=== PATIENT | female | born 1940 | race Caucasian/White ===

== ENCOUNTER 2020-02-02 08:08 | Inpatient (IN) | payer MEDICARE ==
[2020-02-02] MEDS ORDERED: IPRATROPIUM-ALBUTEROL 3 ML NEB INHALATION STA (08:30)
--- NOTE | 2020-02-02 08:32 | ED ---
General Adult HPI - General Chief complaint: Shortness of Breath Stated complaint: HEIDI Time Seen by Provider: 02/02/20 08:18 Source: patient, family, RN notes reviewed Mode of arrival: wheelchair Limitations: no limitations - History of Present Illness Initial comments: Patient is a pleasant 80-year-old female presenting to the emergency Department with complaints of difficulty in breathing. Onset of symptoms was just this morning. Patient felt fine when she went to bed last night. No fever. No cough. No chest pain. No history of similar symptoms previously. Patient is a smoker. Patient does not use inhalers at home. No leg pain or leg swelling. - Related Data Home Medications Medication Instructions Recorded Confirmed No Known Home Medications 02/02/20 02/02/20 Allergies Allergy/AdvReac Type Severity Reaction Status Date / Time Penicillins Allergy Rash/Hives Verified 02/02/20 09:50 Review of Systems ROS Statement: Those systems with pertinent positive or pertinent negative responses have been documented in the HPI. ROS Other: All systems not noted in ROS Statement are negative. Constitutional: Denies: fever Eyes: Denies: eye pain ENT: Denies: ear pain Respiratory: Reports: dyspnea. Denies: cough Cardiovascular: Denies: chest pain Endocrine: Denies: fatigue Gastrointestinal: Denies: abdominal pain Genitourinary: Denies: dysuria Musculoskeletal: Denies: back pain Skin: Denies: rash Neurological: Denies: weakness Past Medical History Past Medical History: Hypertension Past Surgical History: Hysterectomy Smoking Status: Current every day smoker Past Alcohol Use History: None Reported Past Drug Use History: None Reported General Exam Limitations: no limitations General appearance: alert, in no apparent distress Head exam: Present: normocephalic Eye exam: Present: normal appearance Neck exam: Present: normal inspection Respiratory exam: Present: wheezes, decreased breath sounds Cardiovascular Exam: Present: irregular rhythm GI/Abdominal exam: Present: soft. Absent: tenderness Extremities exam: Present: normal inspection. Absent: pedal edema, calf tenderness Neurological exam: Present: alert Psychiatric exam: Present: normal affect, normal mood Skin exam: Present: normal color Course Vital Signs 02/02/20 02/02/20 08:09 08:38 Temperature 97.5 F L Pulse Rate 79 90 Respiratory 24 16 Rate Blood Pressure 179/53 193/90 O2 Sat by Pulse 92 L 98 Oximetry - Reevaluation(s) Reevaluation #1: 02/02/20 10:02 Repeat EKG shows sinus rhythm at 81 with frequent premature atrial complexes. TX 124. QRS 68. QT 420. QTc 487. LVH criteria. Normal axis. Q waves V1 and V2. No acute ST change. EKG Findings - EKG Comments: EKG Findings:: Sinus rhythm and 91 with frequent premature supraventricular complexes. TX 200. QRS 62. QT 372. QTC 457. Normal axis. LVH criteria. Repolarization changes. Q waves V1 and V2. Medical Decision Making - Medical Decision Making Patient reevaluated and does not feel any better following inhaler. Lung sounds remained diminished. Pulse ox decreased to 94% on room air and patient has increased dyspnea. Symptoms improved with oxygen. Patient updated. Case discussed with Dr. Ortiz, who will admit covering for Dr. Escalante. - Lab Data Result diagrams: 02/02/20 08:35 02/02/20 08:35 Lab Results 02/02/20 02/02/20 02/02/20 Range/Units 08:35 08:35 08:35 WBC 9.5 (3.8-10.6) k/uL RBC 4.36 (3.80-5.40) m/uL Hgb 14.3 (11.4-16.0) gm/dL Hct 43.9 (34.0-46.0) % MCV 100.6 H (80.0-100.0) fL MCH 32.8 (25.0-35.0) pg MCHC 32.6 (31.0-37.0) g/dL RDW 13.5 (11.5-15.5) % Plt Count 221 (150-450) k/uL MPV 9.1 Neutrophils % 77 % Lymphocytes % 9 % Monocytes % 9 % Eosinophils % 1 % Basophils % 1 % Neutrophils # 7.3 (1.3-7.7) k/uL Lymphocytes # 0.9 L (1.0-4.8) k/uL Monocytes # 0.9 (0-1.0) k/uL Eosinophils # 0.1 (0-0.7) k/uL Basophils # 0.1 (0-0.2) k/uL PT 10.0 (9.0-12.0) sec INR 1.0 (<1.2) APTT 23.3 (22.0-30.0) sec D-Dimer 0.46 (<0.60) mg/L FEU Sodium 136 L (137-145) mmol/L Potassium 5.6 H (3.5-5.1) mmol/L Chloride 105 (98-107) mmol/L Carbon Dioxide 25 (22-30) mmol/L Anion Gap 6 mmol/L BUN 17 (7-17) mg/dL Creatinine 0.59 (0.52-1.04) mg/dL Est GFR (CKD-EPI)AfAm >90 (>60 ml/min/1.73 sqM) Est GFR (CKD-EPI)NonAf 88 (>60 ml/min/1.73 sqM) Glucose 98 (74-99) mg/dL Plasma Lactic Acid José Miguel (0.7-2.0) mmol/L Calcium 9.8 (8.4-10.2) mg/dL Magnesium 1.8 (1.6-2.3) mg/dL Total Bilirubin 1.3 (0.2-1.3) mg/dL AST 34 (14-36) U/L ALT 10 (4-34) U/L Alkaline Phosphatase 85 (38-126) U/L Lactate Dehydrogenase 928 H (313-618) U/L NT-Pro-B Natriuret Pep pg/mL Total Protein 8.0 (6.3-8.2) g/dL Albumin 4.2 (3.5-5.0) g/dL Coronavirus (PCR) (Not Detectd) 02/02/20 02/02/20 02/02/20 Range/Units 08:35 08:35 09:05 WBC (3.8-10.6) k/uL RBC (3.80-5.40) m/uL Hgb (11.4-16.0) gm/dL Hct (34.0-46.0) % MCV (80.0-100.0) fL MCH (25.0-35.0) pg MCHC (31.0-37.0) g/dL RDW (11.5-15.5) % Plt Count (150-450) k/uL MPV Neutrophils % % Lymphocytes % % Monocytes % % Eosinophils % % Basophils % % Neutrophils # (1.3-7.7) k/uL Lymphocytes # (1.0-4.8) k/uL Monocytes # (0-1.0) k/uL Eosinophils # (0-0.7) k/uL Basophils # (0-0.2) k/uL PT (9.0-12.0) sec INR (<1.2) APTT (22.0-30.0) sec D-Dimer (<0.60) mg/L FEU Sodium (137-145) mmol/L Potassium (3.5-5.1) mmol/L Chloride (98-107) mmol/L Carbon Dioxide (22-30) mmol/L Anion Gap mmol/L BUN (7-17) mg/dL Creatinine (0.52-1.04) mg/dL Est GFR (CKD-EPI)AfAm (>60 ml/min/1.73 sqM) Est GFR (CKD-EPI)NonAf (>60 ml/min/1.73 sqM) Glucose (74-99) mg/dL Plasma Lactic Acid José Miguel 0.9 (0.7-2.0) mmol/L Calcium (8.4-10.2) mg/dL Magnesium (1.6-2.3) mg/dL Total Bilirubin (0.2-1.3) mg/dL AST (14-36) U/L ALT (4-34) U/L Alkaline Phosphatase (38-126) U/L Lactate Dehydrogenase (313-618) U/L NT-Pro-B Natriuret Pep 3230 pg/mL Total Protein (6.3-8.2) g/dL Albumin (3.5-5.0) g/dL Coronavirus (PCR) Not Detected (Not Detectd) - Radiology Data Radiology results: image reviewed (Chest x-ray shows interstitial changes, COPD) Disposition Clinical Impression: Acute exacerbation of chronic obstructive pulmonary disease Disposition: ADMITTED IP TO THIS HOSP Is patient prescribed a controlled substance at d/c from ED?: No Referrals: Chong Zuluaga DO [Primary Care Provider] - 1-2 days Decision Time: 10:05
[2020-02-02] MEDS ORDERED: ALBUTEROL HFA INHALER INHALATION STA (08:46)
[2020-02-02 09:02] LABS: Basophils # (A) 0.1 k/uL (0-0.2); Basophils % (A) 1 %; Eosinophils # (A) 0.1 k/uL (0-0.7); Eosinophils % (A) 1 %; HCT 43.9 % (34.0-46.0); HGB 14.3 gm/dL (11.4-16.0); Lymphocytes # (A) 0.9 k/uL (1.0-4.8); Lymphocytes % (A) 9 %; MCH 32.8 pg (25.0-35.0); MCHC 32.6 g/dL (31.0-37.0); MCV 100.6 fL (80.0-100.0); Mean Platelet Volume 9.1; Monocytes # (A) 0.9 k/uL (0-1.0); Monocytes % (A) 9 %; Neutrophils # (A) 7.3 k/uL (1.3-7.7); Neutrophils % (A) 77 %; Platelet Count 221 k/uL (150-450); RBC 4.36 m/uL (3.80-5.40); RDW 13.5 % (11.5-15.5); WBC 9.5 k/uL (3.8-10.6)
[2020-02-02 09:13] LABS: ALT 10 U/L (4-34); AST 34 U/L (14-36); African American GFR (CKD) >90 (>60 ml/min/1.73 sqM); Albumin 4.2 g/dL (3.5-5.0); Alkaline Phosphatase 85 U/L (38-126); Anion Gap 6 mmol/L; Blood Urea Nitrogen 17 mg/dL (7-17); Calcium 9.8 mg/dL (8.4-10.2); Carbon Dioxide 25 mmol/L (22-30); Chloride 105 mmol/L (98-107); Glucose 98 mg/dL (74-99); LDH 928 U/L (313-618); Magnesium 1.8 mg/dL (1.6-2.3); Non-African American GFR(CKD) 88 (>60 ml/min/1.73 sqM); Potassium 5.6 mmol/L (3.5-5.1); Sodium 136 mmol/L (137-145); Total Bilirubin 1.3 mg/dL (0.2-1.3)
[2020-02-02 09:17] LABS: D-Dimer 0.46 mg/L FEU (<0.60); Partial Thromboplastin Time 23.3 sec (22.0-30.0)
--- NOTE | 2020-02-02 09:51 | XR ---
EXAMINATION TYPE: XR chest 1V portable DATE OF EXAM: 02/02/2020 COMPARISON: Rib series 05/14/2013 HISTORY: Suspected Covid 19 pneumonia, cough and fever TECHNIQUE: Single frontal view of the chest is obtained. FINDINGS: Aorta is dense. There is an underlying scoliosis. Prominent lung volumes may be indicative of underlying COPD. Heart size may be accentuated by rotation. Interstitium is increased. There is n o pneumothorax or pleural effusion. Pleural thickening along the right lateral chest wall likely rela abelardo to patient's prior rib fractures, chronic pleural thickening. There are overlying cardiac leads. Arthropathy changes are present within the shoulders. Bone mineralization is reduced. IMPRESSION: Suspect some underlying interstitial changes within the lungs, possible COPD, emphysema. Additional findings above. Consider follow-up PA and lateral chest x-ray.
[2020-02-02] MEDS ORDERED: methylPREDNISolone SOD SUCCI 125 MG/2 ML VIAL IV STA (10:06)
[2020-02-02] MEDS ORDERED: IPRATROPIUM-ALBUTEROL 3 ML NEB INHALATION PRN (10:06)
[2020-02-02 10:12] LABS: C Reactive Protein <5.0 mg/L (<10.0)
[2020-02-02] MEDS: ACETAMINOPHEN TAB 325 MG TAB PO PRN ×2 (11:56→22:02)
[2020-02-02] MEDS ORDERED: IPRATROPIUM-ALBUTEROL 3 ML NEB INHALATION SCH (12:00)
--- NOTE | 2020-02-02 13:22 | P.HPIM ---
History of Present Illness H&P Date: 02/02/20 HISTORY OF PRESENT ILLNESS This is an 89-year-old female patient of Dr. Zuluaga with past medical history of hypertension, tobacco use and dependence greater than 49-[id number] history. Patient states that she woke up with shortness of breath. She denies any cough or sputum production. She denies any history of COPD. She denies having any fever or chills. EKG was a sinus rhythm without ST changes. CBC normal. Sodium 136 and potassium 5.6 otherwise CMP normal. Initial pulse ox 92% on room air, afebrile, heart rate 79, respiratory rate 24. LDH 928. COVID-19 not detected. Lactic acid 0.9. ProBNP 3230. Chest x-ray reveals suspected underlying interstitial changes within the lungs, possible COPD, emphysema. Patient is seen today in the emergency center, waiting for [facility] bed. REVIEW OF SYSTEMS Constitutional: No fever, no chills, no night sweats. No weight change. No weakness, fatigue or lethargy. No daytime sleepiness. EENT: No headache. No blurred vision or double vision, no loss of vision. No nasal drainage or congestion. No epistaxis. No sore throat. Lungs: Reports reports shortness of breath with activity. shortness of breath, cough, no sputum production. No wheezing. Cardiovascular: No chest pain, no lower extremity edema. No palpitations. No paroxysmal nocturnal dyspnea. No orthopnea. No lightheadedness or dizziness. No syncopal episodes. Abdominal: No abdominal pain. No nausea, vomiting. No diarrhea. No constipation. No bloody or tarry stools.. No loss of appetite. Genitourinary: No dysuria, increased frequency, urgency. Musculoskeletal: No myalgias. No muscle weakness, no gait dysfunction, no frequent falls. No back pain. No neck pain. Integumentary: No wounds, no lesions. No rash or pruritus. Neurologic: No aphasia. No facial droop. No change in mentation. No head injury. No headache. Psychiatric: No depression. No anxiety. Endocrine: No abnormal blood sugars. SOCIAL HISTORY Patient is a smoker greater than 1 pack per year for greater than 50 years. She drinks wine occasionally. No illicit drug use. She is and lives alone. FAMILY HISTORY Mother in her 80s from old age. Father in his 80s while he was sleeping. Patient has a total of 5 siblings and one brother has history of coronary artery disease with CABG. Patient's 3 children with no major medical problems. PHYSICAL EXAMINATION Gen: This is a 80-year-old female. She is resting on the ER stretcher and appears to be comfortable and in no acute distress. No respiratory distress is noted. HEENT: Head is atraumatic, normocephalic. Pupils equal, round. Sclerae is anicteric. NECK: Supple. No JVD. No lymphadenopathy. No thyromegaly. LUNGS: Crackles bilateral with more so on the right side. No intercostal retractions. HEART: Regular rate and rhythm. No murmur. ABDOMEN: Soft. Bowel sounds are present. No masses. No tenderness. EXTREMITIES: No pedal edema. No calf tenderness. Dorsalis pedis +2 bilaterally. NEUROLOGICAL: Patient is awake, alert and oriented x3. Cranial nerves 2 through 12 are grossly intact. ASSESSMENT AND PLAN 1. COPD exacerbation. Patient started on DuoNeb treatments 3 times daily and as needed, Pulmicort 1 mg twice daily, Solu-Medrol 60 mg IV every 6 hours. Covid 19 is negative. Pulmonary consult 2. Hypertension. Patient started on losartan 25 mg daily. 3. Tobacco use and dependence. Start nicotine patch 21 mg daily. 4. GI prophylaxis. Protonix. 5. DVT prophylaxis. Heparin subcu. Patient will be admitted to the hospital for a minimum of 2 night stay. DISCHARGE PLAN home. Impression and plan of care have been directed as dictated by the signing physician. Sameera Medrano nurse practitioner acting as scribe for signing physician. Past Medical History Past Medical History: Hypertension Past Surgical History: Hysterectomy Smoking Status: Current every day smoker Past Alcohol Use History: None Reported Past Drug Use History: None Reported Medications and Allergies Home Medications Medication Instructions Recorded Confirmed Type No Known Home Medications 02/02/20 02/02/20 History Allergies Allergy/AdvReac Type Severity Reaction Status Date / Time Penicillins Allergy Rash/Hives Verified 02/02/20 09:50 Physical Exam Vitals: Vital Signs Temp Pulse Resp BP Pulse Ox 02/02/20 12:33 79 02/02/20 12:28 18 02/02/20 12:23 81 02/02/20 10:04 77 22 163/100 97 02/02/20 10:00 98.1 F 74 18 163/100 99 02/02/20 08:38 90 16 193/90 98 02/02/20 08:09 97.5 F L 79 24 179/53 92 L Intake and Output 02/01/20 02/02/20 02/02/20 22:59 06:59 14:59 Other: Weight 54.431 kg Results CBC & Chem 7: 02/02/20 08:35 02/02/20 08:35 Labs: Abnormal Lab Results - Last 24 Hours (Table) 02/02/20 02/02/20 Range/Units 08:35 08:35 MCV 100.6 H (80.0-100.0) fL Lymphocytes # 0.9 L (1.0-4.8) k/uL Sodium 136 L (137-145) mmol/L Potassium 5.6 H (3.5-5.1) mmol/L Lactate Dehydrogenase 928 H (313-618) U/L
[2020-02-02] MEDS: NICOTINE 21MG/24HR PATCH TRANSDERM SCH (13:53)
[2020-02-02] MEDS: LOSARTAN 25 MG TAB PO SCH (13:54)
[2020-02-02 16:50] LABS: Glucose,Whole Blood 180 mg/dL (75-99)
[2020-02-02 18:47] LABS: Glucose,Whole Blood 185 mg/dL (75-99)
[2020-02-02] MEDS: INSULIN ASPART (NovoLOG) 100 UNIT/ML VIAL SQ SCH ×2 (18:58→21:55)
[2020-02-02] MEDS: IPRATROPIUM-ALBUTEROL 3 ML NEB INHALATION SCH (19:36)
[2020-02-02] MEDS: BUDESONIDE 1 MG/2 ML NEBU INHALATION SCH (19:36)
[2020-02-02 21:37] LABS: Glucose,Whole Blood 130 mg/dL (75-99)
[2020-02-02] MEDS: methylPREDNISolone SOD SUCCI 125 MG/2 ML VIAL IV SCH ×2 (21:38→23:05)
[2020-02-02] MEDS: HEPARIN SODIUM,PORCINE 5,000 UNIT/ML 1 ML VIAL SQ SCH (21:40)
[2020-02-03] MEDS: methylPREDNISolone SOD SUCCI 125 MG/2 ML VIAL IV SCH ×4 (05:43→23:18)
[2020-02-03 07:24] LABS: Glucose,Whole Blood 115 mg/dL (75-99)
[2020-02-03] MEDS: INSULIN ASPART (NovoLOG) 100 UNIT/ML VIAL SQ SCH ×4 (08:20→19:49)
[2020-02-03] MEDS: IPRATROPIUM-ALBUTEROL 3 ML NEB INHALATION SCH ×3 (08:33→19:13)
[2020-02-03] MEDS: BUDESONIDE 1 MG/2 ML NEBU INHALATION SCH ×3 (08:43→19:13)
[2020-02-03] MEDS: PANTOPRAZOLE 40 MG TABLET PO SCH (09:22)
[2020-02-03] MEDS: HEPARIN SODIUM,PORCINE 5,000 UNIT/ML 1 ML VIAL SQ SCH ×2 (09:22→19:49)
[2020-02-03] MEDS: LOSARTAN 25 MG TAB PO SCH (09:22)
[2020-02-03] MEDS: NICOTINE 21MG/24HR PATCH TRANSDERM SCH (09:22)
[2020-02-03] MEDS: AZITHROMYCIN 500 MG TAB PO SCH (10:28)
[2020-02-03 12:09] LABS: Glucose,Whole Blood 124 mg/dL (75-99)
--- NOTE | 2020-02-03 13:04 | P.PN ---
Subjective Progress Note Date: 02/03/20 HISTORY OF PRESENT ILLNESS This is an 89-year-old female patient of Dr. Zuluaga with past medical history of hypertension, tobacco use and dependence greater than 50-pa ck-year history. Patient states that she woke up with shortness of breath. She denies any cough or sputum production. She denies any history of COPD. She denies having any fever or chills. EKG was a sinus rhythm without ST changes. CBC normal. Sodium 136 and potassium 5.6 otherwise CMP normal. Initial pulse ox 92% on room air, afebrile, heart rate 79, respiratory rate 24. LDH 928. COVID-19 not detected. Lactic acid 0.9. ProBNP 3230. Chest x-ray reveals suspected underlying interstitial changes within the lungs, possible COPD, emphysema. Patient is seen today in the emergency center, waiting for [facility] bed. 02/02: Patient is continuing to have shortness of breath as well as a cough. She is on psych mental 60 mg IV every 6 hours which will be continued. She is also on a Zithromax and ceftriaxone. Consult in place with pulmonary medicine. She has been afebrile, heart rate 80, blood pressure 165/75, pulse ox 97% on 2 L nasal cannula. Blood sugars are running between 115 and 30. REVIEW OF SYSTEMS Constitutional: No fever, no chills, no night sweats. No weight change. No weakness, fatigue or lethargy. No daytime sleepiness. EENT: No headache. No blurred vision or double vision, no loss of vision. No nasal drainage or congestion. No epistaxis. No sore throat. Lungs: Reports reports shortness of breath with activity. shortness of breath, reports cough, no sputum production. Reports wheezing. Cardiovascular: No chest pain, no lower extremity edema. No palpitations. No paroxysmal nocturnal dyspnea. No orthopnea. No lightheadedness or dizziness. No syncopal episodes. Abdominal: No abdominal pain. No nausea, vomiting. No diarrhea. No constipation. No bloody or tarry stools.. No loss of appetite. Genitourinary: No dysuria, increased frequency, urgency. Musculoskeletal: No myalgias. No muscle weakness, no gait dysfunction, no frequent falls. No back pain. No neck pain. Integumentary: No wounds, no lesions. No rash or pruritus. Neurologic: No aphasia. No facial droop. No change in mentation. No head injury. No headache. Psychiatric: No depression. No anxiety. Endocrine: No abnormal blood sugars. PHYSICAL EXAMINATION Gen: This is a 80-year-old female. She is resting in bed with mild dyspnea. HEENT: Head is atraumatic, normocephalic. Pupils equal, round. Sclerae is anicteric. NECK: Supple. No JVD. No lymphadenopathy. No thyromegaly. LUNGS: Crackles bilateral with more so on the right side, scattered wheezing. HEART: Regular rate and rhythm. No murmur. ABDOMEN: Soft. Bowel sounds are present. No masses. No tenderness. EXTREMITIES: No pedal edema. No calf tenderness. Dorsalis pedis +2 bilaterally. NEUROLOGICAL: Patient is awake, alert and oriented x3. Cranial nerves 2 through 12 are grossly intact. ASSESSMENT AND PLAN 1. COPD exacerbation. Patient started on DuoNeb treatments 3 times daily and as needed, Pulmicort 1 mg twice daily, Solu-Medrol 60 mg IV every 6 hours. Covid 19 is negative. Pulmonary consult in place. 2. Hypertension. Patient started on losartan 25 mg daily. 3. Tobacco use and dependence. Start nicotine patch 21 mg daily. 4. GI prophylaxis. Protonix. 5. DVT prophylaxis. Heparin subcu. DISCHARGE PLAN home. Impression and plan of care have been directed as dictated by the signing physician. Sameera Medrano nurse practitioner acting as scribe for signing physician. Objective - Vital Signs Vital signs: Vital Signs Temp 98.2 F 02/03/20 07:55 Pulse 80 02/03/20 07:55 Resp 17 02/03/20 07:55 BP 165/75 02/03/20 07:55 Pulse Ox 97 02/03/20 07:55 Intake & Output 02/02/20 02/03/20 02/03/20 18:59 06:59 18:59 Weight 54.431 kg 54.431 kg Other: Voiding Method Toilet # Voids 1 # Bowel Movements 1 - Labs CBC & Chem 7: 02/02/20 08:35 02/02/20 08:35 Labs: Abnormal Lab Results - Last 24 Hours (Table) 02/02/20 02/02/20 02/02/20 Range/Units 16:39 18:45 21:34 POC Glucose (mg/dL) 180 H 185 H 130 H (75-99) mg/dL 02/03/20 Range/Units 07:20 POC Glucose (mg/dL) 115 H (75-99) mg/dL
--- NOTE | 2020-02-03 15:04 | CONS ---
CONSULTATION PULMONARY/CRITICAL CARE CONSULTATION: DATE OF SERVICE: 02/03/2020 REASON FOR CONSULTATION: Shortness of breath/COPD. This is a 80-year-old female who sees Dr. Zuluaga as her primary. The patient apparently came to the emergency room complaining of shortness of breath. She had been having shortness of breath for a couple days prior to admission. In addition, she has got a bit of a cough. The cough is mostly nonproductive. She does have chest congestion. She denies any fever or chills. No chest pain or chest discomfort. She denies any nausea, vomiting, diarrhea. She denies any genitourinary complaints. She denies abdominal pain. She is a heavy smoker. She was smoking up until the time she came into the hospital. She has been smoking since the age of 22. PAST MEDICAL HISTORY: Positive for hypertension. SURGICAL HISTORY: Includes a previous hysterectomy. SOCIAL HISTORY: Positive for ongoing tobacco use on a daily basis. She has been smoking since the age of 22. She denies any alcohol or illicit drug use. HOME MEDICATIONS: None. ALLERGIES: PENICILLIN. REVIEW OF SYSTEMS: CONSTITUTIONAL: Negative. NEUROLOGIC: Negative. HEENT: Negative. CARDIOVASCULAR: Negative. PULMONARY: Shortness of breath, worse on exertion, and dry nonproductive cough. GI: Negative. : Negative. RHEUMATOLOGIC: Negative. IMMUNOLOGIC: Negative. ENDOCRINOLOGIC: Negative. DERMATOLOGIC: Negative. Vital signs are reviewed, temperature 98.2, heart rate 80, respiratory rate 17, blood pressure 165/75 mean 105, 2 L saturation 97%. Appears in no acute distress. HEENT: Examination is grossly unremarkable. NECK: Supple, full range of motion. No adenopathy. Neck veins are flat. CARDIOVASCULAR: Examination reveals regular rhythm and rate. Heart rate 76 beats per minute. S1, S2 normal. No S3, S4, or murmur. LUNGS: Reveal diffuse inspiratory and expiratory wheezes and rhonchi. There is prolongation. There are some bibasilar crackles. Breath sounds equal bilaterally. ABDOMEN: Soft, bowel sounds are heard. EXTREMITIES: Intact. No cyanosis, clubbing, or edema. SKIN: Without rash. NEUROLOGIC: Examination is nonfocal. LABS: Reviewed. White count 9.5, hemoglobin 14.3, hematocrit 43.9, platelet count 221,000. PT, INR, PTT normal. D-dimer normal, sodium 136, potassium 5.6, chloride 105, CO2 is 25, anion gap is . BUN and creatinine were 17 and 0.59. LDH 928. The rest of the labs look pretty good. N-terminal proBNP 3230. COVID testing was negative. Microbiology is negative. Chest x-ray shows some mild interstitial changes, which may relate to underlying interstitial edema. There is also some changes of underlying COPD. Current medications are reviewed. The patient is currently on Pulmicort and formoterol. The patient is getting Zithromax. The patient is also getting ceftriaxone. She is also on DuoNeb q.i.d. and p.r.n. and Solu-Medrol. Other medications are reviewed and are appropriate. ASSESSMENT: 1. Shortness of breath, likely primarily related to underlying COPD exacerbation from heavy tobacco use, plus a minor component of fluid overload/congestive heart failure. 2. History of hypertension. 3. Ongoing tobacco use with nicotine addiction. PLAN: The patient should get some Lasix. In addition, the other medications are appropriate including DuoNeb, Pulmicort, formoterol, and Solu-Medrol. The patient really does not need IV antibiotics at this time. There is no evidence of pneumonia. The patient's antibiotics could be escalated and she can get a single oral antibiotic. In addition, as I mentioned, the patient should get some Lasix. No additional recommendations are made. Follow up with me in the office post discharge for PFT testing. TESS / ABYN: [id number] /
[2020-02-03] MEDS: ACETAMINOPHEN TAB 325 MG TAB PO PRN (16:15)
[2020-02-03 16:57] LABS: Glucose,Whole Blood 138 mg/dL (75-99)
[2020-02-03] MEDS: Acetaminophen-Codeine 300-30mg TAB PO PRN ×2 (18:08→23:19)
[2020-02-03] MEDS: FORMOTEROL FUMARATE 20 MCG/2 ML NEBU INHALATION SCH (19:13)
[2020-02-03 19:46] LABS: Glucose,Whole Blood 161 mg/dL (75-99)
[2020-02-04] MEDS: methylPREDNISolone SOD SUCCI 125 MG/2 ML VIAL IV SCH (05:24)
[2020-02-04 07:05] LABS: Glucose,Whole Blood 110 mg/dL (75-99)
[2020-02-04] MEDS: IPRATROPIUM-ALBUTEROL 3 ML NEB INHALATION SCH ×3 (07:21→20:14)
[2020-02-04] MEDS: BUDESONIDE 1 MG/2 ML NEBU INHALATION SCH ×2 (07:21→20:14)
[2020-02-04] MEDS: FORMOTEROL FUMARATE 20 MCG/2 ML NEBU INHALATION SCH ×2 (07:21→20:14)
[2020-02-04] MEDS: INSULIN ASPART (NovoLOG) 100 UNIT/ML VIAL SQ SCH ×4 (07:50→20:31)
[2020-02-04] MEDS: LOSARTAN 25 MG TAB PO SCH (07:56)
[2020-02-04] MEDS: HEPARIN SODIUM,PORCINE 5,000 UNIT/ML 1 ML VIAL SQ SCH ×2 (07:56→20:35)
[2020-02-04] MEDS: PANTOPRAZOLE 40 MG TABLET PO SCH (07:56)
[2020-02-04] MEDS: NICOTINE 21MG/24HR PATCH TRANSDERM SCH (07:56)
[2020-02-04] MEDS: AZITHROMYCIN 500 MG TAB PO SCH (07:56)
--- NOTE | 2020-02-04 10:45 | P.PN ---
Subjective Progress Note Date: 02/04/20 HISTORY OF PRESENT ILLNESS This is an 89-year-old female patient of Dr. Zuluaga with past medical history of hypertension, tobacco use and dependence greater than 50-pa ck-year history. Patient states that she woke up with shortness of breath. She denies any cough or sputum production. She denies any history of COPD. She denies having any fever or chills. EKG was a sinus rhythm without ST changes. CBC normal. Sodium 136 and potassium 5.6 otherwise CMP normal. Initial pulse ox 92% on room air, afebrile, heart rate 79, respiratory rate 24. LDH 928. COVID-19 not detected. Lactic acid 0.9. ProBNP 3230. Chest x-ray reveals suspected underlying interstitial changes within the lungs, possible COPD, emphysema. Patient is seen today in the emergency center, waiting for [facility] bed. 02/02: Patient is continuing to have shortness of breath as well as a cough. She is on psych mental 60 mg IV every 6 hours which will be continued. She is also on a Zithromax and ceftriaxone. Consult in place with pulmonary medicine. She has been afebrile, heart rate 80, blood pressure 165/75, pulse ox 97% on 2 L nasal cannula. Blood sugars are running between 115 and 30. 02/03: Patient's breathing status is slowly improving. She is currently on Solu-Medrol 60 mg every 6 hours which will be decreased to 40 every 8 and transitioned to oral prednisone tomorrow. She is continued on oral antibiotics with Zithromax and DuoNeb treatments. She has been afebrile, heart rate 76, blood pressure 117/53, pulse ox 97% on 2 L nasal cannula. Blood sugars are running between 110 and 161. Anticipate discharge home tomorrow. REVIEW OF SYSTEMS Constitutional: No fever, no chills, no night sweats. No weight change. No weakness, fatigue or lethargy. No daytime sleepiness. EENT: No headache. No blurred vision or double vision, no loss of vision. No nasal drainage or congestion. No epistaxis. No sore throat. Lungs: Reports reports shortness of breath with activity. shortness of breath, reports cough, no sputum production. Reports wheezing. Cardiovascular: No chest pain, no lower extremity edema. No palpitations. No paroxysmal nocturnal dyspnea. No orthopnea. No lightheadedness or dizziness. No syncopal episodes. Abdominal: No abdominal pain. No nausea, vomiting. No diarrhea. No constipation. No bloody or tarry stools.. No loss of appetite. Genitourinary: No dysuria, increased frequency, urgency. Musculoskeletal: No myalgias. No muscle weakness, no gait dysfunction, no frequent falls. No back pain. No neck pain. Integumentary: No wounds, no lesions. No rash or pruritus. Neurologic: No aphasia. No facial droop. No change in mentation. No head injury. No headache. Psychiatric: No depression. No anxiety. Endocrine: No abnormal blood sugars. PHYSICAL EXAMINATION Gen: This is a 80-year-old female. She is resting in bed with mild dyspnea. HEENT: Head is atraumatic, normocephalic. Pupils equal, round. Sclerae is anicteric. NECK: Supple. No JVD. No lymphadenopathy. No thyromegaly. LUNGS: Crackles bilateral with more so on the right side, scattered wheezing. HEART: Regular rate and rhythm. No murmur. ABDOMEN: Soft. Bowel sounds are present. No masses. No tenderness. EXTREMITIES: No pedal edema. No calf tenderness. Dorsalis pedis +2 bilaterally. NEUROLOGICAL: Patient is awake, alert and oriented x3. Cranial nerves 2 through 12 are grossly intact. ASSESSMENT AND PLAN 1. COPD exacerbation. Patient started on DuoNeb treatments 3 times daily and as needed, Pulmicort 1 mg twice daily, Solu-Medrol 60 mg IV every 6 hours. Covid 19 is negative. Pulmonary consult in place. 2. Hypertension. Patient started on losartan 25 mg daily. 3. Tobacco use and dependence. Start nicotine patch 21 mg daily. 4. Hyperglycemia secondary to steroids. NovoLog scale. 5. GI prophylaxis. Protonix. 6. DVT prophylaxis. Heparin subcu. DISCHARGE PLAN home without home care most likely on Friday Impression and plan of care have been directed as dictated by the signing physician. Sameera Medrano nurse practitioner acting as scribe for signing physician. Objective - Vital Signs Vital signs: Vital Signs Temp 97.3 F L 02/04/20 07:00 Pulse 85 02/04/20 07:45 Resp 18 02/04/20 07:00 BP 117/53 02/04/20 07:00 Pulse Ox 97 02/04/20 07:00 Intake & Output 02/03/20 02/04/20 02/04/20 18:59 06:59 18:59 Intake Total 50 Balance 50 Intake: IV 50 cefTRIAXone 1 gm In 50 Sodium Chloride 0.9% 50 ml @ 100 mls/hr IVPB Q24HR [facility] Rx#:[id number] Other: Voiding Method Bedside Commode # Voids 3 - Labs CBC & Chem 7: 02/02/20 08:35 02/02/20 08:35 Labs: Abnormal Lab Results - Last 24 Hours (Table) 02/03/20 02/03/20 02/03/20 Range/Units 12:03 16:53 19:44 POC Glucose (mg/dL) 124 H 138 H 161 H (75-99) mg/dL 02/04/20 Range/Units 07:04 POC Glucose (mg/dL) 110 H (75-99) mg/dL
[2020-02-04 11:30] LABS: Glucose,Whole Blood 100 mg/dL (75-99)
--- NOTE | 2020-02-04 15:10 | P.PN ---
Subjective Progress Note Date: 02/04/20 Principal diagnosis: Acute exacerbation of COPD 80-year-old white female patient with history of chronic and ongoing nicotine dependence, smoking, COPD, hypertension, who came into the hospital on 02/02/2020 for evaluation of worsening shortness of breath for couple days prior to admission. She reports a mild cough with no significant phlegm production, reports chest congestion, but denied any fever or chills, denied any chest pain, denied any hemoptysis or palpitations. Chest x-ray showed some mild interstitial changes that could relate to underlying interstitial edema, and some changes of underlying COPD, she has been treated with bronchodilators, including DuoNeb, Pulmicort and formoterol, azithromycin, Rocephin, steroids, she is improving, less wheezy, less dyspnea, breathing seems comfortable on today's exam, her pro-calcitonin level came back negative at 0.03, proBNP level was elevated at 3230. She states she wants to go home today Objective - Vital Signs Vital signs: Vital Signs Temp 98.5 F 02/04/20 14:26 Pulse 61 02/04/20 14:26 Resp 18 02/04/20 14:26 BP 161/78 02/04/20 14:26 Pulse Ox 97 02/04/20 14:26 Intake & Output 02/03/20 02/04/20 02/04/20 18:59 06:59 18:59 Intake Total 50 Balance 50 Intake: IV 50 cefTRIAXone 1 gm In 50 Sodium Chloride 0.9% 50 ml @ 100 mls/hr IVPB Q24HR [facility] Rx#:[id number] Other: Voiding Method Bedside Commode Bedside Commode # Voids 3 - Exam GENERAL EXAM: Alert, very pleasant, 80-year-old white female, on room air with a pulse ox 97% comfortable in no apparent distress. HEAD: Normocephalic/atraumatic. EYES: Normal reaction of pupils, equal size. Conjunctiva pink, sclera white. NOSE: Clear with pink turbinates. THROAT: No erythema or exudates. NECK: No masses, no JVD, no thyroid enlargement, no adenopathy. CHEST: No chest wall deformity. Symmetrical expansion. LUNGS: Equal air entry with minimal scattered wheeze, but no rhonchi or dullness. CVS: Regular rate and rhythm, normal S1 and S2, no gallops, no murmurs, no rubs ABDOMEN: Soft, nontender. No hepatosplenomegaly, normal bowel sounds, no guarding or rigidity. EXTREMITIES: No clubbing, no edema, no cyanosis, 2+ pulses and upper and lower extremities. MUSCULOSKELETAL: Muscle strength and tone normal. SPINE: No scoliosis or deformity SKIN: No rashes CENTRAL NERVOUS SYSTEM: Alert and oriented -3. No focal deficits, tone is normal in all 4 extremities. PSYCHIATRIC: Alert and oriented -3. Appropriate affect. Intact judgment and insight. - Labs CBC & Chem 7: 02/02/20 08:35 02/02/20 08:35 Labs: Abnormal Lab Results - Last 24 Hours (Table) 02/03/20 02/03/20 02/04/20 Range/Units 16:53 19:44 07:04 POC Glucose (mg/dL) 138 H 161 H 110 H (75-99) mg/dL 02/04/20 Range/Units 11:28 POC Glucose (mg/dL) 100 H (75-99) mg/dL Assessment and Plan Plan: Assessment: #1. Shortness of breath, related to acute exacerbation of COPD, and a component of mild fluid overload, congestive heart failure with unknown systolic function #2. Chronic and ongoing history of smoking #3. COPD #4. Hypertension Plan: Patient has significantly improved, she states she is breathing much easier, continue current medical treatment, IV steroids, breathing treatments, antibiotics. Covid 19 was ruled out. Vital signs have been stable, increase activity as tolerated, from pulmonary perspective she can be considered for discharge home today or in the next 24 hours I performed a history & physical examination of the patient and discussed their management with my nurse practitioner, Shabnam Fisher. I reviewed the nurse practitioner's note and agree with the documented findings and plan of care. Lung sounds are positive for min wheezes. The findings and the impression was discussed with the patient. I attest to the documentation by the nurse practitioner. Time with Patient: Less than 30
[2020-02-04] MEDS ORDERED: methylPREDNISolone SOD SUCCI 40 MG/ML 1 ML VIAL IV SCH (16:00)
[2020-02-04 16:22] LABS: Glucose,Whole Blood 101 mg/dL (75-99)
[2020-02-04 20:21] LABS: Glucose,Whole Blood 94 mg/dL (75-99)
[2020-02-05 02:21] VITALS: BP 160/90; RESP 24; TEMP 98.3
[2020-02-05 07:06] LABS: Glucose,Whole Blood 85 mg/dL (75-99)
[2020-02-05] MEDS: HEPARIN SODIUM,PORCINE 5,000 UNIT/ML 1 ML VIAL SQ SCH (07:07)
[2020-02-05] MEDS: INSULIN ASPART (NovoLOG) 100 UNIT/ML VIAL SQ SCH (07:07)
[2020-02-05] MEDS: AZITHROMYCIN 500 MG TAB PO SCH (07:21)
[2020-02-05] MEDS: PANTOPRAZOLE 40 MG TABLET PO SCH (07:21)
[2020-02-05] MEDS: NICOTINE 21MG/24HR PATCH TRANSDERM SCH (07:21)
[2020-02-05] MEDS: LOSARTAN 25 MG TAB PO SCH (07:22)
[2020-02-05] MEDS: FORMOTEROL FUMARATE 20 MCG/2 ML NEBU INHALATION SCH (08:41)
[2020-02-05] MEDS: BUDESONIDE 1 MG/2 ML NEBU INHALATION SCH (08:41)
[2020-02-05] MEDS: IPRATROPIUM-ALBUTEROL 3 ML NEB INHALATION SCH (08:41)
[2020-02-05 09:00] VITALS: PULSE 100
[2020-02-05] MEDS ORDERED: predniSONE 20 MG TAB PO SCH (09:00)
--- NOTE | 2020-02-05 10:37 | P.DS ---
Providers Date of admission: 02/02/20 10:06 Attending physician: Jordan Ortiz Consults: 02/02/20 10:08 Consult Physician Urgent Consulting Provider: Boogie Ferrer Reason/Comments: dyspnea Do you want consulting provider notified?: Yes Primary care physician: Chong Zuluaga [facility] Course: This is an 89-year-old female patient of Dr. Zuluaga with past medical history of hypertension, tobacco use and dependence greater than 10-fwti-kont history. Patient states that she woke up with shortness of breath. She denies any cough or sputum production. She denies any history of COPD. She denies having any fever or chills. EKG was a sinus rhythm without ST changes. CBC normal. Sodium 136 and potassium 5.6 otherwise CMP normal. Initial pulse ox 92% on room air, afebrile, heart rate 79, respiratory rate 24. LDH 928. COVID-19 not detected. Lactic acid 0.9. ProBNP 3230. Chest x-ray reveals suspected underlying interstitial changes within the lungs, possible COPD, emphysema. Patient is seen today in the emergency center, waiting for [facility]. 02/02: Patient is continuing to have shortness of breath as well as a cough. She is on psych mental 60 mg IV every 6 hours which will be continued. She is also on a Zithromax and ceftriaxone. Consult in place with pulmonary medicine. She has been afebrile, heart rate 80, blood pressure 165/75, pulse ox 97% on 2 L nasal cannula. Blood sugars are running between 115 and 30. 02/03: Patient's breathing status is slowly improving. She is currently on Solu-Medrol 60 mg every 6 hours which will be decreased to 40 every 8 and transitioned to oral prednisone tomorrow. She is continued on oral antibiotics with Zithromax and DuoNeb treatments. She has been afebrile, heart rate 76, blood pressure 117/53, pulse ox 97% on 2 L nasal cannula. Blood sugars are running between 110 and 161. Anticipate discharge home tomorrow. 02/04: She left prior to assessment. Discharge diagnosis: 1. COPD exacerbation. 2. Hypertension. 3. Tobacco use and dependence. 4. Hyperglycemia secondary to steroids. DISCHARGE disposition: home without home care Impression and plan of care have been directed as dictated by the signing physician. Pooja Vega nurse practitioner acting as scribe for signing physician. Plan - Discharge Summary New Discharge Prescriptions: New Losartan [Cozaar] 25 mg PO DAILY #30 tab Nicotine 21Mg/24Hr Patch [Habitrol] 1 patch TRANSDERM DAILY #30 patch predniSONE 10 mg PO DIRECTED #40 tab Pantoprazole [Protonix] 40 mg PO AC-BRKFST #30 tablet. Acetaminophen Tab [Tylenol] 650 mg PO Q4HR PRN tab PRN Reason: Fever And/ Or Pain Albuterol Sulfate [Ventolin HFA] 2 puff INHALATION Q6H PRN #1 inhaler PRN Reason: Shortness Of Breath Azithromycin [Zithromax] 500 mg PO DAILY #5 tab Discharge Medication List Acetaminophen Tab [Tylenol] 650 mg PO Q4HR PRN tab 02/04/20 [Rx] Albuterol Sulfate [Ventolin HFA] 2 puff INHALATION Q6H PRN #1 inhaler 02/04/20 [Rx] Azithromycin [Zithromax] 500 mg PO DAILY #5 tab 02/04/20 [Rx] Losartan [Cozaar] 25 mg PO DAILY #30 tab 02/04/20 [Rx] Nicotine 21Mg/24Hr Patch [Habitrol] 1 patch TRANSDERM DAILY #30 patch 02/04/20 [Rx] Pantoprazole [Protonix] 40 mg PO AC-BRKFST #30 tablet. 02/04/20 [Rx] predniSONE 10 mg PO DIRECTED #40 tab 02/04/20 [Rx] Follow up Appointment(s)/Referral(s): Boogie Ferrer DO [Doctor of Osteopathic Medicine] - 1 Week (office closed at time of discharge. Please call Friday to schedule appointment) Chong Zuluaga DO [Primary Care Provider] - 1-2 days (office closed at time of discharge. Please call to make appointment ) Patient Instructions/Handouts: COPD (Chronic Obstructive Pulmonary Disease) (DC), Chronic Lung Disease and Infection Prevention (DC) Discharge Disposition: HOME SELF-CARE
== END 2020-02-05 09:05 | disposition home or self-care (01) | DRG 192 ==
LOC: EC 08:08 → 6NMEDSUR 10:06 → 4SSUR 18:28 → 3NCARDOBS 02-04 05:53 → 4SSUR 02-04 05:59
PROVIDERS: ADMIT Internal Medicine Geriatric Medicine; ATTEND Internal Medicine Geriatric Medicine
DX: J44.1 Chronic obstructive pulmonary disease with (acute) exacerbation (principal); F17.210 Nicotine dependence, cigarettes, uncomplicated; I11.0 Hypertensive heart disease with heart failure; I50.9 Heart failure, unspecified; T38.0X5A Adverse effect of glucocorticoids and synthetic analogues, initial encounter; R73.9 Hyperglycemia, unspecified; Z20.828 Contact with and (suspected) exposure to other viral communicable diseases; Z90.710 Acquired absence of both cervix and uterus; Z79.899 Other long term (current) drug therapy; Z88.0 Allergy status to penicillin
CPT/HCPCS: 36415; 71045; 80053; 82728; 83605; 83615; 83735; 83880; 84145; 85025; 85379; 85610; 85730; 86140; 87635; 93005; 94640; 96372; 96374; 96376; 99285

== ENCOUNTER 2020-02-18 04:09 | Inpatient (IN) | payer MEDICARE ==
[2020-02-18] MEDS ORDERED: NITROGLYCERIN SL TABS 0.4 MG TAB SUBLINGUAL STA (04:18)
[2020-02-18] MEDS ORDERED: MORPHINE SULFATE 4 MG/ML SYRINGE IV STA ×2 (04:18→07:08)
--- NOTE | 2020-02-18 04:22 | ED ---
SOB HPI - General Chief Complaint: Shortness of Breath Stated Complaint: AFIB,sob Time Seen by Provider: 02/18/20 04:11 Source: patient, EMS Mode of arrival: EMS Limitations: no limitations - History of Present Illness Initial Comments: This patient is 80-year-old woman who reports history of COPD. She states that she feels she was feeling about in her usual state of health last night and then awoke this morning with severe shortness of breath. Patient also is feeling hot and sweaty. She denied chest pain. She did have a little bit of cough and sputum. She has not had fever or chills. No leg pain or swelling. No change in urination or bowel movements. After EMS was activated they came and placed patient on CPAP and also administered albuterol. The patient has had some improvement with the oxygen they provided. She is not on home oxygen MD Complaint: shortness of breath -: minutes(s) Severity scale (1-10): 0 Consistency: constant Improves With: oxygen, upright position Worsens With: lying flat Known History Of: COPD Associated Symptoms: denies other symptoms Treatments Prior to Arrival: oxygen, bronchodilator - Related Data Home Oxygen Therapy: No Home Medications Medication Instructions Recorded Confirmed Albuterol Nebulized [Ventolin 2.5 mg INHALATION RT-QID PRN 02/18/20 02/18/20 Nebulized] Albuterol Sulfate [Ventolin HFA] 2 puff INHALATION RT-QID PRN 02/18/20 02/18/20 Previous Rx's Medication Instructions Recorded Acetaminophen Tab [Tylenol] 650 mg PO Q4HR PRN tab 02/04/20 Losartan [Cozaar] 25 mg PO DAILY #30 tab 02/04/20 Nicotine 21Mg/24Hr Patch [Habitrol] 1 patch TRANSDERM DAILY #30 patch 02/04/20 Allergies Allergy/AdvReac Type Severity Reaction Status Date / Time Penicillins Allergy Rash/Hives Verified 02/18/20 07:11 Review of Systems ROS Statement: Those systems with pertinent positive or pertinent negative responses have been documented in the HPI. ROS Other: All systems not noted in ROS Statement are negative. Constitutional: Denies: fever, chills Respiratory: Reports: cough, dyspnea. Denies: hemoptysis Cardiovascular: Reports: orthopnea. Denies: chest pain, palpitations, edema, syncope Gastrointestinal: Denies: abdominal pain, nausea, vomiting, melena, hematochezia Genitourinary: Denies: dysuria, hematuria Musculoskeletal: Denies: back pain Skin: Denies: rash Neurological: Denies: headache, weakness, numbness Psychiatric: Reports: anxiety Past Medical History Past Medical History: Hypertension History of Any Multi-Drug Resistant Organisms: None Reported Past Surgical History: Hysterectomy Past Anesthesia/Blood Transfusion Reactions: No Reported Reaction Past Psychological History: No Psychological Hx Reported Smoking Status: Current every day smoker Past Alcohol Use History: Occasional Past Drug Use History: None Reported General Exam Limitations: no limitations General appearance: alert, in distress Head exam: Present: atraumatic, normocephalic Eye exam: Present: normal appearance. Absent: scleral icterus, conjunctival injection ENT exam: Present: normal oropharynx Neck exam: Present: normal inspection Respiratory exam: Present: respiratory distress, wheezes, rales, accessory muscle use. Absent: rhonchi, stridor, decreased breath sounds, prolonged expiratory Cardiovascular Exam: Present: tachycardia, irregular rhythm, normal heart sounds. Absent: systolic murmur, diastolic murmur, rubs, gallop GI/Abdominal exam: Present: soft. Absent: distended, tenderness, guarding, rebound, rigid, mass Extremities exam: Present: normal inspection, normal capillary refill. Absent: pedal edema, calf tenderness Back exam: Present: normal inspection. Absent: CVA tenderness (R), CVA tenderness (L) Neurological exam: Present: alert Skin exam: Present: warm, dry, intact, normal color. Absent: rash Course Vital Signs 02/18/20 02/18/20 02/18/20 04:10 04:17 04:25 Temperature Pulse Rate 116 H 101 H Respiratory 20 38 H Rate Blood Pressure 177/113 185/110 115/94 O2 Sat by Pulse 99 95 Oximetry 02/18/20 02/18/20 02/18/20 04:31 04:39 04:49 Temperature 97.9 F Pulse Rate 87 90 Respiratory 20 30 H Rate Blood Pressure 160/86 163/83 O2 Sat by Pulse 94 L 94 L 98 Oximetry 02/18/20 02/18/20 02/18/20 05:39 05:51 05:58 Temperature Pulse Rate 93 Respiratory 26 H Rate Blood Pressure 144/91 144/72 127/94 O2 Sat by Pulse 97 97 Oximetry 1102/18/20 02/18/20 06:15 06:20 06:23 Temperature Pulse Rate Respiratory Rate Blood Pressure 92/60 109/94 155/103 O2 Sat by Pulse Oximetry Medical Decision Making - Lab Data Result diagrams: 02/18/20 04:22 02/18/20 04:22 Lab Results 02/18/20 02/18/20 02/18/20 Range/Units 04:22 04:22 04:22 WBC 13.7 H (3.8-10.6) k/uL RBC 4.16 (3.80-5.40) m/uL Hgb 12.9 (11.4-16.0) gm/dL Hct 42.5 (34.0-46.0) % MCV 102.3 H (80.0-100.0) fL MCH 31.0 (25.0-35.0) pg MCHC 30.3 L (31.0-37.0) g/dL RDW 14.1 (11.5-15.5) % Plt Count 246 (150-450) k/uL MPV 8.7 Neutrophils % 87 % Lymphocytes % 5 % Monocytes % 6 % Eosinophils % 1 % Basophils % 0 % Neutrophils # 12.0 H (1.3-7.7) k/uL Lymphocytes # 0.7 L (1.0-4.8) k/uL Monocytes # 0.8 (0-1.0) k/uL Eosinophils # 0.1 (0-0.7) k/uL Basophils # 0.0 (0-0.2) k/uL Macrocytosis Slight PT 10.2 (9.0-12.0) sec INR 1.0 (<1.2) APTT 20.5 L (22.0-30.0) sec D-Dimer 0.69 H (<0.60) mg/L FEU Sodium 138 (137-145) mmol/L Potassium 4.6 (3.5-5.1) mmol/L Chloride 103 (98-107) mmol/L Carbon Dioxide 28 (22-30) mmol/L Anion Gap 7 mmol/L BUN 30 H (7-17) mg/dL Creatinine 0.87 (0.52-1.04) mg/dL Est GFR (CKD-EPI)AfAm 74 (>60 ml/min/1.73 sqM) Est GFR (CKD-EPI)NonAf 64 (>60 ml/min/1.73 sqM) Glucose 108 H (74-99) mg/dL Plasma Lactic Acid José Miguel (0.7-2.0) mmol/L Calcium 10.2 (8.4-10.2) mg/dL Total Bilirubin 0.6 (0.2-1.3) mg/dL AST 40 H (14-36) U/L ALT 25 (4-34) U/L Alkaline Phosphatase 78 (38-126) U/L Troponin I (0.000-0.034) ng/mL NT-Pro-B Natriuret Pep pg/mL Total Protein 7.4 (6.3-8.2) g/dL Albumin 3.9 (3.5-5.0) g/dL Coronavirus (PCR) (Not Detectd) 02/18/20 02/18/20 02/18/20 Range/Units 04:22 04:22 04:22 WBC (3.8-10.6) k/uL RBC (3.80-5.40) m/uL Hgb (11.4-16.0) gm/dL Hct (34.0-46.0) % MCV (80.0-100.0) fL MCH (25.0-35.0) pg MCHC (31.0-37.0) g/dL RDW (11.5-15.5) % Plt Count (150-450) k/uL MPV Neutrophils % % Lymphocytes % % Monocytes % % Eosinophils % % Basophils % % Neutrophils # (1.3-7.7) k/uL Lymphocytes # (1.0-4.8) k/uL Monocytes # (0-1.0) k/uL Eosinophils # (0-0.7) k/uL Basophils # (0-0.2) k/uL Macrocytosis PT (9.0-12.0) sec INR (<1.2) APTT (22.0-30.0) sec D-Dimer (<0.60) mg/L FEU Sodium (137-145) mmol/L Potassium (3.5-5.1) mmol/L Chloride (98-107) mmol/L Carbon Dioxide (22-30) mmol/L Anion Gap mmol/L BUN (7-17) mg/dL Creatinine (0.52-1.04) mg/dL Est GFR (CKD-EPI)AfAm (>60 ml/min/1.73 sqM) Est GFR (CKD-EPI)NonAf (>60 ml/min/1.73 sqM) Glucose (74-99) mg/dL Plasma Lactic Acid José Miguel 1.5 (0.7-2.0) mmol/L Calcium (8.4-10.2) mg/dL Total Bilirubin (0.2-1.3) mg/dL AST (14-36) U/L ALT (4-34) U/L Alkaline Phosphatase (38-126) U/L Troponin I 0.023 (0.000-0.034) ng/mL NT-Pro-B Natriuret Pep 4270 pg/mL Total Protein (6.3-8.2) g/dL Albumin (3.5-5.0) g/dL Coronavirus (PCR) (Not Detectd) 02/18/20 Range/Units 05:22 WBC (3.8-10.6) k/uL RBC (3.80-5.40) m/uL Hgb (11.4-16.0) gm/dL Hct (34.0-46.0) % MCV (80.0-100.0) fL MCH (25.0-35.0) pg MCHC (31.0-37.0) g/dL RDW (11.5-15.5) % Plt Count (150-450) k/uL MPV Neutrophils % % Lymphocytes % % Monocytes % % Eosinophils % % Basophils % % Neutrophils # (1.3-7.7) k/uL Lymphocytes # (1.0-4.8) k/uL Monocytes # (0-1.0) k/uL Eosinophils # (0-0.7) k/uL Basophils # (0-0.2) k/uL Macrocytosis PT (9.0-12.0) sec INR (<1.2) APTT (22.0-30.0) sec D-Dimer (<0.60) mg/L FEU Sodium (137-145) mmol/L Potassium (3.5-5.1) mmol/L Chloride (98-107) mmol/L Carbon Dioxide (22-30) mmol/L Anion Gap mmol/L BUN (7-17) mg/dL Creatinine (0.52-1.04) mg/dL Est GFR (CKD-EPI)AfAm (>60 ml/min/1.73 sqM) Est GFR (CKD-EPI)NonAf (>60 ml/min/1.73 sqM) Glucose (74-99) mg/dL Plasma Lactic Acid José Miguel (0.7-2.0) mmol/L Calcium (8.4-10.2) mg/dL Total Bilirubin (0.2-1.3) mg/dL AST (14-36) U/L ALT (4-34) U/L Alkaline Phosphatase (38-126) U/L Troponin I (0.000-0.034) ng/mL NT-Pro-B Natriuret Pep pg/mL Total Protein (6.3-8.2) g/dL Albumin (3.5-5.0) g/dL Coronavirus (PCR) Not Detected (Not Detectd) - EKG Data -: EKG Interpreted by Me EKG shows normal: sinus rhythm (With occasional PACs), intervals (Normal), QRS complexes (Old septal infarct), ST-T waves (Normal) Rate: tachycardia (Rate 101) Critical Care Time Critical Care Time: Yes (45 minutes) Disposition Clinical Impression: Congestive heart failure, Acute exacerbation of chronic obstructive pulmonary disease Disposition: ADMITTED IP TO THIS [facility] Condition: Poor Is patient prescribed a controlled substance at d/c from ED?: No Referrals: Chong Zuluaga DO [Primary Care Provider] - 1-2 days
[2020-02-18] MEDS ORDERED: NITROGLYCERIN SL TABS 0.4 MG TAB SUBLINGUAL PRN (04:23)
[2020-02-18] MEDS ORDERED: NITROGLYCERIN-D5W PMX 50 MG in DEXTROSE/WATER 1 250ML.BAG IV ONE (04:33)
[2020-02-18 04:45] LABS: Albumin 3.9 g/dL (3.5-5.0); Calcium 10.2 mg/dL (8.4-10.2); Total Bilirubin 0.6 mg/dL (0.2-1.3); Total Protein 7.4 g/dL (6.3-8.2)
--- NOTE | 2020-02-18 04:46 | XR ---
EXAM: XR Chest, 1 View CLINICAL HISTORY: ITS.REASON XR Reason: dyspnea TECHNIQUE: Frontal view of the chest. COMPARISON: CXR 02/02/20. FINDINGS: Lungs: Bilateral interstitial densities. No airspace consolidation. Expanded lung volumes. Pleural space: Slight blunting of the costophrenic angles. No pneumothorax. Heart: Cardiomegaly and pulmonary vascular congestion. Mediastinum: Unremarkable. Bones/joints: No acute osseous findings. IMPRESSION: 1. Underlying emphysema. 2. Cardiomegaly and pulmonary vascular congestion. 3. Bilateral interstitial opacities which may reflect pneumonia or edema. 4. Question small pleural effusions.
[2020-02-18 04:49] LABS: Basophils % (A) 0 %; Eosinophils # (A) 0.1 k/uL (0-0.7); Eosinophils % (A) 1 %; HCT 42.5 % (34.0-46.0); HGB 12.9 gm/dL (11.4-16.0); Lymphocytes # (A) 0.7 k/uL (1.0-4.8); Lymphocytes % (A) 5 %; MCHC 30.3 g/dL (31.0-37.0); MCV 102.3 fL (80.0-100.0); Macrocytosis Slight; Mean Platelet Volume 8.7; Monocytes # (A) 0.8 k/uL (0-1.0); Monocytes % (A) 6 %; Neutrophils % (A) 87 %; Platelet Count 246 k/uL (150-450); RBC 4.16 m/uL (3.80-5.40); RDW 14.1 % (11.5-15.5); WBC 13.7 k/uL (3.8-10.6)
[2020-02-18 04:54] LABS: Potassium 4.6 mmol/L (3.5-5.1)
[2020-02-18 05:09] LABS: Prothrombin Time 10.2 sec (9.0-12.0)
[2020-02-18 05:23] LABS: D-Dimer 0.69 mg/L FEU (<0.60); Partial Thromboplastin Time 20.5 sec (22.0-30.0)
[2020-02-18] MEDS ORDERED: FUROSEMIDE 10 MG/ML 4 ML VIAL IV STA (05:27)
[2020-02-18] MEDS ORDERED: IPRATROPIUM-ALBUTEROL 3 ML NEB INHALATION STA (06:17)
[2020-02-18 07:25] LABS: ABG Base Excess 3.1 mmol/L; ABG HCO3 28 mmol/L (21-25); ABG PCO2 46 mmHg (35-45); ABG PH 7.39 (7.35-7.45); ABG PO2 179 mmHg (83-108); ABG TCO2 30 mmol/L (19-24); Allen Test Performed? Yes
[2020-02-18] MEDS: PANTOPRAZOLE 40 MG TABLET PO SCH (07:57)
[2020-02-18] MEDS: SODIUM CHLORIDE 0.9% 1,000 ML IV SCH ×2 (07:57→08:11)
[2020-02-18] MEDS ORDERED: LOSARTAN 25 MG TAB PO SCH (09:15)
[2020-02-18] MEDS: SPIRONOLACTONE 25 MG TAB PO SCH (10:15)
[2020-02-18] MEDS: LOSARTAN 50 MG TAB PO SCH (10:15)
[2020-02-18] MEDS: carvediloL 3.125 MG TAB PO SCH ×2 (10:18→18:30)
[2020-02-18] MEDS: ISOSORBIDE MONONITRATE ER 30 MG TAB.ER.24H PO SCH (10:19)
[2020-02-18] MEDS: FUROSEMIDE 10 MG/ML 4 ML VIAL IV SCH ×2 (10:19→18:30)
--- NOTE | 2020-02-18 12:13 | P.CRDCN ---
History of Present Illness Consult date: 02/18/20 History of present illness: CHIEF COMPLAINT: CHF HISTORY OF PRESENT ILLNESS: This is a 80-year old female with a past medical history significant for nicotine dependence, COPD, and hypertension. 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 We have been asked to see the patient in consultation for congestive heart failure. Issue examined this morning at the bedside in the emergency room. Patient states she began having shortness of breath yesterday that continued to worsen in severity so she came to the hospital for further evaluation. She denies chest pain or pressure. She states her shortness of breath has improved at time of examination and she is requesting to be discharged home. She denies any cardiac history besides hypertension. Patient states she continues to smoke. DIAGNOSTICS: EKG reveals sinus tachycardia with PACs Chest xray: Underlying emphysema, cardiomegaly and pulmonary vascular congestion, bilateral interstitial bases which may reflect pneumonia or edema, questionable small pleural effusions Laboratory data: WBC 13.7. Hemoglobin 12.9. Platelet count 246. Sodium 138. Potassium 4.6. BUN 30. Creatinine 0.87. Lactic acid 1.5. Troponin 0.023. BNP 4270. Current home cardiac medications include Cozaar 25 mg daily REVIEW OF SYSTEMS: At the time of my exam: CONSTITUTIONAL: Denies fever or chills. HEENT: Denies blurred vision, vision changes, or eye pain. Denies hemoptysis CARDIOVASCULAR: Denies chest pain, orthopnea, PND or palpitations RESPIRATORY: No shortness of breath. GASTROINTESTINAL: Denies abdominal pain. Denies nausea or vomiting. HEMATOLOGIC: Denies bleeding disorders. GENITOURINARY: Denies any blood in urine. SKIN: Denies pruitis. Denies rash. PHYSICAL EXAM: VITAL SIGNS: Reviewed. GENERAL: Well-developed in no acute distress. HEENT: Head is normocephalic. Pupils are equal, round. Sclerae anicteric. Mucous membranes of the mouth are moist. Neck supple. No JVD or thyromegaly LUNGS: Respirations even and unlabored. Lungs diminished. No rales auscultated. HEART: Regular rate and rhythm. S1 and S2 heard. ABDOMEN: Soft. Nondistended. Nontender. EXTREMITIES: Normal range of motion. No clubbing or cyanosis. Peripheral pulses intact. No lower extremity edema NEUROLOGIC: Awake and alert. Oriented x 3. ASSESSMENT: Shortness of breath Acute congestive heart failure, type unknown, echo pending, BNP 4270 Nicotine dependence COPD Hypertension PLAN: Obtain 2-D echo to assess cardiac structure and function Resume home cardiac medications Increase losartan to 50mg daily Add Aldactone 12.5 mg daily and Imdur 30 mg daily Discontinue nitro drip Continue IV Lasix 40 mg IV every 8 hours Monitor kidney function Daily weights Accurate I&O Further recommendations pending patient's course Nurse practitioner note has been reviewed by physician. Signing provider agrees with the documented findings, assessment, and plan of care. Past Medical History Past Medical History: Hypertension History of Any Multi-Drug Resistant Organisms: None Reported Past Surgical History: Hysterectomy Past Anesthesia/Blood Transfusion Reactions: No Reported Reaction Past Psychological History: No Psychological Hx Reported Smoking Status: Current every day smoker Past Alcohol Use History: Occasional Past Drug Use History: None Reported Medications and Allergies Home Medications Medication Instructions Recorded Confirmed Type Acetaminophen Tab [Tylenol] 650 mg PO Q4HR PRN tab 02/04/20 02/18/20 Rx Losartan [Cozaar] 25 mg PO DAILY #30 tab 02/04/20 02/18/20 Rx Nicotine 21Mg/24Hr Patch [Habitrol] 1 patch TRANSDERM DAILY #30 patch 02/04/20 02/18/20 Rx Albuterol Nebulized [Ventolin 2.5 mg INHALATION RT-QID PRN 02/18/20 02/18/20 History Nebulized] Albuterol Sulfate [Ventolin HFA] 2 puff INHALATION RT-QID PRN 02/18/20 02/18/20 History Allergies Allergy/AdvReac Type Severity Reaction Status Date / Time Penicillins Allergy Rash/Hives Verified 02/18/20 07:11 Physical Exam Vitals: Vital Signs Temp Pulse Resp BP Pulse Ox 02/18/20 11:30 98.0 F 97 24 158/78 96 02/18/20 11:01 117 H 02/18/20 10:45 100 02/18/20 10:00 97.6 F 102 H 20 152/80 97 02/18/20 08:27 96 02/18/20 08:11 87 22 147/93 100 02/18/20 06:23 155/103 02/18/20 06:20 109/94 02/18/20 06:15 92/60 02/18/20 05:58 127/94 97 11/27/20 05:51 144/72 02/18/20 05:39 93 26 H 144/91 97 02/18/20 04:49 98 02/18/20 04:39 97.9 F 90 30 H 163/83 94 L 02/18/20 04:31 87 20 160/86 94 L 02/18/20 04:25 115/94 02/18/20 04:17 101 H 38 H 185/110 95 02/18/20 04:10 116 H 20 177/113 99 Intake and Output 02/17/20 02/18/20 02/18/20 22:59 06:59 14:59 Intake Total 16.2 Balance 16.2 Intake: Intake, IV Titration 16.2 Amount Nitroglycerin-D5w Pmx 50 16.2 mg In Dextrose/Water 1 250ml.bag @ 20 MCG/MIN 6 mls/hr IV .Q24H ONE Rx#: [id number] Other: Weight 63.503 kg Results 02/18/20 04:22 02/18/20 04:22 Cardiac Enzymes 02/18/20 02/18/20 Range/Units 04:22 04:22 AST 40 H (14-36) U/L Troponin I 0.023 (0.000-0.034) ng/mL Coagulation 02/18/20 Range/Units 04:22 PT 10.2 (9.0-12.0) sec APTT 20.5 L (22.0-30.0) sec CBC 02/18/20 Range/Units 04:22 WBC 13.7 H (3.8-10.6) k/uL RBC 4.16 (3.80-5.40) m/uL Hgb 12.9 (11.4-16.0) gm/dL Hct 42.5 (34.0-46.0) % Plt Count 246 (150-450) k/uL Comprehensive Metabolic Panel 02/18/20 Range/Units 04:22 Sodium 138 (137-145) mmol/L Potassium 4.6 (3.5-5.1) mmol/L Chloride 103 (98-107) mmol/L Carbon Dioxide 28 (22-30) mmol/L BUN 30 H (7-17) mg/dL Creatinine 0.87 (0.52-1.04) mg/dL Glucose 108 H (74-99) mg/dL Calcium 10.2 (8.4-10.2) mg/dL AST 40 H (14-36) U/L ALT 25 (4-34) U/L Alkaline Phosphatase 78 (38-126) U/L Total Protein 7.4 (6.3-8.2) g/dL Albumin 3.9 (3.5-5.0) g/dL Current Medications Generic Name Dose Route Start Last Admin Trade Name Freq PRN Reason Stop Dose Admin Carvedilol 3.125 mg 02/18/20 09:15 02/18/20 10:18 Carvedilol 3.125 Mg Tab PO 3.125 mg BID-W/MEALS MELANIE Administration Furosemide 40 mg 02/18/20 08:00 02/18/20 10:19 Furosemide 10 Mg/Ml 4 Ml Vial IV 40 mg Q8HR MELANIE Administration Sodium Chloride 1,000 mls @ 20 mls/hr 02/18/20 07:00 02/18/20 08:11 Saline 0.9% IV 20 mls/hr .Q24H MELANIE Administration Isosorbide Mononitrate 30 mg 02/18/20 09:15 02/18/20 10:19 Isosorbide Mononitrate Er 30 Mg Tab.Er.24h PO 30 mg DAILY MELANIE Administration Losartan Potassium 50 mg 02/18/20 09:15 02/18/20 10:15 Losartan 50 Mg Tab PO 50 mg DAILY MELANIE Administration Nitroglycerin 0.4 mg 02/18/20 04:23 02/18/20 04:17 Nitroglycerin Sl Tabs 0.4 Mg Tab SUBLINGUAL 0.4 mg ONCE PRN Administration Chest Pain Pantoprazole Sodium 40 mg 02/18/20 07:30 02/18/20 07:57 Pantoprazole 40 Mg Tablet PO Not Given AC-[id number] MELANIE Spironolactone 12.5 mg 02/18/20 09:15 02/18/20 10:15 Spironolactone 25 Mg Tab PO 12.5 mg DAILY MELANIE Administration Intake and Output 02/17/20 02/18/20 02/18/20 22:59 06:59 14:59 Intake Total 16.2 Balance 16.2 Intake: Intake, IV Titration 16.2 Amount Nitroglycerin-D5w Pmx 50 16.2 mg In Dextrose/Water 1 250ml.bag @ 20 MCG/MIN 6 mls/hr IV .Q24H ONE Rx#: [id number] Other: Weight 63.503 kg 02/18/20 04:22 02/18/20 04:22
--- NOTE | 2020-02-18 13:34 | ECHOF ---
Referral Reason:Heart Failure MEASUREMENTS -------- HEIGHT: 154.9 cm WEIGHT: 63.5 kg BP: 149/98 IVSd: 1.6 cm (0.6 - 1.1) LVIDd: 4.2 cm (3.9 - 5.3) LVPWd: 1.8 cm (0.6 - 1.1) EDV(Teich): 81 ml IVSs: 2.4 cm LVIDs: 3.0 cm LVPWs: 2.5 cm %IVS Thck: 48 % ESV(Teich): 36 ml EF(Teich): 55 % %FS: 29 % SV(Teich): 45 ml LALs A4C: 5.6 cm LAAs A4C: 20.5 cm LAESV A-L A4C: 63 ml LAESV MOD A4C: 59 ml LALs A2C: 6.0 cm LAAs A2C: 19.1 cm LAESV A-L A2C: 52 ml LAESV MOD A2C: 49 ml LAESV(A-L): 59 ml LAESV Index (A-L): 36.34 ml/m Ao Diam: 2.8 cm (2.0 - 3.7) AV Cusp: 2.0 cm (1.5 - 2.6) MV E David: 0.95 m/s MV DecT: 156 ms MV Dec Bent: 6.1 m/s MV A David: 1.03 m/s MV E/A Ratio: 0.93 MV PHT: 45 ms LVOT Vmax: 1.21 m/s LVOT maxP.81 mmHg AV Vmax: 1.21 m/s AV maxP.83 mmHg AR Vmax: 4.05 m/s AR maxP.62 mmHg AR PHT: 542 ms AR Dec Time: 1869 ms AR Dec Bent: 2.2 m/s TR Vmax: 2.93 m/s TR maxP.38 mmHg RAP: 5.00 mmHg RVSP: 39.38 mmHg FINDINGS -------- Atrial fibrillation. This was a technically difficult study with suboptimal views. The left ventricular size is normal. There is moderate concentric left ventricular hypertrophy. O verall left ventricular systolic function is normal with, an EF between 55 - 60 %. The right ventricle is normal in size. LA is moderately dilated 34-39 ml/m2 The right atrium is mildly enlarged. 5.0mg of Lumason was utilized for enhancement of images Interatrial and interventricular septum intact. There is mild aortic valve sclerosis. There is mild aortic regurgitation. Moderate mitral annular calcification present. [id number] mitral regurgitation is present. Mild tricuspid regurgitation present. There is mild pulmonary hypertension. The right ventricular systolic pressure, as measured by Doppler, is 39.38mmHg. There is no pulmonic regurgitation present. The aortic root size is normal. IVC Not well visulized. There is no pericardial effusion. CONCLUSIONS -------- 1. There is moderate concentric left ventricular hypertrophy. 2. Overall left ventricular systolic function is normal with, an EF between 55 - 60 %. 3. LA is moderately dilated 34-39 ml/m2 4. The right atrium is mildly enlarged. 5. There is mild aortic regurgitation. 6. Moderate mitral annular calcification present. 7. Wfxz-[id number] mitral regurgitation is present. 8. Mild tricuspid regurgitation present. 9. There is mild pulmonary hypertension. 10. There is no pericardial effusion. NETWORK CONTROL TECHNICIAN: Gwen Selby RDCS
--- NOTE | 2020-02-18 16:54 | P.HPIM ---
History of Present Illness H&P Date: 02/18/20 Chief Complaint: Shortness of breath This is a pleasant 89-year-old female patient of Dr. Zuluaga, with known history of COPD, hypertension, and heavy tobacco use. Per patient history, she quit at least a month ago, comes in now with shortness of breath, shortness of breath with exertion, without any Swelling or leg pain, patient denies any fever no chills, dry cough,, was recently admitted from our facility 02/02/2020, at that time she was treated for COPD exacerbation, covered was negative at that time, In the emergency room, he was suspected of having more far CHF exacerbation, NT proBNP of 40-70, troponin 0.0 2.0 3.03, covered PCR is negative, pCO2 of 46, pO2 of 179 on ABGs, WBC count of 13.7, MCV of 102, INR 1.0 echocardiogram, moderate LVH, EF 55-60%, moderate MR, mild aortic regurgitation, mild pulmonary hypertension, no pericardial effusion, mild AR, L a dilated at 13 4039 mL per meter squared EKG sinus tach with PACs, septal infarct age undetermined, no acute ST-T wave changes, cardiology is consulted for CHF exacerbation, chest x- ray shows underlying COPD, mild cardiomegaly and pulmonary vascular congestion, mild interstitial opacities could reflect pneumonia against edema. Pro- calcitonin to be obtained, patient was started on IV Lasix maintained on losartan, isosorbide 30 mg daily started, Coreg 3.125 twice a day started by amelia rdiology Review of Systems Constitutional: Reports as per HPI, Reports fatigue, Reports poor appetite, Denies anorexia, Denies chills, Denies chronic headaches, Denies chronic pain, Denies daytime sleepiness, Denies fever, Denies lethargy, Denies malaise, Denies night sweats, Denies sweats, Denies weakness, Denies weight gain, Denies weight loss Ears, nose, mouth and throat: Reports as per HPI, Denies ant. neck pain, Denies bleeding gums, Denies dental pain, Denies dysphagia, Denies epistaxis, Denies headache, Denies hoarseness, Denies mouth pain, Denies nasal congestion, Denies nasal discharge, Denies neck fullness/pressure, Denies neck lump, Denies nose pain, Denies odynophagia, Denies post-nasal drip, Denies sinus pain, Denies sinus pressure, Denies swelling in mouth, Denies swelling in throat, Denies sore throat, Denies vertigo, Denies voice changes Cardiovascular: Reports as per HPI, Reports decreased exercise tolerance, Reports dyspnea on exertion, Reports shortness of breath, Denies chest pain, Denies claudication, Denies edema, Denies high blood pressure, Denies irregular heart beat, Denies leg edema, Denies lightheadedness, Denies orthopnea, Denies palpitations, Denies paroxysmal nocturnal dyspnea, Denies phlebitis, Denies rapid heart beat, Denies syncope Respiratory: Reports as per HPI, Reports cough, Reports dyspnea Gastrointestinal: Reports as per HPI, Denies abdominal pain, Denies belching, Denies bloating, Denies BRBPR, Denies change in bowel habits, Denies coffee ground emesis, Denies constipation, Denies diarrhea, Denies dyspepsia, Denies early satiety, Denies excessive gas, Denies heartburn, Denies hematemesis, Raudel es hematochezia, Denies indigestion, Denies jaundice, Denies lactose intolerance, Denies loss of appetite, Denies melena, Denies nausea, Denies vomiting Genitourinary: Reports as per HPI Menstruation: Reports as per HPI Musculoskeletal: Reports as per HPI Integumentary: Reports as per HPI Neurological: Reports as per HPI Psychiatric: Reports as per HPI Endocrine: Reports as per HPI Hematologic/Lymphatic: Reports as per HPI Allergic/Immunologic: Reports as per HPI, Denies allergic rhinitis, Denies anaphylaxis, Denies angioedema, Denies gluten intolerance, Denies persistent infections, Denies seasonal allergies, Denies urticaria, Denies wheezing Past Medical History Past Medical History: Hypertension History of Any Multi-Drug Resistant Organisms: None Reported Past Surgical History: Hysterectomy Past Anesthesia/Blood Transfusion Reactions: No Reported Reaction Past Psychological History: No Psychological Hx Reported Smoking Status: Current every day smoker Past Alcohol Use History: Occasional Past Drug Use History: None Reported Medications and Allergies Home Medications Medication Instructions Recorded Confirmed Type Acetaminophen Tab [Tylenol] 650 mg PO Q4HR PRN tab 02/04/20 02/18/20 Rx Losartan [Cozaar] 25 mg PO DAILY #30 tab 02/04/20 02/18/20 Rx Nicotine 21Mg/24Hr Patch [Habitrol] 1 patch TRANSDERM DAILY #30 patch 02/04/20 02/18/20 Rx Albuterol Nebulized [Ventolin 2.5 mg INHALATION RT-QID PRN 02/18/20 02/18/20 History Nebulized] Albuterol Sulfate [Ventolin HFA] 2 puff INHALATION RT-QID PRN 02/18/20 02/18/20 History Allergies Allergy/AdvReac Type Severity Reaction Status Date / Time Penicillins Allergy Rash/Hives Verified 02/18/20 07:11 Physical Exam Vitals: Vital Signs Temp Pulse Resp BP Pulse Ox 02/18/20 11:30 98.0 F 97 24 158/78 96 02/18/20 11:01 117 H 02/18/20 10:45 100 02/18/20 10:00 97.6 F 102 H 20 152/80 97 02/18/20 08:27 96 02/18/20 08:11 87 22 147/93 100 02/18/20 06:23 155/103 02/18/20 06:20 109/94 02/18/20 06:15 92/60 02/18/20 05:58 127/94 97 02/18/20 05:51 144/72 02/18/20 05:39 93 26 H 144/91 97 02/18/20 04:49 98 02/18/20 04:39 97.9 F 90 30 H 163/83 94 L 02/18/20 04:31 87 20 160/86 94 L 02/18/20 04:25 115/94 02/18/20 04:17 101 H 38 H 185/110 95 02/18/20 04:10 116 H 20 177/113 99 Intake and Output 02/17/20 02/18/20 02/18/20 22:59 06:59 14:59 Intake Total 16.2 Balance 16.2 Intake: Intake, IV Titration 16.2 Amount Nitroglycerin-D5w Pmx 50 16.2 mg In Dextrose/Water 1 250ml.bag @ 20 MCG/MIN 6 mls/hr IV .Q24H ONE Rx#: [id number] Other: Weight 63.503 kg - Constitutional General appearance: cooperative, no acute distress - EENT Eyes: PERRLA, normal appearance ENT: NA/AT, normal oropharynx - Neck Neck: normal ROM - Respiratory Respiratory: bilateral: CTA, diminished, negative: dullness, rales - Cardiovascular Rhythm: regular Heart sounds: normal: S1, S2 Abnormal Heart Sounds: no systolic murmur, no diastolic murmur, no rub, no S3 Gallop, no S4 Gallop, no click, no other - Gastrointestinal General gastrointestinal: normal bowel sounds, soft - Integumentary Integumentary: decreased turgor, normal - Neurologic Neurologic: CNII-XII intact - Musculoskeletal Musculoskeletal: gait normal, strength equal bilaterally - Psychiatric Psychiatric: A&O x's 3, appropriate affect, intact judgment & insight Results CBC & Chem 7: 02/18/20 04:22 02/18/20 04:22 Labs: Abnormal Lab Results - Last 24 Hours (Table) 02/18/20 02/18/20 02/18/20 Range/Units 04:22 04:22 04:22 WBC 13.7 H (3.8-10.6) k/uL MCV 102.3 H (80.0-100.0) fL MCHC 30.3 L (31.0-37.0) g/dL Neutrophils # 12.0 H (1.3-7.7) k/uL Lymphocytes # 0.7 L (1.0-4.8) k/uL APTT 20.5 L (22.0-30.0) sec D-Dimer 0.69 H (<0.60) mg/L FEU ABG pCO2 (35-45) mmHg ABG pO2 (83-108) mmHg ABG HCO3 (21-25) mmol/L ABG Total CO2 (19-24) mmol/L ABG O2 Saturation (94-97) % BUN 30 H (7-17) mg/dL Glucose 108 H (74-99) mg/dL AST 40 H (14-36) U/L 02/18/20 Range/Units 07:25 WBC (3.8-10.6) k/uL MCV (80.0-100.0) fL MCHC (31.0-37.0) g/dL Neutrophils # (1.3-7.7) k/uL Lymphocytes # (1.0-4.8) k/uL APTT (22.0-30.0) sec D-Dimer (<0.60) mg/L FEU ABG pCO2 46 H (35-45) mmHg ABG pO2 179 H (83-108) mmHg ABG HCO3 28 H (21-25) mmol/L ABG Total CO2 30 H (19-24) mmol/L ABG O2 Saturation 99.0 H (94-97) % BUN (7-17) mg/dL Glucose (74-99) mg/dL AST (14-36) U/L Laboratory Results WBC 13.7 k/uL (3.8-10.6) H 02/18/20 04:22 RBC 4.16 m/uL (3.80-5.40) 02/18/20 04:22 Hgb 12.9 gm/dL (11.4-16.0) 02/18/20 04:22 Hct 42.5 % (34.0-46.0) 02/18/20 04:22 MCV 102.3 fL (80.0-100.0) H 02/18/20 04:22 MCH 31.0 pg (25.0-35.0) 02/18/20 04:22 MCHC 30.3 g/dL (31.0-37.0) L 02/18/20 04:22 RDW 14.1 % (11.5-15.5) 02/18/20 04:22 Plt Count 246 k/uL (150-450) 02/18/20 04:22 MPV 8.7 02/18/20 04:22 Neutrophils % 87 % 02/18/20 04:22 Lymphocytes % 5 % 02/18/20 04:22 Monocytes % 6 % 02/18/20 04:22 Eosinophils % 1 % 02/18/20 04:22 Basophils % 0 % 02/18/20 04:22 Neutrophils # 12.0 k/uL (1.3-7.7) H 02/18/20 04:22 Lymphocytes # 0.7 k/uL (1.0-4.8) L 02/18/20 04:22 Monocytes # 0.8 k/uL (0-1.0) 02/18/20 04:22 Eosinophils # 0.1 k/uL (0-0.7) 02/18/20 04:22 Basophils # 0.0 k/uL (0-0.2) 02/18/20 04:22 Macrocytosis Slight 02/18/20 04:22 PT 10.2 sec (9.0-12.0) 02/18/20 04:22 INR 1.0 (<1.2) 02/18/20 04:22 APTT 20.5 sec (22.0-30.0) L 02/18/20 04:22 D-Dimer 0.69 mg/L FEU (<0.60) H 02/18/20 04:22 Sample Site rrad 02/18/20 07:25 ABG pH 7.39 (7.35-7.45) 02/18/20 07:25 ABG pCO2 46 mmHg (35-45) H 02/18/20 07:25 ABG pO2 179 mmHg (83-108) H 02/18/20 07:25 ABG HCO3 28 mmol/L (21-25) H 02/18/20 07:25 ABG Total CO2 30 mmol/L (19-24) H 02/18/20 07:25 ABG O2 Saturation 99.0 % (94-97) H 02/18/20 07:25 ABG Base Excess 3.1 mmol/L 02/18/20 07:25 Brian Test Yes 02/18/20 07:25 FiO2 50 % 02/18/20 07:25 Sodium 138 mmol/L (137-145) 02/18/20 04:22 Potassium 4.6 mmol/L (3.5-5.1) 02/18/20 04:22 Chloride 103 mmol/L (98-107) 02/18/20 04:22 Carbon Dioxide 28 mmol/L (22-30) 02/18/20 04:22 Anion Gap 7 mmol/L 02/18/20 04:22 BUN 30 mg/dL (7-17) H 02/18/20 04:22 Creatinine 0.87 mg/dL (0.52-1.04) 02/18/20 04:22 Est GFR (CKD-EPI)AfAm 74 (>60 ml/min/1.73 sqM) 02/18/20 04:22 Est GFR (CKD-EPI)NonAf 64 (>60 ml/min/1.73 sqM) 02/18/20 04:22 Glucose 108 mg/dL (74-99) H 02/18/20 04:22 Plasma Lactic Acid José Miguel 1.5 mmol/L (0.7-2.0) 02/18/20 04:22 Calcium 10.2 mg/dL (8.4-10.2) 02/18/20 04:22 Total Bilirubin 0.6 mg/dL (0.2-1.3) 02/18/20 04:22 AST 40 U/L (14-36) H 02/18/20 04:22 ALT 25 U/L (4-34) 02/18/20 04:22 Alkaline Phosphatase 78 U/L (38-126) 02/18/20 04:22 Troponin I 0.031 ng/mL (0.000-0.034) 02/18/20 12:58 NT-Pro-B Natriuret Pep 4270 pg/mL 02/18/20 04:22 Total Protein 7.4 g/dL (6.3-8.2) 02/18/20 04:22 Albumin 3.9 g/dL (3.5-5.0) 02/18/20 04:22 Coronavirus (PCR) Not Detected (Not Detectd) 02/18/20 05:22 Thrombosis Risk Factor Assmnt - DVT/VTE Prophylaxis DVT/VTE Prophylaxis: Pharmacologic Prophylaxis ordered - Choose All That Apply Each Factor Represents 1 point: Abnormal pulmonary function (COPD), Heart failure (<1month) Each Risk Factor Represents 3 Points: Age 75 years or older Thrombosis Risk Factor Assessment Total Risk Factor Score: 5 Thrombosis Risk Factor Assessment Level: High Risk Assessment and Plan Plan: 1. CHF exacerbation, with diastolic component, EF 55%, IV Lasix 40 mg every 8 hours, patient is also started on Imdur 30 mg daily and Coreg 3.125 mg twice a day Aldactone 2.5 mg daily also started by cardiology. Echocardiogram noted as above, cardiology has been consulted 2 COPD . Patient started on DuoNeb treatments 3 times daily and as needed, Pulmicort 1 mg twice daily, Covid 19 is negative. Pulmonary consult 2. Hypertension. Patient started on losartan 25 mg daily. 3. Mild pulmonary hypertension, currently on IV Lasix, monitor for decompensation, can obtained sleep study as an outpatient if needed, doubt PE however d-dimer slightly elevated at 0.69. Repeat d-dimer in the morning, 3. Tobacco use and dependence. Was on nicotine patch 21 mg daily. Refuse any replacement this time, per patient she quit smoking 4 weeks ago 4. GI prophylaxis. Protonix. 5. DVT prophylaxis. Heparin subcu. Patient will be admitted to the hospital for a minimum of 2 night stay.
--- NOTE | 2020-02-18 18:17 | P.CNPUL ---
History of Present Illness Consult date: 02/18/20 Reason for consult: dyspnea, hypoxemia, abnormal CXR/CT Chief complaint: Dyspnea History of present illness: 80-year-old white female patient with the past medical history of COPD, chronic smoker, hypertension, who was brought into the emergency department on 02/18/2020 per EMS for evaluation of severe shortness of breath early this morning, diaphoresis, orthopnea, patient felt hot and sweaty early this morning. She had a mild cough and sputum, but denied any fever or chills, and it any chest pain. In the EMS patient was placed on CPAP support for severe respiratory distress, she was hypoxic, and her oxygen and improved with the CPAP support and supplemental oxygen. In the emergency department EKG was obtained showing sinus rhythm with occasional PACs, sinus arrhythmia, tachycardia with a rate of 101, patient was hypertensive with a blood pressure of 185/110, she was started on nitroglycerin infusion, the chest x-ray showed cardiac megaly, pulmonary vascular congestion, bilateral interstitial opacities reflecting pulmonary edema. And small pleural effusions. Patient was given diuretics in the emergency department, breathing treatments, her breathing has significantly improved, she is diuresing. She was also checked for COVID 19 and was found to be negative. She had since been switched over to 2 L of oxygen her pulse ox is 98%, she is sitting up on the edge of the bed in the emergency department, she is awaiting a bed on selective care unit, her blood pressure stable, she denies any chest pain, remains on nitroglycerin drip for hypertensive emergency, currently her blood pressure down to 129/73, and patient continues to diurese. Echocardiogram revealed the moderate concentric LVH, with a EF of 55-60%, mild aortic regurg, mild to moderate mitral regurgitation, mild tricuspid regurgi tation, mild pulmonary hypertension with PA pressure of 39.3 mmHg. Review of Systems All systems: negative Constitutional: Denies chills, Denies fever Eyes: denies blurred vision, denies pain Ears, nose, mouth and throat: Denies headache, Denies sore throat Cardiovascular: Reports orthopnea, Reports shortness of breath, Denies chest pain Respiratory: Reports dyspnea, Denies cough Gastrointestinal: Denies abdominal pain, Denies diarrhea, Denies nausea, Denies vomiting Genitourinary: Denies dysuria, Denies hematuria Musculoskeletal: Denies myalgias Integumentary: Denies pruritus, Denies rash Neurological: Denies numbness, Denies weakness Psychiatric: Denies anxiety, Denies depression Endocrine: Denies fatigue, Denies weight change Past Medical History Past Medical History: Hypertension History of Any Multi-Drug Resistant Organisms: None Reported Past Surgical History: Hysterectomy Past Anesthesia/Blood Transfusion Reactions: No Reported Reaction Past Psychological History: No Psychological Hx Reported Smoking Status: Current every day smoker Past Alcohol Use History: Occasional Past Drug Use History: None Reported Medications and Allergies Home Medications Medication Instructions Recorded Confirmed Type Acetaminophen Tab [Tylenol] 650 mg PO Q4HR PRN tab 02/04/20 02/18/20 Rx Losartan [Cozaar] 25 mg PO DAILY #30 tab 02/04/20 02/18/20 Rx Nicotine 21Mg/24Hr Patch [Habitrol] 1 patch TRANSDERM DAILY #30 patch 02/04/20 02/18/20 Rx Albuterol Nebulized [Ventolin 2.5 mg INHALATION RT-QID PRN 02/18/20 02/18/20 History Nebulized] Albuterol Sulfate [Ventolin HFA] 2 puff INHALATION RT-QID PRN 02/18/20 02/18/20 History Allergies Allergy/AdvReac Type Severity Reaction Status Date / Time Penicillins Allergy Rash/Hives Verified 02/18/20 07:11 Physical Exam Vitals: Vital Signs Temp Pulse Resp BP Pulse Ox 02/18/20 16:00 73 16 129/73 98 02/18/20 15:00 72 13 131/80 99 02/18/20 13:30 88 20 122/64 95 02/18/20 12:30 88 20 132/77 98 02/18/20 11:30 98.0 F 97 24 158/78 96 02/18/20 11:01 117 H 02/18/20 10:45 100 02/18/20 10:00 97.6 F 102 H 20 152/80 97 02/18/20 08:27 96 02/18/20 08:11 87 22 147/93 100 02/18/20 06:23 155/103 02/18/20 06:20 109/94 02/18/20 06:15 92/60 02/18/20 05:58 127/94 97 02/18/20 05:51 144/72 02/18/20 05:39 93 26 H 144/91 97 02/18/20 04:49 98 02/18/20 04:39 97.9 F 90 30 H 163/83 94 L 02/18/20 04:31 87 20 160/86 94 L 02/18/20 04:25 115/94 02/18/20 04:17 101 H 38 H 185/110 95 02/18/20 04:10 116 H 20 177/113 99 Intake and Output 02/18/20 02/18/20 02/18/20 06:59 14:59 22:59 Intake Total 16.2 Output Total 600 400 Balance 16.2 -600 -400 Intake: Intake, IV Titration 16.2 Amount Nitroglycerin-D5w Pmx 50 16.2 mg In Dextrose/Water 1 250ml.bag @ 20 MCG/MIN 6 mls/hr IV .Q24H ONE Rx#: [id number] Output: Urine 600 400 Other: # Voids 3 Weight 63.503 kg GENERAL EXAM: Alert, very pleasant, 80-year-old white female, 2 L of oxygen a pulse ox 90%, sitting up on the gurney in the emergency Department, awaiting a bed on selective care unit, currently on nitroglycerin drip at 5 mics per kilo per minute, denies any chest pain, sinus arrhythmia on monitor, comfortable in no apparent distress. HEAD: Normocephalic/atraumatic. EYES: Normal reaction of pupils, equal size. Conjunctiva pink, sclera white. NOSE: Clear with pink turbinates. THROAT: No erythema or exudates. NECK: No masses, no JVD, no thyroid enlargement, no adenopathy. CHEST: No chest wall deformity. Symmetrical expansion. LUNGS: Equal air entry with bibasilar crackles, but no wheeze, rhonchi or dul lness. CVS: Regular rate and rhythm, normal S1 and S2, no gallops, no murmurs, no rubs ABDOMEN: Soft, nontender. No hepatosplenomegaly, normal bowel sounds, no guarding or rigidity. EXTREMITIES: No clubbing, no edema, no cyanosis, 2+ pulses and upper and lower extremities. MUSCULOSKELETAL: Muscle strength and tone normal. SPINE: No scoliosis or deformity SKIN: No rashes CENTRAL NERVOUS SYSTEM: Alert and oriented -3. No focal deficits, tone is normal in all 4 extremities. PSYCHIATRIC: Alert and oriented -3. Appropriate affect. Intact judgment and insight. Results - Laboratory Findings CBC and BMP: 02/18/20 04:22 02/18/20 04:22 ABG ABG pH 7.39 (7.35-7.45) 02/18/20 07:25 ABG pCO2 46 mmHg (35-45) H 02/18/20 07:25 ABG pO2 179 mmHg (83-108) H 02/18/20 07:25 ABG O2 Saturation 99.0 % (94-97) H 02/18/20 07:25 PT/INR, D-dimer PT 10.2 sec (9.0-12.0) 02/18/20 04:22 INR 1.0 (<1.2) 02/18/20 04:22 D-Dimer 0.69 mg/L FEU (<0.60) H 02/18/20 04:22 Abnormal lab findings: Abnormal Labs 02/18/20 02/18/20 02/18/20 04:22 04:22 04:22 WBC 13.7 H MCV 102.3 H MCHC 30.3 L Neutrophils # 12.0 H Lymphocytes # 0.7 L APTT 20.5 L D-Dimer 0.69 H ABG pCO2 ABG pO2 ABG HCO3 ABG Total CO2 ABG O2 Saturation BUN 30 H Glucose 108 H AST 40 H 02/18/20 07:25 WBC MCV MCHC Neutrophils # Lymphocytes # APTT D-Dimer ABG pCO2 46 H ABG pO2 179 H ABG HCO3 28 H ABG Total CO2 30 H ABG O2 Saturation 99.0 H BUN Glucose AST - Diagnostic Findings Chest x-ray: report reviewed, image reviewed Assessment and Plan Plan: Assessment: #1. Acute hypoxic respiratory failure related to acute exacerbation of congestive heart failure with preserved LV function, ruled out for COVID 19 #2. Hypertensive emergency, with pulmonary edema, improved with diuretics and nitroglycerin infusion #3. History of emphysema #4. Nicotine dependence, chronic and ongoing #5. Hypertension #6. Chronic hypercapnic respiratory failure due to history of COPD Plan: Continue diuretics, blood pressure has significantly improved with diuretics and nitroglycerin infusion, wean FiO2, cardiology is following, echocardiogram results were reviewed, follow-up chest x-ray in the morning, follow-up jennifer ctrolytes and renal profile in the morning. May use BiPAP support is needed with pressures of 10/5 and FiO2 to titrate to keep O2 sat at 90%. And continue breathing treatments, we'll continue to follow I performed a history & physical examination of the patient and discussed their management with my nurse practitioner, Shabnam Fisher. I reviewed the nurse practitioner's note and agree with the documented findings and plan of care. Lung sounds are positive for diminished breath sounds with bibasilar crackles. The findings and the impression was discussed with the patient. I attest to the documentation by the nurse practitioner. Time with Patient: Greater than 30
[2020-02-18] MEDS ORDERED: FUROSEMIDE 10 MG/ML 4 ML VIAL IV SCH (19:00)
[2020-02-18] MEDS ORDERED: INFLUENZA VACCINE (6 MOS+) 60 MCG/0.5 ML SYRINGE IM ONE (19:04)
[2020-02-18] MEDS: ACETAMINOPHEN TAB 325 MG TAB PO PRN (21:57)
[2020-02-19] MEDS: FUROSEMIDE 10 MG/ML 4 ML VIAL IV SCH ×2 (00:59→11:51)
[2020-02-19] MEDS: carvediloL 3.125 MG TAB PO SCH (06:32)
[2020-02-19] MEDS: PANTOPRAZOLE 40 MG TABLET PO SCH (06:32)
--- NOTE | 2020-02-19 07:37 | XR ---
EXAMINATION TYPE: XR chest 1V portable DATE OF EXAM: 02/19/2020 CLINICAL HISTORY: Difficulty breathing progress study. TECHNIQUE: Single AP portable upright view of the chest is obtained. COMPARISON: Chest x-ray from one day earlier and older studies. FINDINGS: Osseous structures remain demineralized. Persistent cardiomegaly with atherosclerotic thor acic aorta. Background chronic parenchymal changes without suspicious new focal airspace opacity, ple ural effusion, or pneumothorax seen bilaterally. Old right-sided lateral rib fractures suspected. IMPRESSION: Chronic parenchymal changes and cardiomegaly without new acute pulmonary process.
[2020-02-19 09:25] LABS: Basophils # (A) 0.1 k/uL (0-0.2); Basophils % (A) 1 %; Eosinophils # (A) 0.2 k/uL (0-0.7); Eosinophils % (A) 2 %; HCT 44.3 % (34.0-46.0); HGB 13.7 gm/dL (11.4-16.0); Lymphocytes # (A) 0.7 k/uL (1.0-4.8); Lymphocytes % (A) 9 %; MCH 31.3 pg (25.0-35.0); MCHC 30.9 g/dL (31.0-37.0); MCV 101.3 fL (80.0-100.0); Macrocytosis Slight; Mean Platelet Volume 8.5; Monocytes # (A) 0.7 k/uL (0-1.0); Monocytes % (A) 9 %; Neutrophils % (A) 77 %; Platelet Count 247 k/uL (150-450); RBC 4.37 m/uL (3.80-5.40); WBC 7.7 k/uL (3.8-10.6)
[2020-02-19 09:34] LABS: Calcium 9.8 mg/dL (8.4-10.2); Potassium 3.9 mmol/L (3.5-5.1)
[2020-02-19] MEDS: ACETAMINOPHEN TAB 325 MG TAB PO PRN (10:58)
[2020-02-19] MEDS: SPIRONOLACTONE 25 MG TAB PO SCH (10:59)
[2020-02-19] MEDS: LOSARTAN 50 MG TAB PO SCH (10:59)
[2020-02-19] MEDS: ISOSORBIDE MONONITRATE ER 30 MG TAB.ER.24H PO SCH (10:59)
[2020-02-19 11:10] VITALS: BP 134/62; PULSE 57; RESP 16; TEMP 97.8
[2020-02-19 12:59] VITALS: BMI 23.8
--- NOTE | 2020-02-19 14:54 | P.PN ---
Subjective Progress Note Date: 02/19/20 CHIEF COMPLAINT: CHF HISTORY OF PRESENT ILLNESS: Patient examined this morning at the bedside. She denies chest pain or pressure. She denies shortness of breath. Repeat chest x- ray this morning reveals chronic parenchymal changes and cardiomegaly without new acute pulmonary process. Vital signs are stable. She remains on IV Lasix. Echocardiogram reveals ejection fraction 55-60%, mild aortic regurgitation, [id number] mitral regurgitation, mild tricuspid regurgitation, and mild pulmonary hypertension PHYSICAL EXAM: VITAL SIGNS: Reviewed. GENERAL: Well-developed in no acute distress. HEENT: Head is normocephalic. Pupils are equal, round. Sclerae anicteric. Mucous membranes of the mouth are moist. Neck supple. No JVD or thyromegaly LUNGS: Respirations even and unlabored. Lungs diminished. No rales auscultated. HEART: Regular rate and rhythm. S1 and S2 heard. EXTREMITIES: Normal range of motion. No clubbing or cyanosis. Peripheral pulses intact. No lower extremity edema NEUROLOGIC: Awake and alert. Oriented x 3. ASSESSMENT: Shortness of breath Acute diastolic congestive heart failure, EF 55-60% BNP 4270 Nicotine dependence COPD Hypertension PLAN: Continue current cardiac medications Discontinue IV Lasix. Begin PO Lasix 40 mg twice a day Monitor kidney function Daily weights Accurate I&O Further recommendations pending patient's course Nurse practitioner note has been reviewed by physician. Signing provider agrees with the documented findings, assessment, and plan of care. Objective - Vital Signs Vital signs: Vital Signs Temp 97.8 F 02/19/20 11:04 Pulse 57 L 02/19/20 11:04 Resp 16 02/19/20 11:04 BP 134/62 02/19/20 11:04 Pulse Ox 97 02/19/20 11:04 Intake & Output 02/18/20 02/19/20 02/19/20 18:59 06:59 18:59 Intake Total 550 80 Output Total 1000 1400 Balance -1000 -850 80 Weight 63.503 kg 57.2 kg 57.2 kg Intake: Intake, IV Titration 100 Amount Sodium Chloride 0.9% 1, 100 000 ml @ 20 mls/hr IV . Q24H MELANIE Rx#:[id number] Oral 450 80 Output: Urine 1000 1400 Other: # Voids 3 2 - Labs CBC & Chem 7: 02/19/20 08:20 02/19/20 08:20 Labs: Abnormal Lab Results - Last 24 Hours (Table) 02/19/20 02/19/20 Range/Units 08:20 08:20 MCV 101.3 H (80.0-100.0) fL MCHC 30.9 L (31.0-37.0) g/dL Lymphocytes # 0.7 L (1.0-4.8) k/uL Carbon Dioxide 32 H (22-30) mmol/L BUN 29 H (7-17) mg/dL
[2020-02-19] MEDS ORDERED: FUROSEMIDE 40 MG TAB PO SCH (16:00)
--- NOTE | 2020-02-19 16:54 | P.PN ---
Subjective Progress Note Date: 02/19/20 Principal diagnosis: Acute hypoxic respiratory failure secondary to acute diastolic congestive heart failure and hypertensive emergency. 80-year-old white female patient with the past medical history of COPD, chronic smoker, hypertension, who was brought into the emergency department on 02/18/2020 per EMS for evaluation of severe shortness of breath early this morning, diaphoresis, orthopnea, patient felt hot and sweaty early this morning. She had a mild cough and sputum, but denied any fever or chills, and it any chest pain. In the EMS patient was placed on CPAP support for severe respiratory distress, she was hypoxic, and her oxygen and improved with the CPAP support and supplemental oxygen. In the emergency department EKG was obtained showing sinus rhythm with occasional PACs, sinus arrhythmia, tachycardia with a rate of 101, patient was hypertensive with a blood pressure of 185/110, she was started on nitroglycerin infusion, the chest x-ray showed cardiac megaly, pulmonary vascular congestion, bilateral interstitial opacities reflecting pulmonary edema. And small pleural effusions. Patient was given diuretics in the emergency department, breathing treatments, her breathing has significantly improved, she is diuresing. She was also checked for COVID 19 and was found to be negative. She had since been switched over to 2 L of oxygen her pulse ox is 98%, she is sitting up on the edge of the bed in the emergency department, she is awaiting a bed on selective care unit, her blood pressure stable, she denies any chest pain, remains on nitroglycerin drip for hypertensive emergency, currently her blood pressure down to 129/73, and patient continues to diurese. Echocardiogram revealed the moderate concentric LVH, with a EF of 55-60%, mild aortic regurg, mild to moderate mitral regurgitation, mild tricuspid regurgitation, mild pulmonary hypertension with PA pressure of 39.3 mmHg. Patient was reevaluated today on 02/19/20, doing much better, breathing a lot easier, patient is actually sitting at a bedside chair and she is on room air. O2 saturation is 97% on room air. Her blood pressure is 134/62, patient is asking to be discharged home, and she is not in any distress, I explained to the patient that from pulmonary perspective could be discharged home however she has to be cleared for discharge by cardiology since her presentation was mostly a presentation of pulmonary edema and elevated blood pressure Objective - Vital Signs Vital signs: Vital Signs Temp 97.8 F 11/28/20 11:04 Pulse 57 L 02/19/20 11:04 Resp 16 02/19/20 11:04 BP 134/62 02/19/20 11:04 Pulse Ox 97 02/19/20 11:04 Intake & Output 02/18/20 02/19/20 02/19/20 18:59 06:59 18:59 Intake Total 550 80 Output Total 1000 1400 Balance -1000 -850 80 Weight 63.503 kg 57.2 kg 57.2 kg Intake: Intake, IV Titration 100 Amount Sodium Chloride 0.9% 1, 100 000 ml @ 20 mls/hr IV . Q24H MELANIE Rx#:[id number] Oral 450 80 Output: Urine 1000 1400 Other: # Voids 3 2 - Exam Physical Exam: Revealed a 80-year-old female in no distress, on room air. Head: Atraumatic, normocephalic. HEENT:[Neck is supple.] [No neck masses.] [No thyromegaly.] [No JVD.] Chest: [Clear throughout, no crackles, no rhonchi, no wheezes.] Cardiac Exam: [Normal S1 and S2, no S3 gallop, no murmur.] Abdomen: [Soft, nontender, no megaly, no rebound, no guarding, normal bowel sounds.] Extremities: [No clubbing, no edema, no cyanosis.] Neurological Exam: [No focal neurologic deficit.] Alert oriented 3. Skin: No rashes. Psychiatric: Normal mood affect and normal mental status examination. - Labs CBC & Chem 7: 02/19/20 08:20 02/19/20 08:20 Labs: Abnormal Lab Results - Last 24 Hours (Table) 02/19/20 02/19/20 Range/Units 08:20 08:20 MCV 101.3 H (80.0-100.0) fL MCHC 30.9 L (31.0-37.0) g/dL Lymphocytes # 0.7 L (1.0-4.8) k/uL Carbon Dioxide 32 H (22-30) mmol/L BUN 29 H (7-17) mg/dL Assessment and Plan Assessment: Impression: Acute hypoxic respiratory failure secondary to acute diastolic congestive heart failure. Hypertensive emergency with pulmonary edema improved with diuretics and nitroglycerin infusion. History of COPD, stable at present. Recommendation: Consider discharge planning, patient will be cleared from our perspective to go home today, Follow-up on outpatient basis. Has to be cleared by cardiology for discharge Continue diuretics, and continue cardiac meds continue to maintain blood pressure under control. Time with Patient: Less than 30
--- NOTE | 2020-02-19 17:58 | P.DS ---
Providers Date of admission: 02/18/20 06:57 Attending physician: Mayad Caro Consults: 02/18/20 06:57 Consult Physician Routine Consulting Provider: Preet Burton Consult Reason/Comments: Congestive heart failure Do you want consulting provider notified?: Yes Consult Physician Urgent Consulting Provider: Hernan Pepe Consult Reason/Comments: Multifactorial dyspnea. Do you want consulting provider notified?: Yes Primary care physician: Chong Zuluaga [facility] Course: This is a pleasant 89-year-old female patient of Dr. Zuluaga, with known history of COPD, hypertension, and heavy tobacco use. Per patient history, she quit at least a month ago, comes in now with shortness of breath, shortness of breath with exertion, without any Swelling or leg pain, patient denies any fever no chills, dry cough,, was recently admitted from our facility 02/02/2020, at that time she was treated for COPD exacerbation, covered was negative at that time, In the emergency room, he was suspected of having more far CHF exacerbation, NT proBNP of 40-70, troponin 0.0 2.0 3.03, covered PCR is negative, pCO2 of 46, pO2 of 179 on ABGs, WBC count of 13.7, MCV of 102, INR 1.0 echocardiogram, moderate LVH, EF 55-60%, moderate MR, mild aortic regurgitation, mild pulmonary hypertension, no pericardial effusion, mild AR, L a dilated at 13 4039 mL per meter squared EKG sinus tach with PACs, septal infarct age undetermined, no acute ST-T wave changes, cardiology is consulted for CHF exacerbation, chest x- ray shows underlying COPD, mild cardiomegaly and pulmonary vascular congestion, mild interstitial opacities could reflect pneumonia against edema. Pro- calcitonin to be obtained, patient was started on IV Lasix maintained on losartan, isosorbide 30 mg daily started, Coreg 3.125 twice a day started by cardiology Patient was started on Lasix and maintained on oral Lasix, patient is requesting to be discharged today, also was cleared by cardiology for her discharged later today, no hypoxemia noted, on room air satting at 96%, no hypotension and no hypovolemia. 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 Burton as an outpatient. Multiple medications were started for both CHF Assessment and Plan Plan: 1. CHF exacerbation, with diastolic component, EF 55%, IV Lasix 40 mg every 8 hours, patient is also started on Imdur 30 mg daily and Coreg 3.125 mg twice a day Aldactone 2.5 mg daily also started by cardiology. Echocardiogram noted as above, cardiology has been consulted 2 COPD . Patient started on DuoNeb treatments 3 times daily and as needed, Pulmicort 1 mg twice daily, Covid 19 is negative. Pulmonary consult 2. Hypertension. Patient started on losartan 25 mg daily. 3. Mild pulmonary hypertension, currently on IV Lasix, monitor for decompensation, can obtained sleep study as an outpatient if needed, doubt PE however d-dimer slightly elevated at 0.69. Repeat d-dimer in the morning, 3. Tobacco use and dependence. Was on nicotine patch 21 mg daily. Refuse any replacement this time, per patient she quit smoking 4 weeks ago 4. GI prophylaxis. Protonix. 5. DVT prophylaxis. Heparin subcu. Patient will be admitted to the hospital for a minimum of 2 night stay. Discharge Medication List Acetaminophen Tab [Tylenol] 650 mg PO Q4HR PRN tab 02/04/20 [Rx] Losartan [Cozaar] 25 mg PO DAILY #30 tab 02/04/20 [Rx] Nicotine 21Mg/24Hr Patch [Habitrol] 1 patch TRANSDERM DAILY #30 patch 02/04/20 [Rx] Albuterol Nebulized [Ventolin Nebulized] 2.5 mg INHALATION RT-QID PRN 02/18/20 [History] Albuterol Sulfate [Ventolin HFA] 2 puff INHALATION RT-QID PRN 02/18/20 [History] Furosemide [Lasix] 40 mg PO BID@0900,1600 #60 tab 02/19/20 [Rx] Isosorbide Mononitrate ER [Imdur] 30 mg PO DAILY #30 tab.er.24h 02/19/20 [Rx] Nitroglycerin Sl Tabs [Nitrostat] 0.4 mg SUBLINGUAL ONCE PRN #25 tab 02/19/20 [Rx] Spironolactone [Aldactone] 12.5 mg PO DAILY #30 tab 02/19/20 [Rx] carvediloL [Coreg] 3.125 mg PO BID-W/MEALS #60 tab 02/19/20 [Rx] Patient Condition at Discharge: Fair Plan - Discharge Summary New Discharge Prescriptions: New Spironolactone [Aldactone] 12.5 mg PO DAILY #30 tab carvediloL [Coreg] 3.125 mg PO BID-W/MEALS #60 tab Isosorbide Mononitrate ER [Imdur] 30 mg PO DAILY #30 tab.er.24h Furosemide [Lasix] 40 mg PO BID@0900,1600 #60 tab Nitroglycerin Sl Tabs [Nitrostat] 0.4 mg SUBLINGUAL ONCE PRN #25 tab PRN Reason: Chest Pain Continue Losartan [Cozaar] 25 mg PO DAILY #30 tab Nicotine 21Mg/24Hr Patch [Habitrol] 1 patch TRANSDERM DAILY #30 patch Acetaminophen Tab [Tylenol] 650 mg PO Q4HR PRN tab PRN Reason: Fever And/ Or Pain Albuterol Nebulized [Ventolin Nebulized] 2.5 mg INHALATION RT-QID PRN PRN Reason: Shortness Of Breath Albuterol Sulfate [Ventolin HFA] 2 puff INHALATION RT-QID PRN PRN Reason: Shortness Of Breath Discharge Medication List Acetaminophen Tab [Tylenol] 650 mg PO Q4HR PRN tab 02/04/20 [Rx] Losartan [Cozaar] 25 mg PO DAILY #30 tab 02/04/20 [Rx] Nicotine 21Mg/24Hr Patch [Habitrol] 1 patch TRANSDERM DAILY #30 patch 02/04/20 [Rx] Albuterol Nebulized [Ventolin Nebulized] 2.5 mg INHALATION RT-QID PRN 02/18/20 [History] Albuterol Sulfate [Ventolin HFA] 2 puff INHALATION RT-QID PRN 02/18/20 [History] Furosemide [Lasix] 40 mg PO BID@0900,1600 #60 tab 02/19/20 [Rx] Isosorbide Mononitrate ER [Imdur] 30 mg PO DAILY #30 tab.er.24h 02/19/20 [Rx] Nitroglycerin Sl Tabs [Nitrostat] 0.4 mg SUBLINGUAL ONCE PRN #25 tab 02/19/20 [Rx] Spironolactone [Aldactone] 12.5 mg PO DAILY #30 tab 02/19/20 [Rx] carvediloL [Coreg] 3.125 mg PO BID-W/MEALS #60 tab 02/19/20 [Rx] Follow up Appointment(s)/Referral(s): Chong Zuluaga DO [Primary Care Provider] - 1-2 days Preet Burton MD [STAFF PHYSICIAN] - 2 Weeks [facility] Visiting Nurse, [NON-STAFF] - Patient Instructions/Handouts: Heart Failure (DC), COPD (Chronic Obstructive Pulmonary Disease) (DC) Discharge Disposition: HOME WITH HOME HEALTH SERVICES
== END 2020-02-19 16:59 | disposition home health service (06) | DRG 291 ==
LOC: EC 04:09 → 3SCARD 06:57
PROVIDERS: ADMIT Family Medicine; ATTEND Family Medicine
PROC: 5A09357 Assistance with Respiratory Ventilation, Less than 24 Consecutive Hours, Continuous Positive Airway Pressure (ICD-10-PCS; principal; 2020-02-18)
PROC: 3E02340 Introduction of Influenza Vaccine into Muscle, Percutaneous Approach (ICD-10-PCS; 2020-02-18)
DX: I11.0 Hypertensive heart disease with heart failure (principal); J96.01 Acute respiratory failure with hypoxia; I16.1 Hypertensive emergency; J96.12 Chronic respiratory failure with hypercapnia; I50.33 Acute on chronic diastolic (congestive) heart failure; J43.9 Emphysema, unspecified; Z71.6 Tobacco abuse counseling; F17.210 Nicotine dependence, cigarettes, uncomplicated; I08.3 Combined rheumatic disorders of mitral, aortic and tricuspid valves; I27.20 Pulmonary hypertension, unspecified; I48.91 Unspecified atrial fibrillation; Z20.828 Contact with and (suspected) exposure to other viral communicable diseases; Z79.899 Other long term (current) drug therapy; Z90.710 Acquired absence of both cervix and uterus; I49.1 Atrial premature depolarization; Z88.0 Allergy status to penicillin; Z23 Encounter for immunization
CPT/HCPCS: 36415; 36600; 71045; 80048; 80053; 82805; 83605; 83880; 84443; 84484; 85025; 85379; 85610; 85730; 87635; 90686; 93005; 93306; 94660; 96361; 96365; 96366; 96375; 96376; 99291

== ENCOUNTER 2020-04-13 10:54 | Emergency (ER) | payer MEDICARE ==
[2020-04-13 11:07] VITALS: RESP 18; TEMP 98.4
[2020-04-13] MEDS ORDERED: methylPREDNISolone SOD SUCCI 125 MG/2 ML VIAL IV STA (11:22)
[2020-04-13] MEDS ORDERED: IPRATROPIUM-ALBUTEROL 3 ML NEB INHALATION STA (11:22)
--- NOTE | 2020-04-13 11:28 | ED ---
General Adult HPI - General Chief complaint: Shortness of Breath Stated complaint: SOB Time Seen by Provider: 04/13/20 11:07 Source: patient, RN notes reviewed Mode of arrival: wheelchair Limitations: no limitations - History of Present Illness Initial comments: This a 80-year-old female presents emergency Department chief complaint of shortness of breath that started today. Patient does have a history of COPD and asthma. Patient states she continues to smoke. Patient states that she woke up felt like she could not catch her breath. Patient states she feels winded talking or any bleeding. No pain associated with it. Patient states that she d oes not do breathing treatments recently here and regular basis. No fevers or chills no nasal congestion no sick contacts. Patient has no significant leg swelling no history of congestive heart failure. - Related Data Home Medications Medication Instructions Recorded Confirmed Albuterol Nebulized [Ventolin 2.5 mg INHALATION RT-QID PRN 02/18/20 04/13/20 Nebulized] Albuterol Sulfate [Ventolin HFA] 2 puff INHALATION RT-QID PRN 02/18/20 04/13/20 Nitroglycerin Sl Tabs [Nitrostat] 0.4 mg SUBLINGUAL Q5M PRN 04/13/20 04/13/20 Previous Rx's Medication Instructions Recorded Acetaminophen Tab [Tylenol] 650 mg PO Q4HR PRN tab 02/04/20 Losartan [Cozaar] 25 mg PO DAILY #30 tab 02/04/20 Nicotine 21Mg/24Hr Patch [Habitrol] 1 patch TRANSDERM DAILY #30 patch 02/04/20 Furosemide [Lasix] 40 mg PO BID@0900,1600 #60 tab 02/19/20 Isosorbide Mononitrate ER [Imdur] 30 mg PO DAILY #30 tab.er.24h 02/19/20 Spironolactone [Aldactone] 12.5 mg PO DAILY #30 tab 02/19/20 carvediloL [Coreg] 3.125 mg PO BID-W/MEALS #60 tab 02/19/20 Azithromycin [Zithromax Z-pack (6 0 mg PO DIRECTED #1 pack 04/13/20 tabs)] Ipratropium-Albuterol Nebulize 3 ml INHALATION QID #1 box 04/13/20 [Duoneb 0.5 mg-3 mg/3 ml Soln] predniSONE 50 mg PO DAILY #5 tab 04/13/20 Allergies Allergy/AdvReac Type Severity Reaction Status Date / Time Penicillins Allergy Rash/Hives Verified 04/13/20 12:23 Review of Systems ROS Statement: Those systems with pertinent positive or pertinent negative responses have been documented in the HPI. ROS Other: All systems not noted in ROS Statement are negative. Past Medical History Past Medical History: COPD, Hypertension History of Any Multi-Drug Resistant Organisms: None Reported Past Surgical History: Hysterectomy Past Anesthesia/Blood Transfusion Reactions: No Reported Reaction Past Psychological History: No Psychological Hx Reported Smoking Status: Current every day smoker Past Alcohol Use History: Occasional Past Drug Use History: None Reported - Past Family History Sister(s) Family Medical History: Cancer General Exam Limitations: no limitations General appearance: alert, in no apparent distress Head exam: Present: atraumatic, normocephalic, normal inspection Eye exam: Present: normal appearance, PERRL, EOMI. Absent: scleral icterus, conjunctival injection, periorbital swelling ENT exam: Present: normal exam, mucous membranes moist Neck exam: Present: normal inspection, full ROM. Absent: tenderness, meningismus, lymphadenopathy Respiratory exam: Present: normal lung sounds bilaterally. Absent: respiratory distress, wheezes, rales, rhonchi, stridor Cardiovascular Exam: Present: regular rate, normal rhythm, normal heart sounds. Absent: systolic murmur, diastolic murmur, rubs, gallop, clicks GI/Abdominal exam: Present: soft, normal bowel sounds. Absent: distended, tenderness, guarding, rebound, rigid Back exam: Absent: CVA tenderness (R), CVA tenderness (L) Neurological exam: Present: alert, oriented X3 Skin exam: Present: warm, dry, intact, normal color. Absent: rash Course Vital Signs 04/13/20 04/13/20 04/13/20 11:04 11:18 11:52 Temperature 98.4 F Pulse Rate 68 103 H Respiratory 18 18 Rate Blood Pressure 157/76 O2 Sat by Pulse 96 Oximetry 04/13/20 04/13/20 12:01 13:53 Temperature Pulse Rate 105 H 74 Respiratory 18 Rate Blood Pressure 161/78 O2 Sat by Pulse 95 Oximetry EKG Findings - EKG Comments: EKG Findings:: EKG performed at 611:27 normal sinus rhythm PACs noted a 77 MO 144 QRS 80 QTC is QTC 414/468 - EKG Results: EKG: interpreted by ELROY Medical Decision Making - Medical Decision Making 72-year-old female presented for shortness of breath. Patient has a history of COPD. Patient x-ray, labs EKG reviewed. Patient is greatly improved after DuoNeb treatment. There is no overt signs of failure or pneumonia. Patient will be discharged in stable condition. Patient feels comfortable with discharge and requests discharge. - Lab Data Result diagrams: 04/13/20 11:44 04/13/20 11:44 Lab Results 04/13/20 04/13/20 04/13/20 Range/Units 11:44 11:44 11:44 WBC 6.7 (3.8-10.6) k/uL RBC 4.04 (3.80-5.40) m/uL Hgb 12.9 (11.4-16.0) gm/dL Hct 38.4 (34.0-46.0) % MCV 95.1 D (80.0-100.0) fL MCH 31.9 (25.0-35.0) pg MCHC 33.5 (31.0-37.0) g/dL RDW 13.7 (11.5-15.5) % Plt Count 278 (150-450) k/uL MPV 8.0 Neutrophils % 72 % Lymphocytes % 12 % Monocytes % 10 % Eosinophils % 2 % Basophils % 1 % Neutrophils # 4.8 (1.3-7.7) k/uL Lymphocytes # 0.8 L (1.0-4.8) k/uL Monocytes # 0.7 (0-1.0) k/uL Eosinophils # 0.1 (0-0.7) k/uL Basophils # 0.1 (0-0.2) k/uL PT 10.3 (9.0-12.0) sec INR 1.0 (<1.2) APTT 22.3 (22.0-30.0) sec D-Dimer 0.67 H (<0.60) mg/L FEU Sodium 139 (137-145) mmol/L Potassium 3.0 L (3.5-5.1) mmol/L Chloride 98 (98-107) mmol/L Carbon Dioxide 35 H (22-30) mmol/L Anion Gap 6 mmol/L BUN 31 H (7-17) mg/dL Creatinine 0.95 (0.52-1.04) mg/dL Est GFR (CKD-EPI)AfAm 67 (>60 ml/min/1.73 sqM) Est GFR (CKD-EPI)NonAf 58 (>60 ml/min/1.73 sqM) Glucose 99 (74-99) mg/dL Plasma Lactic Acid José Miguel (0.7-2.0) mmol/L Calcium 10.1 (8.4-10.2) mg/dL Total Bilirubin 0.5 (0.2-1.3) mg/dL AST 20 (14-36) U/L ALT 12 (4-34) U/L Alkaline Phosphatase 66 (38-126) U/L Troponin I (0.000-0.034) ng/mL NT-Pro-B Natriuret Pep pg/mL Total Protein 7.6 (6.3-8.2) g/dL Albumin 4.1 (3.5-5.0) g/dL Coronavirus (PCR) (Not Detectd) 04/13/20 04/13/20 04/13/20 Range/Units 11:44 11:44 11:44 WBC (3.8-10.6) k/uL RBC (3.80-5.40) m/uL Hgb (11.4-16.0) gm/dL Hct (34.0-46.0) % MCV (80.0-100.0) fL MCH (25.0-35.0) pg MCHC (31.0-37.0) g/dL RDW (11.5-15.5) % Plt Count (150-450) k/uL MPV Neutrophils % % Lymphocytes % % Monocytes % % Eosinophils % % Basophils % % Neutrophils # (1.3-7.7) k/uL Lymphocytes # (1.0-4.8) k/uL Monocytes # (0-1.0) k/uL Eosinophils # (0-0.7) k/uL Basophils # (0-0.2) k/uL PT (9.0-12.0) sec INR (<1.2) APTT (22.0-30.0) sec D-Dimer (<0.60) mg/L FEU Sodium (137-145) mmol/L Potassium (3.5-5.1) mmol/L Chloride (98-107) mmol/L Carbon Dioxide (22-30) mmol/L Anion Gap mmol/L BUN (7-17) mg/dL Creatinine (0.52-1.04) mg/dL Est GFR (CKD-EPI)AfAm (>60 ml/min/1.73 sqM) Est GFR (CKD-EPI)NonAf (>60 ml/min/1.73 sqM) Glucose (74-99) mg/dL Plasma Lactic Acid José Miguel 1.2 (0.7-2.0) mmol/L Calcium (8.4-10.2) mg/dL Total Bilirubin (0.2-1.3) mg/dL AST (14-36) U/L ALT (4-34) U/L Alkaline Phosphatase (38-126) U/L Troponin I 0.016 (0.000-0.034) ng/mL NT-Pro-B Natriuret Pep 1500 pg/mL Total Protein (6.3-8.2) g/dL Albumin (3.5-5.0) g/dL Coronavirus (PCR) (Not Detectd) 04/13/20 Range/Units 12:14 WBC (3.8-10.6) k/uL RBC (3.80-5.40) m/uL Hgb (11.4-16.0) gm/dL Hct (34.0-46.0) % MCV (80.0-100.0) fL MCH (25.0-35.0) pg MCHC (31.0-37.0) g/dL RDW (11.5-15.5) % Plt Count (150-450) k/uL MPV Neutrophils % % Lymphocytes % % Monocytes % % Eosinophils % % Basophils % % Neutrophils # (1.3-7.7) k/uL Lymphocytes # (1.0-4.8) k/uL Monocytes # (0-1.0) k/uL Eosinophils # (0-0.7) k/uL Basophils # (0-0.2) k/uL PT (9.0-12.0) sec INR (<1.2) APTT (22.0-30.0) sec D-Dimer (<0.60) mg/L FEU Sodium (137-145) mmol/L Potassium (3.5-5.1) mmol/L Chloride (98-107) mmol/L Carbon Dioxide (22-30) mmol/L Anion Gap mmol/L BUN (7-17) mg/dL Creatinine (0.52-1.04) mg/dL Est GFR (CKD-EPI)AfAm (>60 ml/min/1.73 sqM) Est GFR (CKD-EPI)NonAf (>60 ml/min/1.73 sqM) Glucose (74-99) mg/dL Plasma Lactic Acid José Miguel (0.7-2.0) mmol/L Calcium (8.4-10.2) mg/dL Total Bilirubin (0.2-1.3) mg/dL AST (14-36) U/L ALT (4-34) U/L Alkaline Phosphatase (38-126) U/L Troponin I (0.000-0.034) ng/mL NT-Pro-B Natriuret Pep pg/mL Total Protein (6.3-8.2) g/dL Albumin (3.5-5.0) g/dL Coronavirus (PCR) Not Detected (Not Detectd) Disposition Clinical Impression: Acute exacerbation of chronic obstructive pulmonary disease Disposition: HOME SELF-CARE Condition: Stable Instructions (If sedation given, give patient instructions): Chronic Bronchitis (ED) Additional Instructions: Please return to the Emergency Department if symptoms worsen or any other concerns. Prescriptions: Ipratropium-Albuterol Nebulize [Duoneb 0.5 mg-3 mg/3 ml Soln] 3 ml INHALATION QID #1 box predniSONE 50 mg PO DAILY #5 tab Azithromycin [Zithromax Z-pack (6 tabs)] 0 mg PO DIRECTED #1 pack Is patient prescribed a controlled substance at d/c from ED?: No Referrals: Chong Zuluaga DO [Primary Care Provider] - 1-2 days Time of Disposition: 14:11
[2020-04-13 11:52] LABS: Basophils # (A) 0.1 k/uL (0-0.2); Basophils % (A) 1 %; Eosinophils # (A) 0.1 k/uL (0-0.7); Eosinophils % (A) 2 %; HCT 38.4 % (34.0-46.0); HGB 12.9 gm/dL (11.4-16.0); Lymphocytes # (A) 0.8 k/uL (1.0-4.8); Lymphocytes % (A) 12 %; MCH 31.9 pg (25.0-35.0); MCHC 33.5 g/dL (31.0-37.0); Monocytes # (A) 0.7 k/uL (0-1.0); Monocytes % (A) 10 %; Neutrophils # (A) 4.8 k/uL (1.3-7.7); Neutrophils % (A) 72 %; Platelet Count 278 k/uL (150-450); RBC 4.04 m/uL (3.80-5.40); RDW 13.7 % (11.5-15.5); WBC 6.7 k/uL (3.8-10.6)
--- NOTE | 2020-04-13 11:58 | XR ---
EXAMINATION TYPE: XR chest 2V DATE OF EXAM: 04/13/2020 COMPARISON: 02/19/2020 TECHNIQUE: PA and lateral views submitted. HISTORY: Shortness of breath FINDINGS: Heart is enlarged and there is a coarsened interstitial pattern. Thickening along the lateral margin of the right lung is stable from prior exam. Biapical pleural thickening. Arthropathy of the shoulder s with diffuse osteopenia. Atherosclerotic change aorta. IMPRESSION: 1. Cardiomegaly correlate for chronic interstitial lung disease or interstitial venous congestion\pne umonitis.
[2020-04-13 12:01] LABS: Albumin 4.1 g/dL (3.5-5.0); Calcium 10.1 mg/dL (8.4-10.2); Total Bilirubin 0.5 mg/dL (0.2-1.3); Total Protein 7.6 g/dL (6.3-8.2)
[2020-04-13] MEDS ORDERED: LORazepam 2 MG/ML INJ IV ONE (12:06)
[2020-04-13 12:18] LABS: Partial Thromboplastin Time 22.3 sec (22.0-30.0); Prothrombin Time 10.3 sec (9.0-12.0)
[2020-04-13 12:23] LABS: MCV 95.1 fL (80.0-100.0)
[2020-04-13 12:31] LABS: D-Dimer 0.67 mg/L FEU (<0.60)
[2020-04-13] MEDS ORDERED: POTASSIUM CHLORIDE ER 20 MEQ TAB.ER PO STA (12:33)
--- NOTE | 2020-04-13 13:27 | CT ---
EXAMINATION TYPE: CT chest angio for PE DATE OF EXAM: 04/13/2020 COMPARISON: HISTORY: Dyspnea CT DLP: 265.1 mGycm Automated exposure control for dose reduction was used. CONTRAST: CT Chest for pulmonary embolism performed with with IV Contrast, patient injected with 80,wasted 11 m L of Isovue 370. FINDINGS: LUNGS: Interlobular septal thickening seen compatible with chronic interstitial lung disease. Subsegm ental areas of consolidation most typical of atelectasis with no diagnostic evidence of consolidative pneumonia, pleural effusion or pneumothorax. MEDIASTINUM: There is satisfactory enhancement of the pulmonary artery and its branches, there is no CT evidence for pulmonary embolism. There are no greater than 1 cm hilar or mediastinal lymph nodes. The heart is markedly enlarged and there is coronary artery calcification. Atherosclerotic change of the aorta. Ascending aorta measures 3.7 cm. Minimal aneurysmal dilation noted. OTHER: Small hiatal hernia is seen. Hypertrophic and degenerative change of the spine. IMPRESSION: 1. Severe cardiomegaly. 2. No diagnostic evidence of pulmonary embolism.
[2020-04-13 13:55] VITALS: BP 161/78; PULSE 74
== END 2020-04-13 14:39 | disposition home or self-care (01) ==
LOC: EC 10:54
DX: J44.1 Chronic obstructive pulmonary disease with (acute) exacerbation (principal); I10 Essential (primary) hypertension; F17.200 Nicotine dependence, unspecified, uncomplicated; Z88.0 Allergy status to penicillin; Z20.822 Contact with and (suspected) exposure to COVID-19
CPT/HCPCS: 36415; 94640; 93005; 85379; 83880; 80053; 83605; 84484; 85025; 85610; 85730; 87635; 71046; 71275; 99285; 96374; 96375; J2060; J2930; Q9967

== ENCOUNTER 2020-04-21 12:17 | Inpatient (IN) | payer MEDICARE ==
[2020-04-21] MEDS ORDERED: methylPREDNISolone SOD SUCCI 125 MG/2 ML VIAL IV STA (12:50)
[2020-04-21] MEDS ORDERED: ALBUTEROL HFA INHALER INHALATION STA (12:50)
--- NOTE | 2020-04-21 13:07 | ED ---
General Adult HPI - General Chief complaint: Shortness of Breath Stated complaint: SOB Time Seen by Provider: 04/21/20 12:32 Source: patient, EMS Mode of arrival: EMS Limitations: altered mental status - History of Present Illness Initial comments: 80-year-old female history COPD, CHF presenting for evaluation of dyspnea. She reports only a mild cough which is nonproductive. She denies fever but states she's had some chills. She denies URI symptoms. She denies chest pain. Denies lower extremity pain or swelling. No abdominal pain, no vomiting, no diaphoresis. - Related Data Home Medications Medication Instructions Recorded Confirmed Albuterol Nebulized [Ventolin 2.5 mg INHALATION RT-QID PRN 02/18/20 04/13/20 Nebulized] Albuterol Sulfate [Ventolin HFA] 2 puff INHALATION RT-QID PRN 02/18/20 04/13/20 Nitroglycerin Sl Tabs [Nitrostat] 0.4 mg SUBLINGUAL Q5M PRN 04/13/20 04/13/20 Previous Rx's Medication Instructions Recorded Acetaminophen Tab [Tylenol] 650 mg PO Q4HR PRN tab 02/04/20 Losartan [Cozaar] 25 mg PO DAILY #30 tab 02/04/20 Nicotine 21Mg/24Hr Patch [Habitrol] 1 patch TRANSDERM DAILY #30 patch 02/04/20 Furosemide [Lasix] 40 mg PO BID@0900,1600 #60 tab 02/19/20 Isosorbide Mononitrate ER [Imdur] 30 mg PO DAILY #30 tab.er.24h 02/19/20 Spironolactone [Aldactone] 12.5 mg PO DAILY #30 tab 02/19/20 carvediloL [Coreg] 3.125 mg PO BID-W/MEALS #60 tab 02/19/20 Azithromycin [Zithromax Z-pack (6 0 mg PO DIRECTED #1 pack 04/13/20 tabs)] Ipratropium-Albuterol Nebulize 3 ml INHALATION QID #1 box 04/13/20 [Duoneb 0.5 mg-3 mg/3 ml Soln] predniSONE 50 mg PO DAILY #5 tab 04/13/20 Allergies Allergy/AdvReac Type Severity Reaction Status Date / Time Penicillins Allergy Rash/Hives Verified 04/21/20 16:23 Review of Systems ROS Statement: Those systems with pertinent positive or pertinent negative responses have been documented in the HPI. ROS Other: All systems not noted in ROS Statement are negative. Past Medical History Past Medical History: COPD, Hypertension History of Any Multi-Drug Resistant Organisms: None Reported Past Surgical History: Hysterectomy Past Anesthesia/Blood Transfusion Reactions: No Reported Reaction Past Psychological History: No Psychological Hx Reported Smoking Status: Former smoker Past Alcohol Use History: Occasional Past Drug Use History: None Reported - Past Family History Sister(s) Family Medical History: Cancer General Exam Limitations: altered mental status General appearance: alert, in distress (mild) Head exam: Present: atraumatic, normocephalic Eye exam: Present: normal appearance, PERRL ENT exam: Present: normal exam Neck exam: Present: normal inspection. Absent: tenderness, meningismus Respiratory exam: Present: respiratory distress, rales, rhonchi, decreased breath sounds Cardiovascular Exam: Present: regular rate, normal rhythm GI/Abdominal exam: Present: soft. Absent: distended, tenderness, guarding, rebound Extremities exam: Present: normal inspection, normal capillary refill. Absent: pedal edema, calf tenderness Neurological exam: Present: alert, oriented X3. Absent: CN II-XII intact, motor sensory deficit Psychiatric exam: Present: normal affect, normal mood Skin exam: Present: warm, dry, intact. Absent: cyanosis, diaphoretic Course Vital Signs 04/21/20 04/21/20 04/21/20 12:30 12:43 15:24 Temperature 98.6 F Pulse Rate 57 L 94 Respiratory 24 24 20 Rate Blood Pressure 124/71 151/62 O2 Sat by Pulse 86 L 100 Oximetry - Reevaluation(s) Reevaluation #1: 04/21/20 13:04 Patient had a mildly elevated d-dimer of 1 week ago, CT angiography was performed at that time which showed cardiomegaly, no PE. EKG Findings - EKG Comments: EKG Findings:: EKG: Sinus rhythm with PAC left ventricular hypertrophy, no ST segment elevation. Rate of 93, OK interval 126, QRS duration 76, QTC 442 Medical Decision Making - Medical Decision Making 80-year-old female presenting for evaluation of dyspnea. Patient has bilateral rhonchi, diminished breath sounds bilaterally. History of both COPD and CHF. She is afebrile. EKG shows sinus rhythm without ischemic changes. Chest x-ray shows cardiomegaly, chronic interstitial findings no focal pneumonia. She has normal white blood cell count, hemoglobin is 9.2 from recent of 12.9. Hemoccult is checked in the emergency department reveals melanotic stool and heme positive on laboratory testing. She started on Protonix. Repeat hemoglobin will be ordered in 6 hours. I did discuss case with Dr. Arredondo will admit. Likely the majority of her dyspnea is secondary to GI bleed - Lab Data Result diagrams: 04/21/20 14:03 04/21/20 14:03 Lab Results 04/21/20 04/21/20 04/21/20 Range/Units 14:03 14:03 14:03 WBC 13.6 H (3.8-10.6) k/uL RBC 2.79 L (3.80-5.40) m/uL Hgb 9.2 L D (11.4-16.0) gm/dL Hct 26.7 L (34.0-46.0) % MCV 95.5 (80.0-100.0) fL MCH 32.8 (25.0-35.0) pg MCHC 34.3 (31.0-37.0) g/dL RDW 14.1 (11.5-15.5) % Plt Count 254 (150-450) k/uL MPV 8.6 Neutrophils % 85 % Lymphocytes % 6 % Monocytes % 6 % Eosinophils % 0 % Basophils % 0 % Neutrophils # 11.6 H (1.3-7.7) k/uL Lymphocytes # 0.9 L (1.0-4.8) k/uL Monocytes # 0.9 (0-1.0) k/uL Eosinophils # 0.0 (0-0.7) k/uL Basophils # 0.0 (0-0.2) k/uL PT 11.0 (9.0-12.0) sec INR 1.0 (<1.2) APTT 18.4 L (22.0-30.0) sec VBG pH (7.31-7.41) VBG pCO2 (37-51) mmHg VBG HCO3 (24-28) mmol/L Sodium 137 (137-145) mmol/L Potassium 3.4 L (3.5-5.1) mmol/L Chloride 100 (98-107) mmol/L Carbon Dioxide 29 (22-30) mmol/L Anion Gap 8 mmol/L BUN 92 H (7-17) mg/dL Creatinine 0.93 (0.52-1.04) mg/dL Est GFR (CKD-EPI)AfAm 69 (>60 ml/min/1.73 sqM) Est GFR (CKD-EPI)NonAf 60 (>60 ml/min/1.73 sqM) Glucose 110 H (74-99) mg/dL Plasma Lactic Acid José Miguel (0.7-2.0) mmol/L Calcium 9.5 (8.4-10.2) mg/dL Magnesium 1.8 (1.6-2.3) mg/dL Total Bilirubin 0.5 (0.2-1.3) mg/dL AST 14 (14-36) U/L ALT 9 (4-34) U/L Alkaline Phosphatase 45 (38-126) U/L Troponin I (0.000-0.034) ng/mL NT-Pro-B Natriuret Pep pg/mL Total Protein 6.2 L (6.3-8.2) g/dL Albumin 3.3 L (3.5-5.0) g/dL Stool Occult Blood (Negative) 04/21/20 04/21/20 04/21/20 Range/Units 14:03 14:03 14:03 WBC (3.8-10.6) k/uL RBC (3.80-5.40) m/uL Hgb (11.4-16.0) gm/dL Hct (34.0-46.0) % MCV (80.0-100.0) fL MCH (25.0-35.0) pg MCHC (31.0-37.0) g/dL RDW (11.5-15.5) % Plt Count (150-450) k/uL MPV Neutrophils % % Lymphocytes % % Monocytes % % Eosinophils % % Basophils % % Neutrophils # (1.3-7.7) k/uL Lymphocytes # (1.0-4.8) k/uL Monocytes # (0-1.0) k/uL Eosinophils # (0-0.7) k/uL Basophils # (0-0.2) k/uL PT (9.0-12.0) sec INR (<1.2) APTT (22.0-30.0) sec VBG pH (7.31-7.41) VBG pCO2 (37-51) mmHg VBG HCO3 (24-28) mmol/L Sodium (137-145) mmol/L Potassium (3.5-5.1) mmol/L Chloride (98-107) mmol/L Carbon Dioxide (22-30) mmol/L Anion Gap mmol/L BUN (7-17) mg/dL Creatinine (0.52-1.04) mg/dL Est GFR (CKD-EPI)AfAm (>60 ml/min/1.73 sqM) Est GFR (CKD-EPI)NonAf (>60 ml/min/1.73 sqM) Glucose (74-99) mg/dL Plasma Lactic Acid José Miguel 1.4 (0.7-2.0) mmol/L Calcium (8.4-10.2) mg/dL Magnesium (1.6-2.3) mg/dL Total Bilirubin (0.2-1.3) mg/dL AST (14-36) U/L ALT (4-34) U/L Alkaline Phosphatase (38-126) U/L Troponin I 0.020 (0.000-0.034) ng/mL NT-Pro-B Natriuret Pep 1100 pg/mL Total Protein (6.3-8.2) g/dL Albumin (3.5-5.0) g/dL Stool Occult Blood (Negative) 04/21/20 04/21/20 Range/Units 14:03 14:29 WBC (3.8-10.6) k/uL RBC (3.80-5.40) m/uL Hgb (11.4-16.0) gm/dL Hct (34.0-46.0) % MCV (80.0-100.0) fL MCH (25.0-35.0) pg MCHC (31.0-37.0) g/dL RDW (11.5-15.5) % Plt Count (150-450) k/uL MPV Neutrophils % % Lymphocytes % % Monocytes % % Eosinophils % % Basophils % % Neutrophils # (1.3-7.7) k/uL Lymphocytes # (1.0-4.8) k/uL Monocytes # (0-1.0) k/uL Eosinophils # (0-0.7) k/uL Basophils # (0-0.2) k/uL PT (9.0-12.0) sec INR (<1.2) APTT (22.0-30.0) sec VBG pH 7.36 (7.31-7.41) VBG pCO2 51 (37-51) mmHg VBG HCO3 28 (24-28) mmol/L Sodium (137-145) mmol/L Potassium (3.5-5.1) mmol/L Chloride (98-107) mmol/L Carbon Dioxide (22-30) mmol/L Anion Gap mmol/L BUN (7-17) mg/dL Creatinine (0.52-1.04) mg/dL Est GFR (CKD-EPI)AfAm (>60 ml/min/1.73 sqM) Est GFR (CKD-EPI)NonAf (>60 ml/min/1.73 sqM) Glucose (74-99) mg/dL Plasma Lactic Acid José Miguel (0.7-2.0) mmol/L Calcium (8.4-10.2) mg/dL Magnesium (1.6-2.3) mg/dL Total Bilirubin (0.2-1.3) mg/dL AST (14-36) U/L ALT (4-34) U/L Alkaline Phosphatase (38-126) U/L Troponin I (0.000-0.034) ng/mL NT-Pro-B Natriuret Pep pg/mL Total Protein (6.3-8.2) g/dL Albumin (3.5-5.0) g/dL Stool Occult Blood Positive H (Negative) Critical Care Time Critical Care Time: Yes Total Critical Care Time: 35 Disposition Clinical Impression: Acute exacerbation of chronic obstructive pulmonary disease, Anemia, Melena Disposition: ADMITTED IP TO THIS [facility] Condition: Stable Is patient prescribed a controlled substance at d/c from ED?: No Referrals: Chong Zuluaga DO [Primary Care Provider] - 1-2 days Decision to Admit Reason: Admit from EC Decision Date: 04/21/20 Decision Time: 16:27
[2020-04-21] MEDS ORDERED: LORazepam 2 MG/ML INJ IV STA (13:14)
[2020-04-21 14:25] LABS: Basophils % (A) 0 %; Eosinophils % (A) 0 %; HCT 26.7 % (34.0-46.0); Lymphocytes # (A) 0.9 k/uL (1.0-4.8); Lymphocytes % (A) 6 %; MCH 32.8 pg (25.0-35.0); MCHC 34.3 g/dL (31.0-37.0); MCV 95.5 fL (80.0-100.0); Mean Platelet Volume 8.6; Monocytes # (A) 0.9 k/uL (0-1.0); Monocytes % (A) 6 %; Neutrophils # (A) 11.6 k/uL (1.3-7.7); Neutrophils % (A) 85 %; Platelet Count 254 k/uL (150-450); RBC 2.79 m/uL (3.80-5.40); RDW 14.1 % (11.5-15.5); WBC 13.6 k/uL (3.8-10.6)
--- NOTE | 2020-04-21 14:28 | XR ---
EXAMINATION TYPE: XR chest 1V portable DATE OF EXAM: 04/21/2020 COMPARISON: Chest x-ray 04/13/2020 HISTORY: Difficulty breathing, shortness of breath TECHNIQUE: Single frontal view of the chest is obtained. FINDINGS: Patient is rotated to scoliosis. Heart is enlarged. Aorta is dense and ectatic. Interstiti um is increased. There are overlying leads. No pneumothorax or pleural effusion. IMPRESSION: Cardiomegaly. There is interstitial Lung disease. Aortic ectasia.
[2020-04-21 14:31] LABS: HGB 9.2 gm/dL (11.4-16.0); VBG PH 7.36 (7.31-7.41)
[2020-04-21 14:35] LABS: Albumin 3.3 g/dL (3.5-5.0); Calcium 9.5 mg/dL (8.4-10.2); Magnesium 1.8 mg/dL (1.6-2.3); Potassium 3.4 mmol/L (3.5-5.1); Total Bilirubin 0.5 mg/dL (0.2-1.3); Total Protein 6.2 g/dL (6.3-8.2)
[2020-04-21 14:53] LABS: Partial Thromboplastin Time 18.4 sec (22.0-30.0)
[2020-04-21] MEDS ORDERED: PANTOPRAZOLE 40 MG/10 ML VIAL IVP STA (15:41)
[2020-04-21] MEDS ORDERED: NALOXONE 0.4 MG/ML 1 ML VIAL IV PRN (16:15)
[2020-04-21] MEDS ORDERED: IPRATROPIUM-ALBUTEROL 3 ML NEB INHALATION PRN (20:04)
[2020-04-21] MEDS ORDERED: ALBUTEROL HFA INHALER INHALATION PRN (20:04)
[2020-04-21] MEDS ORDERED: NITROGLYCERIN SL TABS 0.4 MG TAB SUBLINGUAL PRN (20:04)
[2020-04-21] MEDS ORDERED: ALBUTEROL NEBULIZED 2.5 MG/3 ML INHALATION PRN (20:04)
[2020-04-21] MEDS ORDERED: HALOPERIDOL LACTATE 5 MG/ML 1 ML VIAL IVP PRN (20:05)
[2020-04-21] MEDS: PANTOPRAZOLE 40 MG/10 ML VIAL IVP SCH (20:15)
[2020-04-21] MEDS: QUEtiapine 25 MG TAB PO SCH (20:15)
[2020-04-22] MEDS: carvediloL 3.125 MG TAB PO SCH ×2 (06:54→17:20)
[2020-04-22 07:19] LABS: Basophils % (A) 0 %; Eosinophils % (A) 0 %; HCT 24.6 % (34.0-46.0); HGB 8.1 gm/dL (11.4-16.0); Lymphocytes # (A) 0.5 k/uL (1.0-4.8); Lymphocytes % (A) 5 %; MCH 31.9 pg (25.0-35.0); MCHC 32.8 g/dL (31.0-37.0); MCV 97.3 fL (80.0-100.0); Mean Platelet Volume 8.3; Monocytes % (A) 10 %; Neutrophils # (A) 8.6 k/uL (1.3-7.7); Neutrophils % (A) 83 %; Platelet Count 230 k/uL (150-450); RBC 2.53 m/uL (3.80-5.40); RDW 14.4 % (11.5-15.5); WBC 10.4 k/uL (3.8-10.6)
[2020-04-22] MEDS: PANTOPRAZOLE 40 MG/10 ML VIAL IVP SCH ×2 (08:34→20:29)
[2020-04-22] MEDS: ISOSORBIDE MONONITRATE ER 30 MG TAB.ER.24H PO SCH (09:55)
[2020-04-22] MEDS: FUROSEMIDE 40 MG TAB PO SCH ×2 (09:55→16:30)
[2020-04-22] MEDS: LOSARTAN 25 MG TAB PO SCH (09:55)
[2020-04-22] MEDS: SPIRONOLACTONE 25 MG TAB PO SCH (09:55)
[2020-04-22] MEDS: ACETAMINOPHEN TAB 325 MG TAB PO PRN ×2 (12:21→17:21)
--- NOTE | 2020-04-22 16:57 | P.HPIM ---
History of Present Illness H&P Date: 04/22/20 Chief Complaint: Shortness of breath cough this is a pleasant 89-year-old female patient of Dr. Zuluaga, with known history of COPD, hypertension, and heavy tobacco use. Per patient history, she quit at least a month ago, comes in now with shortness of breath, shortness of breath with exertion, without any Swelling or leg pain, patient denies any fever no chills, dry cough,, was recently admitted from our facility 02/02/2020, at that time she was treated for COPD exacerbation, covered was negative at that time, In the emergency room, she presents with shortness of breath, cough, weakness, of 3 days' duration. Patient denies any dysphagia, no edema, patient has had black stools for the past 2-3 days, without any abdominal pain. Patient cannot recollect any colonoscopy or EGD done, comes in with COPD exacerbation, as well as acute blood loss anemia. Hemoglobin is currently at 9.2 from a previous of 12.9, Hemoccult was positive, creatinine of 0.93, sodium 137, INR 1.0, liver function test is normal, NT proBNP of 1100, troponin of 0.02 Review of Systems Constitutional: Reports as per HPI, Reports chronic pain, Reports fatigue, Reports lethargy, Reports malaise, Reports poor appetite Ears, nose, mouth and throat: Reports as per HPI Cardiovascular: Reports as per HPI, Reports decreased exercise tolerance, Reports dyspnea on exertion, Denies chest pain, Denies claudication, Denies edema, Denies high blood pressure, Denies irregular heart beat, Denies leg edema, Denies lightheadedness, Denies orthopnea, Denies palpitations, Denies paroxysmal nocturnal dyspnea, Denies phlebitis, Denies rapid heart beat, Denies shortness of breath, Denies syncope Respiratory: Reports as per HPI, Reports cough with sputum, Reports dyspnea Gastrointestinal: Reports as per HPI, Denies abdominal pain, Denies belching, Denies bloating, Denies BRBPR, Denies change in bowel habits, Denies coffee ground emesis, Denies constipation, Denies diarrhea, Denies dyspepsia, Denies early satiety, Denies excessive gas, Denies heartburn, Denies hematemesis, Denies hematochezia, Denies indigestion, Denies jaundice, Denies lactose intolerance, Denies loss of appetite, Denies melena, Denies nausea, Denies vomiting Menstruation: Reports as per HPI Musculoskeletal: Reports as per HPI, Denies arm numbness/tingling, Denies atrophy, Denies fractures, Denies frequent falls, Denies gait dysfunction, Denies hot joints, Denies leg numbness/tingling, Denies limitation of motion, De nies loss of height, Denies low back pain, Denies morning stiffness, Denies muscle cramps, Denies muscle weakness, Denies myalgias, Denies neck pain, Denies neck stiffness, Denies prior amputations, Denies redness of joints, Denies shooting arm pain, Denies shooting leg pain Integumentary: Reports as per HPI Neurological: Reports as per HPI Psychiatric: Reports as per HPI Endocrine: Reports as per HPI Hematologic/Lymphatic: Reports as per HPI Allergic/Immunologic: Reports as per HPI Past Medical History Past Medical History: Heart Failure, COPD, Dementia, Hypertension Additional Past Medical History / Comment(s): degenerate spine disease, arthritis, HAD COVID VACCINE APR 20, 2020 History of Any Multi-Drug Resistant Organisms: None Reported Past Surgical History: Hysterectomy Past Anesthesia/Blood Transfusion Reactions: No Reported Reaction Past Psychological History: No Psychological Hx Reported Smoking Status: Former smoker Past Alcohol Use History: Occasional Past Drug Use History: None Reported - Past Family History Sister(s) Family Medical History: Cancer Additional Family Medical History / Comment(s): Mother and father from old age, brother healthy, sister with cancer unknown, one daughter healthy 2 sons healthy Medications and Allergies Home Medications Medication Instructions Recorded Confirmed Type Acetaminophen Tab [Tylenol] 650 mg PO Q4HR PRN tab 02/04/20 04/21/20 Rx Losartan [Cozaar] 25 mg PO DAILY #30 tab 02/04/20 04/21/20 Rx Albuterol Nebulized [Ventolin 2.5 mg INHALATION RT-QID PRN 02/18/20 04/21/20 History Nebulized] Albuterol Sulfate [Ventolin HFA] 2 puff INHALATION RT-QID PRN 02/18/20 04/21/20 History Furosemide [Lasix] 40 mg PO BID@0900,1600 #60 tab 02/19/20 04/21/20 Rx Isosorbide Mononitrate ER [Imdur] 30 mg PO DAILY #30 tab.er.24h 02/19/20 04/21/20 Rx Spironolactone [Aldactone] 12.5 mg PO DAILY #30 tab 02/19/20 04/21/20 Rx carvediloL [Coreg] 3.125 mg PO BID-W/MEALS #60 tab 02/19/20 04/21/20 Rx Nitroglycerin Sl Tabs [Nitrostat] 0.4 mg SUBLINGUAL Q5M PRN 04/13/20 04/21/20 History Ipratropium-Albuterol Nebulize 3 ml INHALATION RT-QID PRN 04/21/20 04/21/20 History [Duoneb 0.5 mg-3 mg/3 ml Soln] QUEtiapine [SEROquel] 25 mg PO HS 04/21/20 04/21/20 History Allergies Allergy/AdvReac Type Severity Reaction Status Date / Time Penicillins Allergy Rash/Hives Verified 04/21/20 16:23 Physical Exam Vitals: Vital Signs Temp Pulse Pulse Resp BP BP Pulse Ox 04/22/20 15:49 98 F 67 16 110/59 98 04/22/20 12:15 97 F L 69 18 136/64 96 04/22/20 08:30 96.9 F L 76 16 139/64 96 04/22/20 04:00 97.5 F L 89 18 148/74 98 04/21/20 23:32 97.5 F L 105 H 20 149/69 96 04/21/20 20:00 98.5 F 109 H 19 142/60 96 04/21/20 18:30 98.6 F 117 H 20 153/119 97 04/21/20 18:01 98.6 F 91 18 137/61 100 04/21/20 17:30 91 18 137/61 100 Intake and Output 04/22/20 04/22/20 04/22/20 06:59 14:59 22:59 Intake Total 1320 Output Total 200 Balance -200 1320 Intake: Oral 1320 Output: Urine 200 Other: # Voids 1 2 # Bowel Movements 3 Weight 56.5 kg - Constitutional General appearance: cooperative, no acute distress - EENT Eyes: anicteric sclerae, EOMI, PERRLA, dentition normal, normal appearance ENT: NA/AT, normal oropharynx - Neck Neck: normal ROM - Respiratory Respiratory: bilateral: CTA, negative: diminished, dullness, rales - Cardiovascular Rhythm: regular Heart sounds: normal: S1, S2 Abnormal Heart Sounds: no systolic murmur, no diastolic murmur, no rub, no S3 Gallop, no S4 Gallop, no click, no other - Gastrointestinal General gastrointestinal: normal bowel sounds, soft - Integumentary Integumentary: decreased turgor, normal - Neurologic Neurologic: CNII-XII intact - Musculoskeletal Musculoskeletal: gait normal, strength equal bilaterally - Psychiatric Psychiatric: A&O x's 3, intact judgment & insight Results CBC & Chem 7: 04/22/20 06:53 04/21/20 14:03 Labs: Abnormal Lab Results - Last 24 Hours (Table) 04/22/20 Range/Units 06:53 RBC 2.53 L (3.80-5.40) m/uL Hgb 8.1 L (11.4-16.0) gm/dL Hct 24.6 L (34.0-46.0) % Neutrophils # 8.6 H (1.3-7.7) k/uL Lymphocytes # 0.5 L (1.0-4.8) k/uL Microbiology - Last 24 Hours (Table) 04/21/20 14:03 Blood Culture - Preliminary Blood No Growth after 24 hours Laboratory Results WBC 10.4 k/uL (3.8-10.6) 04/22/20 06:53 RBC 2.53 m/uL (3.80-5.40) L 04/22/20 06:53 Hgb 8.1 gm/dL (11.4-16.0) L 04/22/20 06:53 Hct 24.6 % (34.0-46.0) L 04/22/20 06:53 MCV 97.3 fL (80.0-100.0) 04/22/20 06:53 MCH 31.9 pg (25.0-35.0) 04/22/20 06:53 MCHC 32.8 g/dL (31.0-37.0) 04/22/20 06:53 RDW 14.4 % (11.5-15.5) 04/22/20 06:53 Plt Count 230 k/uL (150-450) 04/22/20 06:53 MPV 8.3 04/22/20 06:53 Neutrophils % 83 % 04/22/20 06:53 Lymphocytes % 5 % 04/22/20 06:53 Monocytes % 10 % 04/22/20 06:53 Eosinophils % 0 % 04/22/20 06:53 Basophils % 0 % 04/22/20 06:53 Neutrophils # 8.6 k/uL (1.3-7.7) H 04/22/20 06:53 Lymphocytes # 0.5 k/uL (1.0-4.8) L 04/22/20 06:53 Monocytes # 1.0 k/uL (0-1.0) 04/22/20 06:53 Eosinophils # 0.0 k/uL (0-0.7) 04/22/20 06:53 Basophils # 0.0 k/uL (0-0.2) 04/22/20 06:53 PT 11.0 sec (9.0-12.0) 04/21/20 14:03 INR 1.0 (<1.2) 04/21/20 14:03 APTT 18.4 sec (22.0-30.0) L 04/21/20 14:03 VBG pH 7.36 (7.31-7.41) 04/21/20 14:03 VBG pCO2 51 mmHg (37-51) 04/21/20 14:03 VBG HCO3 28 mmol/L (24-28) 04/21/20 14:03 Sodium 137 mmol/L (137-145) 04/21/20 14:03 Potassium 3.4 mmol/L (3.5-5.1) L 04/21/20 14:03 Chloride 100 mmol/L (98-107) 04/21/20 14:03 Carbon Dioxide 29 mmol/L (22-30) 04/21/20 14:03 Anion Gap 8 mmol/L 04/21/20 14:03 BUN 92 mg/dL (7-17) H 04/21/20 14:03 Creatinine 0.93 mg/dL (0.52-1.04) 04/21/20 14:03 Est GFR (CKD-EPI)AfAm 69 (>60 ml/min/1.73 sqM) 04/21/20 14:03 Est GFR (CKD-EPI)NonAf 60 (>60 ml/min/1.73 sqM) 04/21/20 14:03 Glucose 110 mg/dL (74-99) H 04/21/20 14:03 Plasma Lactic Acid José Miguel 1.4 mmol/L (0.7-2.0) 04/21/20 14:03 Calcium 9.5 mg/dL (8.4-10.2) 04/21/20 14:03 Magnesium 1.8 mg/dL (1.6-2.3) 04/21/20 14:03 Total Bilirubin 0.5 mg/dL (0.2-1.3) 04/21/20 14:03 AST 14 U/L (14-36) 04/21/20 14:03 ALT 9 U/L (4-34) 04/21/20 14:03 Alkaline Phosphatase 45 U/L (38-126) 04/21/20 14:03 Troponin I 0.020 ng/mL (0.000-0.034) 04/21/20 14:03 NT-Pro-B Natriuret Pep 1100 pg/mL 04/21/20 14:03 Total Protein 6.2 g/dL (6.3-8.2) L 04/21/20 14:03 Albumin 3.3 g/dL (3.5-5.0) L 04/21/20 14:03 Stool Occult Blood Positive (Negative) H 04/21/20 14:29 Coronavirus (PCR) Not Detected (Not Detectd) 04/21/20 14:03 Influenza Type A RNA Not Detected (Not Detectd) 04/21/20 18:12 Influenza Type B (PCR) Not Detected (Not Detectd) 04/21/20 18:12 Thrombosis Risk Factor Assmnt - DVT/VTE Prophylaxis DVT/VTE Prophylaxis: Mechanical Prophylaxis ordered, Contraindicated - See note - Choose All That Apply Each Risk Factor Represents 3 Points: Age 75 years or older Thrombosis Risk Factor Assessment Total Risk Factor Score: 3 Thrombosis Risk Factor Assessment Level: Moderate Risk Assessment and Plan Plan: 1. Multifactorial shortness of breath, underlying history of diastolic CHF, as well as COPD, and acute blood loss symptomatic anemia with diastolic component, EF 55%, continue on n Imdur 30 mg daily and Coreg 3.125 mg twice a day Aldactone 2.5 mg daily and keep proBNP was 1100, Covid test negative insulin test negative. Nebulized Pulmicort, avoid oral prednisone at this time, secondary to GI bleed, Echocardiogram noted as above, cardiology has been consulted 2 COPD . Patient started on DuoNeb treatments 3 times daily and as needed, Pulmicort 1 mg twice daily, Covid 19 is negative. Solu-Medrol 125 mg given 1 dose 3. Acute blood loss anemia, hemoglobin currently at 9.2 Hemoccult stool p ositive, patient not on NSAID as well as aspirin, consult with GI, we'll transfuse with hemoglobin under 7, iron studies to be done, might need iron infusion. No abdominal tenderness to signify acute diverticulitis, PPI at 40 mg twice a day 2. Hypertension. Patient on losartan 25 mg daily. 3. Mild pulmonary hypertension, Lasix, monitor for decompensation, can obtained sleep study as an outpatient if needed, 3. Tobacco use and dependence. Was on nicotine patch 21 mg daily. Refuse any replacement this time, per patient she quit smoking 4. GI prophylaxis. Protonix. 5. DVT prophylaxis. Heparin subcu. Patient will be admitted to the hospital for a minimum of 2 night stay.
[2020-04-22] MEDS: QUEtiapine 25 MG TAB PO SCH (20:28)
[2020-04-23] MEDS: carvediloL 3.125 MG TAB PO SCH ×2 (07:05→17:07)
[2020-04-23] MEDS: PANTOPRAZOLE 40 MG/10 ML VIAL IVP SCH ×2 (09:00→20:15)
[2020-04-23] MEDS: ISOSORBIDE MONONITRATE ER 30 MG TAB.ER.24H PO SCH (09:31)
[2020-04-23] MEDS: SPIRONOLACTONE 25 MG TAB PO SCH (09:31)
[2020-04-23] MEDS: FUROSEMIDE 40 MG TAB PO SCH ×2 (09:31→15:25)
[2020-04-23] MEDS: LOSARTAN 25 MG TAB PO SCH (09:31)
[2020-04-23] MEDS: ACETAMINOPHEN TAB 325 MG TAB PO PRN ×2 (12:02→20:15)
[2020-04-23 12:17] LABS: Basophils % (A) 0 %; Eosinophils # (A) 0.1 k/uL (0-0.7); Eosinophils % (A) 1 %; HCT 25.1 % (34.0-46.0); HGB 8.4 gm/dL (11.4-16.0); Lymphocytes # (A) 0.7 k/uL (1.0-4.8); Lymphocytes % (A) 8 %; MCH 32.6 pg (25.0-35.0); MCHC 33.3 g/dL (31.0-37.0); MCV 97.7 fL (80.0-100.0); Mean Platelet Volume 8.4; Monocytes # (A) 0.8 k/uL (0-1.0); Monocytes % (A) 9 %; Neutrophils # (A) 6.6 k/uL (1.3-7.7); Neutrophils % (A) 78 %; Platelet Count 248 k/uL (150-450); RBC 2.57 m/uL (3.80-5.40); RDW 14.1 % (11.5-15.5); WBC 8.4 k/uL (3.8-10.6)
[2020-04-23 12:28] LABS: Albumin 3.5 g/dL (3.5-5.0); Calcium 10.3 mg/dL (8.4-10.2); Potassium 3.4 mmol/L (3.5-5.1); Total Bilirubin 0.6 mg/dL (0.2-1.3); Total Protein 6.5 g/dL (6.3-8.2)
[2020-04-23] MEDS ORDERED: POTASSIUM CHLORIDE ER 20 MEQ TAB.ER PO STA (12:55)
--- NOTE | 2020-04-23 13:48 | P.PN ---
Subjective Progress Note Date: 04/23/20 this is a pleasant 89-year-old female patient of Dr. Zuluaga, with known history of COPD, hypertension, and heavy tobacco use. Per patient history, she quit at least a month ago, comes in now with shortness of breath, shortness of breath with exertion, without any Swelling or leg pain, patient denies any fever no chills, dry cough,, was recently admitted from our facility 02/02/2020, at that time she was treated for COPD exacerbation, covered was negative at that time, In the emergency room, she presents with shortness of breath, cough, weakness, of 3 days' duration. Patient denies any dysphagia, no edema, patient has had black stools for the past 2-3 days, without any abdominal pain. Patient cannot recollect any colonoscopy or EGD done, comes in with COPD exacerbation, as well as acute blood loss anemia. Hemoglobin is currently at 9.2 from a previous of 12.9, Hemoccult was positive, creatinine of 0.93, sodium 137, INR 1.0, liver function test is normal, NT proBNP of 1100, troponin of 0.02 04/23, patient does not feel well, patient's anxious, short of breath, fatigue no energy, multiple PVCs and PACs noted in the palate, she does have irregular heartbeat however it is still in sinus rhythm, no evidence of paroxysmal atrial fibrillation noted on monitor, hemoglobin currently at 8.4, potassium 3.4 calcium 10.3, glucose of 107 TSH is normal at 2.0. Liver function test is normal, creatinine of 0.94, patient has no appetite currently, no cough, no chest pain. She does have dyspnea on exertion, and palpitations. Consult with Dr. Rodgers, [employer] SECR[employer] proBNP is requested, patient will be made nothing by mouth after midnight tonight, with expected EGD to be done plus minus colonoscopy. Dr. long iron studies pending. Current hemoglobin 8.4 from 8.1 Review of Systems Constitutional: Reports as per HPI, Reports chronic pain, Reports fatigue, Reports lethargy, Reports malaise, Reports poor appetite Ears, nose, mouth and throat: Reports as per HPI Cardiovascular: Reports as per HPI, Reports decreased exercise tolerance, Reports dyspnea on exertion, Denies chest pain, Denies claudication, Denies edema, Denies high blood pressure, Denies irregular heart beat, Denies leg edema, Denies lightheadedness, Denies orthopnea, Denies palpitations, Denies paroxysmal nocturnal dyspnea, Denies phlebitis, Denies rapid heart beat, Denies shortness of breath, Denies syncope Respiratory: Reports as per HPI, Reports cough with sputum, Reports dyspnea Gastrointestinal: Reports as per HPI, Denies abdominal pain, Denies belching, Denies bloating, Denies BRBPR, Denies change in bowel habits, Denies coffee ground emesis, Denies constipation, Denies diarrhea, Denies dyspepsia, Denies early satiety, Denies excessive gas, Denies heartburn, Denies hematemesis, Denies hematochezia, Denies indigestion, Denies jaundice, Denies lactose intoler ance, Denies loss of appetite, Denies melena, Denies nausea, Denies vomiting Menstruation: Reports as per HPI Musculoskeletal: Reports as per HPI, Denies arm numbness/tingling, Denies atrophy, Denies fractures, Denies frequent falls, Denies gait dysfunction, Denies hot joints, Denies leg numbness/tingling, Denies limitation of motion, Denies loss of height, Denies low back pain, Denies morning stiffness, Denies muscle cramps, Denies muscle weakness, Denies myalgias, Denies neck pain, Denies neck stiffness, Denies prior amputations, Denies redness of joints, Denies shooting arm pain, Denies shooting leg pain Integumentary: Reports as per HPI Neurological: Reports as per HPI Psychiatric: Reports as per HPI Endocrine: Reports as per HPI Hematologic/Lymphatic: Reports as per HPI Allergic/Immunologic: Reports as per HPI Objective - Vital Signs Vital signs: Vital Signs Temp 97.4 F L 04/23/20 12:00 Pulse 73 04/23/20 12:00 Resp 16 04/23/20 12:00 BP 132/60 04/23/20 12:00 Pulse Ox 97 04/23/20 12:00 Intake & Output 04/22/20 04/23/20 04/23/20 18:59 06:59 18:59 Intake Total 1556 100 Output Total 400 0 Balance 1556 -300 0 Weight 59 kg Intake: Oral 1556 100 Output: Urine 400 Stool 0 Other: # Voids 1 1 1 # Bowel Movements 1 - Constitutional General appearance: Present: cooperative, no acute distress - EENT Eyes: Present: EOMI, PERRLA, dentition normal, normal appearance ENT: Present: NA/AT, normal oropharynx - Neck Neck: Present: normal ROM - Respiratory Respiratory: bilateral: CTA, negative: diminished, dullness, rales - Cardiovascular Rhythm: regular Heart sounds: normal: S1, S2 Abnormal Heart Sounds: Absent: systolic murmur, diastolic murmur, rub, S3 Jeffery p, S4 Gallop, click, other - Gastrointestinal General gastrointestinal: Present: normal bowel sounds, soft - Integumentary Integumentary: Present: decreased turgor, normal - Neurologic Neurologic: Present: CNII-XII intact - Musculoskeletal Musculoskeletal: Present: generalized weakness, strength equal bilaterally - Psychiatric Psychiatric: Present: A&O x's 3, appropriate affect, intact judgment & insight - Labs CBC & Chem 7: 04/23/20 11:52 04/23/20 11:52 Labs: Abnormal Lab Results - Last 24 Hours (Table) 04/23/20 04/23/20 Range/Units 11:52 11:52 RBC 2.57 L (3.80-5.40) m/uL Hgb 8.4 L (11.4-16.0) gm/dL Hct 25.1 L (34.0-46.0) % Lymphocytes # 0.7 L (1.0-4.8) k/uL Potassium 3.4 L (3.5-5.1) mmol/L Carbon Dioxide 32 H (22-30) mmol/L BUN 39 H (7-17) mg/dL Glucose 107 H (74-99) mg/dL Calcium 10.3 H (8.4-10.2) mg/dL Microbiology - Last 24 Hours (Table) 04/21/20 14:03 Blood Culture - Preliminary Blood No Growth after 24 hours Assessment and Plan Plan: 1. Multifactorial shortness of breath, underlying history of diastolic CHF, as well as COPD, and acute blood loss symptomatic anemia with diastolic component, EF 55%, continue on n Imdur 30 mg daily and Coreg 3.125 mg twice a day Aldactone 2.5 mg daily and keep proBNP was 1100, Covid test negative insulin test negative. Nebulized Pulmicort, avoid oral prednisone at this time, secondary to GI bleed, Echocardiogram noted as above, cardiology has been consulted 2 COPD . Patient started on DuoNeb treatments 3 times daily and as needed, Pulmicort 1 mg twice daily, Covid 19 is negative. Solu-Medrol 125 mg given 1 dose 3. Acute blood loss anemia, hemoglobin currently at 9.2 Hemoccult stool positive, patient not on NSAID as well as aspirin, consult with GI, we'll transfuse with hemoglobin under 7, iron studies to be done, might need iron infusion. No abdominal tenderness to signify acute diverticulitis, PPI at 40 mg twice a day 2. Hypertension. Patient on losartan 25 mg daily. 3. Mild pulmonary hypertension, Lasix, monitor for decompensation, can obtained sleep study as an outpatient if needed, 3. Tobacco use and dependence. Was on nicotine patch 21 mg daily. Refuse any replacement this time, per patient she quit smoking 4. GI prophylaxis. Protonix. 5. DVT prophylaxis. Heparin subcu. Patient will be admitted to the hospital for a minimum of 2 night stay.
--- NOTE | 2020-04-23 17:09 | P.CONS ---
History of Present Illness - Reason for Consult Consult date: 04/22/20 anemia, stool occult positive blood Requesting physician: Mayda Caro - Chief Complaint shortness of breath - History of Present Illness 80-year-old female with multiple medical comorbidities including COPD, hypertension, tobacco abuse, dementia and CHF who presented to the hospital due to shortness of breath. Patient has been experiencing worsening shortness of breath over the past 3 days prior to presentation. In the ER the patient was found to be anemic with a fall in her hemoglobin down to 9.2 from 12.9 previously. Patient had stool testing which was positive for occult blood. Stool was described as dark in color. On questioning the patient reported 3 da ys of dark colored bowel movements. She denied any nausea or vomiting, no hematemesis or coffee-ground emesis. She does report occasional use of ibuprofen. She denies any history of anemia or peptic ulcer disease. No prior EGD and she reports a remote history of colonoscopy. She denies any use of iron supplements or Pepto-Bismol at home. Review of Systems REVIEW OF SYSTEMS: CONSTITUTIONAL: Denies any fevers, chills, weight change or fatigue. CARDIOVASCULAR: Denies any chest pain, palpitations high or low blood pressures RESPIRATORY: Denies anyhemoptysis or cough but the patient did report shortness of breath. GENITOURINARY: No dysuria or hematuria. MUSCULOSKELETAL: No weakness reported. SKIN: Denies any new rashes or lesions, jaundice or pallor. PSYCHIATRIC: Denies any depression or anxiety. NEUROLOGY: Denies headache, denies any new focal deficits, she does have memory impairment at baseline. EARS/NOSE/THROAT: No recent hearing change, congestion, nasal discharge or sore throat. EYES: No pain in eyes, discharge or change in vision. GASTROINTESTINAL: As per HPI. Past Medical History Past Medical History: Heart Failure, COPD, Dementia, Hypertension Additional Past Medical History / Comment(s): degenerate spine disease, arthritis, HAD COVID VACCINE APR 20, 2020 History of Any Multi-Drug Resistant Organisms: None Reported Past Surgical History: Hysterectomy Past Anesthesia/Blood Transfusion Reactions: No Reported Reaction Past Psychological History: No Psychological Hx Reported Smoking Status: Former smoker Past Alcohol Use History: Occasional Past Drug Use History: None Reported - Past Family History Sister(s) Family Medical History: Cancer Medications and Allergies Home Medications Medication Instructions Recorded Confirmed Type Acetaminophen Tab [Tylenol] 650 mg PO Q4HR PRN tab 02/04/20 04/21/20 Rx Losartan [Cozaar] 25 mg PO DAILY #30 tab 02/04/20 04/21/20 Rx Albuterol Nebulized [Ventolin 2.5 mg INHALATION RT-QID PRN 02/18/20 04/21/20 History Nebulized] Albuterol Sulfate [Ventolin HFA] 2 puff INHALATION RT-QID PRN 02/18/20 04/21/20 History Furosemide [Lasix] 40 mg PO BID@0900,1600 #60 tab 02/19/20 04/21/20 Rx Isosorbide Mononitrate ER [Imdur] 30 mg PO DAILY #30 tab.er.24h 02/19/20 04/21/20 Rx Spironolactone [Aldactone] 12.5 mg PO DAILY #30 tab 02/19/20 04/21/20 Rx carvediloL [Coreg] 3.125 mg PO BID-W/MEALS #60 tab 02/19/20 04/21/20 Rx Nitroglycerin Sl Tabs [Nitrostat] 0.4 mg SUBLINGUAL Q5M PRN 04/13/20 04/21/20 History Ipratropium-Albuterol Nebulize 3 ml INHALATION RT-QID PRN 04/21/20 04/21/20 History [Duoneb 0.5 mg-3 mg/3 ml Soln] QUEtiapine [SEROquel] 25 mg PO HS 04/21/20 04/21/20 History Allergies Allergy/AdvReac Type Severity Reaction Status Date / Time Penicillins Allergy Rash/Hives Verified 04/21/20 16:23 Physical Exam Vitals: Vital Signs Temp Pulse Pulse Resp BP BP Pulse Ox 04/22/20 12:15 97 F L 69 18 136/64 96 04/22/20 08:30 96.9 F L 76 16 139/64 96 04/22/20 04:00 97.5 F L 89 18 148/74 98 04/21/20 23:32 97.5 F L 105 H 20 149/69 96 04/21/20 20:00 98.5 F 109 H 19 142/60 96 04/21/20 18:30 98.6 F 117 H 20 153/119 97 04/21/20 18:01 98.6 F 91 18 137/61 100 04/21/20 17:30 91 18 137/61 100 04/21/20 15:24 94 20 151/62 100 04/21/20 12:43 24 Intake and Output 04/21/20 04/22/20 04/22/20 22:59 06:59 14:59 Intake Total 840 Output Total 300 200 Balance -300 -200 840 Intake: Oral 840 Output: Urine 300 200 Other: # Voids 1 1 2 # Bowel Movements 1 Weight 47.627 kg 56.5 kg On physical examination, patient appears comfortable in no apparent distress. HEAD: Normocephalic, atraumatic. EYES: No scleral icterus. No conjunctival injection. MOUTH: No lesions, tongue midline. NECK: Trachea midline, no gross abnormalities. CHEST: decreased air entry in all lung marcano. HEART: S1-S2 appreciated. ABDOMEN: Soft, nontender to palpation. Bowel sounds are positive. No organomegaly. No guarding or rigidity. EXTREMITIES: No pedal edema. SKIN: No rashes, no jaundice. NEUROLOGIC: Alert and oriented to person and place. Results CBC & Chem 7: 04/23/20 11:52 04/23/20 11:52 Labs: Abnormal Lab Results - Last 24 Hours (Table) 04/21/20 04/21/20 04/21/20 Range/Units 14:03 14:03 14:03 WBC 13.6 H (3.8-10.6) k/uL RBC 2.79 L (3.80-5.40) m/uL Hgb 9.2 L D (11.4-16.0) gm/dL Hct 26.7 L (34.0-46.0) % Neutrophils # 11.6 H (1.3-7.7) k/uL Lymphocytes # 0.9 L (1.0-4.8) k/uL APTT 18.4 L (22.0-30.0) sec Potassium 3.4 L (3.5-5.1) mmol/L BUN 92 H (7-17) mg/dL Glucose 110 H (74-99) mg/dL Total Protein 6.2 L (6.3-8.2) g/dL Albumin 3.3 L (3.5-5.0) g/dL Stool Occult Blood (Negative) 04/21/20 04/22/20 Range/Units 14:29 06:53 WBC (3.8-10.6) k/uL RBC 2.53 L (3.80-5.40) m/uL Hgb 8.1 L (11.4-16.0) gm/dL Hct 24.6 L (34.0-46.0) % Neutrophils # 8.6 H (1.3-7.7) k/uL Lymphocytes # 0.5 L (1.0-4.8) k/uL APTT (22.0-30.0) sec Potassium (3.5-5.1) mmol/L BUN (7-17) mg/dL Glucose (74-99) mg/dL Total Protein (6.3-8.2) g/dL Albumin (3.5-5.0) g/dL Stool Occult Blood Positive H (Negative) Chest x-ray: report reviewed Assessment and Plan (1) Normocytic normochromic anemia Narrative/Plan: 80-year-old female presenting for shortness of breath. Patient found to have acute fall in her hemoglobin down to 9.2 from baseline of 12 and did report a few days of dark-colored stool. Fecal occult blood test performed in the ER significant for dark-colored stool in the rectal hall which tested positive for blood. She reports occasional ibuprofen use. No history of peptic ulcer disease or prior GI bleed. She reports a remote history of colonoscopy but no prior EGD. She denies any abdominal pain at this time. Unclear etiology, differential includes peptic ulcer disease, gastritis, esophagitis, AVM or other etiology. Current Visit: Yes Status: Acute Code(s): D64.9 - ANEMIA, UNSPECIFIED SNOMED Code(s): 71655614 (2) Positive occult stool blood test Current Visit: Yes Status: Acute Code(s): R19.5 - OTHER FECAL ABNORMALITIES SNOMED Code(s): 49817215 (3) Melena Current Visit: Yes Status: Acute Code(s): K92.1 - MELENA SNOMED Code(s): 5688093 Plan: supportive care Clear liquid diet Continue to monitor hemoglobin and hematocrit and transfuse as needed Continue to monitor stool output Full anemia laboratories evaluation ordered Extensive discussion with the patient about endoscopic evaluation and she would like to discuss with her daughter, telmaatively plan for EGD for further evaluation Avoid NSAID use Thank you for allowing us to participate in the care of the patient we will continue to follow
--- NOTE | 2020-04-23 17:13 | P.PN ---
Subjective Progress Note Date: 04/23/20 Principal diagnosis: anemia patient is seen lying in bed in no acute complaints. Tolerating liquid diet. No nausea or vomiting. No abdominal pain. Objective - Vital Signs Vital signs: Vital Signs Temp 97.6 F 04/23/20 08:50 Pulse 69 04/23/20 08:50 Resp 16 04/23/20 08:50 BP 112/58 04/23/20 08:50 Pulse Ox 94 L 04/23/20 08:50 Intake & Output 04/22/20 04/23/20 04/23/20 18:59 06:59 18:59 Intake Total 1556 100 Output Total 400 0 Balance 1556 -300 0 Weight 59 kg Intake: Oral 1556 100 Output: Urine 400 Stool 0 Other: # Voids 1 1 1 # Bowel Movements 1 - Exam On physical examination, patient appears comfortable in no apparent distress. HEAD: Normocephalic, atraumatic. EYES: No scleral icterus. No conjunctival injection. MOUTH: No lesions, tongue midline. NECK: Trachea midline, no gross abnormalities. ABDOMEN: Soft, obese. Bowel sounds are positive. No organomegaly. No guarding or rigidity. EXTREMITIES: No pedal edema. SKIN: No rashes, no jaundice. NEUROLOGIC: Alert and oriented to person and place. - Labs CBC & Chem 7: 04/23/20 11:52 04/23/20 11:52 Labs: Microbiology - Last 24 Hours (Table) 04/21/20 14:03 Blood Culture - Preliminary Blood No Growth after 24 hours Assessment and Plan (1) Normocytic normochromic anemia Narrative/Plan: 80-year-old female presenting for shortness of breath. Patient found to have acute fall in her hemoglobin down to 9.2 from baseline of 12 and did report a few days of dark-colored stool. Fecal occult blood test performed in the ER significant for dark-colored stool in the rectal hall which tested positive for blood. She reports occasional ibuprofen use. No history of peptic ulcer disease or prior GI bleed. She reports a remote history of colonoscopy but no prior EGD. She denies any abdominal pain at this time. Unclear etiology, differential includes peptic ulcer disease, gastritis, esophagitis, AVM or other etiology. Current Visit: Yes Status: Acute Code(s): D64.9 - ANEMIA, UNSPECIFIED SNOMED Code(s): 93465614 (2) Melena Current Visit: Yes Status: Acute Code(s): K92.1 - MELENA SNOMED Code(s): 1214392 (3) Positive occult stool blood test Current Visit: Yes Status: Acute Code(s): R19.5 - OTHER FECAL ABNORMALITIES SNOMED Code(s): 03138044 Plan: supportive care Full liquid diet Continue to monitor hemoglobin and hematocrit and transfuse as needed Continue to monitor stool output Full anemia laboratories evaluation ordered Extensive discussion with the patient about endoscopic evaluation and we will plan for EGD for further evaluation tomorrow Avoid NSAID use Thank you for allowing us to participate in the care of the patient we will continue to follow
[2020-04-23 20:05] LABS: Appearance,Urine Clear (Clear); Bacteria,Urine Rare /hpf; Bilirubin,Urine Negative (Negative); Blood,Urine Large (Negative); Color,Urine Light Yellow; Glucose,Urine (UA) Negative (Negative); Ketones,Urine Negative (Negative); Leukocyte Esterase,Urine Negative (Negative); Nitrite,Urine Negative (Negative); PH, Urine 6.5 (5.0-8.0); Protein,Urine Negative (Negative); RBC,Urine 1 /hpf (0-5); Specific Gravity,Urine 1.007 (1.001-1.035); Squamous Epithelial Cell,Urine <1 /hpf (0-4); Urobilinogen,Urine <2.0 mg/dL (<2.0); WBC,Urine 1 /hpf (0-5)
[2020-04-23] MEDS: QUEtiapine 25 MG TAB PO SCH (20:16)
[2020-04-24] MEDS: carvediloL 3.125 MG TAB PO SCH ×2 (07:01→16:49)
[2020-04-24 07:59] LABS: Reticulocyte % 2.4 % (0.5-2.0)
[2020-04-24 08:07] LABS: Basophils % (A) 1 %; Eosinophils # (A) 0.1 k/uL (0-0.7); Eosinophils % (A) 3 %; HCT 25.2 % (34.0-46.0); HGB 8.3 gm/dL (11.4-16.0); Lymphocytes # (A) 0.7 k/uL (1.0-4.8); Lymphocytes % (A) 13 %; MCH 32.5 pg (25.0-35.0); MCV 98.3 fL (80.0-100.0); Mean Platelet Volume 8.4; Monocytes # (A) 0.7 k/uL (0-1.0); Monocytes % (A) 13 %; Neutrophils # (A) 3.5 k/uL (1.3-7.7); Neutrophils % (A) 67 %; Platelet Count 236 k/uL (150-450); RBC 2.56 m/uL (3.80-5.40); WBC 5.2 k/uL (3.8-10.6)
[2020-04-24 08:17] LABS: Potassium 3.4 mmol/L (3.5-5.1)
--- NOTE | 2020-04-24 10:29 | ECHOF ---
Referral Reason:palpitation shortness of breath MEASUREMENTS -------- HEIGHT: 152.4 cm WEIGHT: 59.0 kg BP: IVSd: 1.3 cm (0.6 - 1.1) LVIDd: 4.4 cm (3.9 - 5.3) LVPWd: 1.6 cm (0.6 - 1.1) IVSs: 1.5 cm LVIDs: 3.6 cm LVPWs: 1.6 cm LAESV Index (A-L): 42.82 ml/m MV EXCURSION: 18.351 mm (> 18.000) MV EF SLOPE: 126 mm/s (70 - 150) EPSS: 0.7 cm MV E Dvaid: 0.45 m/s MV DecT: 285 ms MV A David: 0.63 m/s MV E/A Ratio: 0.72 AR PHT: 777 ms RAP: 5.00 mmHg RVSP: 28.21 mmHg FINDINGS -------- Sinus rhythm. This was a technically good study. The left ventricular size is normal. There is mild concentric left ventricular hypertrophy. Overa ll left ventricular systolic function is low-normal with, an EF between 50 - 55 %. The right ventricle is normal in size. LA is severely dilated >40 ml/m2 The right atrial size is normal. There is mild aortic valve sclerosis. There is mild aortic regurgitation. Mild mitral regurgitation is present. Mild tricuspid regurgitation present. Right ventricular systolic pressure is normal at < 35 mmHg. There is no pulmonic regurgitation present. The aortic root size is normal. Echo free space represents a pericardial fat pad. CONCLUSIONS -------- 1. The left ventricular size is normal. 2. There is mild concentric left ventricular hypertrophy. 3. Overall left ventricular systolic function is low-normal with, an EF between 50 - 55 %. 4. The right ventricle is normal in size. 5. LA is severely dilated >40 ml/m2 6. The right atrial size is normal. 7. There is mild aortic valve sclerosis. 8. There is mild aortic regurgitation. 9. Mild mitral regurgitation is present. 10. Mild tricuspid regurgitation present. 11. There is no pulmonic regurgitation present. 12. The aortic root size is normal. 13. Echo free space represents a pericardial fat pad. COLLECTION AGENT: Camila Xie RDCS
--- NOTE | 2020-04-24 11:12 | P.PN ---
Subjective Progress Note Date: 04/24/20 HISTORY OF PRESENT ILLNESS This is a pleasant 89-year-old female patient of Dr. Zuluaga, with known history of COPD, hypertension, and heavy tobacco use. Per patient h istory, she quit at least a month ago, comes in now with shortness of breath, shortness of breath with exertion, without any Swelling or leg pain, patient denies any fever no chills, dry cough,, was recently admitted from our facility 02/02/2020, at that time she was treated for COPD exacerbation, covered was negative at that time, In the emergency room, she presents with shortness of breath, cough, weakness, of 3 days' duration. Patient denies any dysphagia, no edema, patient has had black stools for the past 2-3 days, without any abdominal pain. Patient cannot recollect any colonoscopy or EGD done, comes in with COPD exacerbation, as well as acute blood loss anemia. Hemoglobin is currently at 9.2 from a previous of 12.9, Hemoccult was positive, creatinine of 0.93, sodium 137, INR 1.0, liver function test is normal, NT proBNP of 1100, troponin of 0.02 04/23, patient does not feel well, patient's anxious, short of breath, fatigue no energy, multiple PVCs and PACs noted in the palate, she does have irregular heartbeat however it is still in sinus rhythm, no evidence of paroxysmal atrial fibrillation noted on monitor, hemoglobin currently at 8.4, potassium 3.4 calcium 10.3, glucose of 107 TSH is normal at 2.0. Liver function test is normal, creatinine of 0.94, patient has no appetite currently, no cough, no chest pain. She does have dyspnea on exertion, and palpitations. Consult with Dr. Rdogers, [employer] proBNP is requested, patient will be made nothing by mouth after midnight tonight, with expected EGD to be done plus minus colonoscopy. Dr. long iron studies pending. Current hemoglobin 8.4 from 8.1 04/24: Patient is scheduled today for EGD. Patient is complaining of back pain and that she cannot get comfortable in the bed. Patient's aide to help her get out of bed. Patient voices frustration that she is normally very active and does not like to be confined here. She has been afebrile, heart rate 71, blood pressure 110/57, pulse ox 92% on 2 L nasal cannula. secured entrance monitor sinus rhythm. Hemoglobin 8.3, WBC 5.2, platelet count 236. Reticulocyte count 2.4. Potassium 3.4 and will be replaced, BUN 30 creatinine 1.01 REVIEW OF SYSTEMS Constitutional: No fever, no chills, no night sweats. No weight change. No weakness, fatigue or lethargy. No daytime sleepiness. EENT: No headache. No blurred vision or double vision, no loss of vision. No loss of Hearing, no ringing in the ears, no dizziness. No nasal drainage or congestion. No epistaxis. No sore throat. Lungs: No shortness of breath, cough, no sputum production. No wheezing. Cardiovascular: No chest pain, no lower extremity edema. No palpitations. No paroxysmal nocturnal dyspnea. No orthopnea. No lightheadedness or dizziness. No syncopal episodes. Abdominal: No abdominal pain. No nausea, vomiting. No diarrhea. No constipation. No bloody or tarry stools.. No loss of appetite. Genitourinary: No dysuria, increased frequency, urgency. No urinary retention. Musculoskeletal: No myalgias. No muscle weakness, no gait dysfunction, no frequent falls. Reports back pain. No neck pain. Integumentary: No wounds, no lesions. No rash or pruritus. No unusual bruising. No change in hair or nails. Neurologic: No aphasia. No facial droop. No change in mentation. No head injury. No headache. No paralysis. No paresthesia. Psychiatric: No depression. No anxiety. No mood swings. Endocrine: No abnormal blood sugars. No weight change. No excessive sweating or thirst. No cold intolerance. PHYSICAL EXAMINATION Gen: This is [ ] HEENT: Head is atraumatic, normocephalic. Pupils equal, round. Sclerae is anicteric. NECK: Supple. No JVD. No lymphadenopathy. No thyromegaly. LUNGS: Few scattered expiratory wheeze. No intercostal retractions. HEART: Regular rate and rhythm. No murmur. ABDOMEN: Soft. Bowel sounds are present. No masses. No tenderness. EXTREMITIES: No pedal edema. No calf tenderness. NEUROLOGICAL: Patient is awake, alert and oriented to person and place. Cranial nerves 2 through 12 are grossly intact. ASSESSMENT AND PLAN 1. Multifactorial shortness of breath, underlying history of diastolic CHF, as well as COPD, and acute blood loss symptomatic anemia with diastolic component, EF 55%, continue on n Imdur 30 mg daily and Coreg 3.125 mg twice a day Aldactone 2.5 mg daily and keep proBNP was 1100, Covid test negative insulin test negative. Nebulized Pulmicort, avoid oral prednisone at this time, secondary to GI bleed, Echocardiogram noted as above, cardiology has been consulted 2 COPD . Patient started on DuoNeb treatments 3 times daily and as needed, Pulmicort 1 mg twice daily, Covid 19 is negative. Solu-Medrol 125 mg given 1 dose 3. Acute blood loss anemia, continue to monitor, PPI at 40 mg twice a day 2. Hypertension. Patient on losartan 25 mg daily. 3. Mild pulmonary hypertension, Lasix, monitor for decompensation, can obtained sleep study as an outpatient if needed, 3. Tobacco use and dependence. Was on nicotine patch 21 mg daily. Refuse any replacement this time, per patient she quit smoking 4. GI prophylaxis. Protonix. 5. DVT prophylaxis. Heparin subcu. DISCHARGE PLAN TBD. Impression and plan of care have been directed as dictated by the signing physician. Sameera Medrano nurse practitioner acting as scribe for signing physician. Objective - Vital Signs Vital signs: Vital Signs Temp 98.0 F 04/24/20 04:00 Pulse 71 04/24/20 04:00 Resp 16 04/24/20 04:00 BP 110/57 04/24/20 04:00 Pulse Ox 92 L 04/24/20 04:00 Intake & Output 04/23/20 04/24/20 04/24/20 18:59 06:59 18:59 Intake Total 1440 Output Total 0 0 Balance 1440 0 Intake: Oral 1440 Output: Stool 0 0 Other: # Voids 1 1 # Bowel Movements 2 - Labs CBC & Chem 7: 04/24/20 07:34 04/24/20 07:34 Labs: Abnormal Lab Results - Last 24 Hours (Table) 04/23/20 04/23/20 04/23/20 Range/Units 11:52 11:52 19:30 RBC 2.57 L (3.80-5.40) m/uL Hgb 8.4 L (11.4-16.0) gm/dL Hct 25.1 L (34.0-46.0) % Lymphocytes # 0.7 L (1.0-4.8) k/uL Retic Count (0.5-2.0) % Potassium 3.4 L (3.5-5.1) mmol/L Carbon Dioxide 32 H (22-30) mmol/L BUN 39 H (7-17) mg/dL Glucose 107 H (74-99) mg/dL Calcium 10.3 H (8.4-10.2) mg/dL Urine Blood Large H (Negative) Urine Bacteria Rare H (None) /hpf 04/24/20 04/24/20 04/24/20 Range/Units 07:34 07:34 07:34 RBC 2.56 L (3.80-5.40) m/uL Hgb 8.3 L (11.4-16.0) gm/dL Hct 25.2 L (34.0-46.0) % Lymphocytes # 0.7 L (1.0-4.8) k/uL Retic Count 2.4 H (0.5-2.0) % Potassium 3.4 L (3.5-5.1) mmol/L Carbon Dioxide 32 H (22-30) mmol/L BUN 30 H (7-17) mg/dL Glucose 100 H (74-99) mg/dL Calcium (8.4-10.2) mg/dL Urine Blood (Negative) Urine Bacteria (None) /hpf Microbiology - Last 24 Hours (Table) 04/21/20 14:03 Blood Culture - Preliminary Blood No Growth after 48 hours
[2020-04-24] MEDS ORDERED: POTASSIUM CHLORIDE ER 20 MEQ TAB.ER PO STA (11:16)
[2020-04-24] MEDS ORDERED: PROPOFOL 10 MG/ML 20 ML VIAL IV ONE (11:57)
[2020-04-24] MEDS ORDERED: SODIUM CHLORIDE 0.9% 500 ML 500 ML IV ONE (11:59)
--- NOTE | 2020-04-24 12:18 | P.PCN ---
Date of Procedure: 04/24/20 Procedure(s) Performed: BRIEF HISTORY: Patient is a 80-year-old, pleasant, white female admitted hospital with anemia and black stools for the last 3 days duration. Hemoglobin was 8.2 g/dL. Because of clinical suspicion for upper GI bleed he scheduled for an upper endoscopy. PROCEDURE PERFORMED: Esophagogastroduodenoscopy with biopsy. PREOPERATIVE DIAGNOSIS: Black tarry stools and anemia IV sedation per anesthesia. PROCEDURE: After informed consent was obtained, the patient was brought into the endoscopy unit. IV sedation was administered by Anesthesia under continuous monitoring. Initially the Olympus GIF-140 video endoscope was inserted into the mouth. Esophagus intubated without any difficulty. It was gradually advanced into the stomach and duodenum and carefully examined. The bulb and the second part of the duodenum appeared normal. The scope at this time was withdrawn to the stomach, adequately insufflated with air, and upon careful examination, mucosa of the antrum, had a 5 mm and 1 cm superficial clean-based ulcers with no active bleeding. The body, cardia and the fundus appeared normal. The scope was then withdrawn into the esophagus. The GE junction was located at 37 cm from the incisors. It was long segment of Regan's esophagus extending from 34-37 cm from the incisors and multiple biopsies were done from this area. The rest of the esophagus appeared normal. There were no erosions or ulcerations seen and the patient tolerated the procedure well. IMPRESSION: 1. 5 mm and 1 cm superficial gastric antral ulcers with no active bleeding. 2. 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 3. Small hiatal hernia RECOMMENDATIONS: The findings of this examination were discussed with the patient . She'll be continued on Protonix 40 mg twice daily and was advised to avoid NSAIDs.. Diet will be advanced as tolerated.
--- NOTE | 2020-04-24 12:22 | P.CRDCN ---
History of Present Illness History of present illness: HISTORY OF PRESENTING ILLNESS This is a pleasant 80-year-old female past medical history significant for COPD, hypertension, chronic diastolic heart failure and former nicotine dep endence. She does not follow regularly in the office with a clinical veterinarian, however she states many years ago she used to see Dr. Mccord. There are no old records in the office for review. We have been asked to see in consultation for shortness of breath and palpitations. The patient is seen and examined sitting up in bed in no acute distress. She is somewhat of a poor historian and a bit forgetful about the events surrounding her admission. Information is obtained from the nursing staff and medical record. She presented to the hospital with symptoms of shortness of breath. She was found to have a drop in her hemoglobin and was positive for occult blood in the stool. She is scheduled to undergo an EGD today. She denies specific complaints of palpitations. Telemetry tracings indicate she is maintaining sinus mechanism with frequent PAC's. No acute arrhythmia noted. Chest xray negative for an acute cardiopulmonary process. Laboratory data reviewed, WBC 5.2, hemoglobin 8.3, platelets 236, sodium 138, potassium 3.4, creatinine 1.01, magnesium 2.1, proBNP 796. Currently maintained on Coreg 3.125 mg twice a day, Lasix 40 mg twice a day, Imdur 30 mg daily, losartan 25 mg daily and Aldactone 12.5 mg daily. Repeat echocardiogram ordered by the primary care team revealed preserved LV systolic function with ejection fraction 50-55%, mild MR and mild TR noted. REVIEW OF SYSTEMS At the time of my exam: CONSTITUTIONAL: Denies fever or chills. CARDIOVASCULAR: Denies chest pain, shortness of breath, orthopnea, PND or palpitations. RESPIRATORY: Denies cough. GASTROINTESTINAL: Denies abdominal pain, diarrhea, constipation, nausea or vomiting. MUSCULOSKELETAL: Denies myalgias. NEUROLOGIC: Denies numbness, tingling, headacbe or weakness. ENDOCRINE: Denies fatigue, weight change, polydipsia or polyurina. GENITOURINARY: Denies burning, hematuria or urgency with micturation. HEMATOLOGIC: Denies history of anemia or bleeding. PHYSICAL EXAMINATION Blood pressure 110/57 heart rate 71 afebrile and maintaining oxygen saturation on nasal cannula. CONSTITUTIONAL: No apparent distress. HEENT: Head is normocephalic. Pupils are equal, round. Sclerae anicteric. Mucous membranes of the mouth are moist. No JVD. No carotid bruit. CHEST EXAMINATION: Lungs are clear to auscultation. No chest wall tenderness is noted on palpation or with deep breathing. HEART EXAMINATION: Regular rate and rhythm. S1, S2 heard. No murmurs, gallops or rub. ABDOMEN: Soft, nontender. Positive bowel sounds. EXTREMITIES: 2+ peripheral pulses, no lower extremity edema and no calf tenderness. NEUROLOGIC EXAMINATION: Patient is awake, alert and oriented to self. ASSESSMENT Acute blood loss anemia Shortness of breath Palpitations, no arrhythmia noted on telemetry. Frequent PAC's. Chronic diastolic heart failure, clinically euvolemic Hypertension COPD Former nicotine dependence PLAN Clinically she is euvolemic. She is not in heart failure or have fluid volume overload. Shortness of breath related to anemia. EGD pending. Recommend followup in the office with Dr. Bianchi upon discharge, no further inpatient work-up at this time. Thank you kindly for this consultation. Nurse Practitioner note has been reviewed, I agree with a documented findings and plan of care. Patient was seen and examined. Past Medical History Past Medical History: Heart Failure, COPD, Dementia, Hypertension Additional Past Medical History / Comment(s): degenerate spine disease, arthritis, HAD COVID VACCINE APR 20, 2020 History of Any Multi-Drug Resistant Organisms: None Reported Past Surgical History: Hysterectomy Past Anesthesia/Blood Transfusion Reactions: No Reported Reaction Past Psychological History: No Psychological Hx Reported Smoking Status: Former smoker Past Alcohol Use History: Occasional Past Drug Use History: None Reported - Past Family History Sister(s) Family Medical History: Cancer Additional Family Medical History / Comment(s): Mother and father from old age, brother healthy, sister with cancer unknown, one daughter healthy 2 sons healthy Medications and Allergies Home Medications Medication Instructions Recorded Confirmed Type Acetaminophen Tab [Tylenol] 650 mg PO Q4HR PRN tab 02/04/20 04/21/20 Rx Losartan [Cozaar] 25 mg PO DAILY #30 tab 02/04/20 04/21/20 Rx Albuterol Nebulized [Ventolin 2.5 mg INHALATION RT-QID PRN 02/18/20 04/21/20 History Nebulized] Albuterol Sulfate [Ventolin HFA] 2 puff INHALATION RT-QID PRN 02/18/20 04/21/20 History Furosemide [Lasix] 40 mg PO BID@0900,1600 #60 tab 02/19/20 04/21/20 Rx Isosorbide Mononitrate ER [Imdur] 30 mg PO DAILY #30 tab.er.24h 02/19/20 04/21/20 Rx Spironolactone [Aldactone] 12.5 mg PO DAILY #30 tab 02/19/20 04/21/20 Rx carvediloL [Coreg] 3.125 mg PO BID-W/MEALS #60 tab 02/19/20 04/21/20 Rx Nitroglycerin Sl Tabs [Nitrostat] 0.4 mg SUBLINGUAL Q5M PRN 04/13/20 04/21/20 History Ipratropium-Albuterol Nebulize 3 ml INHALATION RT-QID PRN 04/21/20 04/21/20 History [Duoneb 0.5 mg-3 mg/3 ml Soln] QUEtiapine [SEROquel] 25 mg PO HS 04/21/20 04/21/20 History Allergies Allergy/AdvReac Type Severity Reaction Status Date / Time Penicillins Allergy Rash/Hives Verified 04/21/20 16:23 Physical Exam Vitals: Vital Signs Temp Pulse Resp BP Pulse Ox 04/24/20 08:00 98.0 F 71 18 110/57 92 L 04/24/20 04:00 98.0 F 71 16 110/57 92 L 04/24/20 02:00 75 15 04/24/20 00:00 98.1 F 75 15 113/58 93 L 04/23/20 20:00 98.1 F 73 17 103/55 93 L 04/23/20 15:25 98 F 64 16 138/69 91 L Intake and Output 04/23/20 04/24/20 04/24/20 22:59 06:59 14:59 Intake Total 720 Output Total 0 0 300 Balance 720 0 -300 Intake: Oral 720 Output: Urine 300 Stool 0 0 Other: # Voids 1 1 # Bowel Movements 2 Weight 55.9 kg Results 04/24/20 07:34 04/24/20 07:34 Cardiac Enzymes 04/23/20 Range/Units 11:52 AST 21 (14-36) U/L CBC 04/23/20 04/24/20 Range/Units 11:52 07:34 WBC 8.4 5.2 (3.8-10.6) k/uL RBC 2.57 L 2.56 L (3.80-5.40) m/uL Hgb 8.4 L 8.3 L (11.4-16.0) gm/dL Hct 25.1 L 25.2 L (34.0-46.0) % Plt Count 248 236 (150-450) k/uL Comprehensive Metabolic Panel 04/23/20 04/24/20 Range/Units 11:52 07:34 Sodium 139 138 (137-145) mmol/L Potassium 3.4 L 3.4 L (3.5-5.1) mmol/L Chloride 99 101 (98-107) mmol/L Carbon Dioxide 32 H 32 H (22-30) mmol/L BUN 39 H 30 H (7-17) mg/dL Creatinine 0.94 1.01 (0.52-1.04) mg/dL Glucose 107 H 100 H (74-99) mg/dL Calcium 10.3 H 10.0 (8.4-10.2) mg/dL AST 21 (14-36) U/L ALT 10 (4-34) U/L Alkaline Phosphatase 48 (38-126) U/L Total Protein 6.5 (6.3-8.2) g/dL Albumin 3.5 (3.5-5.0) g/dL Current Medications Generic Name Dose Route Start Last Admin Trade Name Freq PRN Reason Stop Dose Admin Acetaminophen 650 mg 04/21/20 16:15 04/23/20 20:15 Acetaminophen Tab 325 Mg Tab PO 650 mg Q6HR PRN Administration Mild Pain or Fever > 100.5 Albuterol Sulfate 2.5 mg 04/21/20 20:04 Albuterol Nebulized 2.5 Mg/3 Ml INHALATION RT-QID PRN Shortness Of Breath Albuterol Sulfate 2 puff 04/21/20 20:04 04/21/20 21:21 Albuterol Hfa Inhaler INHALATION 2 puff RT-QID PRN Administration Shortness Of Breath Albuterol/Ipratropium 3 ml 04/21/20 20:04 Ipratropium-Albuterol 3 Ml Neb INHALATION RT-QID PRN Shortness Of Breath Carvedilol 3.125 mg 04/22/20 07:30 04/24/20 07:01 Carvedilol 3.125 Mg Tab PO 3.125 mg BID-W/MEALS MELANIE Administration Furosemide 40 mg 04/22/20 09:00 04/23/20 15:25 Furosemide 40 Mg Tab PO 40 mg BID@0900,1600 MELANIE Administration Haloperidol Lactate 0.5 mg 04/21/20 20:05 04/21/20 21:23 Haloperidol Lactate 5 Mg/Ml 1 Ml Vial IVP 0.5 mg ONCE PRN Administration Agitation or Acute Psychosis Isosorbide Mononitrate 30 mg 04/22/20 09:00 04/23/20 09:31 Isosorbide Mononitrate Er 30 Mg Tab.Er.24h PO 30 mg DAILY MELANIE Administration Losartan Potassium 25 mg 04/22/20 09:00 04/23/20 09:31 Losartan 25 Mg Tab PO 25 mg DAILY MELANIE Administration Naloxone HCl 0.2 mg 04/21/20 16:15 Naloxone 0.4 Mg/Ml 1 Ml Vial IV Q2M PRN Opioid Reversal Nitroglycerin 0.4 mg 04/21/20 20:04 Nitroglycerin Sl Tabs 0.4 Mg Tab SUBLINGUAL Q5M PRN Chest Pain Pantoprazole Sodium 40 mg 04/21/20 21:00 04/23/20 20:15 Pantoprazole 40 Mg/10 Ml Vial IVP 40 mg BID MELANIE Administration Quetiapine Fumarate 25 mg 04/21/20 21:00 04/23/20 20:16 Quetiapine 25 Mg Tab PO 25 mg HS MELANIE Administration Spironolactone 12.5 mg 04/22/20 09:00 04/23/20 09:31 Spironolactone 25 Mg Tab PO 12.5 mg DAILY MELANIE Administration Intake and Output 04/23/20 04/24/20 04/24/20 22:59 06:59 14:59 Intake Total 720 Output Total 0 0 300 Balance 720 0 -300 Intake: Oral 720 Output: Urine 300 Stool 0 0 Other: # Voids 1 1 # Bowel Movements 2 Weight 55.9 kg Patient Weight 04/25/20 06:59 Weight 55.9 kg 04/24/20 07:34 04/24/20 07:34
[2020-04-24] MEDS: ISOSORBIDE MONONITRATE ER 30 MG TAB.ER.24H PO SCH (13:00)
[2020-04-24] MEDS: FUROSEMIDE 40 MG TAB PO SCH ×2 (13:00→16:48)
[2020-04-24] MEDS: PANTOPRAZOLE 40 MG/10 ML VIAL IVP SCH ×2 (13:00→20:06)
[2020-04-24] MEDS: SPIRONOLACTONE 25 MG TAB PO SCH (13:00)
[2020-04-24] MEDS: LOSARTAN 25 MG TAB PO SCH (13:00)
[2020-04-24 16:06] LABS: % Iron Saturation 12.5 (12.00-45.00)
[2020-04-24 16:13] LABS: Ferritin 89.6 ng/mL (10.0-291.0)
[2020-04-24 16:30] LABS: Folate, Serum 16.8 ng/mL
[2020-04-24] MEDS: ACETAMINOPHEN TAB 325 MG TAB PO PRN (18:58)
[2020-04-24] MEDS: QUEtiapine 25 MG TAB PO SCH (20:06)
[2020-04-25] MEDS: carvediloL 3.125 MG TAB PO SCH (06:36)
[2020-04-25 07:54] VITALS: BP 127/59; PULSE 74; RESP 20; TEMP 98.9
[2020-04-25 08:51] LABS: Basophils # (A) 0.1 k/uL (0-0.2); Basophils % (A) 1 %; Eosinophils # (A) 0.2 k/uL (0-0.7); Eosinophils % (A) 2 %; HCT 26.2 % (34.0-46.0); HGB 8.5 gm/dL (11.4-16.0); Lymphocytes # (A) 1.1 k/uL (1.0-4.8); Lymphocytes % (A) 16 %; MCH 32.3 pg (25.0-35.0); MCHC 32.4 g/dL (31.0-37.0); MCV 99.7 fL (80.0-100.0); Macrocytosis Slight; Mean Platelet Volume 8.4; Monocytes # (A) 0.7 k/uL (0-1.0); Monocytes % (A) 10 %; Neutrophils # (A) 4.9 k/uL (1.3-7.7); Neutrophils % (A) 70 %; Platelet Count 261 k/uL (150-450); RBC 2.63 m/uL (3.80-5.40); RDW 14.6 % (11.5-15.5)
[2020-04-25 09:02] LABS: Calcium 10.1 mg/dL (8.4-10.2); Potassium 3.7 mmol/L (3.5-5.1)
--- NOTE | 2020-04-25 09:52 | P.DS ---
Providers Date of admission: 04/21/20 16:18 Expected date of discharge: 04/25/20 Attending physician: Jordan Ortiz Consults: 04/21/20 16:16 Consult Physician Routine Consulting Provider: Nagi Long Consult Reason/Comments: Melena, anemia Do you want consulting provider notified?: Yes 04/23/20 11:51 Consult Physician Routine Consulting Provider: Cali Rodgers Consult Reason/Comments: palpitation, dyspnea Do you want consulting provider notified?: Yes Primary care physician: Chong Zuluaga [facility] Course: HISTORY OF PRESENT ILLNESS This is a pleasant 89-year-old female patient of Dr. Zuluaga, with known history of COPD, hypertension, and heavy tobacco use. Per patient history, she quit at least a month ago, comes in now with shortness of breath, shortness of breath with exertion, without any Swelling or leg pain, patient denies any fever no chills, dry cough,, was recently admitted from our facility 02/02/2020, at that time she was treated for COPD exacerbation, covered was negative at that time, In the emergency room, she presents with shortness of breath, cough, weakness, of 3 days' duration. Patient denies any dysphagia, no edema, patient has had black stools for the past 2-3 days, without any abdominal pain. Patient cannot recollect any colonoscopy or EGD done, comes in with COPD exacerbation, as well as acute blood loss anemia. Hemoglobin is currently at 9.2 from a previous of 12.9, Hemoccult was positive, creatinine of 0.93, sodium 137, INR 1.0, liver function test is normal, NT proBNP of 1100, troponin of 0.02 04/23, patient does not feel well, patient's anxious, short of breath, fatigue no energy, multiple PVCs and PACs noted in the palate, she does have irregular heartbeat however it is still in sinus rhythm, no evidence of paroxysmal atrial fibrillation noted on monitor, hemoglobin currently at 8.4, potassium 3.4 calcium 10.3, glucose of 107 TSH is normal at 2.0. Liver function test is normal, creatinine of 0.94, patient has no appetite currently, no cough, no chest pain. She does have dyspnea on exertion, and palpitations. Consult with Dr. Rodgers, CARMEN proBNP is requested, patient will be made nothing by mouth after midnight tonight, with expected EGD to be done plus minus colonoscopy. Dr. long iron studies pending. Current hemoglobin 8.4 from 8.1 2: Patient is scheduled today for EGD. Patient is complaining of back pain and that she cannot get comfortable in the bed. Patient's aide to help her get out of bed. Patient voices frustration that she is normally very active and does not like to be confined here. She has been afebrile, heart rate 71, blood pressure 110/57, pulse ox 92% on 2 L nasal cannula. machine maintenance technician sinus rhythm. Hemoglobin 8.3, WBC 5.2, platelet count 236. Reticulocyte count 2.4. Potassium 3.4 and will be replaced, BUN 30 creatinine 1.01 04/25: Yesterday, patient underwent EGD with Dr. Gallo that revealed 5 mm and 1 cm superficial gastric antral ulcers with no active bleeding. 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 Recommendations to advance diet as tolerated, continue Protonix 40 mg twice daily and avoid nonsteroidals. Repeat blood work reveals hemoglobin of 8.5, BUN 24 and creatinine 1.08, CO2 31, blood sugar 120. Patient was also seen by cardiology with recommendations to follow up in the office with Dr. Bianchi. Patient is anxious to go home today. No nausea or vomiting. No bloody stools. Patient will be discharged home today in stable condition. real estate transaction manager has made arrangements for [facility]. ASSESSMENT AND PLAN 1. Multifactorial shortness of breath, underlying history of diastolic CHF, as well as COPD, and acute blood loss. 2. Acute GI bleed secondary to gastric antral ulcers 3. Acute blood loss anemia 4. Chronic diastolic heart failure. 5. COPD. 6. Hypertension. 7. Mild pulmonary hypertension. 8. Tobacco use and dependence. DISCHARGE PLAN Home with [facility] Impression and plan of care have been directed as dictated by the signing physician. Sameera Medrano nurse practitioner acting as scribe for signing physician. Patient Condition at Discharge: Good Plan - Discharge Summary Discharge Rx Participant: Yes New Discharge Prescriptions: New Pantoprazole Sodium [Protonix] 40 mg PO AC-BID #60 tablet. Continue Losartan [Cozaar] 25 mg PO DAILY #30 tab Acetaminophen Tab [Tylenol] 650 mg PO Q4HR PRN tab PRN Reason: Fever And/ Or Pain Albuterol Nebulized [Ventolin Nebulized] 2.5 mg INHALATION RT-QID PRN PRN Reason: Shortness Of Breath Albuterol Sulfate [Ventolin HFA] 2 puff INHALATION RT-QID PRN PRN Reason: Shortness Of Breath Spironolactone [Aldactone] 12.5 mg PO DAILY #30 tab carvediloL [Coreg] 3.125 mg PO BID-W/MEALS #60 tab Isosorbide Mononitrate ER [Imdur] 30 mg PO DAILY #30 tab.er.24h Furosemide [Lasix] 40 mg PO BID@0900,1600 #60 tab Nitroglycerin Sl Tabs [Nitrostat] 0.4 mg SUBLINGUAL Q5M PRN PRN Reason: Chest Pain Ipratropium-Albuterol Nebulize [Duoneb 0.5 mg-3 mg/3 ml Soln] 3 ml INHALATION RT-QID PRN PRN Reason: Shortness Of Breath QUEtiapine [SEROquel] 25 mg PO HS Discharge Medication List Acetaminophen Tab [Tylenol] 650 mg PO Q4HR PRN tab 02/04/20 [Rx] Losartan [Cozaar] 25 mg PO DAILY #30 tab 02/04/20 [Rx] Albuterol Nebulized [Ventolin Nebulized] 2.5 mg INHALATION RT-QID PRN 02/18/20 [History] Albuterol Sulfate [Ventolin HFA] 2 puff INHALATION RT-QID PRN 02/18/20 [History] Furosemide [Lasix] 40 mg PO BID@0900,1600 #60 tab 02/19/20 [Rx] Isosorbide Mononitrate ER [Imdur] 30 mg PO DAILY #30 tab.er.24h 02/19/20 [Rx] Spironolactone [Aldactone] 12.5 mg PO DAILY #30 tab 02/19/20 [Rx] carvediloL [Coreg] 3.125 mg PO BID-W/MEALS #60 tab 02/19/20 [Rx] Nitroglycerin Sl Tabs [Nitrostat] 0.4 mg SUBLINGUAL Q5M PRN 04/13/20 [History] Ipratropium-Albuterol Nebulize [Duoneb 0.5 mg-3 mg/3 ml Soln] 3 ml INHALATION RT-QID PRN 04/21/20 [History] QUEtiapine [SEROquel] 25 mg PO HS 04/21/20 [History] Pantoprazole Sodium [Protonix] 40 mg PO AC-BID #60 tablet. 04/25/20 [Rx] Follow up Appointment(s)/Referral(s): Malik Bianchi MD [STAFF PHYSICIAN] - 2 Weeks [facility] Visiting Nurse, [NON-STAFF] - Chong Zuluaga DO [Primary Care Provider] - 1 Week Reshma Gallo MD [STAFF PHYSICIAN] - 3 Weeks Discharge Disposition: HOME WITH HOME HEALTH SERVICES
[2020-04-25] MEDS: FUROSEMIDE 40 MG TAB PO SCH (10:18)
[2020-04-25] MEDS: ISOSORBIDE MONONITRATE ER 30 MG TAB.ER.24H PO SCH (10:18)
[2020-04-25] MEDS: LOSARTAN 25 MG TAB PO SCH (10:18)
[2020-04-25] MEDS: SPIRONOLACTONE 25 MG TAB PO SCH (10:18)
[2020-04-25] MEDS: PANTOPRAZOLE 40 MG/10 ML VIAL IVP SCH (10:18)
[2020-04-25] MEDS: ACETAMINOPHEN TAB 325 MG TAB PO PRN (10:20)
--- NOTE | 2020-04-25 11:28 | P.PN ---
Subjective Progress Note Date: 04/25/20 Principal diagnosis: Upper GI bleed A 80-year-old lady who came in for melena. She is status post upper endoscopy yesterday which showed 2 superficial gastric ulcers without any evidence of bleeding, and a long segment of Regan's esophagus. Her hemoglobin is stable today at 8.5. Patient was seen and examined sitting up in bed. She she denies any nausea vomiting or abdominal pain. She states she has not had a bowel movement and is not having any rectal bleeding. Tolerated her breakfast well this morning and orders are for discharge home. Objective - Vital Signs Vital signs: Vital Signs Temp 98.9 F 04/25/20 07:53 Pulse 74 04/25/20 08:00 Resp 20 04/25/20 08:00 BP 127/59 04/25/20 07:53 Pulse Ox 96 04/25/20 07:53 Intake & Output 04/24/20 04/25/20 04/25/20 18:59 06:59 18:59 Intake Total 580 240 Output Total 600 0 Balance -20 0 240 Weight 55.9 kg Intake: IV 100 Oral 480 240 Output: Urine 600 Stool 0 Other: # Voids 2 1 # Bowel Movements 0 - Exam General appearance: The patient is alert, oriented, appears in no acute distress. HET: Head is normocephalic and atraumatic. Conjunctiva pink. Sclera anicteric. Neck: Supple without lymphadenopathy. Abdomen: Soft, nontender, nondistended with bowel sounds. No guarding or rigidity. Extremities: Normal skin color and turgor. No pedal edema Neurological: No focal deficits. Alert and oriented 3. - Labs CBC & Chem 7: 04/25/20 08:18 04/25/20 08:18 Labs: Abnormal Lab Results - Last 24 Hours (Table) 04/24/20 04/24/20 04/25/20 Range/Units 07:34 07:34 08:18 RBC 2.63 L (3.80-5.40) m/uL Hgb 8.5 L (11.4-16.0) gm/dL Hct 26.2 L (34.0-46.0) % Carbon Dioxide (22-30) mmol/L BUN (7-17) mg/dL Creatinine (0.52-1.04) mg/dL Glucose (74-99) mg/dL Iron 38 L (50-170) ug/dL Transferrin 196.0 L (204.0-354.0) mg/dL 04/25/20 Range/Units 08:18 RBC (3.80-5.40) m/uL Hgb (11.4-16.0) gm/dL Hct (34.0-46.0) % Carbon Dioxide 31 H (22-30) mmol/L BUN 24 H (7-17) mg/dL Creatinine 1.08 H (0.52-1.04) mg/dL Glucose 120 H (74-99) mg/dL Iron (50-170) ug/dL Transferrin (204.0-354.0) mg/dL Microbiology - Last 24 Hours (Table) 04/21/20 14:03 Blood Culture - Preliminary Blood No Growth after 72 hours Assessment and Plan (1) Normocytic normochromic anemia Current Visit: Yes Status: Acute Code(s): D64.9 - ANEMIA, UNSPECIFIED SNOMED Code(s): 27277463 (2) Melena Current Visit: Yes Status: Acute Code(s): K92.1 - MELENA SNOMED Code(s): 1867674 (3) Positive occult stool blood test Current Visit: Yes Status: Acute Code(s): R19.5 - OTHER FECAL ABNORMALITIES SNOMED Code(s): 07050499 Plan: 1. Supportive care 2. Diet as tolerated 3. Patient is status post EGD 4. Patient may be discharged home from a gastroenterology standpoint with follow-up as an outpatient for biopsy results Thank you for this consultation. Dr. Sarah Gallo I agree with the dictator's note, documented as a scribe by Anaid Mac.
== END 2020-04-25 11:40 | disposition home health service (06) | DRG 378 ==
LOC: EC 12:17 → 3SCARD 16:18
PROVIDERS: ADMIT Internal Medicine Geriatric Medicine; ATTEND Internal Medicine Geriatric Medicine
PROC: 0DB58ZX Excision of Esophagus, Via Natural or Artificial Opening Endoscopic, Diagnostic (ICD-10-PCS; principal; 2020-04-24 07:30)
PROC: 0DB68ZX Excision of Stomach, Via Natural or Artificial Opening Endoscopic, Diagnostic (ICD-10-PCS; principal; 2020-04-24 07:30)
DX: K25.4 Chronic or unspecified gastric ulcer with hemorrhage (principal); I50.32 Chronic diastolic (congestive) heart failure; J44.1 Chronic obstructive pulmonary disease with (acute) exacerbation; D62 Acute posthemorrhagic anemia; I27.20 Pulmonary hypertension, unspecified; I11.0 Hypertensive heart disease with heart failure; K22.70 Barrett's esophagus without dysplasia; Z20.822 Contact with and (suspected) exposure to COVID-19; K44.9 Diaphragmatic hernia without obstruction or gangrene; F03.90 Unspecified dementia, unspecified severity, without behavioral disturbance, psychotic disturbance, mood disturbance, and anxiety; Z90.710 Acquired absence of both cervix and uterus; Z79.899 Other long term (current) drug therapy; Z80.9 Family history of malignant neoplasm, unspecified; Z88.0 Allergy status to penicillin
CPT/HCPCS: 36415; 43239; 71045; 80048; 80053; 81001; 82272; 82607; 82728; 82746; 82803; 83540; 83550; 83605; 83735; 83880; 84132; 84443; 84466; 84484; 85025; 85045; 85610; 85730; 87040; 87502; 87635; 88305; 93005; 93306; 94640; 96374; 96375; 99291

== ENCOUNTER 2020-07-18 22:23 | Emergency (ER) | payer MEDICARE ==
[2020-07-18 22:31] VITALS: RESP 16
[2020-07-18] MEDS ORDERED: SODIUM CHLORIDE 0.9% 1,000 ML IV STA ×2 (23:07)
[2020-07-18] MEDS ORDERED: cefTRIAXone IN SWFI 1,000 MG/10 ML SYRINGE IVP STA (23:08)
--- NOTE | 2020-07-18 23:08 | ED ---
Weakness HPI - General Chief complaint: Fall Stated complaint: Fall Time Seen by Provider: 07/18/20 22:37 Source: patient, EMS, RN notes reviewed, old records reviewed Mode of arrival: EMS Limitations: altered mental status, physical limitation - History of Present Illness Initial comments: This is a 72-year-old female DF for evaluation patient coming in for evaluation regards to fall. EMS was called the patient's house by daughter because patient fell patient may or may not appear. Patient suffers from dementia MD Complaint: generalized weakness, lack of energy, difficulty walking -: days(s) Location: generalized Severity: moderate Severity scale (1-10): 7 Quality: aching Consistency: constant Improves with: none Context: trauma/injury, history of similar Associated Symptoms: other (none) - Related Data Home Medications Medication Instructions Recorded Confirmed Albuterol Nebulized [Ventolin 2.5 mg INHALATION RT-QID PRN 02/18/20 04/21/20 Nebulized] Albuterol Sulfate [Ventolin HFA] 2 puff INHALATION RT-QID PRN 02/18/20 04/21/20 Nitroglycerin Sl Tabs [Nitrostat] 0.4 mg SUBLINGUAL Q5M PRN 04/13/20 04/21/20 Ipratropium-Albuterol Nebulize 3 ml INHALATION RT-QID PRN 04/21/20 04/21/20 [Duoneb 0.5 mg-3 mg/3 ml Soln] QUEtiapine [SEROquel] 25 mg PO HS 04/21/20 04/21/20 Previous Rx's Medication Instructions Recorded Acetaminophen Tab [Tylenol] 650 mg PO Q4HR PRN tab 02/04/20 Losartan [Cozaar] 25 mg PO DAILY #30 tab 02/04/20 Furosemide [Lasix] 40 mg PO BID@0900,1600 #60 tab 02/19/20 Isosorbide Mononitrate ER [Imdur] 30 mg PO DAILY #30 tab.er.24h 02/19/20 Spironolactone [Aldactone] 12.5 mg PO DAILY #30 tab 02/19/20 carvediloL [Coreg] 3.125 mg PO BID-W/MEALS #60 tab 02/19/20 Pantoprazole Sodium [Protonix] 40 mg PO AC-BID #60 tablet. 04/25/20 Allergies Allergy/AdvReac Type Severity Reaction Status Date / Time Penicillins Allergy Rash/Hives Verified 04/21/20 16:23 Review of Systems ROS Statement: Those systems with pertinent positive or pertinent negative responses have been documented in the HPI. ROS Other: All systems not noted in ROS Statement are negative. Past Medical History Past Medical History: Heart Failure, COPD, Dementia, Hypertension Additional Past Medical History / Comment(s): degenerate spine disease, arthritis, HAD COVID VACCINE APR 20, 2020 History of Any Multi-Drug Resistant Organisms: None Reported Past Surgical History: Hysterectomy Past Anesthesia/Blood Transfusion Reactions: No Reported Reaction Past Psychological History: No Psychological Hx Reported Smoking Status: Former smoker Past Alcohol Use History: Occasional Past Drug Use History: None Reported - Past Family History Sister(s) Family Medical History: Cancer Additional Family Medical History / Comment(s): Mother and father from old age, brother healthy, sister with cancer unknown, one daughter healthy 2 sons healthy General Exam Limitations: no limitations General appearance: alert, in no apparent distress Head exam: Present: atraumatic, normocephalic, normal inspection Eye exam: Present: normal appearance, PERRL, EOMI. Absent: scleral icterus, conjunctival injection, periorbital swelling ENT exam: Present: normal exam, mucous membranes moist Neck exam: Present: normal inspection. Absent: tenderness, meningismus, lymphadenopathy Respiratory exam: Present: normal lung sounds bilaterally. Absent: respiratory distress, wheezes, rales, rhonchi, stridor Cardiovascular Exam: Present: regular rate, normal rhythm, normal heart sounds. Absent: systolic murmur, diastolic murmur, rubs, gallop, clicks GI/Abdominal exam: Present: soft, normal bowel sounds. Absent: distended, tenderness, guarding, rebound, rigid Extremities exam: Present: normal inspection, full ROM, normal capillary refill. Absent: tenderness, pedal edema, joint swelling, calf tenderness Back exam: Present: normal inspection Neurological exam: Present: alert, oriented X3, CN II-XII intact Psychiatric exam: Present: normal affect, normal mood Skin exam: Present: warm, dry, intact, normal color. Absent: rash Course Vital Signs 07/18/20 22:27 Temperature 98.7 F Pulse Rate 68 Respiratory 16 Rate Blood Pressure 127/64 O2 Sat by Pulse 96 Oximetry - Reevaluation(s) Reevaluation #1: 07/19/20 01:12 Medical record is reviewed Reevaluation #2: 07/19/20 01:12 Patient in no distress throughout ER stay walks the bathroom without significant difficulty Reevaluation #3: 07/19/20 01:12 Attempt to reach family is unsuccessful Reevaluation #4: 07/19/20 01:12 Patient wants discharged home EKG Findings - EKG Comments: EKG Findings:: EKG shows sinus rhythm 88 SC 142 QRS 74 QTc 503 Medical Decision Making - Medical Decision Making 72 female possible fall refusing all imaging. Laboratory values otherwise no rmal. Patient can be discharged home - Lab Data Result diagrams: 07/18/20 23:33 07/18/20 23:33 Lab Results 07/18/20 07/18/20 07/18/20 Range/Units 23:33 23:33 23:33 WBC 10.1 (3.8-10.6) k/uL RBC 4.03 (3.80-5.40) m/uL Hgb 10.5 L (11.4-16.0) gm/dL Hct 32.8 L (34.0-46.0) % MCV 81.4 (80.0-100.0) fL MCH 26.1 (25.0-35.0) pg MCHC 32.1 (31.0-37.0) g/dL RDW 17.0 H (11.5-15.5) % Plt Count 338 (150-450) k/uL MPV 8.3 Neutrophils % 79 % Lymphocytes % 7 % Monocytes % 11 % Eosinophils % 1 % Basophils % 1 % Neutrophils # 7.9 H (1.3-7.7) k/uL Lymphocytes # 0.7 L (1.0-4.8) k/uL Monocytes # 1.1 H (0-1.0) k/uL Eosinophils # 0.1 (0-0.7) k/uL Basophils # 0.1 (0-0.2) k/uL Hypochromasia Moderate Anisocytosis Slight PT 10.2 (9.0-12.0) sec INR 0.9 (<1.2) APTT 21.7 L (22.0-30.0) sec Sodium 132 L (137-145) mmol/L Potassium 3.4 L (3.5-5.1) mmol/L Chloride 93 L (98-107) mmol/L Carbon Dioxide 30 (22-30) mmol/L Anion Gap 9 mmol/L BUN 12 (7-17) mg/dL Creatinine 0.99 (0.52-1.04) mg/dL Est GFR (CKD-EPI)AfAm 63 (>60 ml/min/1.73 sqM) Est GFR (CKD-EPI)NonAf 55 (>60 ml/min/1.73 sqM) Glucose 112 H (74-99) mg/dL Calcium 10.7 H (8.4-10.2) mg/dL Phosphorus 2.8 (2.5-4.5) mg/dL Magnesium 1.6 (1.6-2.3) mg/dL Total Bilirubin 0.3 (0.2-1.3) mg/dL AST 20 (14-36) U/L ALT 9 (4-34) U/L Alkaline Phosphatase 98 (38-126) U/L Troponin I (0.000-0.034) ng/mL NT-Pro-B Natriuret Pep pg/mL Total Protein 7.4 (6.3-8.2) g/dL Albumin 4.2 (3.5-5.0) g/dL 07/18/20 07/18/20 Range/Units 23:33 23:33 WBC (3.8-10.6) k/uL RBC (3.80-5.40) m/uL Hgb (11.4-16.0) gm/dL Hct (34.0-46.0) % MCV (80.0-100.0) fL MCH (25.0-35.0) pg MCHC (31.0-37.0) g/dL RDW (11.5-15.5) % Plt Count (150-450) k/uL MPV Neutrophils % % Lymphocytes % % Monocytes % % Eosinophils % % Basophils % % Neutrophils # (1.3-7.7) k/uL Lymphocytes # (1.0-4.8) k/uL Monocytes # (0-1.0) k/uL Eosinophils # (0-0.7) k/uL Basophils # (0-0.2) k/uL Hypochromasia Anisocytosis PT (9.0-12.0) sec INR (<1.2) APTT (22.0-30.0) sec Sodium (137-145) mmol/L Potassium (3.5-5.1) mmol/L Chloride (98-107) mmol/L Carbon Dioxide (22-30) mmol/L Anion Gap mmol/L BUN (7-17) mg/dL Creatinine (0.52-1.04) mg/dL Est GFR (CKD-EPI)AfAm (>60 ml/min/1.73 sqM) Est GFR (CKD-EPI)NonAf (>60 ml/min/1.73 sqM) Glucose (74-99) mg/dL Calcium (8.4-10.2) mg/dL Phosphorus (2.5-4.5) mg/dL Magnesium (1.6-2.3) mg/dL Total Bilirubin (0.2-1.3) mg/dL AST (14-36) U/L ALT (4-34) U/L Alkaline Phosphatase (38-126) U/L Troponin I 0.013 (0.000-0.034) ng/mL NT-Pro-B Natriuret Pep 899 pg/mL Total Protein (6.3-8.2) g/dL Albumin (3.5-5.0) g/dL Disposition Clinical Impression: Fall, Weakness Disposition: HOME SELF-CARE Condition: Good Instructions (If sedation given, give patient instructions): Fall Prevention for Older Adults (ED) Is patient prescribed a controlled substance at d/c from ED?: No Referrals: Chong Zuluaga DO [Primary Care Provider] - 1-2 days
[2020-07-19 00:07] LABS: INR 0.9 (<1.2); Prothrombin Time 10.2 sec (9.0-12.0)
[2020-07-19 00:10] LABS: Albumin 4.2 g/dL (3.5-5.0); Calcium 10.7 mg/dL (8.4-10.2); Magnesium 1.6 mg/dL (1.6-2.3); Phosphorus 2.8 mg/dL (2.5-4.5); Potassium 3.4 mmol/L (3.5-5.1); Total Bilirubin 0.3 mg/dL (0.2-1.3); Total Protein 7.4 g/dL (6.3-8.2)
[2020-07-19 00:26] LABS: Partial Thromboplastin Time 21.7 sec (22.0-30.0)
[2020-07-19 00:32] LABS: Anisocytosis Slight; Basophils # (A) 0.1 k/uL (0-0.2); Basophils % (A) 1 %; Eosinophils # (A) 0.1 k/uL (0-0.7); Eosinophils % (A) 1 %; HCT 32.8 % (34.0-46.0); HGB 10.5 gm/dL (11.4-16.0); Hypochromasia Moderate; Lymphocytes # (A) 0.7 k/uL (1.0-4.8); Lymphocytes % (A) 7 %; MCH 26.1 pg (25.0-35.0); MCHC 32.1 g/dL (31.0-37.0); MCV 81.4 fL (80.0-100.0); Mean Platelet Volume 8.3; Monocytes # (A) 1.1 k/uL (0-1.0); Monocytes % (A) 11 %; Neutrophils # (A) 7.9 k/uL (1.3-7.7); Neutrophils % (A) 79 %; Platelet Count 338 k/uL (150-450); RBC 4.03 m/uL (3.80-5.40); WBC 10.1 k/uL (3.8-10.6)
[2020-07-19] MEDS ORDERED: POTASSIUM BICARBONATE/CIT AC 20 MEQ TABLET.EFF PO ONE (00:46)
[2020-07-19 01:53] VITALS: BP 132/76; PULSE 84; TEMP 97.8
== END 2020-07-19 01:52 | disposition home or self-care (01) ==
LOC: EC 22:23
DX: R53.1 Weakness (principal); I11.0 Hypertensive heart disease with heart failure; I50.9 Heart failure, unspecified; J44.9 Chronic obstructive pulmonary disease, unspecified; F03.90 Unspecified dementia, unspecified severity, without behavioral disturbance, psychotic disturbance, mood disturbance, and anxiety; Z87.891 Personal history of nicotine dependence; Z88.0 Allergy status to penicillin; W19.XXXA Unspecified fall, initial encounter
CPT/HCPCS: 36415; 93005; 83880; 80053; 83735; 84100; 84484; 85025; 85610; 85730; 99285; 96374; J0696

== ENCOUNTER 2020-10-09 16:00 | Inpatient (IN) | payer MEDICARE, OTHER ==
--- NOTE | 2020-10-09 16:48 | ED ---
General Adult HPI - General Chief complaint: Fall Stated complaint: weakness Time Seen by Provider: 10/09/20 16:05 Source: patient, EMS, RN notes reviewed, old records reviewed Mode of arrival: EMS Limitations: altered mental status - History of Present Illness Initial comments: This is a 80-year-old female who presents emergency Department with progressive weakness. There is nobody with the patient and the patient is demented so it is difficult to determine when this occurred and how long its been occurring. Patient did have a nontraumatic fall we were told that the patient does complains of some neck pain she denies ever hitting her head but she does not even remember the event or how she fell we do know she did not fall from height she's not any blood thinners. Patient denies any chest pain or back pain. Patient denies any extremity pain. Patient denies any abdominal pain. Patient denies any recent fever chills. - Related Data Home Medications Medication Instructions Recorded Confirmed Albuterol Sulfate [Ventolin HFA] 2 puff INHALATION RT-QID PRN 02/18/20 10/09/20 Nitroglycerin Sl Tabs [Nitrostat] 0.4 mg SUBLINGUAL Q5M PRN 04/13/20 10/09/20 Escitalopram [Lexapro] 20 mg PO DAILY 10/09/20 10/09/20 Furosemide [Lasix] 40 mg PO DAILY 10/09/20 10/09/20 Previous Rx's Medication Instructions Recorded Isosorbide Mononitrate ER [Imdur] 30 mg PO DAILY #30 tab.er.24h 02/19/20 carvediloL [Coreg] 3.125 mg PO BID-W/MEALS #60 tab 02/19/20 Allergies Allergy/AdvReac Type Severity Reaction Status Date / Time Penicillins Allergy Rash/Hives Verified 04/21/20 16:23 Review of Systems ROS Statement: Those systems with pertinent positive or pertinent negative responses have been documented in the HPI. ROS Other: All systems not noted in ROS Statement are negative. Past Medical History Past Medical History: Heart Failure, COPD, Dementia, Hypertension Additional Past Medical History / Comment(s): degenerate spine disease, arthritis, HAD COVID VACCINE APR 20, 2020 History of Any Multi-Drug Resistant Organisms: None Reported Past Surgical History: Hysterectomy Past Anesthesia/Blood Transfusion Reactions: No Reported Reaction Past Psychological History: No Psychological Hx Reported Smoking Status: Former smoker Past Alcohol Use History: Occasional Past Drug Use History: None Reported - Past Family History Sister(s) Family Medical History: Cancer Additional Family Medical History / Comment(s): Mother and father from old age, brother healthy, sister with cancer unknown, one daughter healthy 2 sons healthy General Exam - General Exam Comments Initial Comments: GENERAL: Patient is well-developed and well-nourished. Patient is nontoxic and well-hydrated and is in no acute distress. ENT: Neck is soft and supple. No significant lymphadenopathy is noted. Oropharynx is clear. Moist mucous membranes. Neck has full range of motion without eliciting any pain. Patient has some mild left sided neck pain. EYES: The sclera were anicteric and conjunctiva were pink and moist. Extraocular movements were intact and pupils were equal round and reactive to light. Eyelids were unremarkable. PULMONARY: Unlabored respirations. Good breath sounds bilaterally. No audible rales rhonchi or wheezing was noted. CARDIOVASCULAR: There is a regular rate and rhythm without any murmurs gallops or rubs. ABDOMEN: Soft and nontender with normal bowel sounds. SKIN: Skin is clear with no lesions or rashes and otherwise unremarkable. NEUROLOGIC: Patient is alert and oriented 2. Cranial nerves II through XII are grossly intact. Motor and sensory are also intact. Normal speech, volume and content. Symmetrical smile. MUSCULOSKELETAL: Normal extremities with adequate strength and full range of motion. LYMPHATICS: No significant lymphadenopathy is noted PSYCHIATRIC: Normal psychiatric evaluation. Limitations: no limitations Course Vital Signs 10/09/20 10/09/20 10/09/20 16:04 18:55 19:02 Temperature 98.4 F Pulse Rate 88 77 92 Respiratory 16 16 Rate Blood Pressure 133/61 132/73 O2 Sat by Pulse 94 L 98 Oximetry 10/09/20 20:00 Temperature 99.1 F Pulse Rate 96 Respiratory 16 Rate Blood Pressure 123/81 O2 Sat by Pulse 95 Oximetry Medical Decision Making - Medical Decision Making EKG shows sinus rhythm with occasional PAC at a rate of 88 bpm MA interval is 12 0 QRS is 78 QT interval 336 QTC is [address] segment depression in leads V3 through V6 and leads [address] of the C-spine shows no acute abnormality. CT of the brain shows no acute abnormality. Patient's stool was black in color and was sent to the was occult positive. I spoke with Dr. Caro she agreed to admit the patient admitted the patient I gave the patient 1 unit of packed red blood cells in the emergency department. I consult to GI and a consult to cardiology after spoke with cardiology. - Lab Data Result diagrams: 10/09/20 16:52 10/09/20 16:52 Lab Results 10/09/20 10/09/20 10/09/20 Range/Units 16:52 16:52 16:52 WBC 11.0 H (3.8-10.6) k/uL RBC 2.12 L (3.80-5.40) m/uL Hgb 6.0 L* (11.4-16.0) gm/dL Hct 18.9 L* (34.0-46.0) % MCV 89.5 (80.0-100.0) fL MCH 28.3 (25.0-35.0) pg MCHC 31.7 (31.0-37.0) g/dL RDW 20.0 H (11.5-15.5) % Plt Count 357 (150-450) k/uL MPV 7.9 Neutrophils % 82 % Lymphocytes % 7 % Monocytes % 8 % Eosinophils % 1 % Basophils % 0 % Neutrophils # 9.0 H (1.3-7.7) k/uL Lymphocytes # 0.8 L (1.0-4.8) k/uL Monocytes # 0.8 (0-1.0) k/uL Eosinophils # 0.1 (0-0.7) k/uL Basophils # 0.0 (0-0.2) k/uL Hypochromasia Slight Anisocytosis Moderate PT 10.8 (9.0-12.0) sec INR 1.0 (<1.2) APTT 16.4 L (22.0-30.0) sec Sodium 134 L (137-145) mmol/L Potassium 3.5 (3.5-5.1) mmol/L Chloride 100 (98-107) mmol/L Carbon Dioxide 27 (22-30) mmol/L Anion Gap 7 mmol/L BUN 20 H (7-17) mg/dL Creatinine 0.94 (0.52-1.04) mg/dL Est GFR (CKD-EPI)AfAm 67 (>60 ml/min/1.73 sqM) Est GFR (CKD-EPI)NonAf 58 (>60 ml/min/1.73 sqM) Glucose 105 H (74-99) mg/dL Plasma Lactic Acid José Miguel (0.7-2.0) mmol/L Calcium 9.9 (8.4-10.2) mg/dL Total Bilirubin 0.2 (0.2-1.3) mg/dL AST 24 (14-36) U/L ALT 10 (4-34) U/L Alkaline Phosphatase 86 (38-126) U/L Troponin I (0.000-0.034) ng/mL Total Protein 6.3 (6.3-8.2) g/dL Albumin 3.6 (3.5-5.0) g/dL Stool Occult Blood (Negative) Blood Type Blood Type Confirm Blood Type Recheck Bld Type Recheck Status Antibody Screen Crossmatch Spec Expiration Date 10/09/20 10/09/20 10/09/20 Range/Units 16:52 16:52 17:19 WBC (3.8-10.6) k/uL RBC (3.80-5.40) m/uL Hgb (11.4-16.0) gm/dL Hct (34.0-46.0) % MCV (80.0-100.0) fL MCH (25.0-35.0) pg MCHC (31.0-37.0) g/dL RDW (11.5-15.5) % Plt Count (150-450) k/uL MPV Neutrophils % % Lymphocytes % % Monocytes % % Eosinophils % % Basophils % % Neutrophils # (1.3-7.7) k/uL Lymphocytes # (1.0-4.8) k/uL Monocytes # (0-1.0) k/uL Eosinophils # (0-0.7) k/uL Basophils # (0-0.2) k/uL Hypochromasia Anisocytosis PT (9.0-12.0) sec INR (<1.2) APTT (22.0-30.0) sec Sodium (137-145) mmol/L Potassium (3.5-5.1) mmol/L Chloride (98-107) mmol/L Carbon Dioxide (22-30) mmol/L Anion Gap mmol/L BUN (7-17) mg/dL Creatinine (0.52-1.04) mg/dL Est GFR (CKD-EPI)AfAm (>60 ml/min/1.73 sqM) Est GFR (CKD-EPI)NonAf (>60 ml/min/1.73 sqM) Glucose (74-99) mg/dL Plasma Lactic Acid José Miguel 0.9 (0.7-2.0) mmol/L Calcium (8.4-10.2) mg/dL Total Bilirubin (0.2-1.3) mg/dL AST (14-36) U/L ALT (4-34) U/L Alkaline Phosphatase (38-126) U/L Troponin I 0.967 H* (0.000-0.034) ng/mL Total Protein (6.3-8.2) g/dL Albumin (3.5-5.0) g/dL Stool Occult Blood (Negative) Blood Type Blood Type Confirm O Positive Blood Type Recheck Bld Type Recheck Status Antibody Screen Crossmatch Spec Expiration Date 10/09/20 10/09/20 Range/Units 17:24 18:44 WBC (3.8-10.6) k/uL RBC (3.80-5.40) m/uL Hgb (11.4-16.0) gm/dL Hct (34.0-46.0) % MCV (80.0-100.0) fL MCH (25.0-35.0) pg MCHC (31.0-37.0) g/dL RDW (11.5-15.5) % Plt Count (150-450) k/uL MPV Neutrophils % % Lymphocytes % % Monocytes % % Eosinophils % % Basophils % % Neutrophils # (1.3-7.7) k/uL Lymphocytes # (1.0-4.8) k/uL Monocytes # (0-1.0) k/uL Eosinophils # (0-0.7) k/uL Basophils # (0-0.2) k/uL Hypochromasia Anisocytosis PT (9.0-12.0) sec INR (<1.2) APTT (22.0-30.0) sec Sodium (137-145) mmol/L Potassium (3.5-5.1) mmol/L Chloride (98-107) mmol/L Carbon Dioxide (22-30) mmol/L Anion Gap mmol/L BUN (7-17) mg/dL Creatinine (0.52-1.04) mg/dL Est GFR (CKD-EPI)AfAm (>60 ml/min/1.73 sqM) Est GFR (CKD-EPI)NonAf (>60 ml/min/1.73 sqM) Glucose (74-99) mg/dL Plasma Lactic Acid José Miguel (0.7-2.0) mmol/L Calcium (8.4-10.2) mg/dL Total Bilirubin (0.2-1.3) mg/dL AST (14-36) U/L ALT (4-34) U/L Alkaline Phosphatase (38-126) U/L Troponin I (0.000-0.034) ng/mL Total Protein (6.3-8.2) g/dL Albumin (3.5-5.0) g/dL Stool Occult Blood Positive H (Negative) Blood Type O Positive Blood Type Confirm Blood Type Recheck No Previous Record Bld Type Recheck Status CABO Indicated Antibody Screen NEGATIVE Crossmatch See Detail Spec Expiration Date 10/12/20202323 Critical Care Time Critical Care Time: Yes Total Critical Care Time: 35 Disposition Clinical Impression: Fall, Anemia, GI bleed, Altered behavior, Non-STEMI (non-ST elevated myocardial infarction) Disposition: ADMITTED IP TO THIS HOSP Referrals: Edd Romero DO [Primary Care Provider] - 1-2 days Time of Disposition: 20:05
[2020-10-09 17:04] LABS: Anisocytosis Moderate; Basophils % (A) 0 %; Eosinophils # (A) 0.1 k/uL (0-0.7); Eosinophils % (A) 1 %; Hypochromasia Slight; Lymphocytes # (A) 0.8 k/uL (1.0-4.8); Lymphocytes % (A) 7 %; MCH 28.3 pg (25.0-35.0); MCHC 31.7 g/dL (31.0-37.0); MCV 89.5 fL (80.0-100.0); Mean Platelet Volume 7.9; Monocytes # (A) 0.8 k/uL (0-1.0); Monocytes % (A) 8 %; Neutrophils % (A) 82 %; Platelet Count 357 k/uL (150-450); RBC 2.12 m/uL (3.80-5.40)
[2020-10-09 17:08] LABS: HCT 18.9 % (34.0-46.0)
[2020-10-09 17:14] LABS: Albumin 3.6 g/dL (3.5-5.0); Calcium 9.9 mg/dL (8.4-10.2); Potassium 3.5 mmol/L (3.5-5.1); Total Bilirubin 0.2 mg/dL (0.2-1.3); Total Protein 6.3 g/dL (6.3-8.2)
[2020-10-09 17:23] LABS: Prothrombin Time 10.8 sec (9.0-12.0)
[2020-10-09 17:25] LABS: Partial Thromboplastin Time 16.4 sec (22.0-30.0)
--- NOTE | 2020-10-09 17:54 | XR ---
EXAMINATION TYPE: XR chest 2V DATE OF EXAM: 10/09/2020 COMPARISON: 04/21/2020 HISTORY: Weakness TECHNIQUE: 2 views FINDINGS: Heart is enlarged. Thoracic aorta is atheromatous. There are chest leads. Lungs are clear o f infiltrate. There is no heart failure. The bony thorax is intact. IMPRESSION: Cardiomegaly. No active cardiopulmonary disease. No change.
[2020-10-09] MEDS ORDERED: HYDROmorphone 0.5 MG/0.5 ML SYRINGE IVP STA (18:50)
--- NOTE | 2020-10-09 19:55 | CT ---
EXAMINATION TYPE: CT brain lubna wo con DATE OF EXAM: 10/09/2020 COMPARISON: CT brain 06/06/2012 HISTORY: Fall out of bed, confusion. CT DLP: 1342.7 mGycm Automated exposure control for dose reduction was used. Images of the brain and cervical spine obtained with no contrast. There is moderate diffuse atrophy. There is patchy hypodensity in the periventricular white matter. T here is no mass effect nor midline shift. There is no sign of intracranial hemorrhage. The calvarium is intact. The skull base is intact. There is degenerative disc space narrowing in the lower cervical spine. There is minimal subluxation at C4-5. There is no compression fracture. There is multilevel hypertrophic cervical facet arthropath y. Prevertebral soft tissues are intact. I see no focal bone destruction. IMPRESSION: Spondylotic changes in the cervical spine mainly in the levels from C5 to T1. Mild C4-5 subluxation i s chronic. No acute abnormality. Moderate cerebral atrophy and chronic small vessel ischemia. No acute intracranial abnormality. Brain shows some progression of the atrophy compared to old exam.
[2020-10-09] MEDS ORDERED: LORazepam 2 MG/ML INJ IV STA (20:56)
[2020-10-10 00:27] LABS: Anisocytosis Slight; Basophils % (A) 0 %; Eosinophils # (A) 0.2 k/uL (0-0.7); Eosinophils % (A) 1 %; Hypochromasia Slight; Lymphocytes % (A) 7 %; MCH 29.6 pg (25.0-35.0); MCHC 32.4 g/dL (31.0-37.0); MCV 91.2 fL (80.0-100.0); Mean Platelet Volume 8.8; Monocytes # (A) 1.7 k/uL (0-1.0); Monocytes % (A) 11 %; Neutrophils # (A) 11.5 k/uL (1.3-7.7); Neutrophils % (A) 78 %; Platelet Count 250 k/uL (150-450); RBC 2.63 m/uL (3.80-5.40); RDW 17.7 % (11.5-15.5); WBC 14.7 k/uL (3.8-10.6)
[2020-10-10 00:46] LABS: HGB 7.8 gm/dL (11.4-16.0)
[2020-10-10 03:46] LABS: Appearance,Urine Clear (Clear); Bilirubin,Urine Negative (Negative); Blood,Urine Trace (Negative); Color,Urine Yellow; Glucose,Urine (UA) Negative (Negative); Ketones,Urine Negative (Negative); Leukocyte Esterase,Urine Negative (Negative); Mucus,Urine Rare /hpf; Nitrite,Urine Negative (Negative); PH, Urine 5.5 (5.0-8.0); Protein,Urine Negative (Negative); RBC,Urine 1 /hpf (0-5); Specific Gravity,Urine 1.012 (1.001-1.035); Squamous Epithelial Cell,Urine <1 /hpf (0-4); Urobilinogen,Urine <2.0 mg/dL (<2.0); WBC,Urine 1 /hpf (0-5)
[2020-10-10 08:01] LABS: Anisocytosis Slight; Basophils % (A) 0 %; Eosinophils # (A) 0.1 k/uL (0-0.7); Eosinophils % (A) 1 %; HCT 22.2 % (34.0-46.0); HGB 7.1 gm/dL (11.4-16.0); Hypochromasia Slight; Lymphocytes # (A) 0.8 k/uL (1.0-4.8); Lymphocytes % (A) 9 %; MCH 29.1 pg (25.0-35.0); MCHC 32.3 g/dL (31.0-37.0); MCV 90.3 fL (80.0-100.0); Mean Platelet Volume 7.9; Monocytes # (A) 0.9 k/uL (0-1.0); Monocytes % (A) 10 %; Neutrophils # (A) 6.9 k/uL (1.3-7.7); Neutrophils % (A) 77 %; Platelet Count 301 k/uL (150-450); Poikilocytosis Slight; RBC 2.45 m/uL (3.80-5.40); RDW 18.6 % (11.5-15.5); WBC 9.1 k/uL (3.8-10.6)
--- NOTE | 2020-10-10 09:39 | CONS ---
CONSULTATION Mrs Lantigua is a 80-year-old female who is followed by Dr. Zuluaga, who presented to the emergency room after a fall and symptoms of chest discomfort. The patient was walking when she fell. She cannot recall the actual detail, then she started complaining of chest discomfort. In the emergency room, she was noted to be anemic and she had mild elevation of her troponin. She denies any discomfort prior to the fall and her discomfort is respirophasic and reproducible. She denies any dizziness or palpitation. The patient has a known history of chronic obstructive lung disease and has stopped smoking very recently. She is followed by Dr. Ferrer. She was in the hospital in March with GI bleeding as well. At that time, she had an echocardiogram that showed a preserved left ventricular size and systolic function. The patient denies any peripheral edema. No PND. No orthopnea. She denies any significant arrhythmia. She carries diagnosis of congestive heart failure with preserved systolic function. Her coronary risk factors are remarkable for the history of smoking that she stopped recently. She has a history of hypertension. She is nondiabetic. MEDICATIONS: Current medication include Coreg 3.125 mg twice a day, furosemide 40 mg daily, isosorbide mononitrate 30 mg daily, Lexapro 20 mg daily, and Ventolin. REVIEW OF SYSTEMS: RESPIRATORY system: She has dyspnea on exertion. She has history of chronic obstructive lung disease. GI system: She had the GI bleeding. She denies any nausea or vomiting. She denies abdominal pain. system: No dysuria or hematuria. NERVOUS SYSTEM: No history of stroke or seizure. PHYSICAL EXAMINATION: She is a 80-year-old female, alert, oriented, no apparent distress. Blood pressure 116/60 with a heart rate in the 70s. HEAD: Normocephalic. Eyes sclerae anicteric. NECK: Good upstroke. No bruit. LUNGS with decreased air exchange. No wheezes. HEART: Regular rhythm. S1, S2. No S3. No rub appreciated. ABDOMEN: Soft, nontender. Positive bowel sounds. No megaly. EXTREMITIES: No edema. Intact pulses. LAB DATA: Lab data revealed a hemoglobin of 6 on admission, up to 7.1 [place] [address]. Troponin 0.967, 1.43, 1.270 BUN and creatinine 20 and 0.94, potassium 3.5. She is heme positive. Her EKG revealed a sinus mechanism with PACs and nonspecific ST-T wave changes consistent with left ventricular hypertrophy. Her chest x-ray shows no acute infiltrate. She had a head CT and cervical spine CT that showed moderate cerebral atrophy and chronic small-vessel ischemia. IMPRESSION: 1. Chest discomfort with fall, musculoskeletal in etiology. Symptoms are not consistent with angina pectoris. The patient denies any clear syncope and there is no evidence of arrhythmia proceeding that. 2. Mild troponin elevation most likely representing a type 2 myocardial event related to the severe anemia. 3. Anemia with gastrointestinal bleeding. 4. Prior history of significant chronic obstructive lung disease. 5. History of hypertension. RECOMMENDATIONS: From the cardiac standpoint, I will initiate the treatment with the beta brayan I will hold on anticoagulation. We will obtain echocardiogram with Doppler to rule out any segmental wall motion abnormality. I doubt an acute ischemic event at this time based on her presentation. The patient is not a candidate for any anticoagulation at this time. She will be seen by the GI Service for further evaluation of the etiology of her bleeding. Depending on her progress, further recommendations will be made. Thank you for this consult. We will follow with you. MMODL / IJN: [id number] /
[2020-10-10] MEDS: PANTOPRAZOLE 40 MG/10 ML VIAL IVP SCH ×2 (10:07→20:13)
--- NOTE | 2020-10-10 10:08 | ECHOF ---
Referral Reason:EKG changes and elevated troponin MEASUREMENTS -------- HEIGHT: 152.4 cm WEIGHT: 54.4 kg BP: IVSd: 1.4 cm (0.6 - 1.1) LVIDd: 4.3 cm (3.9 - 5.3) LVPWd: 1.4 cm (0.6 - 1.1) IVSs: 1.5 cm LVIDs: 3.0 cm LVPWs: 1.6 cm LA Diam: 4.3 cm (2.7 - 3.8) Ao Diam: 2.9 cm (2.0 - 3.7) AV Cusp: 1.8 cm (1.5 - 2.6) LA Diam: 4.6 cm (2.7 - 3.8) MV EXCURSION: 10.933 mm (> 18.000) MV EF SLOPE: 45 mm/s (70 - 150) EPSS: 0.4 cm MV E David: 0.45 m/s MV DecT: 223 ms MV A David: 0.70 m/s MV E/A Ratio: 0.64 RAP: 5.00 mmHg RVSP: 38.75 mmHg FINDINGS -------- Undetermined rhythm. This was a technically adequate study. The left ventricular size is normal. There is moderate concentric left ventricular hypertrophy. O verall left ventricular systolic function is low-normal with, an EF between 50 - 55 %. The right ventricle is normal in size. The left atrium is mildly dilated. The right atrial size is normal. There is mild aortic valve sclerosis. There is mild aortic regurgitation. Mild mitral annular calcification present. Mild mitral regurgitation is present. Mild tricuspid regurgitation present. Right ventricular systolic pressure is normal at < 35 mmHg. Trace/mild (physiologic) pulmonic regurgitation. The aortic root size is normal. Echo free space represents a pericardial fat pad. CONCLUSIONS -------- 1. The left ventricular size is normal. 2. There is moderate concentric left ventricular hypertrophy. 3. Overall left ventricular systolic function is low-normal with, an EF between 50 - 55 %. 4. The right ventricle is normal in size. 5. The left atrium is mildly dilated. 6. The right atrial size is normal. 7. There is mild aortic valve sclerosis. 8. There is mild aortic regurgitation. 9. Mild mitral annular calcification present. 10. Mild mitral regurgitation is present. 11. Mild tricuspid regurgitation present. 12. Trace/mild (physiologic) pulmonic regurgitation. 13. The aortic root size is normal. 14. Echo free space represents a pericardial fat pad. FERRYBOAT OPERATOR: Camila Xie RDCS
[2020-10-10] MEDS ORDERED: ALBUTEROL NEBULIZED 2.5 MG/3 ML INHALATION PRN (10:22)
[2020-10-10] MEDS ORDERED: ACETAMINOPHEN TAB 325 MG TAB PO PRN (10:24)
[2020-10-10] MEDS: ACETAMINOPHEN IV (For NPO) 1,000 MG in EMPTY BAG 1 BAG IVPB PRN ×2 (10:40→21:33)
--- NOTE | 2020-10-10 14:01 | P.CONS ---
History of Present Illness - Reason for Consult Consult date: 10/10/20 anemia, dark stools Requesting physician: Edd Romero - Chief Complaint weakness, fall - History of Present Illness This is a 80-year-old white female who presented to the emergency department with complaints of weakness and a fall 2-3 days ago. She lives in [facility] and states that she has been feeling weak and had recent fall, also states that she has been having black stool. Her past medical history includes heart failure, COPD, dementia, and hypertension. She is currently reporting chest and neck discomfort from the fall. She denies any black stools and she has been in the hospital. She was noted on admission to have elevation in her troponins and cardiology was consulted. In April she had reported black stools and anemia and underwent an EGD on 04/24/[address] Gallo with findings of 2 gastric antral ulcers, nonbleeding, a long segment of Regan's esophagus and small hiatal hernia. Gastroenterology had recommended Protonix 40 mg daily at that time, patient states she does not believe she's been taking it. Patient states her last colonoscopy was greater than 10 years ago. On admission she was noted to have a hemoglobin of 6.0 and was transfused 1 unit of PRBC transfusion. She was noted have a positive cold stool. Today's labs WBC 9, hemoglobin 7.1, hematocrit 22, platelet count 301,000, early revision 0.2, alkaline phosphatase 86, AST 24, ALT 10. She currently denies any abdominal pain, nausea, or vomiting. Patient denies any NSAID use or anticoagulation. Review of Systems REVIEW OF SYSTEMS: CARDIOPULMONARY: No chest pain or shortness of breath. Gastrointestinal: No abdominal pain. No nausea or vomiting. No hematemesis, coffee-ground emesis. No rectal bleeding, patient reports black stool. GENITOURINARY: No dysuria or hematuria. MUSCULOSKELETAL: Reports normal range of motion., Joint pain. Neck, back, chest pain. SKIN: No rashes. No jaundice. ENDOCRINE: No chills, fevers. No excessive weight gain or loss. No polydipsia or polyuria. PSYCHIATRIC: Unremarkable. NEUROLOGY: No change in mental status. Denies dizziness, headache. ENT: Vision unremarkable. CONSTITUTIONAL: No recent weight loss. No fever, chills, night sweats. Weakness. Patient had recent fall at assisted living. Past Medical History Past Medical History: Heart Failure, COPD, Dementia, Hypertension Additional Past Medical History / Comment(s): degenerate spine disease, arthritis, HAD COVID VACCINE APR 20, 2020 History of Any Multi-Drug Resistant Organisms: None Reported Past Surgical History: Hysterectomy Past Anesthesia/Blood Transfusion Reactions: No Reported Reaction Past Psychological History: No Psychological Hx Reported Smoking Status: Former smoker Past Alcohol Use History: Occasional Past Drug Use History: None Reported - Past Family History Sister(s) Family Medical History: Cancer Additional Family Medical History / Comment(s): Mother and father from old age, brother healthy, sister with cancer unknown, one daughter healthy 2 sons healthy Medications and Allergies Home Medications Medication Instructions Recorded Confirmed Type Albuterol Sulfate [Ventolin HFA] 2 puff INHALATION RT-QID PRN 02/18/20 10/09/20 History Isosorbide Mononitrate ER [Imdur] 30 mg PO DAILY #30 tab.er.24h 02/19/20 10/09/20 Rx carvediloL [Coreg] 3.125 mg PO BID-W/MEALS #60 tab 02/19/20 10/09/20 Rx Nitroglycerin Sl Tabs [Nitrostat] 0.4 mg SUBLINGUAL Q5M PRN 04/13/20 10/09/20 History Escitalopram [Lexapro] 20 mg PO DAILY 10/09/20 10/09/20 History Furosemide [Lasix] 40 mg PO DAILY 10/09/20 10/09/20 History Allergies Allergy/AdvReac Type Severity Reaction Status Date / Time Penicillins Allergy Rash/Hives Verified 04/21/20 16:23 Physical Exam Vitals: Vital Signs Temp Pulse Pulse Pulse Resp BP BP 10/10/20 09:10 98.7 F 68 18 128/63 10/10/20 06:58 98.7 F 77 18 116/62 10/10/20 06:13 98.2 F 10/10/20 05:34 72 18 125/61 10/10/20 02:46 91 18 123/69 10/10/20 00:45 75 18 116/82 10/09/20 23:44 89 16 123/74 10/09/20 22:40 97.9 F 81 20 140/77 10/09/20 22:39 97.9 F 81 20 140/77 10/09/20 21:39 88 18 118/56 10/09/20 20:40 99.1 F 89 18 136/61 10/09/20 20:29 92 18 125/91 10/09/20 20:10 98.5 F 81 18 131/79 10/09/20 20:00 99.1 F 96 16 123/81 10/09/20 19:02 92 10/09/20 18:55 77 16 132/73 10/09/20 16:04 98.4 F 88 16 133/61 Pulse Ox 10/10/20 09:10 99 10/10/20 06:58 95 10/10/20 06:13 10/10/20 05:34 95 10/10/20 02:46 95 10/10/20 00:45 95 10/09/20 23:44 96 10/09/20 22:40 98 10/09/20 22:39 96 10/09/20 21:39 95 10/09/20 20:40 94 L 10/09/20 20:29 95 10/09/20 20:10 94 L 10/09/20 20:00 95 10/09/20 19:02 10/09/20 18:55 98 10/09/20 16:04 94 L Intake and Output 10/09/20 10/10/20 10/10/20 22:59 06:59 14:59 Intake Total 310 0 Balance 310 0 Intake: Oral 0 Blood Product 310 Rc Irr As1 Unit 310 [id number] Other: Voiding Method Toilet # Voids 1 1 # Bowel Movements 1 Weight 54.431 kg General appearance: The patient is alert, oriented, appears in no acute distress. HET: Head is normocephalic and atraumatic. Conjunctiva pink. Sclera anicteric. Neck: Supple without lymphadenopathy. Trachea midline. Heart: S1 S2. Regular rate and rhythm. Lungs: Clear to auscultation. Abdomen: Soft, epigastric tenderness, nondistended with bowel sounds. No guarding or rigidity. Skin: No rashes. No jaundice. Extremities: Normal skin color and turgor. No pedal edema. Neurological: No focal deficits. Alert and oriented 3.. Results CBC & Chem 7: 10/10/20 07:13 10/09/20 16:52 Labs: Abnormal Lab Results - Last 24 Hours (Table) 10/09/20 10/09/20 10/09/20 Range/Units 16:52 16:52 16:52 WBC 11.0 H (3.8-10.6) k/uL RBC 2.12 L (3.80-5.40) m/uL Hgb 6.0 L* (11.4-16.0) gm/dL Hct 18.9 L* (34.0-46.0) % RDW 20.0 H (11.5-15.5) % Neutrophils # 9.0 H (1.3-7.7) k/uL Lymphocytes # 0.8 L (1.0-4.8) k/uL Monocytes # (0-1.0) k/uL APTT 16.4 L (22.0-30.0) sec Sodium 134 L (137-145) mmol/L BUN 20 H (7-17) mg/dL Glucose 105 H (74-99) mg/dL Troponin I (0.000-0.034) ng/mL Urine Blood (Negative) Urine Mucus (None) /hpf Stool Occult Blood (Negative) Crossmatch 10/09/20 10/09/20 10/09/20 Range/Units 16:52 17:24 18:44 WBC (3.8-10.6) k/uL RBC (3.80-5.40) m/uL Hgb (11.4-16.0) gm/dL Hct (34.0-46.0) % RDW (11.5-15.5) % Neutrophils # (1.3-7.7) k/uL Lymphocytes # (1.0-4.8) k/uL Monocytes # (0-1.0) k/uL APTT (22.0-30.0) sec Sodium (137-145) mmol/L BUN (7-17) mg/dL Glucose (74-99) mg/dL Troponin I 0.967 H* (0.000-0.034) ng/mL Urine Blood (Negative) Urine Mucus (None) /hpf Stool Occult Blood Positive H (Negative) Crossmatch See Detail 10/10/20 10/10/20 10/10/20 Range/Units 00:06 00:06 02:43 WBC 14.7 H (3.8-10.6) k/uL RBC 2.63 L (3.80-5.40) m/uL Hgb 7.8 L D (11.4-16.0) gm/dL Hct 24.0 L (34.0-46.0) % RDW 17.7 H (11.5-15.5) % Neutrophils # 11.5 H (1.3-7.7) k/uL Lymphocytes # (1.0-4.8) k/uL Monocytes # 1.7 H (0-1.0) k/uL APTT (22.0-30.0) sec Sodium (137-145) mmol/L BUN (7-17) mg/dL Glucose (74-99) mg/dL Troponin I 1.430 H* 1.270 H* (0.000-0.034) ng/mL Urine Blood (Negative) Urine Mucus (None) /hpf Stool Occult Blood (Negative) Crossmatch 10/10/20 10/10/20 Range/Units 03:39 07:13 WBC (3.8-10.6) k/uL RBC 2.45 L (3.80-5.40) m/uL Hgb 7.1 L (11.4-16.0) gm/dL Hct 22.2 L (34.0-46.0) % RDW 18.6 H (11.5-15.5) % Neutrophils # (1.3-7.7) k/uL Lymphocytes # 0.8 L (1.0-4.8) k/uL Monocytes # (0-1.0) k/uL APTT (22.0-30.0) sec Sodium (137-145) mmol/L BUN (7-17) mg/dL Glucose (74-99) mg/dL Troponin I (0.000-0.034) ng/mL Urine Blood Trace H (Negative) Urine Mucus Rare H (None) /hpf Stool Occult Blood (Negative) Crossmatch Comments: Echocardiogram: Moderate concentric left ventricular hypertrophy, EF between 5055 %, left atrium mildly dilated, mild aortic valve sclerosis, mild aortic regurgitation, mild mitral annular calcification present, mild mitral regurgitation, mild tricuspid regurgitation, trace mild physiologic pulmonic regurgitation,echo free space represents a pericardial fat pad Chest x-ray: report reviewed (Cardiomegaly. No active cardiopulmonary disease. No change) CT Scan - head: report reviewed (CT brain C-spine: Moderate cerebral atrophy and chronic small vessel ischemia. No acute intracranial abnormality. Brain show some progression of atrophy compared to old exam. Spondylitic changes in the cervical spine mainly in the levels from C5 to T1. Mild C4-5 subglottic patient is chronic. N) Assessment and Plan (1) GI bleed Narrative/Plan: 72-year-old female who presented to the emergency department from her assisted living with complaints of weakness and a recent fall with chest and neck pain. Patient reportedly has been having black stools, on presentation her hemoglobin was 6.0. She was transfused with 1 unit of PRBC transfusion and her repeat hemoglobin was 7.8. States she has been having black stool for the last couple weeks. Denies any abdominal pain, nausea, or vomiting. Patient is currently n ot on any anticoagulation and denies use of NSAIDs. She underwent EGD to 121 with findings of 2 small gastric antral ulcers with no active bleeding. Long segment Regan's esophagus and a small hiatal hernia. She was instructed to take Protonix 40 mg daily, however patient states she does not play she's been taking that. Possible etiologies include peptic ulcer disease, AVMs, esophagitis, gastritis, or other etiology. Recommend repeat EGD, and since patient did not have any active bleeding on her previous EGD and her last colonoscopy was greater than 10 years ago, we recommend patient to undergo both EGD and colonoscopy. Patient agreeable. Current Visit: Yes Status: Acute Code(s): K92.2 - GASTROINTESTINAL HEMORRHAGE, UNSPECIFIED SNOMED Code(s): 25091304 (2) Anemia Current Visit: Yes Status: Acute Code(s): D64.9 - ANEMIA, UNSPECIFIED SNOMED Code(s): 518215235 (3) Melena Current Visit: No Status: Acute Code(s): K92.1 - MELENA SNOMED Code(s): 6870251 Plan: 1. Clear liquid diet, nothing by mouth after midnight 2. Protonix 40 mg twice a day 3. Avoid NSAIDs 4. Await recommendations from cardiology, discussed with cardiology and gave clearance to proceed with endoscopy 5. Continue to monitor for signs of GI bleed 6. Daily CBC, transfuse for hemoglobin less than 7 Thank you for this consultation, we will continue to follow. Dr. Velocci I agree with the dictator's note, documented as a scribe by Anaid Mac.
[2020-10-10] MEDS ORDERED: PEG 3350-NA SULF,BICARB,CL/KCL 4,000 ML BOTTLE PO ONE (16:00)
--- NOTE | 2020-10-10 16:35 | P.HPIM ---
History of Present Illness H&P Date: 10/10/20 Chief Complaint: Chest pain, black stools, fall This is a pleasant 80-year-old female with past medical history of COPD, hypertension, CHF, dementia, former nicotine dependence, recently moved to [facility], presented to the ER with complaints of black stools for the last 2-3 days, no nausea, vomiting or abdominal pain, increased weakness, fall 2-3 days ago with subsequent neck, chest pain. Recent EGD feburary 2020 reporting two nonbleeding gastric antral ulcers, a long segment of Regan's esophagus and small hiatal hernia with PPI twice a day recommended; patient states she doesn't remember taking it. Denies NSAIDs use.Afebrile, leukocytosis resolved, down to 9.1. CT of brain and C-spine reporting no acute abnormality. Black stool tested p ositive for occult blood. on admission 6, Received 1 unit of packed RBCs in the ER. Current hemoglobin 7.1, platelets 301. Chest x-ray reporting no active cardiopulmonary disease, no change. EKG reported sinus rhythm with PACs, left ventricular hypertrophy. Troponins 0.967, 1.430, 1.270. Echo pending. GI and cardiology consulted. Review of Systems ROS Statement: Those systems with pertinent positive or pertinent negative responses have been documented in the HPI. ROS Other: All systems not noted in ROS Statement are negative. Past Medical History Past Medical History: Heart Failure, COPD, Dementia, Hypertension Additional Past Medical History / Comment(s): degenerate spine disease, arthritis, HAD COVID VACCINE APR 20, 2020 History of Any Multi-Drug Resistant Organisms: None Reported Past Surgical History: Hysterectomy Past Anesthesia/Blood Transfusion Reactions: No Reported Reaction Past Psychological History: No Psychological Hx Reported Smoking Status: Former smoker Past Alcohol Use History: Occasional Past Drug Use History: None Reported - Past Family History Sister(s) Family Medical History: Cancer Additional Family Medical History / Comment(s): Mother and father from old age, brother healthy, sister with cancer unknown, one daughter healthy 2 sons healthy Medications and Allergies Home Medications Medication Instructions Recorded Confirmed Type Albuterol Sulfate [Ventolin HFA] 2 puff INHALATION RT-QID PRN 02/18/20 10/09/20 History Isosorbide Mononitrate ER [Imdur] 30 mg PO DAILY #30 tab.er.24h 02/19/20 10/09/20 Rx carvediloL [Coreg] 3.125 mg PO BID-W/MEALS #60 tab 02/19/20 10/09/20 Rx Nitroglycerin Sl Tabs [Nitrostat] 0.4 mg SUBLINGUAL Q5M PRN 04/13/20 10/09/20 History Escitalopram [Lexapro] 20 mg PO DAILY 10/09/20 10/09/20 History Furosemide [Lasix] 40 mg PO DAILY 10/09/20 10/09/20 History Allergies Allergy/AdvReac Type Severity Reaction Status Date / Time Penicillins Allergy Rash/Hives Verified 04/21/20 16:23 Physical Exam Vitals: Vital Signs Temp Pulse Pulse Pulse Resp BP BP 10/10/20 14:00 78 18 10/10/20 12:12 98.7 F 78 18 120/64 10/10/20 09:10 98.7 F 68 18 128/63 10/10/20 06:58 98.7 F 77 18 116/62 10/10/20 06:13 98.2 F 10/10/20 05:34 72 18 125/61 10/10/20 02:46 91 18 123/69 10/10/20 00:45 75 18 116/82 10/09/20 23:44 89 16 123/74 10/09/20 22:40 97.9 F 81 20 140/77 10/09/20 22:39 97.9 F 81 20 140/77 10/09/20 21:39 88 18 118/56 10/09/20 20:40 99.1 F 89 18 136/61 10/09/20 20:29 92 18 125/91 10/09/20 20:10 98.5 F 81 18 131/79 10/09/20 20:00 99.1 F 96 16 123/81 10/09/20 19:02 92 10/09/20 18:55 77 16 132/73 10/09/20 16:04 98.4 F 88 16 133/61 Pulse Ox 10/10/20 14:00 10/10/20 12:12 97 10/10/20 09:10 99 10/10/20 06:58 95 10/10/20 06:13 10/10/20 05:34 95 10/10/20 02:46 95 10/10/20 00:45 95 10/09/20 23:44 96 10/09/20 22:40 98 10/09/20 22:39 96 10/09/20 21:39 95 10/09/20 20:40 94 L 10/09/20 20:29 95 10/09/20 20:10 94 L 10/09/20 20:00 95 10/09/20 19:02 10/09/20 18:55 98 10/09/20 16:04 94 L Intake and Output 10/10/20 10/10/20 10/10/20 06:59 14:59 22:59 Intake Total 360 Balance 360 Intake: Oral 360 Other: Voiding Method Toilet # Voids 1 1 # Bowel Movements 1 PHYSICAL EXAM: VITAL SIGNS: As above GENERAL: Pale, Sitting up in bed, no acute distress HEENT: Conjunctivae normal. eyes normal. NECK: No JVD. No thyroid enlargement. No LNs CARDIOVASCULAR: S1, S2 regular..No murmur RESPIRATION: Breath sounds diminished in the bases. No rhonchi or crackles. No bronchial breathing. ABDOMEN: Soft, nondistended, epigastric tenderness ,No guarding. no masses p alpable. No ascites, No hepatosplenomegaly.Bowel sounds heard. LEGS: No edema. no swelling PSYCHIATRY: Alert and oriented X3, mood and affect normal. NERVOUS SYSTEM: Cranial N 2-12 grossly normal. Moves all 4 limbs. Diffuse weakness ,No focal deficits. Strength and sensation grossly intact. Skin: Warm and dry, no rash. Lymphatic system. No LN neck axilla. Results CBC & Chem 7: 10/10/20 07:13 10/09/20 16:52 Labs: Abnormal Lab Results - Last 24 Hours (Table) 10/09/20 10/09/20 10/09/20 Range/Units 16:52 16:52 16:52 WBC 11.0 H (3.8-10.6) k/uL RBC 2.12 L (3.80-5.40) m/uL Hgb 6.0 L* (11.4-16.0) gm/dL Hct 18.9 L* (34.0-46.0) % RDW 20.0 H (11.5-15.5) % Neutrophils # 9.0 H (1.3-7.7) k/uL Lymphocytes # 0.8 L (1.0-4.8) k/uL Monocytes # (0-1.0) k/uL APTT 16.4 L (22.0-30.0) sec Sodium 134 L (137-145) mmol/L BUN 20 H (7-17) mg/dL Glucose 105 H (74-99) mg/dL Troponin I (0.000-0.034) ng/mL Urine Blood (Negative) Urine Mucus (None) /hpf Stool Occult Blood (Negative) Crossmatch 10/09/20 10/09/20 10/09/20 Range/Units 16:52 17:24 18:44 WBC (3.8-10.6) k/uL RBC (3.80-5.40) m/uL Hgb (11.4-16.0) gm/dL Hct (34.0-46.0) % RDW (11.5-15.5) % Neutrophils # (1.3-7.7) k/uL Lymphocytes # (1.0-4.8) k/uL Monocytes # (0-1.0) k/uL APTT (22.0-30.0) sec Sodium (137-145) mmol/L BUN (7-17) mg/dL Glucose (74-99) mg/dL Troponin I 0.967 H* (0.000-0.034) ng/mL Urine Blood (Negative) Urine Mucus (None) /hpf Stool Occult Blood Positive H (Negative) Crossmatch See Detail 10/10/20 10/10/20 10/10/20 Range/Units 00:06 00:06 02:43 WBC 14.7 H (3.8-10.6) k/uL RBC 2.63 L (3.80-5.40) m/uL Hgb 7.8 L D (11.4-16.0) gm/dL Hct 24.0 L (34.0-46.0) % RDW 17.7 H (11.5-15.5) % Neutrophils # 11.5 H (1.3-7.7) k/uL Lymphocytes # (1.0-4.8) k/uL Monocytes # 1.7 H (0-1.0) k/uL APTT (22.0-30.0) sec Sodium (137-145) mmol/L BUN (7-17) mg/dL Glucose (74-99) mg/dL Troponin I 1.430 H* 1.270 H* (0.000-0.034) ng/mL Urine Blood (Negative) Urine Mucus (None) /hpf Stool Occult Blood (Negative) Crossmatch 10/10/20 10/10/20 Range/Units 03:39 07:13 WBC (3.8-10.6) k/uL RBC 2.45 L (3.80-5.40) m/uL Hgb 7.1 L (11.4-16.0) gm/dL Hct 22.2 L (34.0-46.0) % RDW 18.6 H (11.5-15.5) % Neutrophils # (1.3-7.7) k/uL Lymphocytes # 0.8 L (1.0-4.8) k/uL Monocytes # (0-1.0) k/uL APTT (22.0-30.0) sec Sodium (137-145) mmol/L BUN (7-17) mg/dL Glucose (74-99) mg/dL Troponin I (0.000-0.034) ng/mL Urine Blood Trace H (Negative) Urine Mucus Rare H (None) /hpf Stool Occult Blood (Negative) Crossmatch Thrombosis Risk Factor Assmnt - Choose All That Apply Any of the Below Risk Factors Present?: Yes Each Factor Represents 1 point: Abnormal pulmonary function (COPD) Other Risk Factors: No Other congenital or acquired thrombophilia - If yes, enter type in comment: No Thrombosis Risk Factor Assessment Total Risk Factor Score: 1 Thrombosis Risk Factor Assessment Level: Low Risk Assessment and Plan Assessment: Chest pain, NSTEMI Acute blood loss anemia Fall COPD, stable Chronic diastolic heart failure Hypertension Former nicotine dependence Plan: Continue on current medication regime ,monitoring and symptomatic treatment. GI and cardiology consult in place, recommendations pending. Echo pending. PPI twice a day. Close monitoring of CBC with repeat labs ordered for a.m. PT/OT. Potential subacute rehab at discharge. The impression and plan of care has been dictated as directed. : I performed a history and examination of this patient, discussed the same with the dictator. I agree with the dictator's note ,documented as a scribe. Any additional findings or plans will be noted.
[2020-10-10 16:38] LABS: Chol/HDL Ratio 3.81; LDL Cholesterol,Calculated 69.4 mg/dL (0.0-131.0); VLDL Calculation 20.6 mg/dL (5.00-40.00)
[2020-10-10] MEDS: carvediloL 3.125 MG TAB PO SCH (16:53)
[2020-10-11 06:43] LABS: Anisocytosis Slight; HCT 21.4 % (34.0-46.0); Hypochromasia Slight; MCH 29.5 pg (25.0-35.0); MCHC 32.2 g/dL (31.0-37.0); MCV 91.5 fL (80.0-100.0); Mean Platelet Volume 8.1; Platelet Count 301 k/uL (150-450); Poikilocytosis Moderate; RBC 2.34 m/uL (3.80-5.40); RDW 17.7 % (11.5-15.5); WBC 7.8 k/uL (3.8-10.6)
[2020-10-11] MEDS ORDERED: MAGNESIUM CITRATE 296 ML BOTTLE PO ONE (06:45)
[2020-10-11] MEDS: carvediloL 3.125 MG TAB PO SCH ×2 (06:52→17:51)
[2020-10-11] MEDS: LACTATED RINGERS 1,000 ML IV SCH (06:53)
[2020-10-11] MEDS ORDERED: LIDOCAINE 1% (10MG/ML) FOR IV START INTRADERMA PRN (07:00)
[2020-10-11 07:02] LABS: African American GFR (CKD) >90 (>60 ml/min/1.73 sqM); Anion Gap 7 mmol/L; Blood Urea Nitrogen 12 mg/dL (7-17); Calcium 9.4 mg/dL (8.4-10.2); Carbon Dioxide 27 mmol/L (22-30); Chloride 101 mmol/L (98-107); Glucose 91 mg/dL (74-99); Non-African American GFR(CKD) 82 (>60 ml/min/1.73 sqM); Potassium 3.2 mmol/L (3.5-5.1); Sodium 135 mmol/L (137-145)
[2020-10-11 07:21] LABS: HGB 6.9 gm/dL (11.4-16.0)
[2020-10-11] MEDS: PANTOPRAZOLE 40 MG/10 ML VIAL IVP SCH ×2 (08:18→20:25)
[2020-10-11] MEDS ORDERED: FUROSEMIDE 10 MG/ML 4 ML VIAL IV STA (09:10)
[2020-10-11] MEDS ORDERED: ACETAMINOPHEN IV (For NPO) 1,000 MG in EMPTY BAG 1 BAG IVPB PRN (09:29)
[2020-10-11] MEDS ORDERED: Potassium Replacement Protocol 1 EACH MISC MISCELLANE PRN ×2 (09:30→09:36)
[2020-10-11] MEDS ORDERED: FUROSEMIDE 10 MG/ML 2 ML VIAL IV ONE (09:30)
[2020-10-11] MEDS ORDERED: Magnesium Replacement Protocol 1 EACH MISC MISCELLANE PRN (09:37)
[2020-10-11] MEDS: POTASSIUM CHLORIDE ER 20 MEQ TAB.ER PO SCH ×2 (10:00→17:51)
[2020-10-11] MEDS ORDERED: KETOROLAC 15 MG/ML 1 ML VIAL IM STA (10:26)
[2020-10-11] MEDS ORDERED: KETOROLAC 15 MG/ML 1 ML VIAL IVP STA (10:27)
[2020-10-11] MEDS ORDERED: LORazepam 2 MG/ML INJ IV STA (14:20)
[2020-10-11] MEDS ORDERED: IPRATROPIUM-ALBUTEROL 3 ML NEB INHALATION PRN (14:22)
[2020-10-11] MEDS ORDERED: NITROGLYCERIN SL TABS 0.4 MG TAB SUBLINGUAL PRN (14:22)
[2020-10-11] MEDS ORDERED: LACTATED RINGERS 1,000 ML IV ONE (14:46)
[2020-10-11] MEDS ORDERED: PROPOFOL 10 MG/ML 20 ML VIAL IV ONE (14:50)
[2020-10-11] MEDS ORDERED: LIDOCAINE 1% INJ 10MG/ML (20 ML MDV) ONE (14:50)
--- NOTE | 2020-10-11 14:51 | P.PN ---
Subjective This is a 80-year-old female with a past medical history of COPD, former nicotine dependence, hypertension followed by Dr. Zuluaga, presents to the emergency department after a fall symptoms of chest discomfort. Patient was noted to be anemic and she had mildly elevated troponin. Cardiology is following the patient due to elevated troponins. Patient seen and examined at bedside, no acute distress. She states she does feel short of breath. WBC 7.8, platelets 301, Hemoglobin 6.9 this morning, sodium 135, potassium 3.2, BUN 12, serum creatinine 0.71. Patient has received a total of 2 units of packed red blood cells. Plan for patient to go for EGD/colonoscopy with GI today. Echocardiogram revealed an EF of 50-55%, mild aortic valve sclerosis, mild aortic regurgitation, mild mitral regurgitation, mild tricuspid regurgitation. She's currently maintained on carvedilol 3.125 mg twice a day, IV Lasix with PRBC administration, and magnesium and potassium being replaced. VITALS: Blood pressure 136/64, heart rate 70, afebrile, maintaining oxygen saturations 96% on room air GENERAL: Short of breath, frustrated about low hemoglobin, no acute distress. NECK: Supple without JVD or thyromegaly. LUNGS: Breath sounds bilateral crackles auscultation bilaterally. Respiration equal and unlabored. HEART: Regular rate and rhythm without murmurs, rubs or gallops. S1 and S2 heard. EXTREMITIES: Normal range of motion, no edema. No clubbing or cyanosis. Peripheral pulses intact. ASSESSMENT: Chest pain with fall, atypical, musculoskeletal in etiology. Mild troponin elevation mostly likely related to severe anemia Anemia with GI bleeding History of COPD History of hypertension Hypokalemia PLAN: Echo obtained and reviewed Replace potassium Continue to hold anticoaulation Continue beta blcoker Plan for EGD/Colonoscopy today with GI Further recommendations based on clinical course Objective - Vital Signs Vital signs: Vital Signs Temp 97.7 F 10/11/20 12:18 Pulse 70 10/11/20 12:18 Resp 16 10/11/20 13:50 BP 136/64 10/11/20 12:18 Pulse Ox 96 10/11/20 12:18 Intake & Output 10/10/20 10/11/20 10/11/20 18:59 06:59 18:59 Intake Total 480 30 330 Balance 480 30 330 Weight 58.6 kg Intake: IV 30 20 Invasive Line 2 30 20 Oral 480 Blood Product 310 Rc As-1 Unit 310 [id number] Other: Voiding Method Toilet Bedside Commode Bedside Commode # Voids 1 1 1 # Bowel Movements 1 1 5 - Labs CBC & Chem 7: 10/11/20 06:12 10/11/20 06:12 Labs: Abnormal Lab Results - Last 24 Hours (Table) 10/09/20 10/10/20 10/11/20 Range/Units 17:24 07:13 06:12 RBC (3.80-5.40) m/uL Hgb (11.4-16.0) gm/dL Hct (34.0-46.0) % RDW (11.5-15.5) % Sodium 135 L (137-145) mmol/L Potassium 3.2 L (3.5-5.1) mmol/L HDL Cholesterol 32.0 L (40.0-60.0) mg/dL Crossmatch See Detail 10/11/20 Range/Units 06:12 RBC 2.34 L (3.80-5.40) m/uL Hgb 6.9 L* (11.4-16.0) gm/dL Hct 21.4 L (34.0-46.0) % RDW 17.7 H (11.5-15.5) % Sodium (137-145) mmol/L Potassium (3.5-5.1) mmol/L HDL Cholesterol (40.0-60.0) mg/dL Crossmatch
--- NOTE | 2020-10-11 15:34 | P.PCN ---
Date of Procedure: 10/11/20 Description of Procedure: Brief history: 80-year-old white female who presented to the emergency department with complaints of weakness and a fall 2-3 days ago. She lives in assisted living and states that she has been feeling weak and had recent fall, also states that she has been having black stool. Her past medical history includes heart failure, COPD, dementia, and hypertension. She is currently reporting chest and neck discomfort from the fall. She denies any black stools and she has been in the hospital. She was noted on admission to have elevation in her troponins and cardiology was consulted. In April she had reported black stools and anemia and underwent an EGD on 04/24/[address] Gallo with findings of 2 gastric antral ulcers, nonbleeding, a long segment of Regan's esophagus and small hiatal hernia. Gastroenterology had recommended Protonix 40 mg daily at that time, patient states she does not believe she's been taking it. Patient states her last colonoscopy was greater than 10 years ago. On admission she was noted to have a hemoglobin of 6.0 and was transfused 1 unit of PRBC transfusion. She was noted have a positive cold stool. Procedure performed: Esophagogastroduodenoscopy with biopsy Colonoscopy aborted secondary to poor prep Estimated blood loss: Minimal. Preoperative diagnosis: Anemia Anesthesia: MAC Procedure: After informed consent was obtained from the patient was brought into the endoscopy unit and IV sedation was administered by anesthesia under continuous monitoring. Initially upper endoscopy was done. The Olympus GF 190 video endoscope was inserted into the mouth and esophagus intubated without any difficulty and was gradually advanced into the stomach and duodenum and carefully examined. The bulb and second part of the duodenum appeared normal, with biopsies taken. The scope was then withdrawn into the stomach adequately insufflated with air and upon careful examination the antrum and body, cardia and fundus were significant for a 1 cm cratered nonbleeding antral ulcer with biopsies of the antral ulcer taken. The scope was then withdrawn into the esophagus. The GE junction was located at 35 cm to the incisors, with 4 cm of salmon-colored mucosa suspicious for Regan's esophagus with lower esophageal biopsies taken. It appeared regular with no erythema erosions or ulcerations. Rest of the esophagus appeared normal. Patient tolerated the procedure well. At this time the patient continued to remain sedation. Initial digital rectal examination was normal. Olympus CF 190 video colonoscope was then inserted into the rectum and gradually advanced to the sigmoid colon at which time the procedure was aborted due to poor prep. Careful examination was performed as the scope was gradually being withdrawn. The prep was poor with solid and liquid stool throughout the examined colon. Multiple small and large mouth diverticula were noted. Copious amounts of solid and liquid stool prohibiting visualization of the mucosa. The patient tolerated the procedure well. Impression: 1. Cratered nonbleeding antral ulcer. 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 Biopsies of the duodenum, antral ulcer and lower esophagus. 2. Poor prep with a large amount of liquid and solid stool throughout the visualized colon, with procedure aborted due to poor prep. Sigmoid diverticulosis. Recommendations: Findings of this examination were discussed with the patient as well as the medical team. Patient should be continued on twice daily Protonix therapy secondary to antral ulcer. Recommend repeat EGD in 6-8 weeks to check for ulcer healing. Strict avoidance of NSAID medications. Can follow-up with colonoscopy in the outpatient setting with 2 day prep at that time due to poor prep. No plans for further endoscopic evaluation. Iron studies were ordered and patient will be started on supplementation is consistent with iron deficiency.
[2020-10-11] MEDS: IPRATROPIUM-ALBUTEROL 3 ML NEB INHALATION SCH ×3 (15:40→19:39)
[2020-10-11] MEDS ORDERED: IPRATROPIUM-ALBUTEROL 3 ML NEB INHALATION SCH (16:00)
[2020-10-11 16:29] LABS: Anisocytosis Slight; HCT 27.4 % (34.0-46.0); Hypochromasia Slight; MCH 29.6 pg (25.0-35.0); MCHC 32.5 g/dL (31.0-37.0); MCV 91.2 fL (80.0-100.0); Mean Platelet Volume 7.8; Platelet Count 353 k/uL (150-450); Poikilocytosis Moderate; RDW 17.6 % (11.5-15.5); WBC 10.2 k/uL (3.8-10.6)
[2020-10-11 16:32] LABS: HGB 8.9 gm/dL (11.4-16.0)
--- NOTE | 2020-10-11 16:58 | P.PN ---
Subjective Progress Note Date: 10/11/20 This is a pleasant 80-year-old female with past medical history of COPD, hypertension, CHF, dementia, former nicotine dependence, recently moved to [facility], presented to the ER with complaints of black stools for the last 2-3 days, no nausea, vomiting or abdominal pain, increased weakness, fall 2-3 days ago with subsequent neck, chest pain. Recent EGD feburary 2020 reporting two nonbleeding gastric antral ulcers, a long segment of Regan's esophagus and small hiatal hernia with PPI twice a day recommended; patient states she doesn't remember taking it. Denies NSAIDs use.Afebrile, leukocytosis resolved, down to 9.1. CT of brain and C-spine reporting no acute abnormality. Black stool tested positive for occult blood. on admission 6, Received 1 unit of packed RBCs in the ER. Current hemoglobin 7.1, platelets 301. Chest x-ray reporting no active cardiopulmonary disease, no change. EKG reported sinus rhythm with PACs, left ventricular hypertrophy. Troponins 0.967, 1.430, 1.270. Echo pending. GI and cardiology consulted. 10/11/2020 NPO, scheduled for EGD and colonoscopy today with GI. GoLYTELY prep not at bedside, sitting on counter in room, does not appear to have consumed much of it. Denies abdominal pain. Reports back pain. Hemoglobin 6.9 and is scheduled to receive another unit of packed RBCs. Short of breath this morning, Lasix 40 mg IV push 1 ordered. Echo reported EF 50-55%. Potassium 3.2. Denies chest pain, palpitations or shortness of breath. Objective - Vital Signs Vital signs: Vital Signs Temp 97.7 F 10/11/20 15:40 Pulse 76 10/11/20 16:10 Resp 16 10/11/20 16:10 BP 130/73 10/11/20 16:10 Pulse Ox 94 L 10/11/20 16:10 Intake & Output 10/10/20 10/11/20 10/11/20 18:59 06:59 18:59 Intake Total 480 30 530 Balance 480 30 530 Weight 58.6 kg Intake: IV 30 220 Invasive Line 2 30 20 Oral 480 Blood Product 310 Rc As-1 Unit 310 [id number] Other: Voiding Method Toilet Bedside Commode Bedside Commode # Voids 1 1 1 # Bowel Movements 1 1 5 - Exam PHYSICAL EXAM: VITAL SIGNS: As above GENERAL: Pale, alert and oriented 3, Sitting up in bed, no acute distress, mild anxiety HEENT: Conjunctivae normal. eyes normal. NECK: No JVD. No thyroid enlargement. No LNs CARDIOVASCULAR: S1, S2 regular..No murmur RESPIRATION: Breath sounds diminished in the bases. No rhonchi or crackles. ABDOMEN: Soft, nondistended, epigastric tenderness ,No guarding. no masses palpable. Bowel sounds heard. LEGS: No edema. no swelling NERVOUS SYSTEM: Cranial N 2-12 grossly normal. Moves all 4 limbs. Diffuse weakness ,No focal deficits. Strength and sensation grossly intact. Skin: Warm and dry, no rash. - Labs CBC & Chem 7: 10/11/20 15:59 10/11/20 15:59 Labs: Abnormal Lab Results - Last 24 Hours (Table) 10/09/20 10/11/20 10/11/20 Range/Units 17:24 06:12 06:12 RBC 2.34 L (3.80-5.40) m/uL Hgb 6.9 L* (11.4-16.0) gm/dL Hct 21.4 L (34.0-46.0) % RDW 17.7 H (11.5-15.5) % Sodium 135 L (137-145) mmol/L Potassium 3.2 L (3.5-5.1) mmol/L Crossmatch See Detail 10/11/20 10/11/20 Range/Units 15:59 15:59 RBC 3.00 L (3.80-5.40) m/uL Hgb 8.9 L D (11.4-16.0) gm/dL Hct 27.4 L (34.0-46.0) % RDW 17.6 H (11.5-15.5) % Sodium (137-145) mmol/L Potassium 3.4 L (3.5-5.1) mmol/L Crossmatch Assessment and Plan Assessment: Chest pain, NSTEMI Acute blood loss anemia Fall COPD, stable Chronic diastolic heart failure Hypertension Former nicotine dependence Plan: Continue on current medication regime ,monitoring and symptomatic treatmen t. Dose of Lasix now and after unit of packed RBCs. IV Tylenol, Toradol added for pain management. Potassium replacement protocol ordered with repeat level, later this afternoon. Continue on PPI. Endoscopy pending. Repet CBC later today, post transfusion ,with repeat labs ordered for a.m. PT/OT. [facility] re[facility] at discharge. The impression and plan of care has been dictated as directed. : I performed a history and examination of this patient, discussed the same with the dictator. I agree with the dictator's note ,documented as a scribe. Any additional findings or plans will be noted.
[2020-10-11] MEDS: ESCITALOPRAM 20 MG TAB PO SCH (17:51)
[2020-10-11] MEDS: ACETAMINOPHEN TAB 325 MG TAB PO PRN (17:57)
[2020-10-11 21:57] VITALS: RESP 18
[2020-10-12] MEDS ORDERED: KETOROLAC 15 MG/ML 1 ML VIAL IVP PRN (01:10)
[2020-10-12] MEDS ORDERED: OLANZapine 2.5 MG TAB PO PRN (01:30)
[2020-10-12] MEDS: LACTATED RINGERS 1,000 ML IV SCH (05:36)
[2020-10-12] MEDS: carvediloL 3.125 MG TAB PO SCH (06:47)
[2020-10-12] MEDS: IPRATROPIUM-ALBUTEROL 3 ML NEB INHALATION SCH ×2 (07:41→10:58)
[2020-10-12] MEDS: ESCITALOPRAM 20 MG TAB PO SCH (07:56)
[2020-10-12] MEDS: PANTOPRAZOLE 40 MG/10 ML VIAL IVP SCH (07:56)
[2020-10-12] MEDS ORDERED: FUROSEMIDE 40 MG TAB PO SCH (09:00)
[2020-10-12 09:46] LABS: Anisocytosis Slight; HCT 24.7 % (34.0-46.0); HGB 8.1 gm/dL (11.4-16.0); Hypochromasia Slight; MCH 29.8 pg (25.0-35.0); MCHC 32.8 g/dL (31.0-37.0); MCV 90.9 fL (80.0-100.0); Mean Platelet Volume 8.3; Platelet Count 284 k/uL (150-450); Poikilocytosis Moderate; RBC 2.72 m/uL (3.80-5.40); RDW 17.2 % (11.5-15.5); WBC 8.9 k/uL (3.8-10.6)
[2020-10-12 09:57] LABS: Calcium 9.6 mg/dL (8.4-10.2); Magnesium 2.2 mg/dL (1.6-2.3); Potassium 3.9 mmol/L (3.5-5.1)
[2020-10-12] MEDS: ACETAMINOPHEN TAB 325 MG TAB PO PRN (11:28)
--- NOTE | 2020-10-12 11:40 | P.DS ---
Providers Date of admission: 10/09/20 20:06 Expected date of discharge: 10/12/20 Attending physician: Edd Romero Consults: 10/09/20 20:06 Consult Physician Urgent Consulting Provider: [facility] Consult Reason/Comments: Non-STEMI Do you want consulting provider notified?: Yes Consult Physician Urgent Consulting Provider: Nagi Long Reason/Comments: GI bleed Do you want consulting provider notified?: Yes Primary care physician: Edd Romero Hospital Course: Final Diagnoses: Chest pain, likely type II FL event related to the severe anemia as per car diology as well as muscloskeletal secondary to fall Acute blood loss anemia.Colonoscopy aborted secondary to poor prep, sigmoid diverticulosis. EGD reported cratered nonbleeding antral ulcer, suspect Regan's esophagus with biopsies obtained Fall COPD, stable Chronic diastolic heart failure Hypertension Former nicotine dependence Hospital course:This is a pleasant 80-year-old female with past medical history of COPD, hypertension, CHF, dementia, former nicotine dependence, recently moved to [facility], presented to the ER with complaints of black stools for the last 2-3 days, no nausea, vomiting or abdominal pain, increased weakness, fall 2-3 days ago with subsequent neck, chest pain. Recent EGD feburary 2020 reporting two nonbleeding gastric antral ulcers, a long segment of Regan's esophagus and small hiatal hernia with PPI twice a day recommended; patient states she doesn't remember taking it. Denies NSAIDs use.Afebrile, leukocytosis resolved, down to 9.1. CT of brain and C-spine reporting no acute abnormality. Black stool tested positive for occult blood. on admission 6, Received 1 unit of packed RBCs in the ER. Current hemoglobin 7.1, platelets 301. Chest x-ray reporting no active cardiopulmonary disease, no change. EKG reported sinus rhythm with PACs, left ventricular hypertrophy. Troponins 0.967, 1.430, 1.270. Echo pending. GI and cardiology consulted. 10/11/2020 NPO, scheduled for EGD and colonoscopy today with GI. GoLYTELY prep not at bedside, sitting on counter in room, does not appear to have consumed much of it. Denies abdominal pain. Reports back pain. Hemoglobin 6.9 and is scheduled to receive another unit of packed RBCs. Short of breath this morning, Lasix 40 mg IV push 1 ordered. Echo reported EF 50-55%. Potassium 3.2. Denies chest pain, palpitations or shortness of breath. Colonoscopy aborted secondary to poor prep, sigmoid diverticulosis. EGD reported cratered nonbleeding antral ulcer, suspect Regan's esophagus with biopsies obtained. Recommend Protonix twice a day, repeat EGD in 6-8 weeks to evaluate for ulcer healing, avoid NSAIDs, outpatient colonoscopy. Iron studies pending. Significant clinical improvement. Patient will be discharged to [facility] rehab in a stable condition with guarded prognosis pending final DC recommendations and clearance from both GI and cardiology. The impression and plan of care has been dictated as directed. : I performed a history and examination of this patient, discussed the same with the dictator. I agree with the dictator's note ,documented as a scribe. Any additional findings or plans will be noted. Patient Condition at Discharge: Stable Plan - Discharge Summary Discharge Rx Participant: No New Discharge Prescriptions: New Pantoprazole Sodium [Protonix] 40 mg PO BID #60 tablet.dr Continue Albuterol Sulfate [Ventolin HFA] 2 puff INHALATION RT-QID PRN PRN Reason: Shortness Of Breath carvediloL [Coreg] 3.125 mg PO BID-W/MEALS #60 tab Isosorbide Mononitrate ER [Imdur] 30 mg PO DAILY #30 tab.er.24h Nitroglycerin Sl Tabs [Nitrostat] 0.4 mg SUBLINGUAL Q5M PRN PRN Reason: Chest Pain Furosemide [Lasix] 40 mg PO DAILY Escitalopram [Lexapro] 20 mg PO DAILY Discharge Medication List Albuterol Sulfate [Ventolin HFA] 2 puff INHALATION RT-QID PRN 02/18/20 [History] Isosorbide Mononitrate ER [Imdur] 30 mg PO DAILY #30 tab.er.24h 02/19/20 [Rx] carvediloL [Coreg] 3.125 mg PO BID-W/MEALS #60 tab 02/19/20 [Rx] Nitroglycerin Sl Tabs [Nitrostat] 0.4 mg SUBLINGUAL Q5M PRN 04/13/20 [History] Escitalopram [Lexapro] 20 mg PO DAILY 10/09/20 [History] Furosemide [Lasix] 40 mg PO DAILY 10/09/20 [History] Pantoprazole Sodium [Protonix] 40 mg PO BID #60 tablet. 10/12/20 [Rx] Follow up Appointment(s)/Referral(s): Edd Romero DO [Primary Care Provider] - 3 Days [facility] Visiting Nurse, [NON-STAFF] - Nagi Long MD [STAFF PHYSICIAN] - 2 Weeks Ambulatory/Diagnostic Orders: Complete Blood Count w/diff [LAB.AMB] Time Frame: 3 Days, Location: None Selected Activity/Diet/Wound Care/Special Instructions: [facility] .Pending final DC recommendations and clearance from both GI and cardiology. Labs pending/Pt re-eval. Discharge Disposition: TRANSFER TO SNF/ECF
[2020-10-12 12:24] VITALS: BP 127/74; PULSE 57; TEMP 98.2
--- NOTE | 2020-10-12 14:11 | P.PN ---
Subjective This is a 80-year-old female with a past medical history of COPD, former nicotine dependence, hypertension followed by Dr. Zuluaga, presents to the emergency department after a fall symptoms of chest discomfort. Patient was noted to be anemic and she had mildly elevated troponin. Cardiology is following the patient due to elevated troponins. Patient seen and examined at bedside, no acute distress. Echocardiogram revealed an EF of 50-55%, mild aortic valve sclerosis, mild aortic regurgitation, mild mitral regurgitation, mild tricuspid regurgitation. She underwent EGD/colonoscopy on 10/11/2020 which revealed nonbleeding antral ulcer. Regan's Esophagus. Unable to do colonoscopy due to poor prep. She's currently maintained on carvedilol 3.125 mg twice a day, Lasix 40 mg daily. G data reveals WBC 8.9, hemoglobin 8.1, platelets 284, sodium 135, potassium 3.9, BUN 11, serum creatinine 1.0, magnesium 2.2 VITALS: Blood pressure 127/74, heart rate 69, afebrile, maintaining oxygen saturations on 2 L nasal cannula GENERAL: No acute distress NECK: Supple without JVD or thyromegaly. LUNGS: Breath sounds diminished bilaterally Respiration equal and unlabored. HEART: Regular rate and rhythm without murmurs, rubs or gallops. S1 and S2 heard. EXTREMITIES: Normal range of motion, no edema. No clubbing or cyanosis. Peripheral pulses intact. ASSESSMENT: Chest pain with fall, atypical, musculoskeletal in etiology. Mild troponin elevation mostly likely related to severe anemia Anemia with GI bleeding History of COPD History of hypertension Hypokalemia PLAN: From cardiology perspective, patient stable to be discharged home. Plan for patient to have colonoscopy as an outpatient. We will hold off on any anticoagulation. Patient can follow up as an outpatient. Objective - Vital Signs Vital signs: Vital Signs Temp 98.2 F 10/12/20 12:00 Pulse 57 L 10/12/20 12:00 Resp 18 10/12/20 12:00 BP 127/74 10/12/20 12:00 Pulse Ox 94 L 10/12/20 12:00 Intake & Output 10/11/20 10/12/20 10/12/20 18:59 06:59 18:59 Intake Total 530 30 480 Balance 530 30 480 Weight 58.5 kg Intake: IV 220 30 Invasive Line 2 20 Invasive Line 3 20 Invasive Line 4 10 Oral 480 Blood Product 310 Rc As-1 Unit 310 [id number] Other: Voiding Method Bedside Commode Bedside Commode Bedside Commode # Voids 1 1 # Bowel Movements 5 2 1 - Labs CBC & Chem 7: 10/12/20 09:06 10/12/20 09:06 Labs: Abnormal Lab Results - Last 24 Hours (Table) 10/11/20 10/11/20 10/12/20 Range/Units 15:59 15:59 09:06 RBC 3.00 L (3.80-5.40) m/uL Hgb 8.9 L D (11.4-16.0) gm/dL Hct 27.4 L (34.0-46.0) % RDW 17.6 H (11.5-15.5) % Sodium 135 L (137-145) mmol/L Potassium 3.4 L (3.5-5.1) mmol/L Glucose 108 H (74-99) mg/dL 10/12/20 Range/Units 09:06 RBC 2.72 L (3.80-5.40) m/uL Hgb 8.1 L (11.4-16.0) gm/dL Hct 24.7 L (34.0-46.0) % RDW 17.2 H (11.5-15.5) % Sodium (137-145) mmol/L Potassium (3.5-5.1) mmol/L Glucose (74-99) mg/dL
[2020-10-13 01:29] LABS: % Iron Saturation 4.92 (12.00-45.00)
== END 2020-10-12 14:09 | DRG 377 ==
LOC: EC 16:00 → 3SCARD 20:06
PROVIDERS: ADMIT Family Medicine; ATTEND Family Medicine
PROC: 30233N1 Transfusion of Nonautologous Red Blood Cells into Peripheral Vein, Percutaneous Approach (ICD-10-PCS; 2020-10-09)
PROC: 0DJD8ZZ Inspection of Lower Intestinal Tract, Via Natural or Artificial Opening Endoscopic (ICD-10-PCS; 2020-10-11)
PROC: 0DB78ZX Excision of Stomach, Pylorus, Via Natural or Artificial Opening Endoscopic, Diagnostic (ICD-10-PCS; principal; 2020-10-11 13:00)
PROC: 0DB38ZX Excision of Lower Esophagus, Via Natural or Artificial Opening Endoscopic, Diagnostic (ICD-10-PCS; 2020-10-11 13:00)
DX: K25.4 Chronic or unspecified gastric ulcer with hemorrhage (principal); I21.A1 Myocardial infarction type 2; I50.32 Chronic diastolic (congestive) heart failure; D62 Acute posthemorrhagic anemia; Z20.822 Contact with and (suspected) exposure to COVID-19; J44.9 Chronic obstructive pulmonary disease, unspecified; F03.90 Unspecified dementia, unspecified severity, without behavioral disturbance, psychotic disturbance, mood disturbance, and anxiety; I11.0 Hypertensive heart disease with heart failure; Z87.11 Personal history of peptic ulcer disease; Z87.891 Personal history of nicotine dependence; K22.70 Barrett's esophagus without dysplasia; K57.30 Diverticulosis of large intestine without perforation or abscess without bleeding; E87.6 Hypokalemia; Z53.9 Procedure and treatment not carried out, unspecified reason; K44.9 Diaphragmatic hernia without obstruction or gangrene; D72.829 Elevated white blood cell count, unspecified; Z79.899 Other long term (current) drug therapy; Z90.710 Acquired absence of both cervix and uterus
CPT/HCPCS: 36415; 43239; 45378; 70450; 71046; 72125; 80048; 80053; 80061; 81001; 82272; 82728; 83540; 83550; 83605; 83735; 84132; 84484; 85025; 85027; 85610; 85730; 86850; 86900; 86901; 86920; 87635; 93005; 93306; 96374; 99291

== ENCOUNTER 2020-11-17 07:10 | Inpatient (IN) | payer MEDICARE, OTHER ==
[2020-11-17] MEDS ORDERED: IPRATROPIUM-ALBUTEROL 3 ML NEB INHALATION STA (07:27)
[2020-11-17] MEDS ORDERED: methylPREDNISolone SOD SUCCI 125 MG/2 ML VIAL IV STA (07:27)
--- NOTE | 2020-11-17 07:33 | ED ---
SOB HPI - General Chief Complaint: Shortness of Breath Stated Complaint: SOB Time Seen by Provider: 11/17/20 07:20 Source: patient, EMS Mode of arrival: EMS - History of Present Illness Initial Comments: This 80-year-old white female presents with a complaint of shortness of breath. She states that it came on just this past evening. She denies any cough. She does have a history of COPD. She denies any chest pain or fever. There is been no leg pain or swelling. She denies utilizing oxygen at home and presents with a pulse ox of 91%. Old records indicate that she was hospitalized last month for upper GI bleed. She denies any recent blood in her stools or black tarry stools. She cannot remember that event. She, per records, has a history of dementia. History is therefore somewhat limited. No other complaints or modifying factors. She does present from the correction. - Related Data Home Medications Medication Instructions Recorded Confirmed Nitroglycerin Sl Tabs [Nitrostat] 0.4 mg SUBLINGUAL Q5M PRN 04/13/20 11/17/20 Escitalopram [Lexapro] 20 mg PO DAILY@79910/09/20 11/17/20 Furosemide [Lasix] 40 mg PO DAILY@79910/09/20 11/17/20 ALPRAZolam [Xanax] 0.5 mg PO TID@0800,1400,209911/17/20 11/17/20 Acetaminophen Tab [Tylenol] 650 mg PO Q4H PRN 11/17/20 11/17/20 Albuterol Inhaler [Ventolin Hfa 2 puff INHALATION RT-QID PRN 11/17/20 11/17/20 Inhaler] Isosorbide Mononitrate ER [Imdur] 30 mg PO DAILY@79911/17/20 11/17/20 Loperamide HCl [Imodium A-D] 4 mg PO BID PRN 11/17/20 11/17/20 Magnesium Hydroxide [Milk of 2,400 mg PO Q48H PRN 11/17/20 11/17/20 Magnesia] Melatonin 6 mg PO HS@209911/17/20 11/17/20 Menthol [Biofreeze] 1 applic TOPICAL BID@0800,209911/17/20 11/17/20 Na Phos,M-B/Na Phos,Di-Ba [Fleet 133 ml RECTAL DAILY PRN 11/17/20 11/17/20 Adult] Pantoprazole Sodium [Protonix] 40 mg PO BID@0800,1700 11/17/20 11/17/20 bisacodyL [Dulcolax] 10 mg RECTAL DAILY PRN 11/17/20 11/17/20 carvediloL [Coreg] 3.125 mg PO BID@0800,1700 11/17/20 11/17/20 Allergies Allergy/AdvReac Type Severity Reaction Status Date / Time NSAIDS (Non-Steroidal Allergy Unknown Verified 11/17/20 08:01 Anti-Inflamma Penicillins Allergy Rash/Hives Verified 11/17/20 08:01 Review of Systems ROS Statement: Those systems with pertinent positive or pertinent negative responses have been documented in the HPI. ROS Other: All systems not noted in ROS Statement are negative. Past Medical History Past Medical History: Heart Failure, COPD, Dementia, Hypertension Additional Past Medical History / Comment(s): degenerate spine disease, arthritis, HAD COVID VACCINE APR 20, 2020 History of Any Multi-Drug Resistant Organisms: None Reported Past Surgical History: Hysterectomy Past Anesthesia/Blood Transfusion Reactions: No Reported Reaction Past Psychological History: No Psychological Hx Reported Smoking Status: Former smoker Past Alcohol Use History: Occasional Past Drug Use History: None Reported - Past Family History Sister(s) Family Medical History: Cancer Additional Family Medical History / Comment(s): Mother and father from old age, brother healthy, sister with cancer unknown, one daughter healthy 2 sons healthy General Exam - General Exam Comments Initial Comments: GENERAL: The patient is well nourished and well hydrated. VITAL SIGNS: Heart rate, blood pressure, respiratory rate reviewed as recorded in nurse's notes. EYES: Pupils are round and reactive. Extraocular movements are intact. No conjunctival / lid redness or swelling. ENT: No external evidence of injury, swelling, or ecchymosis. Airway is patent. Throat is clear. NECK: Nontender. No swelling or evidence of injury. No subcutaneous emphysema. Trachea is midline. No thyroid mass. HEART: Regular rate and rhythm. Good peripheral pulses. LUNGS/CHEST: Breath sounds clear and equal bilaterally. No rales, rhonchi, or wheezes. No ecchymosis, subcutaneous emphysema, or tenderness. Decreased aeration noted. ABDOMEN: Abdomen soft without tenderness. No palpable masses or organomegaly. No peritoneal signs. No abdominal wall swelling or ecchymosis. EXTREMITIES: No extremity tenderness. Normal muscle tone and function. No thoracolumbar tenderness. No leg swelling. NEUROLOGIC: Sensation is grossly intact. Cranial nerve exam reveals face is symmetrical, tongue is midline, speech is clear. SKIN: No abrasions or ecchymosis is noted. No induration or masses noted. PSYCHIATRIC: Alert and pleasant. Appropriate behavior and judgment. Course Vital Signs 11/17/20 11/17/20 11/17/20 07:14 07:53 08:05 Temperature 98.0 F Pulse Rate 64 59 L 57 L Respiratory 22 Rate Blood Pressure 168/62 O2 Sat by Pulse 91 L Oximetry Medical Decision Making - Medical Decision Making Patient was seen and examined. All diagnostics are reviewed. An IV is established and she is placed on the telemetry monitor. No ectopy is identified. She does receive Solu-Medrol intravenously as well as a DuoNeb breathing treatment. EKG shows a normal sinus rhythm with occasional premature atrial complex. There is some ST-T wave changes noted primarily in the lateral leads. The WI intervals 122, QRS duration is 82, and the QTC intervals 436. Old EKG is reviewed and has similar appearance from last month. The laboratories reviewed and shows a decreased hemoglobin at 8.5 which appears be stable as compared to last month and improved from last month when she had a GI bleed. The troponin is negative. Remainder of labs are reviewed and essentially negative with negative Covid test. The chest x-ray shows possible interstitial pneumonitis. The patient states that her breathing is improved after taking a DuoNeb breathing treatment. Recheck shows pulse oximeter at 99% on 2 L per nasa l cannula. Overall, it is felt as though she would benefit from admission as a short stay/observation for further treatment. Patient is agreeable with this plan. Case is discussed with Dr. Sherman and she is agreeable for admission and would like Zithromax and Rocephin initiated. - Lab Data Result diagrams: 11/17/20 07:44 11/17/20 07:44 Lab Results 11/17/20 11/17/20 11/17/20 Range/Units 07:44 07:44 07:44 WBC 7.7 (3.8-10.6) k/uL RBC 3.19 L (3.80-5.40) m/uL Hgb 8.5 L (11.4-16.0) gm/dL Hct 28.1 L (34.0-46.0) % MCV 88.1 D (80.0-100.0) fL MCH 26.8 (25.0-35.0) pg MCHC 30.4 L (31.0-37.0) g/dL RDW 15.7 H (11.5-15.5) % Plt Count 327 (150-450) k/uL MPV 8.1 Neutrophils % 74 % Lymphocytes % 10 % Monocytes % 10 % Eosinophils % 2 % Basophils % 0 % Neutrophils # 5.7 (1.3-7.7) k/uL Lymphocytes # 0.8 L (1.0-4.8) k/uL Monocytes # 0.7 (0-1.0) k/uL Eosinophils # 0.2 (0-0.7) k/uL Basophils # 0.0 (0-0.2) k/uL Hypochromasia Marked Poikilocytosis Slight PT 10.5 (9.0-12.0) sec INR 1.0 (<1.2) APTT 21.6 L (22.0-30.0) sec Sodium 143 (137-145) mmol/L Potassium 3.7 (3.5-5.1) mmol/L Chloride 106 (98-107) mmol/L Carbon Dioxide 30 (22-30) mmol/L Anion Gap 7 mmol/L BUN 22 H (7-17) mg/dL Creatinine 0.82 (0.52-1.04) mg/dL Est GFR (CKD-EPI)AfAm 79 (>60 ml/min/1.73 sqM) Est GFR (CKD-EPI)NonAf 69 (>60 ml/min/1.73 sqM) Glucose 98 (74-99) mg/dL Plasma Lactic Acid José Miguel (0.7-2.0) mmol/L Calcium 10.6 H (8.4-10.2) mg/dL Total Bilirubin 0.2 (0.2-1.3) mg/dL AST 21 (14-36) U/L ALT 8 (4-34) U/L Alkaline Phosphatase 85 (38-126) U/L Troponin I (0.000-0.034) ng/mL NT-Pro-B Natriuret Pep pg/mL Total Protein 6.6 (6.3-8.2) g/dL Albumin 3.5 (3.5-5.0) g/dL Coronavirus (PCR) (Not Detectd) 11/17/20 11/17/20 11/17/20 Range/Units 07:44 07:44 07:44 WBC (3.8-10.6) k/uL RBC (3.80-5.40) m/uL Hgb (11.4-16.0) gm/dL Hct (34.0-46.0) % MCV (80.0-100.0) fL MCH (25.0-35.0) pg MCHC (31.0-37.0) g/dL RDW (11.5-15.5) % Plt Count (150-450) k/uL MPV Neutrophils % % Lymphocytes % % Monocytes % % Eosinophils % % Basophils % % Neutrophils # (1.3-7.7) k/uL Lymphocytes # (1.0-4.8) k/uL Monocytes # (0-1.0) k/uL Eosinophils # (0-0.7) k/uL Basophils # (0-0.2) k/uL Hypochromasia Poikilocytosis PT (9.0-12.0) sec INR (<1.2) APTT (22.0-30.0) sec Sodium (137-145) mmol/L Potassium (3.5-5.1) mmol/L Chloride (98-107) mmol/L Carbon Dioxide (22-30) mmol/L Anion Gap mmol/L BUN (7-17) mg/dL Creatinine (0.52-1.04) mg/dL Est GFR (CKD-EPI)AfAm (>60 ml/min/1.73 sqM) Est GFR (CKD-EPI)NonAf (>60 ml/min/1.73 sqM) Glucose (74-99) mg/dL Plasma Lactic Acid José Miguel 0.7 (0.7-2.0) mmol/L Calcium (8.4-10.2) mg/dL Total Bilirubin (0.2-1.3) mg/dL AST (14-36) U/L ALT (4-34) U/L Alkaline Phosphatase (38-126) U/L Troponin I <0.012 (0.000-0.034) ng/mL NT-Pro-B Natriuret Pep 1740 pg/mL Total Protein (6.3-8.2) g/dL Albumin (3.5-5.0) g/dL Coronavirus (PCR) (Not Detectd) 11/17/20 Range/Units 07:44 WBC (3.8-10.6) k/uL RBC (3.80-5.40) m/uL Hgb (11.4-16.0) gm/dL Hct (34.0-46.0) % MCV (80.0-100.0) fL MCH (25.0-35.0) pg MCHC (31.0-37.0) g/dL RDW (11.5-15.5) % Plt Count (150-450) k/uL MPV Neutrophils % % Lymphocytes % % Monocytes % % Eosinophils % % Basophils % % Neutrophils # (1.3-7.7) k/uL Lymphocytes # (1.0-4.8) k/uL Monocytes # (0-1.0) k/uL Eosinophils # (0-0.7) k/uL Basophils # (0-0.2) k/uL Hypochromasia Poikilocytosis PT (9.0-12.0) sec INR (<1.2) APTT (22.0-30.0) sec Sodium (137-145) mmol/L Potassium (3.5-5.1) mmol/L Chloride (98-107) mmol/L Carbon Dioxide (22-30) mmol/L Anion Gap mmol/L BUN (7-17) mg/dL Creatinine (0.52-1.04) mg/dL Est GFR (CKD-EPI)AfAm (>60 ml/min/1.73 sqM) Est GFR (CKD-EPI)NonAf (>60 ml/min/1.73 sqM) Glucose (74-99) mg/dL Plasma Lactic Acid José Miguel (0.7-2.0) mmol/L Calcium (8.4-10.2) mg/dL Total Bilirubin (0.2-1.3) mg/dL AST (14-36) U/L ALT (4-34) U/L Alkaline Phosphatase (38-126) U/L Troponin I (0.000-0.034) ng/mL NT-Pro-B Natriuret Pep pg/mL Total Protein (6.3-8.2) g/dL Albumin (3.5-5.0) g/dL Coronavirus (PCR) Not Detected (Not Detectd) Disposition Clinical Impression: Dyspnea, Hypoxia, COPD exacerbation, Interstitial pneumonitis, Anemia Disposition: ADMITTED IP TO THIS HOSP Condition: Fair Is patient prescribed a controlled substance at d/c from ED?: No Referrals: Jordan Ortiz MD [Primary Care Provider] - 1-2 days Time of Disposition: 08:48 Decision Date: 11/17/20 Decision Time: 08:48
[2020-11-17 08:04] LABS: Basophils % (A) 0 %; Eosinophils # (A) 0.2 k/uL (0-0.7); Eosinophils % (A) 2 %; HCT 28.1 % (34.0-46.0); HGB 8.5 gm/dL (11.4-16.0); Hypochromasia Marked; Lymphocytes # (A) 0.8 k/uL (1.0-4.8); Lymphocytes % (A) 10 %; MCH 26.8 pg (25.0-35.0); MCHC 30.4 g/dL (31.0-37.0); Mean Platelet Volume 8.1; Monocytes # (A) 0.7 k/uL (0-1.0); Monocytes % (A) 10 %; Neutrophils # (A) 5.7 k/uL (1.3-7.7); Neutrophils % (A) 74 %; Platelet Count 327 k/uL (150-450); Poikilocytosis Slight; RBC 3.19 m/uL (3.80-5.40); RDW 15.7 % (11.5-15.5); WBC 7.7 k/uL (3.8-10.6)
[2020-11-17 08:08] LABS: MCV 88.1 fL (80.0-100.0)
[2020-11-17 08:14] LABS: Albumin 3.5 g/dL (3.5-5.0); Calcium 10.6 mg/dL (8.4-10.2); Potassium 3.7 mmol/L (3.5-5.1); Total Bilirubin 0.2 mg/dL (0.2-1.3); Total Protein 6.6 g/dL (6.3-8.2)
[2020-11-17 08:18] LABS: Partial Thromboplastin Time 21.6 sec (22.0-30.0); Prothrombin Time 10.5 sec (9.0-12.0)
--- NOTE | 2020-11-17 08:30 | XR ---
EXAMINATION TYPE: XR chest 2V DATE OF EXAM: 11/17/2020 COMPARISON: 10/09/2020 TECHNIQUE: PA and lateral views submitted. HISTORY: Shortness of breath FINDINGS: The lungs are clear and there is no pneumothorax, pleural effusion, or focal pneumonia. Arthropathy of the shoulders. Atherosclerotic change aorta. Heart size prominent. No overt failure. Calcified gr anuloma left lower lobe. Coarsened interstitium. IMPRESSION: 1. Interstitium is slightly coarsened relative to the prior exam correlate for bronchitis or intersti tial pneumonitis..
[2020-11-17] MEDS ORDERED: AZITHROMYCIN 500 MG in SODIUM CHLORIDE 0.9% 250 ML IVPB STA (08:41)
[2020-11-17] MEDS ORDERED: PNEUMONIA PROTOCOL UTILIZED 1 EACH MISC PO PRN (08:49)
[2020-11-17] MEDS ORDERED: IPRATROPIUM-ALBUTEROL 3 ML NEB INHALATION PRN ×2 (08:49→17:27)
[2020-11-17] MEDS ORDERED: NITROGLYCERIN SL TABS 0.4 MG TAB SUBLINGUAL PRN (08:52)
[2020-11-17] MEDS ORDERED: NA PHOS,M-B/NA PHOS,DI-BA 133 ML ENEMA RECTAL PRN (08:52)
[2020-11-17] MEDS ORDERED: bisacodyL 10 MG SUPP RECTAL PRN (08:52)
[2020-11-17] MEDS ORDERED: LOPERAMIDE 2 MG CAP PO PRN (08:52)
[2020-11-17] MEDS ORDERED: MAGNESIUM HYDROXIDE 2,400 MG/10 ML CUP PO PRN (08:52)
[2020-11-17] MEDS ORDERED: methylPREDNISolone SOD SUCCI 125 MG/2 ML VIAL IV SCH (09:00)
[2020-11-17] MEDS: ENOXAPARIN 40 MG/0.4 ML SYRINGE SQ SCH (09:56)
[2020-11-17] MEDS: methylPREDNISolone SOD SUCCI 125 MG/2 ML VIAL IV SCH ×2 (11:21→18:20)
--- NOTE | 2020-11-17 11:54 | CT ---
EXAMINATION TYPE: CT brain wo con DATE OF EXAM: 11/17/2020 COMPARISON: 10/09/2020 HISTORY: 80-year-old female confusion, delirium, altered mental status TECHNIQUE: Examination was done in axial plane without intravenous contrast. Coronal and sagittal r econstructions performed. CT DLP: 1099.4 mGycm Automated exposure control for dose reduction was used. FINDINGS: There is no evidence of acute intracranial hemorrhage, acute ischemic changes, mass, mass-effect, or extra-axial fluid collection. There is no effacement of cerebral sulci or basal subarachnoid cister ns. There is moderate patchy and confluent white matter hypodensity in both cerebral hemispheres and old lacunar infarct right caudate head and right basal ganglia. Mild to moderate generalized cerebral cortical volume loss. Mild to moderate ventriculomegaly with Ev an's ratio of 0.35, not significant changed. There is no midline shift. Osorio-white matter distinction is preserved. Paranasal sinuses and mastoid air cells are well pneumatized. Orbits and globes are intact. IMPRESSION: 1. Stable moderate generalized atrophy. Mild to moderate ventriculomegaly with Dylon's ratio of 0.35 i s not significantly changed from the recent prior. Correlate for a possible component of NPH. 2. Moderate patchy and confluent burden of chronic small vessel ischemic disease. Old right-sided bas al ganglionic lacunar infarcts are unchanged from the recent prior. 3. No acute intracranial abnormality seen.
[2020-11-17 12:21] LABS: C Reactive Protein 2.4 mg/dL (<1.0)
[2020-11-17 13:35] LABS: Appearance,Urine Clear (Clear); Bilirubin,Urine Negative (Negative); Blood,Urine Negative (Negative); Color,Urine Yellow; Glucose,Urine (UA) Negative (Negative); Ketones,Urine Negative (Negative); Leukocyte Esterase,Urine Negative (Negative); Nitrite,Urine Negative (Negative); PH, Urine 5.5 (5.0-8.0); Protein,Urine Negative (Negative); Specific Gravity,Urine 1.017 (1.001-1.035); Urobilinogen,Urine <2.0 mg/dL (<2.0)
[2020-11-17] MEDS: ACETAMINOPHEN TAB 325 MG TAB PO PRN ×2 (15:20→22:15)
[2020-11-17] MEDS: ALPRAZolam 0.5 MG TAB PO SCH ×2 (15:48→20:15)
--- NOTE | 2020-11-17 16:30 | P.CNPUL ---
History of Present Illness Consult date: 11/17/20 Requesting physician: Jenise Sherman Reason for consult: hypoxemia Chief complaint: Shortness of breath History of present illness: This is a very pleasant 80-year-old female patient who presents from a alf after being found to have low oxygen and complaints of shortness of breath. She does have a history of COPD, former smoker, dementia, hypertension, congestive heart failure. She is a poor historian. Computed tomography scan of the brain revealed stable moderate generalized atrophy. Chest x-ray shows mild interstitial edema. White count 10.7. Hemoglobin 8.5. Sodium 143. Potassium 3.7. Creatinine 0.82. Troponin negative 1. ProBNP 1740. Urinalysis clean. [place] virus not detected. She was initiated on DuoNeb inhalations, IV Solu- Medrol, ceftriaxone and azithromycin, Lovenox for DVT prophylaxis. She is seen today in consultation on the regular medical floor. She is currently sitting up in bed. Awake and alert in no acute distress. Oriented times one. O2 saturation 99% on 2 L nasal cannula, 94% on room air. She's afebrile. Review of Systems ROS unobtainable: due to mental status Past Medical History Past Medical History: Heart Failure, COPD, Dementia, Hypertension, Pneumonia Additional Past Medical History / Comment(s): degenerate spine disease, arthritis, HAD COVID VACCINE APR 20, 2020. Pneumonitis 11/17/20 History of Any Multi-Drug Resistant Organisms: None Reported Past Surgical History: Hysterectomy Past Anesthesia/Blood Transfusion Reactions: No Reported Reaction Past Psychological History: No Psychological Hx Reported Smoking Status: Former smoker Past Alcohol Use History: Occasional Past Drug Use History: None Reported - Past Family History Sister(s) Family Medical History: Cancer Additional Family Medical History / Comment(s): Mother and father from old age, brother healthy, sister with cancer unknown, one daughter healthy 2 sons healthy Medications and Allergies Home Medications Medication Instructions Recorded Confirmed Type Nitroglycerin Sl Tabs [Nitrostat] 0.4 mg SUBLINGUAL Q5M PRN 04/13/20 11/17/20 History Escitalopram [Lexapro] 20 mg PO DAILY@0810/09/20 11/17/20 History Furosemide [Lasix] 40 mg PO DAILY@79910/09/20 11/17/20 History ALPRAZolam [Xanax] 0.5 mg PO TID@0800,1400,2100 11/17/20 11/17/20 History Acetaminophen Tab [Tylenol] 650 mg PO Q4H PRN 11/17/20 11/17/20 History Albuterol Inhaler [Ventolin Hfa 2 puff INHALATION RT-QID PRN 11/17/20 11/17/20 History Inhaler] Isosorbide Mononitrate ER [Imdur] 30 mg PO DAILY@0800 11/17/20 11/17/20 History Loperamide HCl [Imodium A-D] 4 mg PO BID PRN 11/17/20 11/17/20 History Magnesium Hydroxide [Milk of 2,400 mg PO Q48H PRN 11/17/20 11/17/20 History Magnesia] Melatonin 6 mg PO HS@209911/17/20 11/17/20 History Menthol [Biofreeze] 1 applic TOPICAL BID@0800,2100 11/17/20 11/17/20 History Na Phos,M-B/Na Phos,Di-Ba [Fleet 133 ml RECTAL DAILY PRN 11/17/20 11/17/20 History Adult] Pantoprazole Sodium [Protonix] 40 mg PO BID@0800,1700 11/17/20 11/17/20 History bisacodyL [Dulcolax] 10 mg RECTAL DAILY PRN 11/17/20 11/17/20 History carvediloL [Coreg] 3.125 mg PO BID@0800,1700 11/17/20 11/17/20 History Allergies Allergy/AdvReac Type Severity Reaction Status Date / Time NSAIDS (Non-Steroidal Allergy Unknown Verified 11/17/20 08:01 Anti-Inflamma Penicillins Allergy Rash/Hives Verified 11/17/20 08:01 Physical Exam Vitals: Vital Signs Temp Pulse Pulse Resp BP BP Pulse Ox 11/17/20 15:46 74 94 L 11/17/20 14:09 97.9 F 71 20 168/74 99 11/17/20 11:00 60 16 151/81 100 11/17/20 10:30 63 18 135/81 99 11/17/20 09:30 59 L 16 162/80 97 11/17/20 09:00 49 L 16 167/78 99 11/17/20 08:30 54 L 16 156/68 99 11/17/20 08:05 57 L 11/17/20 08:00 61 20 168/88 100 11/17/20 07:53 59 L 11/17/20 07:14 98.0 F 64 22 168/62 91 L Intake and Output 11/17/20 11/17/20 11/17/20 06:59 14:59 22:59 Other: Weight 72.575 kg GENERAL EXAM: Alert, isn't, confused, 80-year-old female patient, on 2 L nasal cannula, comfortable in no apparent distress. HEAD: Normocephalic. EYES: Normal reaction of pupils, equal size. NOSE: Clear with pink turbinates. THROAT: No erythema or exudates. NECK: No masses, no JVD. CHEST: No chest wall deformity. LUNGS: Equal air entry with faint crackles in the posterior bases CVS: S1 and S2 normal with no audible murmur, regular rhythm. ABDOMEN: No hepatosplenomegaly, normal bowel sounds, no guarding or rigidity. SPINE: No scoliosis or deformity SKIN: No rashes CENTRAL NERVOUS SYSTEM: No focal deficits, tone is normal in all 4 extremities. EXTREMITIES: There is no peripheral edema. No clubbing, no cyanosis. Peripheral pulses are intact. Results - Laboratory Findings CBC and BMP: 11/17/20 07:44 11/17/20 07:44 PT/INR, D-dimer PT 10.5 sec (9.0-12.0) 11/17/20 07:44 INR 1.0 (<1.2) 11/17/20 07:44 D-Dimer 0.88 mg/L FEU (<0.60) H 11/17/20 12:04 Abnormal lab findings: Abnormal Labs 11/17/20 11/17/20 11/17/20 07:44 07:44 07:44 RBC 3.19 L Hgb 8.5 L Hct 28.1 L MCHC 30.4 L RDW 15.7 H Lymphocytes # 0.8 L APTT 21.6 L D-Dimer BUN 22 H Calcium 10.6 H C-Reactive Protein 11/17/20 11/17/20 11:30 12:04 RBC Hgb Hct MCHC RDW Lymphocytes # APTT D-Dimer 0.88 H BUN Calcium C-Reactive Protein 2.4 H - Diagnostic Findings Chest x-ray: image reviewed Assessment and Plan Assessment: 1 Acute hypoxemic respiratory failure secondary to an acute exacerbation of chronic obstructive pulmonary disease. 2 Former smoker 3 Recent admission for GI bleed ststus post EGD/colonoscopy 10/11/2020. Noted cratered nonbleeding antral altered. 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 Poor prep for colonoscopy. Sigmoid diverticulosis. 4 Dementia 5 Hypertension Plan: The patient was seen and evaluated by Dr. Ellis Chest x-ray and labs reviewed Continue bronchodilators, IV Solu-Medrol, empiric antibiotics Probable discharge in the a.m. We will continue to follow and make further recommendations based on her cl inical status I, the cosigning physician, performed a history & physical examination of the patient. Lungs sounds with faint crackles in the posterior bases. Maintaining good O2 saturations in the 90s on 2 L/m per nasal cannula. I discussed the assessment and plan of care with my nurse practitioner, Marion Morrell. I attest to the above consultation as dictated by her. Time with Patient: Greater than 30
--- NOTE | 2020-11-17 17:28 | P.HPIM ---
History of Present Illness H&P Date: 11/17/20 80 years old female patient of Dr. Romero with past medical history of COPD, hypertension, congestive heart failure, dementia former nicotine dependence who was initially living in the last admitted in September 2020 for black stools for which patient underwent EGD and was found to have 2 nonbleeding gastric antral ulcers battered esophagus and small hiatal hernia. Patient was discharged to [facility]. She was found to be hypoxic and short of breath leading to her admission in the hospital. On evaluation patient appears very sleepy and tired. Patient states that she was walking and going to the movie then she tripped and fell and passed out. When confirmed with the nurseno such event h appened. Patient noted to be increasingly drowsy and unable to stay awake during conversation. Vitals were obtained patient is afebrile pulse 71 respiratory rate 20 blood pressure 168/74 oxygen saturation 99% on 4 L. Chest x-ray suggestive of interstitial pneumonitis. CT brain was obtained suggestive of moderate generalized atrophy [id number] ventricle Mullally with a possible component of NPH. Labs are reviewed patient a WBC is 7.7 hemoglobin 8.5 platelets 325 d-dimer 0.8 BUN 22 creatinine 0.8 calcium 10.6 CRP of 2.[address] with PCR and rapid was negative UA was negative for infection. Pulmonary was consulted. Neurology was consulted for metabolic encephalopathy Echo from 10/10/2020 suggested normal systolic regimen EF 5055% moderate concentric left ventricle hypertrophy. ROS Could not be obtained due to mental status Social history Former smoker, nonalcoholic Family history Mother and father from old age brother healthy sister with cancer unknown one daughter have the 2 sons healthy Physical exam - Constitutional General appearance: cooperative, no acute distress, obese, drowsy and sleepy - EENT Eyes: anicteric sclerae, PERRLA, normal appearance ENT: hearing grossly normal - Neck Neck: no lymphadenopathy, normal ROM, no other, no rigidity, no stridor, no thyromegaly - Respiratory Respiratory: bilateral crackles faint - Cardiovascular Rhythm: regular Heart sounds: normal: S1, S2 Abnormal Heart Sounds: No systolic murmur, no diastolic murmur, no rub, no S3 Gallop, no S4 Gallop, no click, no other - Gastrointestinal General gastrointestinal: normal bowel sounds, soft nontender - Integumentary Integumentary: no rash - Neurologic Neurologic: No motor or sensory deficit, ECF Lakisha to questions and answers appropriately no aphasia - Musculoskeletal Musculoskeletal: gait not assessed, strength equal bilaterally - Psychiatric Psychiatric: A&O x's 3, appropriate affect Assessment and plan #1 acute hypoxic respiratory failure secondary to COPD exacerbation and interstitial pneumonitis. Legionella and Mycoplasma ordered. Rocephin and azithromycin initiated. Solu-Medrol 60 IV every 6 hours. DuoNeb as needed #2 history of acute blood loss and anemia hemoglobin stable. Daily CBC #3 gastric ulcers on pantoprazole 40 twice a day for recent ulcers noted on EGD on September 2020 #4 acute metabolic encephalopathy likely secondary to interstitial pneumonitis and bronchitis neurology consulted. CT head suggestive of NPH #5 chronic diastolic heart failure echocardiogram with low normal EF 50-55% with moderate concentric ventricular hypertrophy. Unlikely to be acute exacerbation #6 hypertension stable on furosemide 40 mg daily Coreg 3.125 twice a day Imdur #7 anxiety/depression continue Lexapro 20 mg daily on Xanax 0.5 3 times a day #8 CODE STATUS full code #9 DVT prophylaxis with Lovenox 40 subcu daily #10 GI prophylaxis with Protonix 40 daily #11 disposition patient need 1-2 inpatient nights for stabilization Past Medical History Past Medical History: Heart Failure, COPD, Dementia, Hypertension Additional Past Medical History / Comment(s): degenerate spine disease, arthritis, HAD COVID VACCINE APR 20, 2020 History of Any Multi-Drug Resistant Organisms: None Reported Past Surgical History: Hysterectomy Past Anesthesia/Blood Transfusion Reactions: No Reported Reaction Past Psychological History: No Psychological Hx Reported Smoking Status: Former smoker Past Alcohol Use History: Occasional Past Drug Use History: None Reported - Past Family History Sister(s) Family Medical History: Cancer Additional Family Medical History / Comment(s): Mother and father from old age, brother healthy, sister with cancer unknown, one daughter healthy 2 sons healthy Medications and Allergies Home Medications Medication Instructions Recorded Confirmed Type Nitroglycerin Sl Tabs [Nitrostat] 0.4 mg SUBLINGUAL Q5M PRN 04/13/20 11/17/20 History Escitalopram [Lexapro] 20 mg PO DAILY@0800 10/09/20 11/17/20 History Furosemide [Lasix] 40 mg PO DAILY@0800 10/09/20 11/17/20 History ALPRAZolam [Xanax] 0.5 mg PO TID@0800,1400,2100 11/17/20 11/17/20 History Acetaminophen Tab [Tylenol] 650 mg PO Q4H PRN 11/17/20 11/17/20 History Albuterol Inhaler [Ventolin Hfa 2 puff INHALATION RT-QID PRN 11/17/20 11/17/20 History Inhaler] Isosorbide Mononitrate ER [Imdur] 30 mg PO DAILY@0800 11/17/20 11/17/20 History Loperamide HCl [Imodium A-D] 4 mg PO BID PRN 11/17/20 11/17/20 History Magnesium Hydroxide [Milk of 2,400 mg PO Q48H PRN 11/17/20 11/17/20 History Magnesia] Melatonin 6 mg PO HS@209911/17/20 11/17/20 History Menthol [Biofreeze] 1 applic TOPICAL BID@0800,2100 11/17/20 11/17/20 History Na Phos,M-B/Na Phos,Di-Ba [Fleet 133 ml RECTAL DAILY PRN 11/17/20 11/17/20 History Adult] Pantoprazole Sodium [Protonix] 40 mg PO BID@0800,1700 11/17/20 11/17/20 History bisacodyL [Dulcolax] 10 mg RECTAL DAILY PRN 11/17/20 11/17/20 History carvediloL [Coreg] 3.125 mg PO BID@0800,1700 11/17/20 11/17/20 History Allergies Allergy/AdvReac Type Severity Reaction Status Date / Time NSAIDS (Non-Steroidal Allergy Unknown Verified 11/17/20 08:01 Anti-Inflamma Penicillins Allergy Rash/Hives Verified 11/17/20 08:01 Physical Exam Vitals: Vital Signs Temp Pulse Pulse Resp BP BP Pulse Ox 11/17/20 14:09 97.9 F 71 20 168/74 99 11/17/20 11:00 60 16 151/81 100 11/17/20 10:30 63 18 135/81 99 11/17/20 09:30 59 L 16 162/80 97 11/17/20 09:00 49 L 16 167/78 99 11/17/20 08:30 54 L 16 156/68 99 11/17/20 08:05 57 L 11/17/20 08:00 61 20 168/88 100 11/17/20 07:53 59 L 11/17/20 07:14 98.0 F 64 22 168/62 91 L Intake and Output 11/16/20 11/17/20 11/17/20 22:59 06:59 14:59 Other: Weight 72.575 kg Results CBC & Chem 7: 11/17/20 07:44 11/17/20 07:44 Labs: Abnormal Lab Results - Last 24 Hours (Table) 11/17/20 11/17/20 11/17/20 Range/Units 07:44 07:44 07:44 RBC 3.19 L (3.80-5.40) m/uL Hgb 8.5 L (11.4-16.0) gm/dL Hct 28.1 L (34.0-46.0) % MCHC 30.4 L (31.0-37.0) g/dL RDW 15.7 H (11.5-15.5) % Lymphocytes # 0.8 L (1.0-4.8) k/uL APTT 21.6 L (22.0-30.0) sec D-Dimer (<0.60) mg/L FEU BUN 22 H (7-17) mg/dL Calcium 10.6 H (8.4-10.2) mg/dL C-Reactive Protein (<1.0) mg/dL 11/17/20 11/17/20 Range/Units 11:30 12:04 RBC (3.80-5.40) m/uL Hgb (11.4-16.0) gm/dL Hct (34.0-46.0) % MCHC (31.0-37.0) g/dL RDW (11.5-15.5) % Lymphocytes # (1.0-4.8) k/uL APTT (22.0-30.0) sec D-Dimer 0.88 H (<0.60) mg/L FEU BUN (7-17) mg/dL Calcium (8.4-10.2) mg/dL C-Reactive Protein 2.4 H (<1.0) mg/dL
[2020-11-17] MEDS: PANTOPRAZOLE 40 MG TABLET PO SCH (18:19)
--- NOTE | 2020-11-17 20:03 | P.CNNES ---
History of Present Illness Consult date: 11/17/20 Requesting physician: Jenise Sherman Reason for Consult: Encephalopathy History of Present Illness: Patient is a 80-year-old female came to the hospital by ambulance this morning at 7:10 AM. Patient states that she came to the hospital because her back is hurting. It is a localized low back pain, which she has for years and years. She rates her low back pain 8/10, localized, without any radiation to the legs. The pain gets worse, if she falls. She could not tell if she has suffered from a fall recently or not. Patient not able to provide much history. She states that she lives at home with her children. Patient at present denies any shortness of breath, although obviously appears tachypneic and difficulty with speaking in sentences because of shortness of breath. Patient states that she has trouble breathing sometimes, but not at this time. According to EMS flow sheet, when they arrived, patient was in care of staff. Per staff, they were doing morning checks and found the patient laying in the b ed appearing to have some difficulty breathing. They gave her 2 rescue inhalers, and per staff had little effect. Patient is awake at normal daily baseline mentation and states she feels fine but is using accessory muscles to breathe and is only able to speak 3-4 word sentences. Denies any chest pain. Denies any cough or congestion or fever. Patient was noted to have use of accessory respiratory muscles to breathe, no cyanosis. Patient's vitals at the scene was blood pressure 146/91, pulse rate 67, respiration 22, saturation 92%. Patient's 2-D echo from 10/10/2020 shows normal left ventricular size, moderate concentric LVH. EF is low normal between 50-55%. Left atrium is mildly dila abelardo. Vital signs on arrival blood pressure 168/62, pulse rate 64, temperature 98.0. Chest x-ray showed interstitial is slightly coarsened relative to the prior exam, correlate for bronchitis or interstitial pneumonitis. EKG shows sinus rhythm with premature atrial complexes. Nonspecific ST and T-wave abnormality. CT head showed stable moderate generalized atrophy. Ytiv-[id number] ventriculo megaly with Anderson ratio of 0.35 is not significantly changed from the recent prior. Correlate for possible operative NPH. Moderate patchy and confluent burden of chronic small vessel ischemic disease. 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 No acute intracranial abnormality. Blood test shows normal WBC, hemoglobin 8.5, platelets 327. PT/PTT normal. Electrolytes are normal, BUN 22, creatinine 0.82. Hepatic panel normal. Troponin negative. CRP is mildly elevated 2.4. UA negative. [place] virus PCR negative. Patient has been diagnosed with acute hypoxic respiratory failure secondary to COPD exacerbation and interstitial pneumonitis. Rocephin and azithromycin has been started. Solu-Medrol also started. Neurology has been consulted for encephalopathy. Patient's home medications includes Lexapro 20 mg, Lasix 40 mg, Xanax, melatonin , carvedilol, isosorbide and Protonix. I spoke to patient's son Mr. Kip Lantigua on the phone. He states that patient has early stage of dementia, she is very forgetful. She has been in and out of the hospital. She used to live in assisted living, but after the last fall, patient has been in [facility] for last 3-1/2 weeks. Patient has CHF. He mentions that patient has history of smoking at least 1 pack per day for 50 years, quit 2 years ago. She also has history of drinking alcohol for 40-50 years. She went through AA, quit drinking for 15 years, but then started drinking again. Review of Systems Patient has shortness of breath. Denies any chest pain. Denies any problem with vision, no headache. Patient is hard of hearing. Patient has arthritis. Denies any nausea vomiting diarrhea. No abdominal pain. Denies any fever or chills. No rash. Past Medical History Past Medical History: Heart Failure, COPD, Dementia, Hypertension Additional Past Medical History / Comment(s): degenerate spine disease, arthritis, HAD COVID VACCINE APR 20, 2020 History of Any Multi-Drug Resistant Organisms: None Reported Past Surgical History: Hysterectomy Past Anesthesia/Blood Transfusion Reactions: No Reported Reaction Past Psychological History: No Psychological Hx Reported Smoking Status: Former smoker Past Alcohol Use History: Occasional Past Drug Use History: None Reported - Past Family History Sister(s) Family Medical History: Cancer Additional Family Medical History / Comment(s): Mother and father from old age, brother healthy, sister with cancer unknown, one daughter healthy 2 sons healthy Medications and Allergies Home Medications Medication Instructions Recorded Confirmed Type Nitroglycerin Sl Tabs [Nitrostat] 0.4 mg SUBLINGUAL Q5M PRN 04/13/20 11/17/20 History Escitalopram [Lexapro] 20 mg PO DAILY@0810/09/20 11/17/20 History Furosemide [Lasix] 40 mg PO DAILY@79910/09/20 11/17/20 History ALPRAZolam [Xanax] 0.5 mg PO TID@0800,1400,209911/17/20 11/17/20 History Acetaminophen Tab [Tylenol] 650 mg PO Q4H PRN 11/17/20 11/17/20 History Albuterol Inhaler [Ventolin Hfa 2 puff INHALATION RT-QID PRN 11/17/20 11/17/20 History Inhaler] Isosorbide Mononitrate ER [Imdur] 30 mg PO DAILY@79911/17/20 11/17/20 History Loperamide HCl [Imodium A-D] 4 mg PO BID PRN 11/17/20 11/17/20 History Magnesium Hydroxide [Milk of 2,400 mg PO Q48H PRN 11/17/20 11/17/20 History Magnesia] Melatonin 6 mg PO HS@209911/17/20 11/17/20 History Menthol [Biofreeze] 1 applic TOPICAL BID@0800,209911/17/20 11/17/20 History Na Phos,M-B/Na Phos,Di-Ba [Fleet 133 ml RECTAL DAILY PRN 11/17/20 11/17/20 History Adult] Pantoprazole Sodium [Protonix] 40 mg PO BID@0800,1700 11/17/20 11/17/20 History bisacodyL [Dulcolax] 10 mg RECTAL DAILY PRN 11/17/20 11/17/20 History carvediloL [Coreg] 3.125 mg PO BID@0800,1700 11/17/20 11/17/20 History Allergies Allergy/AdvReac Type Severity Reaction Status Date / Time NSAIDS (Non-Steroidal Allergy Unknown Verified 11/17/20 08:01 Anti-Inflamma Penicillins Allergy Rash/Hives Verified 11/17/20 08:01 Physical Examination - Vital Signs Vital Signs: Vital Signs Temp Pulse Pulse Resp BP BP Pulse Ox 11/17/20 15:46 74 94 L 11/17/20 14:30 20 11/17/20 14:09 97.9 F 71 20 168/74 99 11/17/20 11:00 60 16 151/81 100 11/17/20 10:30 63 18 135/81 99 11/17/20 09:30 59 L 16 162/80 97 11/17/20 09:00 49 L 16 167/78 99 11/17/20 08:30 54 L 16 156/68 99 11/17/20 08:05 57 L 11/17/20 08:00 61 20 168/88 100 11/17/20 07:53 59 L 11/17/20 07:14 98.0 F 64 22 168/62 91 L Intake and Output 11/17/20 11/17/20 11/17/20 06:59 14:59 22:59 Other: # Voids 1 # Bowel Movements 1 Weight 72.575 kg Patient is an elderly female, very pleasant, in mild respiratory distress, breathing very fast, slightly panting. Patient is alert awake, appears slightly delirious. Patient states that the month is June, and the year is 1999 something. She knows that she is in the hospital, could not tell the name of the hospital although when nursing staff told her its [facility], she states "yeah". She was not able to tell me name of the president, but was able to identify Mr. Best when given multiple options. She knows that she is in [place] in [place]. Speech and language functions are normal. Attention, concentration is decreased and fund of knowledge is limited. Detail cognitive functions could not be tested as the patient became slightly agitated with prolonged examination due to her breathing difficulty. On cranial examination, pupils are round and reacting to light, visual marcano are full on confrontation, extraocular muscles are intact with no nystagmus. Face is symmetric, tongue protrudes to the midline. Palatal elevation and sensation normal, hearing is moderately decreased and shoulder shrug could not be tested, as patient keeps on tilting to the right, facial sensation normal. On muscle strength testing, pronator drift could not be checked, as patient is sitting on the side of the bed, and tilting to the right, supporting herself with the right arm. I tried to reposition her, but she keeps on tilting to the right. Her strength is normal in the biceps, triceps in the eeg technician. Knee extension and ankles are normal. Deep tendon reflexes are 1+ to 2+ and plantars downgoing. Sensory to touch is equal with no neglect. Cerebellar function showed no ataxia for [id number] testing. Tone and bulk of muscles normal. Gait not checked. On general examination, there is no carotid bruit or murmur, S1-S2 audible. Abdomen is soft nontender. Chest auscultation with faint crackles in the lung bases. Peripheral pulses are present. No peripheral edema. Results - Laboratory Findings CBC and BMP: 11/17/20 07:44 11/17/20 07:44 Abnormal Lab Findings: Abnormal Labs 11/17/20 11/17/20 11/17/20 07:44 07:44 07:44 RBC 3.19 L Hgb 8.5 L Hct 28.1 L MCHC 30.4 L RDW 15.7 H Lymphocytes # 0.8 L APTT 21.6 L D-Dimer BUN 22 H Calcium 10.6 H C-Reactive Protein 11/17/20 11/17/20 11:30 12:04 RBC Hgb Hct MCHC RDW Lymphocytes # APTT D-Dimer 0.88 H BUN Calcium C-Reactive Protein 2.4 H Assessment and Plan Assessment: * Altered mental status, probably due to mild delirium. Etiology probably multifactorial. Patient has COPD exacerbation, appears tachypneic, has mild anemia and also medications probably contributing to the delirium. Cannot rule out underlying cognitive impairment. * Chronic localized low back pain, without radiation to the lower extremities. * Former smoker, 50 pack years, quit 2 years ago. * Recent admission for GI bleed, status post EGD/colonoscopy 10/11/2020. Noted cratered nonbleeding antral ulcers and suspected Regan's esophagus. * Hypertension * History of alcoholism * Mild B12 deficiency, with B12 level of 223 on 04/24/2020. Plan: * Patient appears delirious, which is likely due to reasons mentioned above. * Treatment of COPD exacerbation and other medical conditions as per IM and pulmonary. * Computed tomography scan of the head reported a possibility of NPH. I reviewed computed tomography scan of the head. There is definite prominence of the lateral ventricles, but there is significant associated cortical atrophy as well. I spoke to patient's son on the phone, informed him about possibility of NPH. Once she recovers from her current medical condition, I would suggest patient follows up with the neurosurgeon as outpatient, to evaluate for possible NPH and need for ventriculoperitoneal shunting. * Patient also has B12 deficiency. We will start B12 injections. * Patient is complaining of significant low back pain, and is tilting to the right. We will check x-ray of the lumbar and thoracic spine to rule out compression fractures. * We will follow.
[2020-11-17] MEDS: MELATONIN 3 MG TABLET PO SCH (20:15)
[2020-11-17] MEDS: carvediloL 3.125 MG TAB PO SCH (20:15)
[2020-11-17] MEDS ORDERED: NON FORMULARY DRUG (Menthol [Biofreeze] 89 ML Gel..Ml.) TOPICAL SCH (21:00)
[2020-11-17] MEDS: CYANOCOBALAMIN 1,000 MCG/ML 1 ML VIAL IM SCH (22:15)
[2020-11-18] MEDS: methylPREDNISolone SOD SUCCI 125 MG/2 ML VIAL IV SCH ×4 (00:22→16:37)
[2020-11-18] MEDS: PANTOPRAZOLE 40 MG TABLET PO SCH ×2 (07:45→16:37)
[2020-11-18] MEDS: FUROSEMIDE 40 MG TAB PO SCH (07:45)
[2020-11-18] MEDS: ISOSORBIDE MONONITRATE ER 30 MG TAB.ER.24H PO SCH (07:45)
[2020-11-18] MEDS: ALPRAZolam 0.5 MG TAB PO SCH ×3 (07:45→20:53)
[2020-11-18] MEDS: ESCITALOPRAM 20 MG TAB PO SCH (07:46)
[2020-11-18] MEDS: carvediloL 3.125 MG TAB PO SCH ×2 (07:46→16:37)
[2020-11-18] MEDS: ENOXAPARIN 40 MG/0.4 ML SYRINGE SQ SCH (07:47)
--- NOTE | 2020-11-18 07:59 | XR ---
Lumbar spine and thoracic spine HISTORY: Back pain 3 views the lumbar spine, 3 views of the thoracic spine, correlation CT 10/09/2020 Bone mineralization is reduced which limits sensitivity. Atherosclerotic calcification noted along th e aorta iliac distribution. Thoracic aorta is ectatic. There is a spinal curvature. Anterolisthesis grade 1 L4-5, retrolisthesis grade 1 L2-3, L1-2. There i s multilevel spondylosis. Loss of disc height at intervertebral levels, multilevel vacuum phenomenon is present. Sclerosis is present posterior elements of the lower lumbar spine. Thoracic and lumbar ve rtebral bodies show preserved height with the exception of some mild depression of the superior endpl ate L3, no retropulsion. Degenerative disc changes, listhesis also noted in the cervical spine. There is an apical density in the paratracheal location, superior mediastinal region on the left suspected to be corresponding to vascular shadow. Indeterminate round metallic density seen over the pelvis. IMPRESSION: Thoracic lumbar scoliosis, degenerative disc disease, osteopenia may limit evaluation. Cortez spect a mild superior endplate osteoporotic compression fracture, mild anterior wedging at L3. Facet arthropathy. Thoracic aortic ectasia. Multilevel spondylolisthesis.
[2020-11-18] MEDS: AZITHROMYCIN 500 MG in SODIUM CHLORIDE 0.9% 250 ML IVPB SCH (10:28)
--- NOTE | 2020-11-18 12:00 | P.PN ---
Subjective Progress Note Date: 11/18/20 80 years old female patient of Dr. Romero with past medical history of COPD, hypertension, congestive heart failure, dementia former nicotine dependence who was initially living in the last admitted in September 2020 for black stools for which patient underwent EGD and was found to have 2 nonbleeding gastric antral ulcers battered esophagus and small hiatal hernia. Patient was discharged to [facility] [place]. She was found to be hypoxic and short of breath leading to her admission in the hospital. On evaluation patient appears very sleepy and tired. Patient states that she was walking and going to the movie then she tripped and fell and passed out. When confirmed with the nurseno such event happened. Patient noted to be increasingly drowsy and unable to stay awake during conversation. Vitals were obtained patient is afebrile pulse 71 respiratory rate 20 blood pressure 168/74 oxygen saturation 99% on 4 L. Chest x-ray suggestive of interstitial pneumonitis. CT brain was obtained suggestive of moderate generalized atrophy [id number] ventricle Mullally with a possible component of NPH. Labs are reviewed patient a WBC is 7.7 hemoglobin 8.5 platelets 325 d-dimer 0.8 BUN 22 creatinine 0.8 calcium 10.6 CRP of 2.[address] with PCR and rapid was negative UA was negative for infection. Pulmonary was consulted. Neurology was consulted for metabolic encephalopathy Echo from 10/10/2020 suggested normal systolic regimen EF 50-55% moderate concentric left ventricle hypertrophy. 11/18 patient evaluated at bedside, drowsy but easily to arouse. Vital signs remained stable, patient is afebrile, blood pressure 160/76, pulse 77, pulse ox 96% on 2 L nasal cannula. Blood cultures show no growth, on Rocephin IV. Pulmonary remains on the case. We'll continue to monitor closely. ROS Difficult to obtain due to mental status, denies any difficulty breathing or pain at this time. Objective - Vital Signs Vital signs: Vital Signs Temp 97.7 F 11/18/20 08:12 Pulse 77 11/18/20 08:12 Resp 16 11/18/20 08:12 BP 161/76 11/18/20 08:12 Pulse Ox 96 11/18/20 08:12 Intake & Output 11/17/20 11/18/20 11/18/20 18:59 06:59 18:59 Output Total 250 Balance -250 Weight 72.575 kg Output: Urine 250 Other: Voiding Method External Catheter # Voids 1 1 # Bowel Movements 1 1 - Exam - Constitutional General appearance: cooperative, no acute distress, obese, drowsy and sleepy - EENT Eyes: anicteric sclerae, PERRLA, normal appearance ENT: hearing grossly normal - Neck Neck: no lymphadenopathy, normal ROM, no other, no rigidity, no stridor, no thyromegaly - Respiratory Respiratory: bilateral crackles faint - Cardiovascular Rhythm: regular Heart sounds: normal: S1, S2 Abnormal Heart Sounds: No systolic murmur, no diastolic murmur, no rub, no S3 Gallop, no S4 Gallop, no click, no other - Gastrointestinal General gastrointestinal: normal bowel sounds, soft nontender - Integumentary Integumentary: no rash - Neurologic Neurologic: No motor or sensory deficit, ECF answers appropriately, no aphasia - Musculoskeletal Musculoskeletal: gait not assessed, strength equal bilaterally - Psychiatric Psychiatric: A&O x's 3, appropriate affect - Labs CBC & Chem 7: 11/17/20 07:44 11/17/20 07:44 Labs: Abnormal Lab Results - Last 24 Hours (Table) 11/17/20 11/17/20 11/17/20 Range/Units 07:44 11:30 12:04 APTT 21.6 L (22.0-30.0) sec D-Dimer 0.88 H (<0.60) mg/L FEU C-Reactive Protein 2.4 H (<1.0) mg/dL Assessment and Plan Assessment: #1 acute hypoxic respiratory failure secondary to COPD exacerbation and interstitial pneumonitis. Legionella and Mycoplasma were ordered. Rocephin and azithromycin initiated. Solu-Medrol 60 IV every 6 hours. DuoNeb as needed. Pulmonary and the case #2 history of acute blood loss and anemia hemoglobin stable. Daily CBC #3 gastric ulcers on pantoprazole 40 twice a day for recent ulcers noted on EGD on September 2020 #4 acute metabolic encephalopathy likely secondary to interstitial pneumonitis and bronchitis neurology consulted. CT head suggestive of NPH #5 chronic diastolic heart failure echocardiogram with low normal EF 50-55% with moderate concentric ventricular hypertrophy. Unlikely to be acute exacerbation #6 hypertension stable on furosemide 40 mg daily Coreg 3.125 twice a day and Imdur 30 mg daily #7 anxiety/depression continue Lexapro 20 mg daily on Xanax 0.5 3 times a day #8 CODE STATUS full code #9 DVT prophylaxis with Lovenox 40 subcu daily #10 GI prophylaxis with Protonix 40 daily #11 disposition patient need 1-2 inpatient nights for stabilization Discharge plan: Transfer back to [facility] and plan of care have been directed as dictated by the signing physician. Genet Munoz nurse practitioner acting as scribe for signing physician.
--- NOTE | 2020-11-18 12:37 | P.PN ---
Subjective Progress Note Date: 11/18/20 Principal diagnosis: Acute hypoxic respiratory failure secondary to COPD This is a very pleasant 80-year-old female patient who presents from a residential after being found to have low oxygen and complaints of shortness of breath. She does have a history of COPD, former smoker, dementia, hypertension, congestive heart failure. She is a poor historian. Computed tomography scan of the brain revealed stable moderate generalized atrophy. Chest x-ray shows mild interstitial edema. White count 10.7. Hemoglobin 8.5. Sodium 143. Potassium 3.7. Creatinine 0.82. Troponin negative 1. ProBNP 1740. Urinalysis clean. Bangura virus not detected. She was initiated on DuoNeb inhalations, IV Solu- Medrol, ceftriaxone and azithromycin, Lovenox for DVT prophylaxis. She is seen today in consultation on the regular medical floor. She is currently sitting up in bed. Awake and alert in no acute distress. Oriented times one. O2 saturation 99% on 2 L nasal cannula, 94% on room air. She's afebrile. The patient is seen today 11/18/2020 in follow-up on the regular medical floor. She is currently resting comfortably in bed. Awake and alert in no acute distress. She is a bit more drowsy today compared to yesterday. Eating good O2 saturations in the mid 90s on 2 L/m per nasal cannula. She's been afebrile. Blood culture reveals no growth to date. Vance on bronchodilators IV Solu- Medrol, empiric antibiotics. Objective - Vital Signs Vital signs: Vital Signs Temp 97.7 F 11/18/20 08:12 Pulse 77 11/18/20 08:12 Resp 16 11/18/20 08:12 BP 161/76 11/18/20 08:12 Pulse Ox 96 11/18/20 08:49 Intake & Output 11/17/20 11/18/20 11/18/20 18:59 06:59 18:59 Output Total 250 250 Balance -250 -250 Weight 72.575 kg Output: Urine 250 250 Other: Voiding Method External Catheter External Catheter # Voids 1 1 1 # Bowel Movements 1 1 - Exam GENERAL EXAM: Alert, pleasant, confused 80-year-old female patient, on 2 L nasal cannula, comfortable in no apparent distress. HEAD: Normocephalic. EYES: Normal reaction of pupils, equal size. NOSE: Clear with pink turbinates. THROAT: No erythema or exudates. NECK: No masses, no JVD. CHEST: No chest wall deformity. LUNGS: Equal air entry with faint crackles in the posterior bases CVS: S1 and S2 normal with no audible murmur, regular rhythm. ABDOMEN: No hepatosplenomegaly, normal bowel sounds, no guarding or rigidity. SPINE: No scoliosis or deformity SKIN: No rashes CENTRAL NERVOUS SYSTEM: No focal deficits, tone is normal in all 4 extremities. EXTREMITIES: There is no peripheral edema. No clubbing, no cyanosis. Peripheral pulses are intact. - Labs CBC & Chem 7: 11/17/20 07:44 11/17/20 07:44 Labs: Abnormal Lab Results - Last 24 Hours (Table) 11/17/20 Range/Units 12:04 D-Dimer 0.88 H (<0.60) mg/L FEU Microbiology - Last 24 Hours (Table) 11/17/20 07:44 Blood Culture - Preliminary Blood No Growth after 24 hours Assessment and Plan Assessment: 1 Acute hypoxemic respiratory failure secondary to an acute exacerbation of chronic obstructive pulmonary disease. 2 Former smoker 3 Recent admission for GI bleed ststus post EGD/colonoscopy 10/11/2020. Noted cratered nonbleeding antral altered. 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 Poor prep for colonoscopy. Sigmoid diverticulosis. 4 Dementia 5 Hypertension Plan: The patient was seen and evaluated by Dr. Ellis Continue bronchodilators, IV Solu-Medrol, empiric antibiotics We will continue to follow I, the cosigning physician, performed a history & physical examination of the patient. Lungs sounds with faint crackles in the posterior bases. Maintaining good O2 saturations in the 90s on 2 L/m per nasal cannula. I discussed the assessment and plan of care with my nurse practitioner, Marion Morrell. I attest to the above note as dictated by her.
[2020-11-18] MEDS: CYANOCOBALAMIN 1,000 MCG/ML 1 ML VIAL IM SCH (20:53)
[2020-11-18] MEDS: MELATONIN 3 MG TABLET PO SCH (20:53)
[2020-11-19] MEDS: methylPREDNISolone SOD SUCCI 125 MG/2 ML VIAL IV SCH ×4 (00:57→17:17)
[2020-11-19 06:30] LABS: ALT 9 U/L (4-34); AST 16 U/L (14-36); African American GFR (CKD) 66 (>60 ml/min/1.73 sqM); Albumin 3.6 g/dL (3.5-5.0); Albumin/Globulin Ratio 1.2; Alkaline Phosphatase 93 U/L (38-126); Anion Gap 6 mmol/L; Blood Urea Nitrogen 25 mg/dL (7-17); Carbon Dioxide 33 mmol/L (22-30); Chloride 102 mmol/L (98-107); Glucose 130 mg/dL (74-99); Non-African American GFR(CKD) 57 (>60 ml/min/1.73 sqM); Potassium 4.1 mmol/L (3.5-5.1); Sodium 141 mmol/L (137-145); Total Bilirubin 0.1 mg/dL (0.2-1.3); Total Protein 6.6 g/dL (6.3-8.2)
[2020-11-19] MEDS: FUROSEMIDE 40 MG TAB PO SCH (07:19)
[2020-11-19] MEDS: ISOSORBIDE MONONITRATE ER 30 MG TAB.ER.24H PO SCH (07:19)
[2020-11-19] MEDS: carvediloL 3.125 MG TAB PO SCH ×2 (07:19→17:17)
[2020-11-19] MEDS: ENOXAPARIN 40 MG/0.4 ML SYRINGE SQ SCH (07:19)
[2020-11-19] MEDS: ESCITALOPRAM 20 MG TAB PO SCH (07:19)
[2020-11-19] MEDS: ALPRAZolam 0.5 MG TAB PO SCH ×3 (07:19→20:12)
[2020-11-19] MEDS: PANTOPRAZOLE 40 MG TABLET PO SCH ×2 (07:19→17:17)
[2020-11-19] MEDS: AZITHROMYCIN 500 MG in SODIUM CHLORIDE 0.9% 250 ML IVPB SCH (07:20)
--- NOTE | 2020-11-19 08:39 | P.PN ---
Subjective Progress Note Date: 11/18/20 11/18/2020: This is a Tele-neurology follow performed on the patient today on 11/18/2020. Patient is laying comfortably in the bed. Offers no complaints. Patient looks slightly more comfortable. Not as tachypneic. Breathing at 21/m. She states her back pain is not as bad, and still rates her back pain 8/10. Objective - Vital Signs Vital signs: Vital Signs Temp 97.9 F 11/19/20 08:09 Pulse 73 11/19/20 08:09 Resp 16 11/19/20 08:09 BP 167/80 11/19/20 08:09 Pulse Ox 98 11/19/20 08:09 Intake & Output 11/18/20 11/19/20 11/19/20 18:59 06:59 18:59 Intake Total 400 540 Output Total 250 500 500 Balance 150 40 -500 Intake: Oral 400 540 Output: Urine 250 500 500 Other: Voiding Method External Catheter External Catheter External Catheter # Voids 3 3 3 - Exam Not checked, as patient did not cooperate with examination. Her speech and language functions are normal. Face is symmetric. She moves all 4 extremities equally. - Labs CBC & Chem 7: 11/19/20 05:50 11/19/20 05:50 Labs: Abnormal Lab Results - Last 24 Hours (Table) 11/19/20 Range/Units 05:50 Carbon Dioxide 33 H (22-30) mmol/L BUN 25 H (7-17) mg/dL Glucose 130 H (74-99) mg/dL Calcium 11.0 H (8.4-10.2) mg/dL Total Bilirubin 0.1 L (0.2-1.3) mg/dL Microbiology - Last 24 Hours (Table) 11/17/20 07:44 Blood Culture - Preliminary Blood No Growth after 24 hours Assessment and Plan Assessment: * Altered mental status, probably due to mild delirium. Etiology probably multifactorial. Patient has COPD exacerbation, appears tachypneic, has mild anemia and also medication effect also probably contributing to the delirium. Cannot rule out underlying cognitive impairment. * Chronic localized low back pain, without radiation to the lower extremities. * Compression fracture, possibly old per patient. * Former smoker, 50 pack years, quit 2 years ago. * Recent admission for GI bleed, status post EGD/colonoscopy 10/11/2020. Noted cratered nonbleeding antral ulcers and suspected Regan's esophagus. * Hypertension * History of alcoholism * Mild B12 deficiency, with B12 level of 223 on 04/24/2020. Plan: * Patient's delirium has improved. Her mentation appears better. * Treatment of COPD exacerbation and other medical conditions as per IM and pulmonary. * Computed tomography scan of the head reported a possibility of NPH. I reviewed computed tomography scan of the head. There is definite prominence of the lateral ventricles, but there is significant associated cortical atrophy as well. I spoke to patient's son on the phone, informed him about possibility of NPH. Once she recovers from her current medical condition, I would suggest patient follows up with the neurosurgeon as outpatient, to evaluate for possible NPH and need for ventriculoperitoneal shunting. * Patient also has B12 deficiency. We will start B12 injections. * X-ray of the thoracic and lumbar spines revealed thoracic lumbar scoliosis, degenerative disc disease, osteopenia mainly limited evaluation. Suspect a mild superior endplate osteoporotic compression fracture, mild anterior wedging at L3. Facet arthropathy. Thoracic aortic ectasia. Multilevel spon dylolisthesis. Patient claims that she is aware of having compression fracture, therefore probably old finding. However may consider orthopedic spine evaluation, if you feel necessary.
[2020-11-19 09:21] LABS: HCT 26.2 % (37.2-46.3); HGB 7.7 g/dL (12.0-15.0); MCH 26.2 pg (27.0-32.0); MCHC 29.4 g/dL (32.0-37.0); MCV 89.1 fL (80.0-97.0); Mean Platelet Volume 11.1 fL (9.5-12.2); Platelet Count 362 X 10*3/uL (140-440); RBC 2.94 X 10*6/uL (4.10-5.20); RDW 15.6 % (11.5-14.5); WBC 10.48 X 10*3/uL (4.50-10.00)
--- NOTE | 2020-11-19 11:02 | P.PN ---
Subjective Progress Note Date: 11/19/20 80 years old female patient of Dr. Romero with past medical history of COPD, hypertension, congestive heart failure, dementia former nicotine dependence who was initially living in the last admitted in September 2020 for black stools for which patient underwent EGD and was found to have 2 nonbleeding gastric antral ulcers battered esophagus and small hiatal hernia. Patient was discharged to [facility]. She was found to be hypoxic and short of breath leading to her admission in the hospital. On evaluation patient appears very sleepy and tired. Patient states that she was walking and going to the movie then she tripped and fell and passed out. When confirmed with the nurseno such event happened. Patient noted to be increasingly drowsy and unable to stay awake during conversation. Vitals were obtained patient is afebrile pulse 71 respiratory rate 20 blood pressure 168/74 oxygen saturation 99% on 4 L. Chest x-ray suggestive of interstitial pneumonitis. CT brain was obtained suggestive of moderate generalized atrophy [id number] ventricle Mullally with a possible component of NPH. Labs are reviewed patient a WBC is 7.7 hemoglobin 8.5 platelets 325 d-dimer 0.8 BUN 22 creatinine 0.8 calcium 10.6 CRP of 2.[address] with PCR and rapid was negative UA was negative for infection. Pulmonary was consulted. Neurology was consulted for metabolic encephalopathy Echo from 10/10/2020 suggested normal systolic regimen EF 50-55% moderate concentric left ventricle hypertrophy. 11/18 patient evaluated at bedside, drowsy but easily to arouse. Vital signs remained stable, patient is afebrile, blood pressure 160/76, pulse 77, pulse ox 96% on 2 L nasal cannula. Blood cultures show no growth, on Rocephin IV. Pulmonary remains on the case. We'll continue to monitor closely. 11/19 patient seen this morning resting in bed, much more alert today and knows where she is. Vital signs are stable, patient is afebrile, pulse rate 73, blood pressure 167/80, pulse ox 98% on 2 L nasal cannula. White blood cells 10.48, hemoglobin 7.7, down from 8.5. Patient denies any signs of bleeding we'll obtain Ocuult stool. Patient voicing that she does not want to return to [facility], social work consult in place along with PT. Should is continued on Zithromax and Rocephin IV, along with Solu-Medrol 60 every 6 hours.. Reports breathing is better today. We'll order labs for the morning and continue to monitor patient closely along with pulmonology. Review of Systems: At the time of my exam: CONSTITUTIONAL: Denies fever or chills. Denies malaise, weight gain or weight loss. Positive for generalized weakness CARDIOVASCULAR: Denies chest pain, orthopnea, PND, palpitations, or edema. RESPIRATORY: Denies cough, shortness of breath, or wheezing GASTROINTESTINAL: Denies abdominal pain, diarrhea, constipation, nausea or vomiting. MUSCULOSKELETAL: Denies myalgias. NEUROLOGIC: Denies numbness, tingling or weakness. ENDOCRINE: Denies fatigue, weight change, polydipsia or polyurina. GENITOURINARY: Denies burning, hematuria or urgency with micturation. HEMATOLOGIC: Denies history of anemia or bleeding. Objective - Vital Signs Vital signs: Vital Signs Temp 98.1 F 11/19/20 01:44 Pulse 72 11/19/20 01:44 Resp 18 11/19/20 01:44 BP 150/83 11/19/20 01:44 Pulse Ox 99 11/19/20 01:44 Intake & Output 11/18/20 11/19/20 11/19/20 18:59 06:59 18:59 Intake Total 400 540 Output Total 250 500 Balance 150 40 Intake: Oral 400 540 Output: Urine 250 500 Other: Voiding Method External Catheter External Catheter # Voids 3 3 - Exam - Constitutional General appearance: cooperative, no acute distress, obese, alert and awake - EENT Eyes: anicteric sclerae, PERRLA, normal appearance ENT: hearing grossly normal - Neck Neck: no lymphadenopathy, normal ROM, no other, no rigidity, no stridor, no thyromegaly - Respiratory Respiratory: Diminished , bilateral crackles faint - Cardiovascular Rhythm: regular Heart sounds: normal: S1, S2 Abnormal Heart Sounds: No systolic murmur, no diastolic murmur, no rub, no S3 Gallop, no S4 Gallop, no click, no other - Gastrointestinal General gastrointestinal: normal bowel sounds, soft nontender - Integumentary Integumentary: no rash - Neurologic Neurologic: No motor or sensory deficit, ECF answers appropriately, no aphasia - Musculoskeletal Musculoskeletal: gait not assessed, strength equal bilaterally - Psychiatric Psychiatric: A&O x's 3, appropriate affect - Labs CBC & Chem 7: 11/19/20 05:50 11/19/20 05:50 Labs: Abnormal Lab Results - Last 24 Hours (Table) 11/19/20 Range/Units 05:50 Carbon Dioxide 33 H (22-30) mmol/L BUN 25 H (7-17) mg/dL Glucose 130 H (74-99) mg/dL Calcium 11.0 H (8.4-10.2) mg/dL Total Bilirubin 0.1 L (0.2-1.3) mg/dL Microbiology - Last 24 Hours (Table) 11/17/20 07:44 Blood Culture - Preliminary Blood No Growth after 24 hours Assessment and Plan Assessment: #1 acute hypoxic respiratory failure secondary to COPD exacerbation and interstitial pneumonitis. Legionella was negative and Mycoplasma is pending. Rocephin and azithromycin initiated. Solu-Medrol 60 IV every 6 hours. DuoNeb as needed. Pulmonary and the case #2 history of acute blood loss and anemia hemoglobin stable. Hemoglobin down to 7.7, repeat CBC in a.m. and will orders occult stool. #3 gastric ulcers on pantoprazole 40 twice a day for recent ulcers noted on EGD on September 2020 #4 acute metabolic encephalopathy likely secondary to interstitial pneumonitis and bronchitis neurology consulted. CT head suggestive of NPH #5 chronic diastolic heart failure echocardiogram with low normal EF 50-55% with moderate concentric ventricular hypertrophy. Unlikely to be acute exacerbation #6 hypertension stable on furosemide 40 mg daily Coreg 3.125 twice a day and Imdur 30 mg daily #7 anxiety/depression continue Lexapro 20 mg daily on Xanax 0.5 3 times a day #8 CODE STATUS full code #9 DVT prophylaxis with Lovenox 40 subcu daily #10 GI prophylaxis with Protonix 40 daily #11 disposition patient need 1-2 inpatient nights for stabilization Discharge plan: Transfer back to [facility], social work and case Impression and plan of care have been directed as dictated by the signing physician. Genet Munoz nurse practitioner acting as scribe for signing physician.
--- NOTE | 2020-11-19 12:06 | P.PN ---
Subjective Progress Note Date: 11/19/20 This is a very pleasant 80-year-old female patient who presents from a retirement after being found to have low oxygen and complaints of shortness of breath. She does have a history of COPD, former smoker, dementia, hypertension, congestive heart failure. She is a poor historian. Computed tomography scan of the brain revealed stable moderate generalized atrophy. Chest x-ray shows mild interstitial edema. White count 10.7. Hemoglobin 8.5. Sodium 143. Potassium 3.7. Creatinine 0.82. Troponin negative 1. ProBNP 1740. Urinalysis clean. Bangura virus not detected. She was initiated on DuoNeb inhalations, IV Solu- Medrol, ceftriaxone and azithromycin, Lovenox for DVT prophylaxis. She is seen today in consultation on the regular medical floor. She is currently sitting up in bed. Awake and alert in no acute distress. Oriented times one. O2 saturation 99% on 2 L nasal cannula, 94% on room air. She's afebrile. The patient is seen today 11/18/2020 in follow-up on the regular medical floor. She is currently resting comfortably in bed. Awake and alert in no acute distress. She is a bit more drowsy today compared to yesterday. Eating good O2 saturations in the mid 90s on 2 L/m per nasal cannula. She's been afebrile. Blood culture reveals no growth to date. Vance on bronchodilators IV Solu- Medrol, empiric antibiotics. 2020, the patient is feeling better. Her oxygen at 2 L she is less short of breath. Afebrile. He remains on bronchodilators and steroids. No new complaints otherwise for now.Blood work from today shows a white cell count of 10.4 with a hemoglobin of 7.7. Normal renal function. Normal electrolytes. Normal UA. COVID-19 testing was negative. Legionella urine antigen came back also negative. Objective - Vital Signs Vital signs: Vital Signs Temp 97.9 F 11/19/20 08:09 Pulse 73 11/19/20 08:09 Resp 16 11/19/20 08:09 BP 167/80 11/19/20 08:09 Pulse Ox 98 11/19/20 08:09 Intake & Output 11/18/20 11/19/20 11/19/20 18:59 06:59 18:59 Intake Total 400 540 Output Total 250 500 850 Balance 150 40 -850 Intake: Oral 400 540 Output: Urine 250 500 500 Stool 350 Other: Voiding Method External Catheter External Catheter External Catheter # Voids 3 3 300 # Bowel Movements 2 - Exam GENERAL EXAM: Alert, pleasant, confused 80-year-old female patient, on 2 L iwly al cannula, comfortable in no apparent distress. HEAD: Normocephalic. EYES: Normal reaction of pupils, equal size. NOSE: Clear with pink turbinates. THROAT: No erythema or exudates. NECK: No masses, no JVD. CHEST: No chest wall deformity. LUNGS: Equal air entry with faint crackles in the posterior bases CVS: S1 and S2 normal with no audible murmur, regular rhythm. ABDOMEN: No hepatosplenomegaly, normal bowel sounds, no guarding or rigidity. SPINE: No scoliosis or deformity SKIN: No rashes CENTRAL NERVOUS SYSTEM: No focal deficits, tone is normal in all 4 extremities. EXTREMITIES: There is no peripheral edema. No clubbing, no cyanosis. Peripheral pulses are intact. - Labs CBC & Chem 7: 11/19/20 05:50 11/19/20 05:50 Labs: Abnormal Lab Results - Last 24 Hours (Table) 11/19/20 11/19/20 Range/Units 05:50 05:50 WBC 10.48 H (4.50-10.00) X 10*3/uL RBC 2.94 L (4.10-5.20) X 10*6/uL Hgb 7.7 L (12.0-15.0) g/dL Hct 26.2 L (37.2-46.3) % MCH 26.2 L (27.0-32.0) pg MCHC 29.4 L (32.0-37.0) g/dL RDW 15.6 H (11.5-14.5) % Carbon Dioxide 33 H (22-30) mmol/L BUN 25 H (7-17) mg/dL Glucose 130 H (74-99) mg/dL Calcium 11.0 H (8.4-10.2) mg/dL Total Bilirubin 0.1 L (0.2-1.3) mg/dL Microbiology - Last 24 Hours (Table) 11/17/20 07:44 Blood Culture - Preliminary Blood No Growth after 48 hours Assessment and Plan Plan: 1 Acute hypoxemic respiratory failure secondary to an acute exacerbation of chronic obstructive pulmonary disease. 2 Former smoker 3 Recent admission for GI bleed ststus post EGD/colonoscopy 10/11/2020. Noted cratered nonbleeding antral altered. 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 Poor prep for colonoscopy. Sigmoid diverticulosis. 4 Dementia 5 Hypertension Plan: Continue bronchodilators, IV Solu-Medrol, empiric antibiotics Tapering Solu-Medrol and put on 40 mg every 12 hours We will continue to follow
--- NOTE | 2020-11-19 15:33 | P.PN ---
Subjective Progress Note Date: 11/19/20 11/19/2020: This is a Tele-neurology follow performed on the patient today on 11/19/2020. Patient is laying comfortably in the bed. Offers no complaints. Patient denies headache. Patient looks slightly more comfortable. Not as tachypneic. She states her back pain is not as bad, and still rates her back pain 7/10. Objective - Vital Signs Vital signs: Vital Signs Temp 97.9 F 11/19/20 08:09 Pulse 73 11/19/20 08:09 Resp 16 11/19/20 08:09 BP 167/80 11/19/20 08:09 Pulse Ox 98 11/19/20 08:09 Intake & Output 11/18/20 11/19/20 11/19/20 18:59 06:59 18:59 Intake Total 400 540 Output Total 250 500 850 Balance 150 40 -850 Intake: Oral 400 540 Output: Urine 250 500 500 Stool 350 Other: Voiding Method External Catheter External Catheter External Catheter # Voids 3 3 300 # Bowel Movements 2 - Exam Patient is alert and awake, in no distress. Patient knows that she is in hospital in [facility]. She knows name of the current president. Patient did not cooperate with examination. Her speech and language functions are normal. Face is symmetric. Patient is hard of hearing. She moves all 4 extremities equally. - Labs CBC & Chem 7: 11/19/20 05:50 11/19/20 05:50 Labs: Abnormal Lab Results - Last 24 Hours (Table) 11/19/20 11/19/20 Range/Units 05:50 05:50 WBC 10.48 H (4.50-10.00) X 10*3/uL RBC 2.94 L (4.10-5.20) X 10*6/uL Hgb 7.7 L (12.0-15.0) g/dL Hct 26.2 L (37.2-46.3) % MCH 26.2 L (27.0-32.0) pg MCHC 29.4 L (32.0-37.0) g/dL RDW 15.6 H (11.5-14.5) % Carbon Dioxide 33 H (22-30) mmol/L BUN 25 H (7-17) mg/dL Glucose 130 H (74-99) mg/dL Calcium 11.0 H (8.4-10.2) mg/dL Total Bilirubin 0.1 L (0.2-1.3) mg/dL Microbiology - Last 24 Hours (Table) 11/17/20 07:44 Blood Culture - Preliminary Blood No Growth after 48 hours Assessment and Plan Assessment: * Altered mental status, probably due to mild delirium. Etiology probably multifactorial. Patient has COPD exacerbation, has mild anemia and also medication effect (?Corticosteroids) also probably contributing to the delirium. * Dementia (clinically, as well as per patient's son report). * Chronic localized low back pain, without radiation to the lower extremities. * Compression fracture, possibly old per patient. * Former smoker, 50 pack years, quit 2 years ago. * Recent admission for GI bleed, status post EGD/colonoscopy 10/11/2020. Noted cratered nonbleeding antral ulcers and suspected Regan's esophagus. * Hypertension * History of alcoholism * Mild B12 deficiency, with B12 level of 223 on 04/24/2020. Plan: * Patient's delirium has improved. Her mentation appears better. Patient has underlying baseline cognitive impairment. * Treatment of COPD exacerbation and other medical conditions as per IM and pulmonary. * Computed tomography scan of the head reported a possibility of NPH. I reviewed computed tomography scan of the head. There is definite prominence of the lateral ventricles, but there is significant associated cortical atrophy as well. I spoke to patient's son on the phone, informed him about possibility of NPH. Once she recovers from her current medical condition, I would suggest patient follows up with the neurosurgeon as outpatient, to evaluate for possible NPH and need for ventriculoperitoneal shunting. * Patient also has B12 deficiency. Continue B12 injections. * X-ray of the thoracic and lumbar spines revealed thoracic lumbar scoliosis, degenerative disc disease, osteopenia mainly limited evaluation. Suspect a mild superior endplate osteoporotic compression fracture, mild anterior wedging at L3. Facet arthropathy. Thoracic aortic ectasia. Multilevel spondylolisthesis. Patient claims that she is aware of having compression fracture, therefore probably old finding. However may consider orthopedic spine evaluation, if you feel necessary. * Neurologically clear. Neurology will sign off. Please reconsult if any concerns.
[2020-11-19 20:02] VITALS: RESP 16
[2020-11-19] MEDS: CYANOCOBALAMIN 1,000 MCG/ML 1 ML VIAL IM SCH (20:11)
[2020-11-19] MEDS: MELATONIN 3 MG TABLET PO SCH (20:12)
[2020-11-20] MEDS: methylPREDNISolone SOD SUCCI 125 MG/2 ML VIAL IV SCH ×2 (00:51→05:28)
[2020-11-20 03:19] LABS: Mycoplasma IgG Antibody (EIA) 2.05 INDEX (<=0.90); Mycoplasma IgM Antibody 0.32 INDEX (<=0.90)
[2020-11-20] MEDS: ALPRAZolam 0.5 MG TAB PO SCH ×2 (07:45→13:48)
[2020-11-20] MEDS: carvediloL 3.125 MG TAB PO SCH (07:45)
[2020-11-20] MEDS: ACETAMINOPHEN TAB 325 MG TAB PO PRN (07:45)
[2020-11-20] MEDS: PANTOPRAZOLE 40 MG TABLET PO SCH (07:45)
[2020-11-20] MEDS: ISOSORBIDE MONONITRATE ER 30 MG TAB.ER.24H PO SCH (07:45)
[2020-11-20] MEDS: FUROSEMIDE 40 MG TAB PO SCH (07:45)
[2020-11-20] MEDS: ESCITALOPRAM 20 MG TAB PO SCH (07:45)
[2020-11-20] MEDS: ENOXAPARIN 40 MG/0.4 ML SYRINGE SQ SCH (07:46)
[2020-11-20 07:54] VITALS: BP 191/77; PULSE 71; TEMP 98.2
[2020-11-20] MEDS: AZITHROMYCIN 500 MG in SODIUM CHLORIDE 0.9% 250 ML IVPB SCH (10:03)
--- NOTE | 2020-11-20 11:32 | P.DS ---
Providers Date of admission: 11/17/20 11:14 Expected date of discharge: 11/20/20 Attending physician: Jenise Sherman MD Consults: 11/17/20 11:15 Consult Physician Routine Consulting Provider: Marilou Ellis Consult Reason/Comments: interstitial pneumonitis Do you want consulting provider notified?: Yes 11/17/20 16:56 Consult Physician Routine Consulting Provider: Will Painter Consult Reason/Comments: encephalopathy Do you want consulting provider notified?: Yes Primary care physician: [facility] [place] Course: 80 years old female patient of Dr. Romero with past medical history of COPD, hypertension, congestive heart failure, dementia former nicotine dependence who was initially living in the last admitted in September 2020 for black stools for which patient underwent EGD and was found to have 2 nonbleeding gastric antral ulcers battered esophagus and small hiatal hernia. Patient was discharged to [facility]. She was found to be hypoxic and short of breath leading to her admission in the hospital. On evaluation patient appears very sleepy and tired. Patient states that she was walking and going to the movie then she tripped and fell and passed out. When confirmed with the nurseno such event happened. Patient noted to be increasingly drowsy and unable to stay awake during conversation. Vitals were obtained patient is afebrile pulse 71 respira tory rate 20 blood pressure 168/74 oxygen saturation 99% on 4 L. Chest x-ray suggestive of interstitial pneumonitis. CT brain was obtained suggestive of moderate generalized atrophy [id number] ventricle Mullally with a possible component of NPH. Labs are reviewed patient a WBC is 7.7 hemoglobin 8.5 platelets 325 d-dimer 0.8 BUN 22 creatinine 0.8 calcium 10.6 CRP of 2.[address] with PCR and rapid was negative UA was negative for infection. Pulmonary was consulted. Neurology was consulted for metabolic encephalopathy Echo from 10/10/2020 suggested normal systolic regimen EF 50-55% moderate concentric left ventricle hypertrophy. 11/18 patient evaluated at bedside, drowsy but easily to arouse. Vital signs remained stable, patient is afebrile, blood pressure 160/76, pulse 77, pulse ox 96% on 2 L nasal cannula. Blood cultures show no growth, on Rocephin IV. Pulmonary remains on the case. We'll continue to monitor closely. 11/19 patient seen this morning resting in bed, much more alert today and knows where she is. Vital signs are stable, patient is afebrile, pulse rate 73, blood pressure 167/80, pulse ox 98% on 2 L nasal cannula. White blood cells 10.48, hemoglobin 7.7, down from 8.5. Patient denies any signs of bleeding we'll obtain Ocuult stool. Patient voicing that she does not want to return to [facility], social work consult in place along with PT. Should is continued on Zithromax and Rocephin IV, along with Solu-Medrol 60 every 6 hours.. Reports breathing is better today. We'll order labs for the morning and continue to monitor patient closely along with pulmonology. 11/20: Patient has been seen and followed by Dr. Ellis for acute exacerbation of COPD with plan to continue bronchodilators, steroids and empiric antibiotics. Patient has been seen and followed by neurology and has signed off her case as mental status has improved and back to baseline and recommended follow-up with neurosurgeon once stabilized regarding possibility of normal pressure hydrocephalus. Patient has been afebrile, heart rate 71, blood pressure 191/77 prior to medications, pulse ox 93% on 2 L nasal cannula. Legionella negative. Mycoplasma IgM is negative. Solu-Medrol decreased from 60 mg IV every 6 hours to 40 mg every 8 hours will be transitioned to oral prednisone at the snf. Patient will be discharged today in stable condition. DISCHARGE DIAGNOSES 1. Acute hypoxic respiratory failure secondary to COPD exacerbation, pneumonia ruled out by pulmonary medicine. 2. Recent admission for GI bleed status post EGD and colonoscopy 10/11 secondary to crater nonhealing antral ulcer. 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 Poor prep for colonoscopy. 3. Acute metabolic encephalopathy likely secondary to accommodation of pneumonia, anemia, steroids. 4. Chronic diastolic heart failure. 5. Hypertension. 6. Generalized anxiety disorder and recurrent depression. 7. Possible normal pressure hydrocephalus. Patient will need follow-up with neurosurgeon once stabilized 8. Vitamin B12 deficiency 9. Thoracic lumbar scoliosis, degenerative disc disease, compression fracture DISCHARGE PLAN Return to [facility] under the care of Dr. Ortiz Impression and plan of care have been directed as dictated by the signing physician. Sameera Medrano nurse practitioner acting as scribe for signing physician. Patient Condition at Discharge: Stable Plan - Discharge Summary New Discharge Prescriptions: New Ipratropium-Albuterol Nebulize [Duoneb 0.5 mg-3 mg/3 ml Soln] 3 ml INHALATION RT-QID PRN ml PRN Reason: Dyspnea predniSONE 0 mg PO DIRECTED #30 tab Azithromycin [Zithromax Tri-Adonis (3 tabs)] 500 mg PO DAILY 3 Days #3 tab B12/Levomefolate Calcium/B-6 [Foltx Tablet] 1 each PO DAILY #30 tablet Continue Nitroglycerin Sl Tabs [Nitrostat] 0.4 mg SUBLINGUAL Q5M PRN PRN Reason: Chest Pain Furosemide [Lasix] 40 mg PO DAILY@0800 Escitalopram [Lexapro] 20 mg PO DAILY@0800 Acetaminophen Tab [Tylenol] 650 mg PO Q4H PRN PRN Reason: Fever And/ Or Pain carvediloL [Coreg] 3.125 mg PO BID@0800,1700 Loperamide HCl [Imodium A-D] 4 mg PO BID PRN PRN Reason: Loose Stool Menthol [Biofreeze] 1 applic TOPICAL BID@0800,2100 Isosorbide Mononitrate ER [Imdur] 30 mg PO DAILY@0800 ALPRAZolam [Xanax] 0.5 mg PO TID@0800,1400,2100 #9 tab Albuterol Inhaler [Ventolin Hfa Inhaler] 2 puff INHALATION RT-QID PRN PRN Reason: Shortness Of Breath bisacodyL [Dulcolax] 10 mg RECTAL DAILY PRN PRN Reason: Constipation Magnesium Hydroxide [Milk of Magnesia] 2,400 mg PO Q48H PRN PRN Reason: Constipation Melatonin 6 mg PO HS@2100 Na Phos,M-B/Na Phos,Di-Ba [Fleet Adult] 133 ml RECTAL DAILY PRN PRN Reason: Constipation Pantoprazole Sodium [Protonix] 40 mg PO BID@0800,1700 Discharge Medication List Nitroglycerin Sl Tabs [Nitrostat] 0.4 mg SUBLINGUAL Q5M PRN 04/13/20 [History] Escitalopram [Lexapro] 20 mg PO DAILY@0800 10/09/20 [History] Furosemide [Lasix] 40 mg PO DAILY@0800 10/09/20 [History] Acetaminophen Tab [Tylenol] 650 mg PO Q4H PRN 11/17/20 [History] Albuterol Inhaler [Ventolin Hfa Inhaler] 2 puff INHALATION RT-QID PRN 11/17/20 [History] Isosorbide Mononitrate ER [Imdur] 30 mg PO DAILY@0800 11/17/20 [History] Loperamide HCl [Imodium A-D] 4 mg PO BID PRN 11/17/20 [History] Magnesium Hydroxide [Milk of Magnesia] 2,400 mg PO Q48H PRN 11/17/20 [History] Melatonin 6 mg PO HS@209911/17/20 [History] Menthol [Biofreeze] 1 applic TOPICAL BID@0800,209911/17/20 [History] Na Phos,M-B/Na Phos,Di-Ba [Fleet Adult] 133 ml RECTAL DAILY PRN 11/17/20 [History] Pantoprazole Sodium [Protonix] 40 mg PO BID@0800,1700 11/17/20 [History] bisacodyL [Dulcolax] 10 mg RECTAL DAILY PRN 11/17/20 [History] carvediloL [Coreg] 3.125 mg PO BID@0800,1700 11/17/20 [History] ALPRAZolam [Xanax] 0.5 mg PO TID@0800,1400,2100 #9 tab 11/20/20 [Rx] Azithromycin [Zithromax Tri-Adonis (3 tabs)] 500 mg PO DAILY 3 Days #3 tab 11/20/20 [Rx] B12/Levomefolate Calcium/B-6 [Foltx Tablet] 1 each PO DAILY #30 tablet 11/20/20 [Rx] Ipratropium-Albuterol Nebulize [Duoneb 0.5 mg-3 mg/3 ml Soln] 3 ml INHALATION RT-QID PRN ml 11/20/20 [Rx] predniSONE 0 mg PO DIRECTED #30 tab 11/20/20 [Rx] Follow up Appointment(s)/Referral(s): Jordan Ortiz MD [Primary Care Provider] - 1-2 days Marilou Ellis MD [STAFF PHYSICIAN] - 10 Days Discharge Disposition: TRANSFER TO SNF/ECF
--- NOTE | 2020-11-20 13:37 | P.PN ---
Subjective Progress Note Date: 11/20/20 Principal diagnosis: Pneumonitis. This is a very pleasant 80-year-old female patient who presents from a shelter after being found to have low oxygen and complaints of shortness of breath. She does have a history of COPD, former smoker, dementia, hypertension, congestive heart failure. She is a poor historian. Computed tomography scan of the brain revealed stable moderate generalized atrophy. Chest x-ray shows mild interstitial edema. White count 10.7. Hemoglobin 8.5. Sodium 143. Potassium 3.7. Creatinine 0.82. Troponin negative 1. ProBNP 1740. Urinalysis clean. [place] virus not detected. She was initiated on DuoNeb inhalations, IV Solu- Medrol, ceftriaxone and azithromycin, Lovenox for DVT prophylaxis. She is seen today in consultation on the regular medical floor. She is currently sitting up in bed. Awake and alert in no acute distress. Oriented times one. O2 saturation 99% on 2 L nasal cannula, 94% on room air. She's afebrile. The patient is seen today 11/18/2020 in follow-up on the regular medical floor. She is currently resting comfortably in bed. Awake and alert in no acute distress. She is a bit more drowsy today compared to yesterday. Eating good O2 saturations in the mid 90s on 2 L/m per nasal cannula. She's been afebrile. Blood culture reveals no growth to date. Vance on bronchodilators IV Solu- Medrol, empiric antibiotics. 2020, the patient is feeling better. Her oxygen at 2 L she is less short of breath. Afebrile. He remains on bronchodilators and steroids. No new complaints otherwise for now.Blood work from today shows a white cell count of 10.4 with a hemoglobin of 7.7. Normal renal function. Normal electrolytes. Normal UA. COVID-19 testing was negative. Legionella urine antigen came back also negative. Progress note dated 11/20/2020. Currently, the patient seems be doing relatively well. She is resting comfortably. There is some thought, that the patient could be discharged to [facility] today. She apparently does not want to go to that shelter. She apparently is been there in the past. Currently, she is on 2 L nasal cannula, and saturations are 95%. She has no major complaints today. COVID-19 testing was negative. No new labs today. White count 10.48, hemoglobin 7.7, hematocrit 26.2, and platelet count 362,000. Sodium 141, potassium 4.1, chlorides 102, CO2 33, anion gap 6, BUN 25, and creatinine 0.96. All of these labs are from yesterday. Blood cultures are currently negative. No recent chest x-ray to review. Objective - Vital Signs Vital signs: Vital Signs Temp 98.2 F 11/20/20 07:00 Pulse 71 11/20/20 07:00 Resp 16 11/20/20 07:00 BP 191/77 11/20/20 07:00 Pulse Ox 95 11/20/20 11:03 Intake & Output 11/19/20 11/20/20 11/20/20 18:59 06:59 18:59 Intake Total 540 118 Output Total 850 700 Balance -850 -160 118 Intake: Oral 540 118 Output: Urine 500 700 Stool 350 Other: Voiding Method External Catheter External Catheter # Voids 300 1 # Bowel Movements 1 - Exam No acute distress, oriented 3. Currently patient's on 2 L with a saturation of 95%. HEENT examination is grossly unremarkable. Neck supple. Full range of motion. No adenopathy thyromegaly or neck vein distention. Cardiovascular examination reveals regular rhythm rate. S1-S2 normal. No S3 or S4. No discernible murmur noted. Heart rate 71 bpm. Lungs reveal mostly clear breath sounds. Scattered rhonchi are noted. No wheezes or crackles. Breath sounds equal bilaterally. Abdomen soft bowel sounds are heard. No masses or tenderness. Extremities are intact. No cyanosis clubbing or edema. Skin is without rash or lesion. Neurologic examination is brief but nonfocal. - Labs CBC & Chem 7: 11/19/20 05:50 11/19/20 05:50 Labs: Abnormal Lab Results - Last 24 Hours (Table) 11/17/20 Range/Units 12:04 Mycoplasma pneumon IgG 2.05 H (<=0.90) INDEX Microbiology - Last 24 Hours (Table) 11/17/20 07:44 Blood Culture - Preliminary Blood No Growth after 72 hours Assessment and Plan Assessment: Acute hypoxemic respiratory failure secondary to COPD exacerbation. Previous history of tobacco use. Recent history for GI bleed, status post EGD/colonoscopy on 10/11/2020. History of sigmoid diverticulosis and suspected Regan's esophagus. History of dementia. History of hypertension. Plan: Plan dated 11/20/2020. The patient is being considered for possible transfer to [facility]. Clinically she is stable. She apparently herself does not want to go to the shelter. Her son is apparently coming in to speak to her. She does admit, that she cannot take care of herself at home on her own. Additional recommendations and suggestions are forthcoming. We will continue to follow make recommendations where appropriate. Time with Patient: Less than 30
[2020-11-20 14:26] LABS: Basophils # (A) 0.01 X 10*3/uL (0.00-0.10); Basophils % (A) 0.1 %; Eosinophils # (A) 0.01 X 10*3/uL (0.04-0.35); Eosinophils % (A) 0.1 %; HCT 26.3 % (37.2-46.3); HGB 7.7 g/dL (12.0-15.0); Lymphocytes # (A) 0.34 X 10*3/uL (0.90-5.00); Lymphocytes % (A) 3.1 %; MCH 25.9 pg (27.0-32.0); MCHC 29.3 g/dL (32.0-37.0); MCV 88.6 fL (80.0-97.0); Mean Platelet Volume 11.2 fL (9.5-12.2); Monocytes # (A) 0.34 X 10*3/uL (0.20-1.00); Monocytes % (A) 3.1 %; Neutrophils # (A) 10.24 X 10*3/uL (1.80-7.70); Neutrophils % (A) 93.1 %; Platelet Count 358 X 10*3/uL (140-440); RBC 2.97 X 10*6/uL (4.10-5.20); RDW 15.8 % (11.5-14.5)
[2020-11-20] MEDS ORDERED: methylPREDNISolone SOD SUCCI 40 MG/ML 1 ML VIAL IV SCH (16:00)
== END 2020-11-20 15:02 | DRG 196 ==
LOC: EC 07:10 → 6NMEDSUR 08:49 → OBSVTOIN 11:14 → 6NMEDSUR 12:53
PROVIDERS: ADMIT Internal Medicine; ATTEND Internal Medicine
DX: J84.89 Other specified interstitial pulmonary diseases (principal); G93.41 Metabolic encephalopathy; J96.01 Acute respiratory failure with hypoxia; J44.1 Chronic obstructive pulmonary disease with (acute) exacerbation; I50.32 Chronic diastolic (congestive) heart failure; F33.9 Major depressive disorder, recurrent, unspecified; G91.2 (Idiopathic) normal pressure hydrocephalus; Z88.0 Allergy status to penicillin; F03.90 Unspecified dementia, unspecified severity, without behavioral disturbance, psychotic disturbance, mood disturbance, and anxiety; Z87.891 Personal history of nicotine dependence; Z20.822 Contact with and (suspected) exposure to COVID-19; K25.9 Gastric ulcer, unspecified as acute or chronic, without hemorrhage or perforation; G89.29 Other chronic pain; M54.5 Low back pain; E53.8 Deficiency of other specified B group vitamins; F41.1 Generalized anxiety disorder; K57.30 Diverticulosis of large intestine without perforation or abscess without bleeding; M41.9 Scoliosis, unspecified; K44.9 Diaphragmatic hernia without obstruction or gangrene; I11.0 Hypertensive heart disease with heart failure; I49.1 Atrial premature depolarization; Z90.710 Acquired absence of both cervix and uterus; Z87.11 Personal history of peptic ulcer disease; D64.9 Anemia, unspecified; Z79.899 Other long term (current) drug therapy; Z80.9 Family history of malignant neoplasm, unspecified
CPT/HCPCS: 36415; 70450; 71046; 72072; 72100; 80053; 81003; 83605; 83615; 83880; 84145; 84484; 85025; 85027; 85379; 85610; 85730; 86140; 86738; 86850; 86900; 86901; 87040; 87449; 87635; 93005; 94640; 94760; 96374; 99285

== ENCOUNTER 2021-02-22 00:42 | Emergency (ER) | payer MEDICARE, OTHER ==
[2021-02-22 01:01] VITALS: RESP 18
[2021-02-22 01:15] LABS: Glucose,Whole Blood 101 mg/dL (75-99)
--- NOTE | 2021-02-22 03:00 | CT ---
EXAMINATION TYPE: CT brain lubna maurice con DATE OF EXAM: 02/22/2021 COMPARISON: 10/09/2020 HISTORY: fall CT DLP: 1312.9 mGycm Automated exposure control for dose reduction was used. There is cerebral cortical atrophy. There is patchy hypodensity in the periventricular white matter. There is no mass effect nor midline shift. There is no sign of intracranial hemorrhage. Ovarium is in tact. Skull base is intact. There is normal aeration of the mastoid sinuses. Cervical vertebra show degenerative disc space narrowing. There is multilevel hypertrophic facet arth ropathy. There is suboptimal positioning of the cervical spine. There is no compression fracture. Pre vertebral soft tissues are intact. IMPRESSION: Multilevel spondylotic changes in the lower cervical spine not significantly different than old exam. No fracture. Cerebral atrophy and chronic small vessel ischemia. No acute intracranial abnormality. Stable hydroce phalus.
--- NOTE | 2021-02-22 03:02 | ED ---
Fall HPI - General Chief Complaint: Fall Stated Complaint: Altered Mental Status Time Seen by Provider: 02/22/21 01:40 Source: patient, EMS Mode of arrival: EMS Limitations: altered mental status (History of dementia) - History of Present Illness Initial Comments: This patient is a 81-year-old woman here from long term to be evaluated after she is suspected to have fallen from bed. The patient does not recall having fall. She denies complaints. Patient with some confusion but has history of underlying dementia MD Complaint: fall -: unknown Fall From: out of bed When Fall Occurred: unsure Fall Witnessed: no Place Fall Occurred: long term/SNF Loss of Consciousness: unsure Prolonged Down Time?: no Symptoms Prior to Fall: none Location: head - Related Data Home Medications Medication Instructions Recorded Confirmed Nitroglycerin Sl Tabs [Nitrostat] 0.4 mg SUBLINGUAL Q5M PRN 04/13/20 11/17/20 Escitalopram [Lexapro] 20 mg PO DAILY@0800 10/09/20 11/17/20 Furosemide [Lasix] 40 mg PO DAILY@0810/09/20 11/17/20 Acetaminophen Tab [Tylenol] 650 mg PO Q4H PRN 11/17/20 11/17/20 Albuterol Inhaler [Ventolin Hfa 2 puff INHALATION RT-QID PRN 11/17/20 11/17/20 Inhaler] Isosorbide Mononitrate ER [Imdur] 30 mg PO DAILY@0811/17/20 11/17/20 Loperamide HCl [Imodium A-D] 4 mg PO BID PRN 11/17/20 11/17/20 Magnesium Hydroxide [Milk of 2,400 mg PO Q48H PRN 11/17/20 11/17/20 Magnesia] Melatonin 6 mg PO HS@209911/17/20 11/17/20 Menthol [Biofreeze] 1 applic TOPICAL BID@0800,209911/17/20 11/17/20 Na Phos,M-B/Na Phos,Di-Ba [Fleet 133 ml RECTAL DAILY PRN 11/17/20 11/17/20 Adult] Pantoprazole Sodium [Protonix] 40 mg PO BID@0800,1700 11/17/20 11/17/20 bisacodyL [Dulcolax] 10 mg RECTAL DAILY PRN 11/17/20 11/17/20 carvediloL [Coreg] 3.125 mg PO BID@0800,1700 11/17/20 11/17/20 Previous Rx's Medication Instructions Recorded ALPRAZolam [Xanax] 0.5 mg PO TID@0800,1400,2100 #9 tab 11/20/20 Azithromycin [Zithromax Tri-Adonis (3 500 mg PO DAILY 3 Days #3 tab 11/20/20 tabs)] B12/Levomefolate Calcium/B-6 1 each PO DAILY #30 tablet 11/20/20 [Foltx Tablet] Ipratropium-Albuterol Nebulize 3 ml INHALATION RT-QID PRN ml 11/20/20 [Duoneb 0.5 mg-3 mg/3 ml Soln] predniSONE 0 mg PO DIRECTED #30 tab 11/20/20 Allergies Allergy/AdvReac Type Severity Reaction Status Date / Time NSAIDS (Non-Steroidal Allergy Unknown Verified 11/17/20 08:01 Anti-Inflamma Penicillins Allergy Rash/Hives Verified 11/17/20 08:01 Review of Systems ROS Statement: Those systems with pertinent positive or pertinent negative responses have been documented in the HPI. ROS Other: All systems not noted in ROS Statement are negative. Limitations: ROS unobtainable due to patients medical condition (Underlying dementia) Respiratory: Denies: cough Cardiovascular: Denies: chest pain Gastrointestinal: Denies: abdominal pain Musculoskeletal: Denies: back pain Neurological: Denies: headache Past Medical History Past Medical History: Heart Failure, COPD, Dementia, Hypertension Additional Past Medical History / Comment(s): degenerate spine disease, arthritis, HAD COVID VACCINE APR 20, 2020 History of Any Multi-Drug Resistant Organisms: None Reported Past Surgical History: Hysterectomy Past Anesthesia/Blood Transfusion Reactions: No Reported Reaction Past Psychological History: No Psychological Hx Reported Smoking Status: Former smoker Past Alcohol Use History: Occasional Past Drug Use History: None Reported - Past Family History Sister(s) Family Medical History: Cancer Additional Family Medical History / Comment(s): Mother and father from old age, brother healthy, sister with cancer unknown, one daughter healthy 2 sons healthy General Exam Limitations: altered mental status, physical limitation General appearance: alert, in no apparent distress Head exam: Present: atraumatic, normocephalic Eye exam: Present: normal appearance. Absent: scleral icterus, conjunctival injection ENT exam: Present: normal oropharynx Neck exam: Present: normal inspection. Absent: tenderness Respiratory exam: Present: normal lung sounds bilaterally. Absent: respiratory distress, wheezes, rales, rhonchi, stridor, chest wall tenderness Cardiovascular Exam: Present: regular rate, normal rhythm, normal heart sounds. Absent: systolic murmur, diastolic murmur, rubs, gallop GI/Abdominal exam: Present: soft. Absent: distended, tenderness, guarding, rebound, mass Extremities exam: Present: normal inspection, full ROM, normal capillary refill. Absent: tenderness Back exam: Present: normal inspection. Absent: vertebral tenderness Neurological exam: Present: alert, CN II-XII intact. Absent: oriented X3, motor sensory deficit Skin exam: Present: warm, dry, intact, normal color Course Vital Signs 02/22/21 02/22/21 02/22/21 00:49 02:00 03:37 Temperature 97.9 F 98.2 F Pulse Rate 63 54 L 58 L Respiratory 18 18 18 Rate Blood Pressure 145/73 148/70 154/82 O2 Sat by Pulse 93 L 95 95 Oximetry Medical Decision Making - Lab Data Lab Results 02/22/21 Range/Units 01:12 POC Glucose (mg/dL) 101 H (75-99) mg/dL POC Glu Faucet Polisher ID Jose Miguel Ling Disposition Clinical Impression: Fall Disposition: HOME SELF-CARE Condition: Good Instructions (If sedation given, give patient instructions): Fall Prevention for Older Adults (ED) Is patient prescribed a controlled substance at d/c from ED?: No Referrals: Jordan Ortiz MD [Primary Care Provider] - 1-2 days
[2021-02-22 03:39] VITALS: BP 154/82; PULSE 58; TEMP 98.2
== END 2021-02-22 03:50 | disposition home or self-care (01) ==
LOC: EC 00:42
DX: I11.0 Hypertensive heart disease with heart failure (principal); R41.82 Altered mental status, unspecified; I50.9 Heart failure, unspecified; J44.9 Chronic obstructive pulmonary disease, unspecified; F03.90 Unspecified dementia, unspecified severity, without behavioral disturbance, psychotic disturbance, mood disturbance, and anxiety; Z87.891 Personal history of nicotine dependence; M19.90 Unspecified osteoarthritis, unspecified site; Z79.52 Long term (current) use of systemic steroids; Z79.51 Long term (current) use of inhaled steroids; Z79.899 Other long term (current) drug therapy; W06.XXXA Fall from bed, initial encounter
CPT/HCPCS: 36415; 70450; 72125; 93005; 99285

== ENCOUNTER 2021-08-26 21:42 | Inpatient (IN) | payer MEDICARE, OTHER ==
[2021-08-26] MEDS ORDERED: IPRATROPIUM-ALBUTEROL 3 ML NEB INHALATION STA (21:55)
[2021-08-26] MEDS ORDERED: SODIUM CHLORIDE 0.9% 1,000 ML IV STA ×4 (21:55→23:29)
--- NOTE | 2021-08-26 21:56 | ED ---
SOB HPI - General Chief Complaint: Shortness of Breath Stated Complaint: Possible Sepsis, Difficulty Breathing, Fever Time Seen by Provider: 08/26/21 21:54 Source: EMS, RN notes reviewed, old records reviewed Mode of arrival: EMS Limitations: altered mental status - History of Present Illness Initial Comments: This is a 81-year-old female severely ill coming in from [facility]. Unable provide history secondary to dementia and illness. Patient is weak lethargic short of breath with likely fever per staff. Patient unable to provide history history is obtained by EMS MD Complaint: shortness of breath, anxiety -: unknown Severity: severe Severity scale (1-10): 10 Quality: throbbing Consistency: constant Improves With: nothing Worsens With: nothing Known History Of: COPD, congestive heart failure, recurrent pneumonia Context: recent URI, choking/aspiration, recent illness Associated Symptoms: fever, cough, nausea/vomiting, abdominal pain Treatments Prior to Arrival: none - Related Data Home Medications Medication Instructions Recorded Confirmed Nitroglycerin Sl Tabs [Nitrostat] 0.4 mg SUBLINGUAL Q5M PRN 04/13/20 11/17/20 Escitalopram [Lexapro] 20 mg PO DAILY@79910/09/20 11/17/20 Furosemide [Lasix] 40 mg PO DAILY@79910/09/20 11/17/20 Acetaminophen Tab [Tylenol] 650 mg PO Q4H PRN 11/17/20 11/17/20 Albuterol Inhaler [Ventolin Hfa 2 puff INHALATION RT-QID PRN 11/17/20 11/17/20 Inhaler] Isosorbide Mononitrate ER [Imdur] 30 mg PO DAILY@79911/17/20 11/17/20 Loperamide HCl [Imodium A-D] 4 mg PO BID PRN 11/17/20 11/17/20 Magnesium Hydroxide [Milk of 2,400 mg PO Q48H PRN 11/17/20 11/17/20 Magnesia] Melatonin 6 mg PO HS@209911/17/20 11/17/20 Menthol [Biofreeze] 1 applic TOPICAL BID@0800,209911/17/20 11/17/20 Na Phos,M-B/Na Phos,Di-Ba [Fleet 133 ml RECTAL DAILY PRN 11/17/20 11/17/20 Adult] Pantoprazole Sodium [Protonix] 40 mg PO BID@0800,1700 11/17/20 11/17/20 bisacodyL [Dulcolax] 10 mg RECTAL DAILY PRN 11/17/20 11/17/20 carvediloL [Coreg] 3.125 mg PO BID@0800,1700 11/17/20 11/17/20 Previous Rx's Medication Instructions Recorded ALPRAZolam [Xanax] 0.5 mg PO TID@0800,1400,2100 #9 tab 11/20/20 Azithromycin [Zithromax Tri-Adonis (3 500 mg PO DAILY 3 Days #3 tab 11/20/20 tabs)] B12/Levomefolate Calcium/B-6 1 each PO DAILY #30 tablet 11/20/20 [Foltx Tablet] Ipratropium-Albuterol Nebulize 3 ml INHALATION RT-QID PRN ml 11/20/20 [Duoneb 0.5 mg-3 mg/3 ml Soln] predniSONE 0 mg PO DIRECTED #30 tab 11/20/20 Allergies Allergy/AdvReac Type Severity Reaction Status Date / Time NSAIDS (Non-Steroidal Allergy Unknown Verified 08/26/21 21:50 Anti-Inflamma Penicillins Allergy Rash/Hives Verified 08/26/21 21:50 Review of Systems ROS Statement: Those systems with pertinent positive or pertinent negative responses have been documented in the HPI. ROS Other: All systems not noted in ROS Statement are negative. Past Medical History Past Medical History: Heart Failure, COPD, Dementia, Hypertension Additional Past Medical History / Comment(s): degenerate spine disease, arthritis, HAD COVID VACCINE APR 20, 2020 History of Any Multi-Drug Resistant Organisms: None Reported Past Surgical History: Hysterectomy Past Anesthesia/Blood Transfusion Reactions: No Reported Reaction Past Psychological History: No Psychological Hx Reported Smoking Status: Unknown if ever smoked Past Alcohol Use History: Occasional Past Drug Use History: Unable to Obtain - Past Family History Sister(s) Family Medical History: Cancer Additional Family Medical History / Comment(s): 1 sister had breast cancer, another sister had breast and bone cancer. General Exam Limitations: altered mental status General appearance: alert, in no apparent distress Head exam: Present: atraumatic, normocephalic, normal inspection Eye exam: Present: normal appearance, PERRL, EOMI. Absent: scleral icterus, conjunctival injection, periorbital swelling ENT exam: Present: normal exam, mucous membranes moist Neck exam: Present: normal inspection. Absent: tenderness, meningismus, lymphadenopathy Respiratory exam: Present: normal lung sounds bilaterally. Absent: respiratory distress, wheezes, rales, rhonchi, stridor Cardiovascular Exam: Present: regular rate, normal rhythm, normal heart sounds. Absent: systolic murmur, diastolic murmur, rubs, gallop, clicks GI/Abdominal exam: Present: soft, normal bowel sounds. Absent: distended, tenderness, guarding, rebound, rigid Extremities exam: Present: normal inspection, full ROM, normal capillary refill. Absent: tenderness, pedal edema, joint swelling, calf tenderness Back exam: Present: normal inspection Neurological exam: Present: alert, oriented X3, CN II-XII intact Psychiatric exam: Present: normal affect, normal mood Skin exam: Present: warm, dry, intact, normal color. Absent: rash Course Vital Signs 08/26/21 08/26/21 08/26/21 21:44 22:21 22:34 Temperature 99.4 F Pulse Rate 84 78 77 Respiratory 24 Rate Blood Pressure 83/40 O2 Sat by Pulse 95 Oximetry 08/26/21 22:50 Temperature Pulse Rate 77 Respiratory 20 Rate Blood Pressure 87/54 O2 Sat by Pulse 95 Oximetry - Reevaluation(s) Reevaluation #1: 08/26/21 22:42 Medical record is reviewed Reevaluation #2: 08/26/21 23:27 Patient showing mild blood pressure improvement no change in alertness Reevaluation #3: 08/26/21 23:27 We are unsure patient's CODE STATUS - Consultations Consultation #1: Spoke with Dr. Ortiz who agrees to admit this patient Medical Decision Making - Medical Decision Making 81 female to the emergency department for evaluation severely L not feeling well decreased level responsiveness severe urinary tract infection patient will be admitted for continued IV hydration resuscitation IV antibiotics - Lab Data Result diagrams: 08/26/21 22:02 08/26/21 22:02 Lab Results 08/26/21 08/26/21 08/26/21 Range/Units 22:02 22:02 22:02 WBC 13.3 H (3.8-10.6) k/uL RBC 3.64 L (3.80-5.40) m/uL Hgb 10.9 L (11.4-16.0) gm/dL Hct 35.2 (34.0-46.0) % MCV 96.8 (80.0-100.0) fL MCH 30.0 (25.0-35.0) pg MCHC 30.9 L (31.0-37.0) g/dL RDW 14.3 (11.5-15.5) % Plt Count 213 (150-450) k/uL MPV 9.0 Neutrophils % 92 % Lymphocytes % 1 % Monocytes % 6 % Eosinophils % 0 % Basophils % 0 % Neutrophils # 12.3 H (1.3-7.7) k/uL Lymphocytes # 0.2 L (1.0-4.8) k/uL Monocytes # 0.8 (0-1.0) k/uL Eosinophils # 0.1 (0-0.7) k/uL Basophils # 0.0 (0-0.2) k/uL PT 12.0 (9.0-12.0) sec INR 1.1 (<1.2) APTT 23.6 (22.0-30.0) sec Sodium (137-145) mmol/L Potassium (3.5-5.1) mmol/L Chloride (98-107) mmol/L Carbon Dioxide (22-30) mmol/L Anion Gap mmol/L BUN (7-17) mg/dL Creatinine (0.52-1.04) mg/dL Est GFR (CKD-EPI)AfAm (>60 ml/min/1.73 sqM) Est GFR (CKD-EPI)NonAf (>60 ml/min/1.73 sqM) Glucose (74-99) mg/dL Plasma Lactic Acid José Miguel (0.7-2.0) mmol/L Calcium (8.4-10.2) mg/dL Magnesium (1.6-2.3) mg/dL Total Bilirubin (0.2-1.3) mg/dL AST (14-36) U/L ALT (4-34) U/L Alkaline Phosphatase (38-126) U/L Troponin I (0.000-0.034) ng/mL NT-Pro-B Natriuret Pep pg/mL Total Protein (6.3-8.2) g/dL Albumin (3.5-5.0) g/dL Urine Color Yellow Urine Appearance Turbid H (Clear) Urine pH 6.0 (5.0-8.0) Ur Specific [place] 1.020 (1.001-1.035) Urine Protein 2+ H (Negative) Urine Glucose (UA) Negative (Negative) Urine Ketones Negative (Negative) Urine Blood Large H (Negative) Urine Nitrite Negative (Negative) Urine Bilirubin Negative (Negative) Urine Urobilinogen <2.0 (<2.0) mg/dL Ur Leukocyte Esterase Large H (Negative) Urine RBC 14 H (0-5) /hpf Urine WBC >182 H (0-5) /hpf Urine WBC Clumps Many H (None) /hpf Ur Squamous Epith Cells 7 H (0-4) /hpf Urine Bacteria Many H (None) /hpf 08/26/21 08/26/21 08/26/21 Range/Units 22:02 22:02 22:02 WBC (3.8-10.6) k/uL RBC (3.80-5.40) m/uL Hgb (11.4-16.0) gm/dL Hct (34.0-46.0) % MCV (80.0-100.0) fL MCH (25.0-35.0) pg MCHC (31.0-37.0) g/dL RDW (11.5-15.5) % Plt Count (150-450) k/uL MPV Neutrophils % % Lymphocytes % % Monocytes % % Eosinophils % % Basophils % % Neutrophils # (1.3-7.7) k/uL Lymphocytes # (1.0-4.8) k/uL Monocytes # (0-1.0) k/uL Eosinophils # (0-0.7) k/uL Basophils # (0-0.2) k/uL PT (9.0-12.0) sec INR (<1.2) APTT (22.0-30.0) sec Sodium 142 (137-145) mmol/L Potassium 3.1 L (3.5-5.1) mmol/L Chloride 109 H (98-107) mmol/L Carbon Dioxide 28 (22-30) mmol/L Anion Gap 5 mmol/L BUN 22 H (7-17) mg/dL Creatinine 1.07 H (0.52-1.04) mg/dL Est GFR (CKD-EPI)AfAm 57 (>60 ml/min/1.73 sqM) Est GFR (CKD-EPI)NonAf 50 (>60 ml/min/1.73 sqM) Glucose 107 H (74-99) mg/dL Plasma Lactic Acid José Miguel 2.1 H* (0.7-2.0) mmol/L Calcium 9.3 (8.4-10.2) mg/dL Magnesium 1.4 L (1.6-2.3) mg/dL Total Bilirubin 0.6 (0.2-1.3) mg/dL AST 17 (14-36) U/L ALT 12 (4-34) U/L Alkaline Phosphatase 74 (38-126) U/L Troponin I 0.020 (0.000-0.034) ng/mL NT-Pro-B Natriuret Pep pg/mL Total Protein 6.4 (6.3-8.2) g/dL Albumin 3.3 L (3.5-5.0) g/dL Urine Color Urine Appearance (Clear) Urine pH (5.0-8.0) Ur Specific [place] (1.001-1.035) Urine Protein (Negative) Urine Glucose (UA) (Negative) Urine Ketones (Negative) Urine Blood (Negative) Urine Nitrite (Negative) Urine Bilirubin (Negative) Urine Urobilinogen (<2.0) mg/dL Ur Leukocyte Esterase (Negative) Urine RBC (0-5) /hpf Urine WBC (0-5) /hpf Urine WBC Clumps (None) /hpf Ur Squamous Epith Cells (0-4) /hpf Urine Bacteria (None) /hpf 08/26/21 Range/Units 22:02 WBC (3.8-10.6) k/uL RBC (3.80-5.40) m/uL Hgb (11.4-16.0) gm/dL Hct (34.0-46.0) % MCV (80.0-100.0) fL MCH (25.0-35.0) pg MCHC (31.0-37.0) g/dL RDW (11.5-15.5) % Plt Count (150-450) k/uL MPV Neutrophils % % Lymphocytes % % Monocytes % % Eosinophils % % Basophils % % Neutrophils # (1.3-7.7) k/uL Lymphocytes # (1.0-4.8) k/uL Monocytes # (0-1.0) k/uL Eosinophils # (0-0.7) k/uL Basophils # (0-0.2) k/uL PT (9.0-12.0) sec INR (<1.2) APTT (22.0-30.0) sec Sodium (137-145) mmol/L Potassium (3.5-5.1) mmol/L Chloride (98-107) mmol/L Carbon Dioxide (22-30) mmol/L Anion Gap mmol/L BUN (7-17) mg/dL Creatinine (0.52-1.04) mg/dL Est GFR (CKD-EPI)AfAm (>60 ml/min/1.73 sqM) Est GFR (CKD-EPI)NonAf (>60 ml/min/1.73 sqM) Glucose (74-99) mg/dL Plasma Lactic Acid José Miguel (0.7-2.0) mmol/L Calcium (8.4-10.2) mg/dL Magnesium (1.6-2.3) mg/dL Total Bilirubin (0.2-1.3) mg/dL AST (14-36) U/L ALT (4-34) U/L Alkaline Phosphatase (38-126) U/L Troponin I (0.000-0.034) ng/mL NT-Pro-B Natriuret Pep 2540 pg/mL Total Protein (6.3-8.2) g/dL Albumin (3.5-5.0) g/dL Urine Color Urine Appearance (Clear) Urine pH (5.0-8.0) Ur Specific [place] (1.001-1.035) Urine Protein (Negative) Urine Glucose (UA) (Negative) Urine Ketones (Negative) Urine Blood (Negative) Urine Nitrite (Negative) Urine Bilirubin (Negative) Urine Urobilinogen (<2.0) mg/dL Ur Leukocyte Esterase (Negative) Urine RBC (0-5) /hpf Urine WBC (0-5) /hpf Urine WBC Clumps (None) /hpf Ur Squamous Epith Cells (0-4) /hpf Urine Bacteria (None) /hpf - EKG Data -: EKG Interpreted by Me (EKG is A. fib 77 QRS 82 QTC 479) - Radiology Data Radiology results: report reviewed (Chest x-rays negative for acute disease), image reviewed Critical Care Time Critical Care Time: Yes Total Critical Care Time: 31 Disposition Clinical Impression: Acute exacerbation of chronic obstructive pulmonary disease, Altered mental state, UTI (urinary tract infection), Hypokalemia, Hypomagnesemia Disposition: ADMITTED IP TO THIS [facility] Condition: Serious Is patient prescribed a controlled substance at d/c from ED?: No Referrals: Jordan Ortiz MD [Primary Care Provider] - 1-2 days
[2021-08-26] MEDS ORDERED: methylPREDNISolone SOD SUCCI 125 MG/2 ML VIAL IV STA (22:21)
[2021-08-26] MEDS ORDERED: SODIUM CHLORIDE 0.9% 500 ML 500 ML IV STA (22:21)
[2021-08-26 22:25] LABS: Albumin 3.3 g/dL (3.5-5.0); Calcium 9.3 mg/dL (8.4-10.2); Magnesium 1.4 mg/dL (1.6-2.3); Potassium 3.1 mmol/L (3.5-5.1); Total Bilirubin 0.6 mg/dL (0.2-1.3); Total Protein 6.4 g/dL (6.3-8.2)
[2021-08-26 22:27] LABS: INR 1.1 (<1.2); Partial Thromboplastin Time 23.6 sec (22.0-30.0)
--- NOTE | 2021-08-26 22:29 | XR ---
EXAMINATION TYPE: XR chest 1V portable DATE OF EXAM: 08/26/2021 COMPARISON: 11/17/2020 HISTORY: Short of breath TECHNIQUE: FINDINGS: There is no heart failure nor confluent pneumonic infiltrate. There is some coarsening of the interst itial markings. Thoracic aorta is atheromatous. No pleural effusion. IMPRESSION: Mild cardiomegaly. Mild pulmonary fibrotic changes. No definite acute lung disease. No ad verse change.
[2021-08-26 22:34] LABS: Basophils % (A) 0 %; Eosinophils # (A) 0.1 k/uL (0-0.7); Eosinophils % (A) 0 %; HCT 35.2 % (34.0-46.0); HGB 10.9 gm/dL (11.4-16.0); Lymphocytes # (A) 0.2 k/uL (1.0-4.8); Lymphocytes % (A) 1 %; MCHC 30.9 g/dL (31.0-37.0); MCV 96.8 fL (80.0-100.0); Monocytes # (A) 0.8 k/uL (0-1.0); Monocytes % (A) 6 %; Neutrophils # (A) 12.3 k/uL (1.3-7.7); Neutrophils % (A) 92 %; Platelet Count 213 k/uL (150-450); RBC 3.64 m/uL (3.80-5.40); RDW 14.3 % (11.5-15.5); WBC 13.3 k/uL (3.8-10.6)
[2021-08-26 22:38] LABS: Appearance,Urine Turbid (Clear); Bacteria,Urine Many /hpf; Bilirubin,Urine Negative (Negative); Blood,Urine Large (Negative); Color,Urine Yellow; Glucose,Urine (UA) Negative (Negative); Ketones,Urine Negative (Negative); Leukocyte Esterase,Urine Large (Negative); Nitrite,Urine Negative (Negative); Protein,Urine 2+ (Negative); RBC,Urine 14 /hpf (0-5); Squamous Epithelial Cell,Urine 7 /hpf (0-4); Urobilinogen,Urine <2.0 mg/dL (<2.0); WBC,Urine >182 /hpf (0-5)
[2021-08-26] MEDS ORDERED: POTASSIUM CHLORIDE 20 MEQ in WATER FOR INJECTION 1 100ML.BAG IVPB STA (23:25)
[2021-08-27] MEDS ORDERED: NITROGLYCERIN SL TABS 0.4 MG TAB SUBLINGUAL PRN (00:13)
[2021-08-27] MEDS ORDERED: NA PHOS,M-B/NA PHOS,DI-BA 133 ML ENEMA RECTAL PRN (00:13)
[2021-08-27] MEDS ORDERED: LOPERAMIDE 2 MG CAP PO PRN (00:13)
[2021-08-27] MEDS ORDERED: bisacodyL 10 MG SUPP RECTAL PRN (00:13)
[2021-08-27] MEDS ORDERED: NALOXONE 0.4 MG/ML 1 ML VIAL IV PRN (00:40)
[2021-08-27] MEDS ORDERED: ACETAMINOPHEN TAB 325 MG TAB PO PRN ×2 (00:40→11:29)
[2021-08-27] MEDS ORDERED: MORPHINE SULFATE 4 MG/ML SYRINGE IV PRN (00:40)
[2021-08-27] MEDS ORDERED: ONDANSETRON 4 MG/2 ML VIAL IVP PRN (00:40)
[2021-08-27] MEDS: MAGNESIUM SULFATE-D5W PMX 1 GM in DEXTROSE/WATER 1 100ML.BAG IVPB SCH ×2 (01:25→03:11)
[2021-08-27] MEDS: SODIUM CHLORIDE 0.9% 1,000 ML IV SCH ×3 (01:26→19:04)
--- NOTE | 2021-08-27 01:46 | CT ---
EXAMINATION TYPE: CT angio chest DATE OF EXAM: 08/27/2021 COMPARISON: None HISTORY: chest pain/difficulty breathing. Pt. with dementia and unable to follow breathing instructi ons CT DLP: 389.7 mGycm Automated exposure control for dose reduction was used. CONTRAST: Performed with IV Contrast, patient injected with 80ml mL of Isovue 370. There are 3-D post processed images. There is some patchy interstitial density in atelectasis in the lung [place] bilaterally. Thoracic aor ta is atheromatous. Exam limited by motion. 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 No disse ction. No evidence of filling defect in the pulmonary arteries. There are no hilar masses. There is n o mediastinal adenopathy. There is a mild thoracic levoscoliosis. There is a 15% anterior wedging of upper thoracic vertebra. This is seen at T2 and T3 and T4. No pleural effusion. There is some atelectasis at the right posterior lung base. IMPRESSION: No evidence of pulmonary embolism. Cardiomegaly with aneurysm of the ascending aorta. Patchy bilateral pulmonary interstitial infiltrates and atelectasis. No discrete pulmonary mass.
[2021-08-27 02:24] LABS: Glucose,Whole Blood 137 mg/dL (75-99)
[2021-08-27] MEDS ORDERED: methylPREDNISolone SOD SUCCI 125 MG/2 ML VIAL IV SCH (06:00)
[2021-08-27] MEDS: PANTOPRAZOLE 40 MG TABLET PO SCH ×2 (06:45→14:56)
[2021-08-27 08:25] LABS: Calcium 8.7 mg/dL (8.4-10.2); Magnesium 2.4 mg/dL (1.6-2.3); Potassium 3.9 mmol/L (3.5-5.1)
[2021-08-27 08:36] LABS: Basophils % (A) 0 %; Eosinophils % (A) 0 %; HCT 34.2 % (34.0-46.0); Hypochromasia Moderate; Lymphocytes # (A) 0.5 k/uL (1.0-4.8); Lymphocytes % (A) 2 %; MCH 29.6 pg (25.0-35.0); MCHC 29.4 g/dL (31.0-37.0); MCV 100.7 fL (80.0-100.0); Macrocytosis Slight; Mean Platelet Volume 9.1; Monocytes # (A) 0.4 k/uL (0-1.0); Monocytes % (A) 2 %; Neutrophils # (A) 18.1 k/uL (1.3-7.7); Neutrophils % (A) 95 %; Platelet Count 203 k/uL (150-450); RBC 3.39 m/uL (3.80-5.40); RDW 14.4 % (11.5-15.5); WBC 19.1 k/uL (3.8-10.6)
--- NOTE | 2021-08-27 10:11 | P.CNPUL ---
History of Present Illness Consult date: 08/27/21 History of present illness: 81-year-old female patient, a [place] [facility] resident because of her advanced dementia, was admitted to the hospital and later on brought into the intensive care unit because of staffing issues and she is a medical overflow for now. She came in with lethargy, altered mentation and underlying UTI. The patient is currently resting comfortably in bed. She is on oxygen at 2 L with a pulse ox of 98%. Hemodynamically, the patient is on IV fluids running at 50 mL an hour. The patient received IV fluids 1 L prior to her coming to the ICU. Her UA was abnormal and the patient had a white cell count of 182 with a turbid urine. Culture is still pending for now. The patient white cell count was at 19.1 with a hemoglobin of 10. Coagulation profile was normal. X-rays showed a normal renal function, normal electrolytes, serum bicarb was 20 this morning. The patient is currently on no pressors. Urine output is in order of 50 mL an hour and the patient has a Mccormick catheter in place. Breathing is nonlabored. She is calm and comfortable at this point in time. In terms of antibiotic coverage, the patient was given IV Rocephin. Lactic acid level was 2.1 at time of admission and her troponins were negative. ProBNP level is 2005 and 40. Chest x-ray was done and the patient also had a CT angiogram that showed no evidence of any pulmonary embolism. She does have some background cardiomegaly on her chest x-ray. Review of Systems ROS unobtainable: due to mental status Past Medical History Past Medical History: Heart Failure, COPD, Dementia, Hypertension, Osteoarthritis (OA) Additional Past Medical History / Comment(s): degenerate spine disease, arthritis, HAD COVID VACCINE APR 20, 2020 History of Any Multi-Drug Resistant Organisms: None Reported Past Surgical History: Hysterectomy Past Anesthesia/Blood Transfusion Reactions: No Reported Reaction Past Psychological History: No Psychological Hx Reported Smoking Status: Former smoker Past Alcohol Use History: Unable to Obtain Past Drug Use History: Unable to Obtain - Past Family History Sister(s) Family Medical History: Cancer Additional Family Medical History / Comment(s): 1 sister had breast cancer, another sister had breast and bone cancer. Medications and Allergies Home Medications Medication Instructions Recorded Confirmed Type Nitroglycerin Sl Tabs [Nitrostat] 0.4 mg SUBLINGUAL Q5M PRN 04/13/20 08/27/21 History Escitalopram [Lexapro] 20 mg PO DAILY@79910/09/20 08/27/21 History Furosemide [Lasix] 40 mg PO DAILY@79910/09/20 08/27/21 History Acetaminophen Tab [Tylenol] 650 mg PO Q4H PRN 11/17/20 08/27/21 History Albuterol Inhaler [Ventolin Hfa 2 puff INHALATION RT-QID PRN 11/17/20 08/27/21 History Inhaler] Isosorbide Mononitrate ER [Imdur] 30 mg PO DAILY@79911/17/20 08/27/21 History Loperamide HCl [Imodium A-D] 4 mg PO BID PRN 11/17/20 08/27/21 History Magnesium Hydroxide [Milk of 2,400 mg PO Q48H PRN 11/17/20 08/27/21 History Magnesia] Melatonin 6 mg PO HS@209911/17/20 08/27/21 History Menthol [Biofreeze] 1 applic TOPICAL BID@0800,209911/17/20 08/27/21 History Na Phos,M-B/Na Phos,Di-Ba [Fleet 133 ml RECTAL DAILY PRN 11/17/20 08/27/21 History Adult] Pantoprazole Sodium [Protonix] 40 mg PO DAILY@79911/17/20 08/27/21 History bisacodyL [Dulcolax] 10 mg RECTAL DAILY PRN 11/17/20 08/27/21 History carvediloL [Coreg] 3.125 mg PO BID@0800,169911/17/20 08/27/21 History Ipratropium-Albuterol Nebulize 3 ml INHALATION RT-QID PRN ml 11/20/20 08/27/21 Rx [Duoneb 0.5 mg-3 mg/3 ml Soln] B12/Levomefolate Calcium/B-6 1 tab PO DAILY@169908/27/21 08/27/21 History [Foltx Tablet] Baclofen 5 mg PO BID@0800,169908/27/21 08/27/21 History Divalproex Sodium [Depakote 125 mg PO BID@0800,2100 08/27/21 08/27/21 History Sprinkle] Ferrous Sulfate [Feosol] 325 mg PO DAILY@0800 08/27/21 08/27/21 History HYDROcodone/APAP 5-325MG [[place] 1 tab PO Q8H PRN 08/27/21 08/27/21 History 5-325] L.acidoph,Paracasei, B.lactis 1 cap PO DAILY@0800 08/27/21 08/27/21 History [Probiotic] LORazepam [Ativan] 1 mg PO TID@0800,1400,2100 08/27/21 08/27/21 History QUEtiapine FUMARATE 200 mg PO BID@0800,1700 08/27/21 08/27/21 History Sennosides [Senna] 17.2 mg PO HS@2100 08/27/21 08/27/21 History Allergies Allergy/AdvReac Type Severity Reaction Status Date / Time NSAIDS (Non-Steroidal Allergy Unknown Verified 08/27/21 08:55 Anti-Inflamma Penicillins Allergy Rash/Hives Verified 08/27/21 08:55 Physical Exam Vitals: Vital Signs Temp Pulse Pulse Resp BP BP Pulse Ox 08/27/21 06:00 56 L 15 94/69 99 08/27/21 05:00 57 L 18 86/53 95 08/27/21 04:00 98.4 F 68 15 87/52 98 08/27/21 03:52 96 08/27/21 03:00 63 14 88/42 97 08/27/21 02:20 98.5 F 67 14 105/60 97 08/27/21 02:02 98.6 F 67 20 89/45 94 L 08/27/21 00:36 80 18 100/44 95 08/26/21 23:32 78 18 99/55 96 08/26/21 23:15 72 18 101/54 95 08/26/21 22:50 77 20 87/54 95 08/26/21 22:34 77 08/26/21 22:21 78 08/26/21 21:44 99.4 F 84 24 83/40 95 Intake and Output 08/26/21 08/27/21 08/27/21 22:59 06:59 14:59 Intake Total 390 Output Total 40 550 Balance -40 -160 Intake: IV 390 Sodium Chloride 0.9% 1, 390 000 ml @ 130 mls/hr IV . Q7H42M STA Rx#:[id number] Output: Urine 40 550 Straight 40 Uretheral (Mccormick) 100 Other: Voiding Method Indwelling Catheter Weight 86.183 kg 61.4 kg GENERAL EXAM: Alert, pleasant, confused 80-year-old female patient, on 2 L nasal cannula, comfortable in no apparent distress. HEAD: Normocephalic. EYES: Normal reaction of pupils, equal size. NOSE: Clear with pink turbinates. THROAT: No erythema or exudates. NECK: No masses, no JVD. CHEST: No chest wall deformity. LUNGS: Equal air entry with faint crackles in the posterior bases CVS: S1 and S2 normal with no audible murmur, regular rhythm. ABDOMEN: No hepatosplenomegaly, normal bowel sounds, no guarding or rigidity. SPINE: No scoliosis or deformity SKIN: No rashes CENTRAL NERVOUS SYSTEM: No focal deficits, tone is normal in all 4 extremities. EXTREMITIES: There is no peripheral edema. No clubbing, no cyanosis. Peripheral pulses are intact. Results - Laboratory Findings CBC and BMP: 08/27/21 07:55 08/27/21 07:55 ABG WBC 19.1 k/uL (3.8-10.6) H 08/27/21 07:55 RBC 3.39 m/uL (3.80-5.40) L 08/27/21 07:55 Hgb 10.0 gm/dL (11.4-16.0) L 08/27/21 07:55 Hct 34.2 % (34.0-46.0) 08/27/21 07:55 MCV 100.7 fL (80.0-100.0) H 08/27/21 07:55 MCH 29.6 pg (25.0-35.0) 08/27/21 07:55 MCHC 29.4 g/dL (31.0-37.0) L 08/27/21 07:55 RDW 14.4 % (11.5-15.5) 08/27/21 07:55 Plt Count 203 k/uL (150-450) 08/27/21 07:55 MPV 9.1 08/27/21 07:55 Neutrophils % 95 % 08/27/21 07:55 Lymphocytes % 2 % 08/27/21 07:55 Monocytes % 2 % 08/27/21 07:55 Eosinophils % 0 % 08/27/21 07:55 Basophils % 0 % 08/27/21 07:55 Neutrophils # 18.1 k/uL (1.3-7.7) H 08/27/21 07:55 Lymphocytes # 0.5 k/uL (1.0-4.8) L 08/27/21 07:55 Monocytes # 0.4 k/uL (0-1.0) 08/27/21 07:55 Eosinophils # 0.0 k/uL (0-0.7) 08/27/21 07:55 Basophils # 0.0 k/uL (0-0.2) 08/27/21 07:55 Hypochromasia Moderate 08/27/21 07:55 Macrocytosis Slight 08/27/21 07:55 PT 12.0 sec (9.0-12.0) 08/26/21 22:02 INR 1.1 (<1.2) 08/26/21 22:02 APTT 23.6 sec (22.0-30.0) 08/26/21 22:02 D-Dimer 1.34 mg/L FEU (<0.60) H 08/27/21 00:00 Sodium 144 mmol/L (137-145) 08/27/21 07:55 Potassium 3.9 mmol/L (3.5-5.1) 08/27/21 07:55 Chloride 115 mmol/L (98-107) H 08/27/21 07:55 Carbon Dioxide 20 mmol/L (22-30) L 08/27/21 07:55 Anion Gap 9 mmol/L 08/27/21 07:55 BUN 19 mg/dL (7-17) H 08/27/21 07:55 Creatinine 0.92 mg/dL (0.52-1.04) 08/27/21 07:55 Est GFR (CKD-EPI)AfAm 69 (>60 ml/min/1.73 sqM) 08/27/21 07:55 Est GFR (CKD-EPI)NonAf 60 (>60 ml/min/1.73 sqM) 08/27/21 07:55 Glucose 133 mg/dL (74-99) H 08/27/21 07:55 POC Glucose (mg/dL) 137 mg/dL (75-99) H 08/27/21 02:23 POC Glu [employer] Equipment Operator ID Kimberlee Newman 08/27/21 02:23 Lactic Ac Sepsis Rflx Y 08/26/21 22:30 Plasma Lactic Acid José Miguel 1.0 mmol/L (0.7-2.0) 08/27/21 01:11 Calcium 8.7 mg/dL (8.4-10.2) 08/27/21 07:55 Magnesium 2.4 mg/dL (1.6-2.3) H 08/27/21 07:55 Total Bilirubin 0.6 mg/dL (0.2-1.3) 08/26/21 22:02 AST 17 U/L (14-36) 08/26/21 22:02 ALT 12 U/L (4-34) 08/26/21 22:02 Alkaline Phosphatase 74 U/L (38-126) 08/26/21 22:02 Troponin I 0.020 ng/mL (0.000-0.034) 08/26/21 22:02 NT-Pro-B Natriuret Pep 2540 pg/mL 08/26/21 22:02 Total Protein 6.4 g/dL (6.3-8.2) 08/26/21 22:02 Albumin 3.3 g/dL (3.5-5.0) L 08/26/21 22:02 Urine Color Yellow 08/26/21 22:02 Urine Appearance Turbid (Clear) H 08/26/21 22:02 Urine pH 6.0 (5.0-8.0) 08/26/21 22:02 Ur Specific [place] 1.020 (1.001-1.035) 08/26/21 22:02 Urine Protein 2+ (Negative) H 08/26/21 22:02 Urine Glucose (UA) Negative (Negative) 08/26/21 22:02 Urine Ketones Negative (Negative) 08/26/21 22:02 Urine Blood Large (Negative) H 08/26/21 22:02 Urine Nitrite Negative (Negative) 08/26/21 22:02 Urine Bilirubin Negative (Negative) 08/26/21 22:02 Urine Urobilinogen <2.0 mg/dL (<2.0) 08/26/21 22:02 Ur Leukocyte Esterase Large (Negative) H 08/26/21 22:02 Urine RBC 14 /hpf (0-5) H 08/26/21 22:02 Urine WBC >182 /hpf (0-5) H 08/26/21 22:02 Urine WBC Clumps Many /hpf (None) H 08/26/21 22:02 Ur Squamous Epith Cells 7 /hpf (0-4) H 08/26/21 22:02 Urine Bacteria Many /hpf (None) H 08/26/21 22:02 PT/INR, D-dimer PT 12.0 sec (9.0-12.0) 08/26/21 22:02 INR 1.1 (<1.2) 08/26/21 22:02 D-Dimer 1.34 mg/L FEU (<0.60) H 08/27/21 00:00 Abnormal lab findings: Abnormal Labs 08/26/21 08/26/21 08/26/21 22:02 22:02 22:02 WBC 13.3 H RBC 3.64 L Hgb 10.9 L MCV MCHC 30.9 L Neutrophils # 12.3 H Lymphocytes # 0.2 L D-Dimer Potassium 3.1 L Chloride 109 H Carbon Dioxide BUN 22 H Creatinine 1.07 H Glucose 107 H POC Glucose (mg/dL) Plasma Lactic Acid José Miguel Magnesium 1.4 L Albumin 3.3 L Urine Appearance Turbid H Urine Protein 2+ H Urine Blood Large H Ur Leukocyte Esterase Large H Urine RBC 14 H Urine WBC >182 H Urine WBC Clumps Many H Ur Squamous Epith Cells 7 H Urine Bacteria Many H 08/26/21 08/27/21 08/27/21 22:02 00:00 02:23 WBC RBC Hgb MCV MCHC Neutrophils # Lymphocytes # D-Dimer 1.34 H Potassium Chloride Carbon Dioxide BUN Creatinine Glucose POC Glucose (mg/dL) 137 H Plasma Lactic Acid José Miguel 2.1 H* Magnesium Albumin Urine Appearance Urine Protein Urine Blood Ur Leukocyte Esterase Urine RBC Urine WBC Urine WBC Clumps Ur Squamous Epith Cells Urine Bacteria 08/27/21 08/27/21 07:55 07:55 WBC 19.1 H RBC 3.39 L Hgb 10.0 L MCV 100.7 H MCHC 29.4 L Neutrophils # 18.1 H Lymphocytes # 0.5 L D-Dimer Potassium Chloride 115 H Carbon Dioxide 20 L BUN 19 H Creatinine Glucose 133 H POC Glucose (mg/dL) Plasma Lactic Acid José Miguel Magnesium 2.4 H Albumin Urine Appearance Urine Protein Urine Blood Ur Leukocyte Esterase Urine RBC Urine WBC Urine WBC Clumps Ur Squamous Epith Cells Urine Bacteria - Diagnostic Findings Chest x-ray: image reviewed CT scan - chest: image reviewed Assessment and Plan Plan: mental status change above and beyond her baseline secondary to underlying UTI UTI Mild lactic acidosis, improved COPD currently inactive in stable Chronic hypoxic respiratory failure currently on 2 L of oxygen by nasal cannula Dementia Hypertension Previous history of GI bleed with previous EGD and colonoscopy that showing a nonbleeding antral ulcer in addition to 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
[2021-08-27] MEDS: FUROSEMIDE 40 MG TAB PO SCH ×2 (10:38→14:56)
[2021-08-27] MEDS: CYANOCOBALAMIN-FA-PYRIDOXINE 1 EACH TAB PO SCH (10:38)
[2021-08-27] MEDS: ALPRAZolam 0.5 MG TAB PO SCH ×3 (10:38→20:55)
[2021-08-27] MEDS: ESCITALOPRAM 20 MG TAB PO SCH (10:38)
[2021-08-27] MEDS: carvediloL 3.125 MG TAB PO SCH ×2 (10:38→14:56)
[2021-08-27] MEDS ORDERED: HYDROcodone/APAP 5-325MG 1 EACH TAB PO PRN (11:29)
[2021-08-27] MEDS ORDERED: IPRATROPIUM-ALBUTEROL 3 ML NEB INHALATION PRN (11:29)
--- NOTE | 2021-08-27 11:41 | P.HPIM ---
History of Present Illness H&P Date: 08/27/21 HISTORY OF PRESENT ILLNESS This is an 81-year-old female patient of Dr. Ortiz long-term resident at [facility] with past medical history of COPD, hypertension, remote history of tobacco use and dependence, sigmoid diverticulosis, suspected Regan's esophagus, dementia, history of alcohol abuse. Patient was found to be weak, lethargic, short of breath with fever. Patient was found to be afebrile with temperature of 99.4 axillary, heart rate 84, blood pressure 83/40, respiratory rate 24, pulse ox 95% on 2 L nasal cannula. WBC 13.3, hemoglobin 10.9, platelet count 213. INR 1.1. D-dimer 1.34. Sodium 142, potassium 3.1, chloride 190, CO2 28, BUN 22 and creatinine 1.07. Blood sugar 107. Lactic acid 2.1 with repeat of 1.0. Magnesium 1.4 and repeat of 2.4. Liver function tests were normal. Albumin 3.3. Urinalysis was turbid, leukoesterase large, WBCs greater than 182. Urine culture is in progress. Chest x-ray reveals mild cardiomegaly. Mild pulmonary fibrotic changes. No definite acute lung disease. No adverse change. CTA of the chest showed no evidence of pulmonary embolism. Cardiomegaly with aneurysm of the ascending aorta. Patchy bilateral pulmonary interstitial infiltrates and atelectasis. No discrete pulmonary mass. Patient is seen today in the intensive care unit as an overflow for cardiac stepdown unit. REVIEW OF SYSTEMS Unable to obtain due to patient's mental status. SOCIAL HISTORY Patient is a smoker greater than 1 pack per year for greater than 50 years and quit in 2019. She is reported to have history of alcohol abuse. No illicit drug use. She is and resides at [facility] is a long-term resident FAMILY HISTORY Mother in her 80s from old age. Father in his 80s while he was sleeping. Patient has a total of 5 siblings and one brother has history of coronary artery disease with CABG. Patient's 3 children with no major medical problems. PHYSICAL EXAMINATION Gen: This is a 81-year-old female. She is resting in bed in the ICU as an overflow for cardiac stepdown unit, patient appears to be comfortable and in no acute distress. No respiratory distress is noted. HEENT: Head is atraumatic, normocephalic. Pupils equal, round. Sclerae is anicteric. NECK: Supple. No JVD. No lymphadenopathy. No thyromegaly. LUNGS: Crackles bilateral. No intercostal retractions. HEART: Regular rate and rhythm. No murmur. ABDOMEN: Soft. Bowel sounds are present. No masses. No tenderness. EXTREMITIES: No pedal edema. No calf tenderness. Dorsalis pedis +2 bilaterally. NEUROLOGICAL: Patient is sleeping and does not arouse easily. ASSESSMENT AND PLAN 1. Difficulty breathing secondary to suspected chronic diastolic heart failure, aspiration pneumonia and COPD exacerbation. Patient started on Rocephin 1 g IV piggyback every day, DuoNeb DuoNeb treatments 3 times daily and as needed, continue Lasix 40 mg daily oral. Pulmonary consult, cardiology consult, speech therapy consult 2. Sepsis with Metabolic encephalopathy. 3. Sepsis secondary to acute urinary tract infection and suspected aspiration pneumonia. Urine culture and blood cultures in progress. Continue ceftriaxone. 4. Electrolyte abnormalities with hypokalemia and hypomagnesemia status post replacement. 5. Hypertension. Patient is currently hypotensive secondary to sepsis, septic shock. Continue Coreg 3.125 mg twice daily. 6. Dementia. 7. Tobacco use and dependence. Start nicotine patch 21 mg dail8. 8. Recurrent depression and generalized anxiety disorder. Continue Lexapro 20 mg daily, Seroquel 200 mg twice daily, Xanax 0.5 mg 3 times daily. 9. Seizure disorder. Continue Depakote 125 mg twice daily. 10. Anemia of chronic disease. Continue ferrous sulfate 325 mg daily. 11. Chest pain. Continue Imdurr 30 mg daily 12. Gastroesophageal reflux disease and GI prophylaxis. Protonix. 13. DVT prophylaxis. Heparin subcu. Patient will be admitted to the hospital for a minimum of 2 night stay. DISCHARGE PLAN Return to [facility]. Impression and plan of care have been directed as dictated by the signing physician. Sameera Medrano nurse practitioner acting as scribe for signing physician. Past Medical History Past Medical History: Heart Failure, COPD, Dementia, Hypertension, Osteoarthritis (OA) Additional Past Medical History / Comment(s): degenerate spine disease, arthr itis, HAD COVID VACCINE APR 20, 2020 History of Any Multi-Drug Resistant Organisms: None Reported Past Surgical History: Hysterectomy Past Anesthesia/Blood Transfusion Reactions: No Reported Reaction Past Psychological History: No Psychological Hx Reported Smoking Status: Former smoker Past Alcohol Use History: Unable to Obtain Past Drug Use History: Unable to Obtain - Past Family History Sister(s) Family Medical History: Cancer Additional Family Medical History / Comment(s): 1 sister had breast cancer, another sister had breast and bone cancer. Medications and Allergies Home Medications Medication Instructions Recorded Confirmed Type Nitroglycerin Sl Tabs [Nitrostat] 0.4 mg SUBLINGUAL Q5M PRN 04/13/20 08/27/21 History Escitalopram [Lexapro] 20 mg PO DAILY@79910/09/20 08/27/21 History Furosemide [Lasix] 40 mg PO DAILY@79910/09/20 08/27/21 History Acetaminophen Tab [Tylenol] 650 mg PO Q4H PRN 11/17/20 08/27/21 History Albuterol Inhaler [Ventolin Hfa 2 puff INHALATION RT-QID PRN 11/17/20 08/27/21 History Inhaler] Isosorbide Mononitrate ER [Imdur] 30 mg PO DAILY@79911/17/20 08/27/21 History Loperamide HCl [Imodium A-D] 4 mg PO BID PRN 11/17/20 08/27/21 History Magnesium Hydroxide [Milk of 2,400 mg PO Q48H PRN 11/17/20 08/27/21 History Magnesia] Melatonin 6 mg PO HS@209911/17/20 08/27/21 History Menthol [Biofreeze] 1 applic TOPICAL BID@0800,2100 11/17/20 08/27/21 History Na Phos,M-B/Na Phos,Di-Ba [Fleet 133 ml RECTAL DAILY PRN 11/17/20 08/27/21 History Adult] Pantoprazole Sodium [Protonix] 40 mg PO DAILY@0800 11/17/20 08/27/21 History bisacodyL [Dulcolax] 10 mg RECTAL DAILY PRN 11/17/20 08/27/21 History carvediloL [Coreg] 3.125 mg PO BID@0800,1700 11/17/20 08/27/21 History Ipratropium-Albuterol Nebulize 3 ml INHALATION RT-QID PRN ml 11/20/20 08/27/21 Rx [Duoneb 0.5 mg-3 mg/3 ml Soln] B12/Levomefolate Calcium/B-6 1 tab PO DAILY@1700 08/27/21 08/27/21 History [Foltx Tablet] Baclofen 5 mg PO BID@0800,1700 08/27/21 08/27/21 History Divalproex Sodium [Depakote 125 mg PO BID@0800,2100 08/27/21 08/27/21 History Sprinkle] Ferrous Sulfate [Feosol] 325 mg PO DAILY@0800 08/27/21 08/27/21 History HYDROcodone/APAP 5-325MG [[place] 1 tab PO Q8H PRN 08/27/21 08/27/21 History 5-325] L.acidoph,Paracasei, B.lactis 1 cap PO DAILY@0800 08/27/21 08/27/21 History [Probiotic] LORazepam [Ativan] 1 mg PO TID@0800,1400,2100 08/27/21 08/27/21 History QUEtiapine FUMARATE 200 mg PO BID@0800,1700 08/27/21 08/27/21 History Sennosides [Senna] 17.2 mg PO HS@2100 08/27/21 08/27/21 History Allergies Allergy/AdvReac Type Severity Reaction Status Date / Time NSAIDS (Non-Steroidal Allergy Unknown Verified 08/27/21 08:55 Anti-Inflamma Penicillins Allergy Rash/Hives Verified 08/27/21 08:55 Physical Exam Vitals: Vital Signs Temp Pulse Pulse Resp BP BP Pulse Ox 08/27/21 06:00 56 L 15 94/69 99 08/27/21 05:00 57 L 18 86/53 95 08/27/21 04:00 98.4 F 68 15 87/52 98 08/27/21 03:52 96 08/27/21 03:00 63 14 88/42 97 08/27/21 02:20 98.5 F 67 14 105/60 97 08/27/21 02:02 98.6 F 67 20 89/45 94 L 08/27/21 00:36 80 18 100/44 95 08/26/21 23:32 78 18 99/55 96 08/26/21 23:15 72 18 101/54 95 08/26/21 22:50 77 20 87/54 95 08/26/21 22:34 77 08/26/21 22:21 78 08/26/21 21:44 99.4 F 84 24 83/40 95 Intake and Output 08/26/21 08/27/21 08/27/21 22:59 06:59 14:59 Intake Total 390 Output Total 40 550 Balance -40 -160 Intake: IV 390 Sodium Chloride 0.9% 1, 390 000 ml @ 130 mls/hr IV . Q7H42M STA Rx#:[id number] Output: Urine 40 550 Straight 40 Uretheral (Mccormick) 100 Other: Voiding Method Indwelling Catheter Weight 86.183 kg 61.4 kg Results CBC & Chem 7: 08/27/21 07:55 08/27/21 07:55 Labs: Abnormal Lab Results - Last 24 Hours (Table) 08/26/21 08/26/21 08/26/21 Range/Units 22:02 22:02 22:02 WBC 13.3 H (3.8-10.6) k/uL RBC 3.64 L (3.80-5.40) m/uL Hgb 10.9 L (11.4-16.0) gm/dL MCHC 30.9 L (31.0-37.0) g/dL Neutrophils # 12.3 H (1.3-7.7) k/uL Lymphocytes # 0.2 L (1.0-4.8) k/uL D-Dimer (<0.60) mg/L FEU Potassium 3.1 L (3.5-5.1) mmol/L Chloride 109 H (98-107) mmol/L BUN 22 H (7-17) mg/dL Creatinine 1.07 H (0.52-1.04) mg/dL Glucose 107 H (74-99) mg/dL POC Glucose (mg/dL) (75-99) mg/dL Plasma Lactic Acid José Miguel (0.7-2.0) mmol/L Magnesium 1.4 L (1.6-2.3) mg/dL Albumin 3.3 L (3.5-5.0) g/dL Urine Appearance Turbid H (Clear) Urine Protein 2+ H (Negative) Urine Blood Large H (Negative) Ur Leukocyte Esterase Large H (Negative) Urine RBC 14 H (0-5) /hpf Urine WBC >182 H (0-5) /hpf Urine WBC Clumps Many H (None) /hpf Ur Squamous Epith Cells 7 H (0-4) /hpf Urine Bacteria Many H (None) /hpf 08/26/21 08/27/21 08/27/21 Range/Units 22:02 00:00 02:23 WBC (3.8-10.6) k/uL RBC (3.80-5.40) m/uL Hgb (11.4-16.0) gm/dL MCHC (31.0-37.0) g/dL Neutrophils # (1.3-7.7) k/uL Lymphocytes # (1.0-4.8) k/uL D-Dimer 1.34 H (<0.60) mg/L FEU Potassium (3.5-5.1) mmol/L Chloride (98-107) mmol/L BUN (7-17) mg/dL Creatinine (0.52-1.04) mg/dL Glucose (74-99) mg/dL POC Glucose (mg/dL) 137 H (75-99) mg/dL Plasma Lactic Acid José Miguel 2.1 H* (0.7-2.0) mmol/L Magnesium (1.6-2.3) mg/dL Albumin (3.5-5.0) g/dL Urine Appearance (Clear) Urine Protein (Negative) Urine Blood (Negative) Ur Leukocyte Esterase (Negative) Urine RBC (0-5) /hpf Urine WBC (0-5) /hpf Urine WBC Clumps (None) /hpf Ur Squamous Epith Cells (0-4) /hpf Urine Bacteria (None) /hpf Thrombosis Risk Factor Assmnt - Choose All That Apply Each Factor Represents 1 point: Abnormal pulmonary function (COPD), Sepsis (< 1month) Each Risk Factor Represents 3 Points: Age 75 years or older Thrombosis Risk Factor Assessment Total Risk Factor Score: 5 Thrombosis Risk Factor Assessment Level: High Risk
[2021-08-27] MEDS: QUEtiapine 200 MG TAB PO SCH (14:56)
[2021-08-27] MEDS: IPRATROPIUM-ALBUTEROL 3 ML NEB INHALATION SCH ×2 (16:14→23:26)
[2021-08-27] MEDS ORDERED: LORazepam 2 MG/ML INJ IV PRN (18:19)
[2021-08-27] MEDS: MELATONIN 3 MG TABLET PO SCH (20:56)
[2021-08-27] MEDS: DIVALPROEX SPRINKLE 125 MG CAP.SPRINK PO SCH (20:56)
[2021-08-27] MEDS: SENNOSIDES 8.6 MG TAB PO SCH (20:59)
[2021-08-27] MEDS: HEPARIN SODIUM,PORCINE/PF 5,000 UNIT/0.5 ML SYRINGE SQ SCH (21:00)
[2021-08-28] MEDS: SODIUM CHLORIDE 0.9% 1,000 ML IV SCH ×2 (03:00→16:43)
[2021-08-28] MEDS: PANTOPRAZOLE 40 MG TABLET PO SCH ×2 (06:15→16:38)
[2021-08-28 07:58] LABS: Basophils % (A) 0 %; Eosinophils % (A) 0 %; HCT 33.9 % (34.0-46.0); Hypochromasia Marked; Lymphocytes # (A) 0.5 k/uL (1.0-4.8); Lymphocytes % (A) 3 %; MCH 29.9 pg (25.0-35.0); MCHC 29.4 g/dL (31.0-37.0); MCV 101.5 fL (80.0-100.0); Macrocytosis Slight; Mean Platelet Volume 9.6; Monocytes # (A) 1.1 k/uL (0-1.0); Monocytes % (A) 8 %; Neutrophils # (A) 12.8 k/uL (1.3-7.7); Neutrophils % (A) 87 %; Platelet Count 206 k/uL (150-450); RBC 3.34 m/uL (3.80-5.40); RDW 14.6 % (11.5-15.5); WBC 14.7 k/uL (3.8-10.6)
[2021-08-28 08:20] LABS: Magnesium 2.2 mg/dL (1.6-2.3); Phosphorus 2.9 mg/dL (2.5-4.5); Potassium 3.6 mmol/L (3.5-5.1); Total Bilirubin 0.1 mg/dL (0.2-1.3)
[2021-08-28 08:21] LABS: Albumin 3.1 g/dL (3.5-5.0); Total Protein 6.3 g/dL (6.3-8.2)
[2021-08-28] MEDS: IPRATROPIUM-ALBUTEROL 3 ML NEB INHALATION SCH ×3 (09:15→20:58)
[2021-08-28] MEDS: DIVALPROEX SPRINKLE 125 MG CAP.SPRINK PO SCH (09:35)
[2021-08-28] MEDS: FERROUS SULFATE 325 MG TAB PO SCH (09:35)
[2021-08-28] MEDS: carvediloL 3.125 MG TAB PO SCH (09:35)
[2021-08-28] MEDS: ISOSORBIDE MONONITRATE ER 30 MG TAB.ER.24H PO SCH (09:35)
[2021-08-28] MEDS: ESCITALOPRAM 20 MG TAB PO SCH (09:35)
[2021-08-28] MEDS: ALPRAZolam 0.5 MG TAB PO SCH ×2 (09:35→16:37)
[2021-08-28] MEDS: LACTOBACILLUS ACIDOPH & BULGAR 1 EACH PACKET PO SCH (09:36)
[2021-08-28] MEDS: CYANOCOBALAMIN-FA-PYRIDOXINE 1 EACH TAB PO SCH (09:36)
[2021-08-28] MEDS: HEPARIN SODIUM,PORCINE/PF 5,000 UNIT/0.5 ML SYRINGE SQ SCH (09:36)
[2021-08-28] MEDS: QUEtiapine 200 MG TAB PO SCH ×2 (09:36→17:32)
[2021-08-28] MEDS: FUROSEMIDE 20 MG TAB PO SCH (09:54)
[2021-08-28] MEDS: FUROSEMIDE 40 MG TAB PO SCH (09:57)
--- NOTE | 2021-08-28 10:25 | P.CRDCN ---
History of Present Illness History of present illness: HISTORY OF PRESENTING ILLNESS This is a pleasant 81-year-old female past medical history significant for COPD, hypertension, chronic diastolic heart failure, diverticulosis, dementi a, and former nicotine dependence. She does not follow regularly in the office with a harvest worker, There are no old records in the office for review. We have been asked to see in consultation for congestive heart failure. Patient is alert, oriented to person only. Poor Historian, unable to explain why she is in the hospital. Patient was admitted to the hospital with increased lethargy, altered mental status, underlying UTI. Patient seen and examined at bedside, she has been yelling in her room for hours per nursing staff, she appears slightly short of breath, denies any chest pain, shortness of breath, lightheadedness, dizziness, palpitations. DIAGNOSTICS * EKG sinus rhythm, heart rate 77, nonspecific ST-T wave ST-T wave abnormalities in lateral and anterior leads. Prior EKG 02/2020 normal similar findings. * Telemetry tracings indicate sinus mechanism with heart rate in the 60s * Chest xray no acute heart failure. mild cardiomegaly. mild pulmonary fibrotic changes * CTA chest- no PE, cardiomegaly. 4cm aneurysm of ascending aorta. Patchy bilateral pulmonary interstitial infiltrates * Laboratory data reviewed, WBC 14.7, hemoglobin 10, platelets 206, sodium 144, potassium 3.6, BUN 18, serum creatinine 0.8, magnesium 2.2, d-dimer 1.34, lactate 2.1, repeat 1.0, troponin negative, proBNP 2540, UA positive for blood and leukocyte esterase, WBC greater than 182, RVR 14, Squamous cells 7, many bacteria * Currently maintained on PO Lasix 40 mg daily, IV antibiotics, carvedilol 3.125 mg twice a day, Imdur 30 mg daily * 09/2020 Echocardiogram revealed preserved LV systolic function with ejection fraction 50-55%, mild AR, mild MR and mild TR noted. REVIEW OF SYSTEMS At the time of my exam: CONSTITUTIONAL: Denies fever or chills. CARDIOVASCULAR: Denies chest pain, shortness of breath, orthopnea, PND or palpitations. RESPIRATORY: Denies cough. GASTROINTESTINAL: Denies abdominal pain, diarrhea, constipation, nausea or vomiting. MUSCULOSKELETAL: Denies myalgias. NEUROLOGIC: Denies numbness, tingling, headacbe or weakness. ENDOCRINE: Denies fatigue, weight change, polydipsia or polyurina. GENITOURINARY: Denies burning, hematuria or urgency with micturation. HEMATOLOGIC: Denies history of anemia or bleeding. PHYSICAL EXAMINATION Blood pressure 134/65, heart rate 61, afebrile, saturations 94% on 2 L nasal cannula CONSTITUTIONAL: No apparent distress. HEENT: Head is normocephalic. Pupils are equal, round. Sclerae anicteric. Mucous membranes of the mouth are moist. No JVD. CHEST EXAMINATION: Lungs diminished in the bases to auscultation. No chest wall tenderness is noted on palpation or with deep breathing. HEART EXAMINATION: Regular rate and rhythm. S1, S2 heard. No murmurs, gallops or rub. ABDOMEN: Soft, nontender. Positive bowel sounds. EXTREMITIES: 2+ peripheral pulses, no lower extremity edema and no calf tenderness. NEUROLOGIC EXAMINATION: Patient is awake, alert and oriented to self. ASSESSMENT Altered mental status Urinary tract infection Lactic acidosis, improved Chronic diastolic heart failure Hypertension COPD Former nicotine dependence Dementia PLAN From cardiology perspective, patient does not appear to be in acute heart failure. We'll increase patient's Lasix PO 60mg daily. No further changes from a cardiology perspective. We'll follow the patient has needed. Please reconsult if needed. Thank you kindly for this consultation. Nurse Practitioner note has been reviewed, I agree with a documented findings and plan of care. Patient was seen and examined. Past Medical History Past Medical History: Heart Failure, COPD, Dementia, Hypertension, Osteoarthritis (OA) Additional Past Medical History / Comment(s): degenerate spine disease, arthritis, HAD COVID VACCINE APR 20, 2020 History of Any Multi-Drug Resistant Organisms: None Reported Past Surgical History: Hysterectomy Past Anesthesia/Blood Transfusion Reactions: No Reported Reaction Past Psychological History: No Psychological Hx Reported Smoking Status: Former smoker Past Alcohol Use History: Unable to Obtain Past Drug Use History: Unable to Obtain - Past Family History Sister(s) Family Medical History: Cancer Additional Family Medical History / Comment(s): 1 sister had breast cancer, another sister had breast and bone cancer. Medications and Allergies Home Medications Medication Instructions Recorded Confirmed Type Nitroglycerin Sl Tabs [Nitrostat] 0.4 mg SUBLINGUAL Q5M PRN 04/13/20 08/27/21 History Escitalopram [Lexapro] 20 mg PO DAILY@0810/09/20 08/27/21 History Furosemide [Lasix] 40 mg PO DAILY@79910/09/20 08/27/21 History Acetaminophen Tab [Tylenol] 650 mg PO Q4H PRN 11/17/20 08/27/21 History Albuterol Inhaler [Ventolin Hfa 2 puff INHALATION RT-QID PRN 11/17/20 08/27/21 History Inhaler] Isosorbide Mononitrate ER [Imdur] 30 mg PO DAILY@79911/17/20 08/27/21 History Loperamide HCl [Imodium A-D] 4 mg PO BID PRN 11/17/20 08/27/21 History Magnesium Hydroxide [Milk of 2,400 mg PO Q48H PRN 11/17/20 08/27/21 History Magnesia] Melatonin 6 mg PO HS@209911/17/20 08/27/21 History Menthol [Biofreeze] 1 applic TOPICAL BID@08,209911/17/20 08/27/21 History Na Phos,M-B/Na Phos,Di-Ba [Fleet 133 ml RECTAL DAILY PRN 11/17/20 08/27/21 History Adult] Pantoprazole Sodium [Protonix] 40 mg PO DAILY@79911/17/20 08/27/21 History bisacodyL [Dulcolax] 10 mg RECTAL DAILY PRN 11/17/20 08/27/21 History carvediloL [Coreg] 3.125 mg PO BID@0800,169911/17/20 08/27/21 History Ipratropium-Albuterol Nebulize 3 ml INHALATION RT-QID PRN ml 11/20/20 08/27/21 Rx [Duoneb 0.5 mg-3 mg/3 ml Soln] B12/Levomefolate Calcium/B-6 1 tab PO DAILY@169908/27/21 08/27/21 History [Foltx Tablet] Baclofen 5 mg PO BID@0800,169908/27/21 08/27/21 History Divalproex Sodium [Depakote 125 mg PO BID@0800,209908/27/21 08/27/21 History Sprinkle] Ferrous Sulfate [Feosol] 325 mg PO DAILY@0800 08/27/21 08/27/21 History HYDROcodone/APAP 5-325MG [[place] 1 tab PO Q8H PRN 08/27/21 08/27/21 History 5-325] L.acidoph,Paracasei, B.lactis 1 cap PO DAILY@0800 08/27/21 08/27/21 History [Probiotic] LORazepam [Ativan] 1 mg PO TID@0800,1400,2100 08/27/21 08/27/21 History QUEtiapine FUMARATE 200 mg PO BID@0800,1700 08/27/21 08/27/21 History Sennosides [Senna] 17.2 mg PO HS@2100 08/27/21 08/27/21 History Allergies Allergy/AdvReac Type Severity Reaction Status Date / Time NSAIDS (Non-Steroidal Allergy Unknown Verified 08/27/21 08:55 Anti-Inflamma Penicillins Allergy Rash/Hives Verified 08/27/21 08:55 Physical Exam Vitals: Vital Signs Temp Pulse Pulse Resp BP BP Pulse Ox 08/28/21 04:00 98 F 61 12 134/65 94 L 08/28/21 00:00 97.4 F L 63 12 136/77 97 08/27/21 19:39 98 F 65 12 147/76 97 08/27/21 18:45 97.8 F 65 17 129/74 96 08/27/21 18:00 67 12 149/65 96 08/27/21 17:00 98.5 F 75 22 149/65 94 L 08/27/21 16:00 79 67 13 92 L 08/27/21 15:00 70 54 H 127/96 92 L 08/27/21 14:00 72 22 112/54 92 L 08/27/21 13:00 54 L 10 L 147/98 96 08/27/21 12:00 98.0 F 62 67 18 96 08/27/21 11:00 66 10 L 110/54 93 L 08/27/21 10:00 52 L 13 110/57 98 08/27/21 09:00 54 L 19 125/65 99 08/27/21 08:00 54 L 67 13 99/53 95 Intake and Output 08/27/21 08/28/21 08/28/21 22:59 06:59 14:59 Output Total 500 300 Balance -500 -300 Output: Urine 500 300 Other: Voiding Method Indwelling Catheter Indwelling Catheter Weight 63.8 kg Results 08/28/21 06:55 08/28/21 06:55 CBC 08/27/21 Range/Units 07:55 WBC 19.1 H (3.8-10.6) k/uL RBC 3.39 L (3.80-5.40) m/uL Hgb 10.0 L (11.4-16.0) gm/dL Hct 34.2 (34.0-46.0) % Plt Count 203 (150-450) k/uL Comprehensive Metabolic Panel 08/27/21 Range/Units 07:55 Sodium 144 (137-145) mmol/L Potassium 3.9 (3.5-5.1) mmol/L Chloride 115 H (98-107) mmol/L Carbon Dioxide 20 L (22-30) mmol/L BUN 19 H (7-17) mg/dL Creatinine 0.92 (0.52-1.04) mg/dL Glucose 133 H (74-99) mg/dL Calcium 8.7 (8.4-10.2) mg/dL Current Medications Generic Name Dose Route Start Last Admin Trade Name Freq PRN Reason Stop Dose Admin Acetaminophen 650 mg 08/27/21 11:29 Acetaminophen Tab 325 Mg Tab PO Q4H PRN Fever and/ or Pain Hydrocodone Bitart/Acetaminophen 1 each 08/27/21 11:29 Hydrocodone/Apap 5-325mg 1 Each Tab PO Q8H PRN Pain Albuterol/Ipratropium 3 ml 08/27/21 13:00 08/27/21 23:26 Ipratropium-Albuterol 3 Ml Neb INHALATION Not Given RT-TID MELANIE Albuterol/Ipratropium 3 ml 08/27/21 11:29 Ipratropium-Albuterol 3 Ml Neb INHALATION RT-Q2H PRN Shortness Of Breath Or Wheezing Alprazolam 0.5 mg 08/27/21 09:00 08/27/21 20:55 Alprazolam 0.5 Mg Tab PO 0.5 mg TID MELANIE Administration Bisacodyl 10 mg 08/27/21 00:13 Bisacodyl 10 Mg Supp RECTAL DAILY PRN Constipation Carvedilol 3.125 mg 08/27/21 09:00 08/27/21 14:56 Carvedilol 3.125 Mg Tab PO 3.125 mg BID MELANIE Administration Divalproex Sodium 125 mg 08/27/21 21:00 08/27/21 20:56 Divalproex Sprinkle 125 Mg Cap.Sprink PO 125 mg BID@0800,2100 [facility] Administration Escitalopram Oxalate 20 mg 08/27/21 09:00 08/27/21 10:38 Escitalopram 20 Mg Tab PO Not Given DAILY [facility] Ferrous Sulfate 325 mg 08/28/21 08:00 Ferrous Sulfate 325 Mg Tab PO DAILY@0800 [facility] Folic Acid 1 each 08/27/21 09:00 08/27/21 10:38 [id number]-Je-Xicjeszkvg 1 Each Tab PO Not Given DAILY [facility] Furosemide 40 mg 08/27/21 09:00 08/27/21 14:56 Furosemide 40 Mg Tab PO 40 mg DAILY MELANIE Administration Heparin Sodium (Porcine) 5,000 unit 08/27/21 21:00 08/27/21 21:00 Heparin Sodium,Porcine/Pf 5,000 Unit/0.5 Ml Syringe SQ 5,000 unit Q12HR MELANIE Administration Ceftriaxone Sodium 1 gm/ 50 mls @ 100 mls/hr 08/27/21 10:00 08/27/21 21:27 Sodium Chloride IVPB 100 mls/hr Q12H [facility] Administration Protocol Sodium Chloride 1,000 mls @ 100 mls/hr 08/27/21 00:45 08/28/21 03:00 Saline 0.9% IV 100 mls/hr .Q10H MELANIE Administration Isosorbide Mononitrate 30 mg 08/28/21 08:00 Isosorbide Mononitrate Er 30 Mg Tab.Er.24h PO DAILY@0800 [facility] Lactobacillus Acidoph/Bulgaricus 1 each 08/28/21 08:00 Lactobacillus Acidoph & Bulgar 1 Each Packet PO DAILY@0800 [facility] Loperamide HCl 4 mg 08/27/21 00:13 Loperamide 2 Mg Cap PO BID PRN Loose Stool Lorazepam 0.5 mg 08/27/21 18:19 08/28/21 04:08 Lorazepam 2 Mg/Ml Inj IV 0.5 mg Q8HR PRN Administration Agitation Melatonin 6 mg 08/27/21 21:00 08/27/21 20:56 Melatonin 3 Mg Tablet PO 6 mg HS@2100 MELANIE Administration Morphine Sulfate 4 mg 08/27/21 00:40 08/27/21 17:43 Morphine Sulfate 4 Mg/Ml Syringe IV 4 mg Q4HR PRN Administration Severe Pain Naloxone HCl 0.2 mg 08/27/21 00:40 Naloxone 0.4 Mg/Ml 1 Ml Vial IV Q2M PRN Opioid Reversal Nitroglycerin 0.4 mg 08/27/21 00:13 Nitroglycerin Sl Tabs 0.4 Mg Tab SUBLINGUAL Q5M PRN Chest Pain Ondansetron HCl 4 mg 08/27/21 00:40 Ondansetron 4 Mg/2 Ml Vial IVP Q8HR PRN Nausea And Vomiting Pantoprazole Sodium 40 mg 08/27/21 07:30 08/28/21 06:15 Pantoprazole 40 Mg Tablet PO 40 mg AC-BID MELANIE Administration Quetiapine Fumarate 200 mg 08/27/21 17:00 08/27/21 14:56 Quetiapine 200 Mg Tab PO 200 mg BID@0800,1700 MELANIE Administration Senna 17.2 mg 08/27/21 21:00 08/27/21 20:59 Sennosides 8.6 Mg Tab PO 17.2 mg HS@2100 MELANIE Administration Sodium Biphosphate/Sodium Phosphate 133 ml 08/27/21 00:13 Na Phos,M-B/Na Phos,Di-Ba 133 Ml Enema RECTAL DAILY PRN Constipation Intake and Output 08/27/21 08/28/21 08/28/21 22:59 06:59 14:59 Output Total 500 300 Balance -500 -300 Output: Urine 500 300 Other: Voiding Method Indwelling Catheter Indwelling Catheter Weight 63.8 kg 08/27/21 07:55 08/27/21 07:55
--- NOTE | 2021-08-28 10:26 | P.PN ---
Subjective Progress Note Date: 08/28/21 81-year-old female patient, a [facility] resident because of her advanced dementia, was admitted to the hospital and later on brought into the intensive care unit because of staffing issues and she is a medical overflow for now. She came in with lethargy, altered mentation and underlying UTI. The patient is currently resting comfortably in bed. She is on oxygen at 2 L with a pulse ox of 98%. Hemodynamically, the patient is on IV fluids running at 50 mL an hour. The patient received IV fluids 1 L prior to her coming to the ICU. Her UA was abnormal and the patient had a white cell count of 182 with a turbid urine. Culture is still pending for now. The patient white cell count was at 19.1 with a hemoglobin of 10. Coagulation profile was normal. X-rays showed a normal renal function, normal electrolytes, serum bicarb was 20 this morning. The patient is currently on no pressors. Urine output is in order of 50 mL an hour and the patient has a Mccormick catheter in place. Breathing is nonlabored. She is calm and comfortable at this point in time. In terms of antibiotic coverage, the patient was given IV Rocephin. Lactic acid level was 2.1 at time of admission and her troponins were negative. ProBNP level is 2005 and 40. Chest x-ray was done and the patient also had a CT angiogram that showed no evidence of any pulmonary embolism. She does have some background cardiomegaly on her chest x-ray. On today's evaluation of 08/28/2021, the patient is a bit anxious and agitated and her breathing seems to be labored and she is also bronchospastic. The white cell count is down to 14.7 with a hemoglobin of 10 and a platelet count of 206. The electrolytes are all normal. Function is stable. Cultures are negative thus far the patient remains on IV Rocephin. The patient remains on DuoNeb nebulized treatments around the clock. The patient is also on Lasix 60 mg daily basis. She is on oxygen at 3 L. Objective - Vital Signs Vital signs: Vital Signs Temp 97.9 F 08/28/21 09:24 Pulse 84 08/28/21 09:24 Resp 22 08/28/21 09:24 BP 155/88 08/28/21 09:24 Pulse Ox 95 08/28/21 09:24 FiO2 Intake & Output 08/27/21 08/28/21 08/28/21 18:59 06:59 18:59 Intake Total 1040 Output Total 400 800 Balance 640 -800 Weight 63.8 kg Intake: Intake, IV Titration 800 Amount Sodium Chloride 0.9% 1, 800 000 ml @ 100 mls/hr IV . Q10H [facility] Rx#:[id number] Oral 240 Output: Urine 400 800 Other: Voiding Method Indwelling Catheter Indwelling Catheter - Exam GENERAL EXAM: Alert, pleasant, confused 80-year-old female patient, on 3 L nasal cannula, comfortable in no apparent distress. HEAD: Normocephalic. EYES: Normal reaction of pupils, equal size. NOSE: Clear with pink turbinates. THROAT: No erythema or exudates. NECK: No masses, no JVD. CHEST: No chest wall deformity. LUNGS: Equal air entry with faint crackles in the posterior bases CVS: S1 and S2 normal with no audible murmur, regular rhythm. ABDOMEN: No hepatosplenomegaly, normal bowel sounds, no guarding or rigidity. SPINE: No scoliosis or deformity SKIN: No rashes CENTRAL NERVOUS SYSTEM: No focal deficits, tone is normal in all 4 extremities. EXTREMITIES: There is no peripheral edema. No clubbing, no cyanosis. Peripheral pulses are intact. - Labs CBC & Chem 7: 08/28/21 06:55 08/28/21 06:55 Labs: Abnormal Lab Results - Last 24 Hours (Table) 08/28/21 08/28/21 Range/Units 06:55 06:55 WBC 14.7 H (3.8-10.6) k/uL RBC 3.34 L (3.80-5.40) m/uL Hgb 10.0 L (11.4-16.0) gm/dL Hct 33.9 L (34.0-46.0) % MCV 101.5 H (80.0-100.0) fL MCHC 29.4 L (31.0-37.0) g/dL Neutrophils # 12.8 H (1.3-7.7) k/uL Lymphocytes # 0.5 L (1.0-4.8) k/uL Monocytes # 1.1 H (0-1.0) k/uL Chloride 113 H (98-107) mmol/L BUN 18 H (7-17) mg/dL Total Bilirubin 0.1 L (0.2-1.3) mg/dL Albumin 3.1 L (3.5-5.0) g/dL Microbiology - Last 24 Hours (Table) 08/26/21 22:00 Blood Culture - Preliminary Blood No Growth after 24 hours 08/26/21 22:30 Blood Culture - Preliminary Blood No Growth after 24 hours 08/26/21 22:02 Urine Culture - Preliminary Urine,Voided Assessment and Plan Plan: mental status change above and beyond her baseline secondary to underlying UTI is unchanged compared to yesterday, awaiting final cultures and the patient remains on IV Rocephin UTI Mild lactic acidosis, improved COPD currently is having some increased shortness of breath and the patient is found to be more bronchospastic. 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
[2021-08-28] MEDS: methylPREDNISolone SOD SUCCI 125 MG/2 ML VIAL IV SCH ×2 (12:19→17:32)
--- NOTE | 2021-08-28 12:40 | P.PN ---
Subjective Progress Note Date: 08/28/21 HISTORY OF PRESENT ILLNESS This is an 81-year-old female patient of Dr. Ortiz long-term resident at [facility] with past medical history of COPD, hypertension, remote history of tobacco use and dependence, sigmoid diverticulosis, suspected Regan's esophagus, dementia, history of alcohol abuse. Patient was found to be weak, lethargic, short of breath with fever. Patient was found to be afebrile with temperature of 99.4 axillary, heart rate 84, blood pressure 83/40, respiratory rate 24, pulse ox 95% on 2 L nasal cannula. WBC 13.3, hemoglobin 10.9, platelet count 213. INR 1.1. D-dimer 1.34. Sodium 142, potassium 3.1, chloride 190, CO2 28, BUN 22 and creatinine 1.07. Blood sugar 107. Lactic acid 2.1 with repeat of 1.0. Magnesium 1.4 and repeat of 2.4. Liver function tests were normal. Albumin 3.3. Urinalysis was turbid, leukoesterase large, WBCs greater than 182. Urine culture is in progress. Chest x-ray reveals mild cardiomegaly. Mild pulmonary fibrotic changes. No definite acute lung disease. No adverse change. CTA of the chest showed no evidence of pulmonary embolism. Cardiomegaly with aneurysm of the ascending aorta. Patchy bilateral pulmonary interstitial infiltrates and atelectasis. No discrete pulmonary mass. Patient is seen today in the intensive care unit as an overflow for cardiac stepdown unit. 08/28: Patient is seen today on the cardiac stepdown unit and will be transitioned to [facility]. Patient is awake and alert today. Apparently she was yelling through the night with confusion. Patient has been seen by cardiology and state no acute heart failure and increased Lasix to 60 mg daily. Cardiology has signed off the patient's case. Patient is seen and followed by pulmonary medicine with recommendations to continue O2 at 3 L nasal cannula, continue Solu-Medrol 60 mg every 6 hours nebulizer treatments and Rocephin. Speech ther apy has recommended chopped diet. WBC 14.7, hemoglobin 10, platelet count 206. Chloride 118, BUN 18 and creatinine 0.84. Urine culture is in progress. Blood culture 2 no growth at 24 hours. Anticipate return to [facility] tomorrow REVIEW OF SYSTEMS Unable to obtain due to patient's mental status. PHYSICAL EXAMINATION Gen: This is a 81-year-old female. She is resting in bed in the ICU as an overflow for cardiac stepdown unit, patient appears to be comfortable and in no acute distress. No respiratory distress is noted. HEENT: Head is atraumatic, normocephalic. Pupils equal, round. Sclerae is anicteric. NECK: Supple. No JVD. No lymphadenopathy. No thyromegaly. LUNGS: Crackles bilateral. No intercostal retractions. HEART: Regular rate and rhythm. No murmur. ABDOMEN: Soft. Bowel sounds are present. No masses. No tenderness. EXTREMITIES: No pedal edema. No calf tenderness. Dorsalis pedis +2 bilaterally. NEUROLOGICAL: Patient is sleeping and does not arouse easily. ASSESSMENT AND PLAN 1. Chronic hypoxic respiratory failure on 2 L nasal cannula, COPD exacerbation. Patient started on Rocephin 1 g IV piggyback every day, DuoNeb DuoNeb treatments 3 times daily and as needed, continue Lasix increased to 60 mg daily oral. Pulmonary consult and cardiology consults appreciated, speech therapy consult 2. Sepsis with Metabolic encephalopathy. 3. Sepsis secondary to acute urinary tract infection and suspected aspiration pneumonia. Urine culture and blood cultures in progress. Continue ceftriaxone. 4. Electrolyte abnormalities with hypokalemia and hypomagnesemia status post re placement. 5. Hypertension. Patient is currently hypotensive secondary to sepsis, septic shock. Continue Coreg 3.125 mg twice daily. 6. Dementia. 7. Tobacco use and dependence hx. 8. Recurrent depression and generalized anxiety disorder. Continue Lexapro 20 mg daily, Seroquel 200 mg twice daily, Xanax 0.5 mg 3 times daily. 9. Seizure disorder. Continue Depakote 125 mg twice daily. 10. Anemia of chronic disease. Continue ferrous sulfate 325 mg daily. 11. Chest pain. Continue Imdurr 30 mg daily 12. Gastroesophageal reflux disease and GI prophylaxis. Protonix. 13. DVT prophylaxis. Heparin subcu. DISCHARGE PLAN Return to [facility] on Friday. Impression and plan of care have been directed as dictated by the signing physician. Sameera Medrano nurse practitioner acting as scribe for signing physician. Objective - Vital Signs Vital signs: Vital Signs Temp 98 F 08/28/21 04:00 Pulse 61 08/28/21 04:00 Resp 12 08/28/21 04:00 BP 134/65 08/28/21 04:00 Pulse Ox 94 L 08/28/21 04:00 FiO2 Intake & Output 08/27/21 08/28/21 08/28/21 18:59 06:59 18:59 Intake Total 1040 Output Total 400 800 Balance 640 -800 Weight 63.8 kg Intake: Intake, IV Titration 800 Amount Sodium Chloride 0.9% 1, 800 000 ml @ 100 mls/hr IV . Q10H [facility] Rx#:[id number] Oral 240 Output: Urine 400 800 Other: Voiding Method Indwelling Catheter Indwelling Catheter - Labs CBC & Chem 7: 08/28/21 06:55 08/28/21 06:55 Labs: Abnormal Lab Results - Last 24 Hours (Table) 08/28/21 08/28/21 Range/Units 06:55 06:55 WBC 14.7 H (3.8-10.6) k/uL RBC 3.34 L (3.80-5.40) m/uL Hgb 10.0 L (11.4-16.0) gm/dL Hct 33.9 L (34.0-46.0) % MCV 101.5 H (80.0-100.0) fL MCHC 29.4 L (31.0-37.0) g/dL Neutrophils # 12.8 H (1.3-7.7) k/uL Lymphocytes # 0.5 L (1.0-4.8) k/uL Monocytes # 1.1 H (0-1.0) k/uL Chloride 113 H (98-107) mmol/L BUN 18 H (7-17) mg/dL Total Bilirubin 0.1 L (0.2-1.3) mg/dL Albumin 3.1 L (3.5-5.0) g/dL Microbiology - Last 24 Hours (Table) 08/26/21 22:00 Blood Culture - Preliminary Blood No Growth after 24 hours 08/26/21 22:30 Blood Culture - Preliminary Blood No Growth after 24 hours 08/26/21 22:02 Urine Culture - Preliminary Urine,Voided
[2021-08-29] MEDS: carvediloL 3.125 MG TAB PO SCH ×2 (00:25→07:43)
[2021-08-29] MEDS: HEPARIN SODIUM,PORCINE/PF 5,000 UNIT/0.5 ML SYRINGE SQ SCH ×2 (00:26→07:43)
[2021-08-29] MEDS: ALPRAZolam 0.5 MG TAB PO SCH ×3 (00:26→15:15)
[2021-08-29] MEDS: DIVALPROEX SPRINKLE 125 MG CAP.SPRINK PO SCH ×2 (00:26→10:47)
[2021-08-29] MEDS: MELATONIN 3 MG TABLET PO SCH (00:26)
[2021-08-29] MEDS: SENNOSIDES 8.6 MG TAB PO SCH (00:26)
[2021-08-29] MEDS: methylPREDNISolone SOD SUCCI 125 MG/2 ML VIAL IV SCH ×2 (01:35→08:45)
[2021-08-29 06:53] LABS: Glucose,Whole Blood 122 mg/dL (75-99)
[2021-08-29 07:34] VITALS: RESP 18
[2021-08-29] MEDS: PANTOPRAZOLE 40 MG TABLET PO SCH (07:43)
[2021-08-29] MEDS: LACTOBACILLUS ACIDOPH & BULGAR 1 EACH PACKET PO SCH (07:43)
[2021-08-29] MEDS: FERROUS SULFATE 325 MG TAB PO SCH (07:43)
[2021-08-29] MEDS: FUROSEMIDE 20 MG TAB PO SCH (07:43)
[2021-08-29] MEDS: ISOSORBIDE MONONITRATE ER 30 MG TAB.ER.24H PO SCH (07:43)
[2021-08-29] MEDS: ESCITALOPRAM 20 MG TAB PO SCH (07:43)
[2021-08-29] MEDS: IPRATROPIUM-ALBUTEROL 3 ML NEB INHALATION SCH ×2 (07:56→12:12)
--- NOTE | 2021-08-29 08:35 | P.DS ---
Providers Date of admission: 08/27/21 00:40 Expected date of discharge: 08/29/21 Attending physician: Jordan Ortiz Consults: 08/27/21 08:53 Consult Physician Routine Consulting Provider: Alexander Peterson Consult Reason/Comments: chf Do you want consulting provider notified?: Yes Consult Physician Routine Consulting Provider: Marilou Ellis Consult Reason/Comments: hypoxia, pneumonia Do you want consulting provider notified?: Yes Primary care physician: [facility] Course: HISTORY OF PRESENT ILLNESS This is an 81-year-old female patient of Dr. 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 Patient was found to be weak, lethargic, short of breath with fever. Patient was found to be afebrile with temperature of 99.4 axillary, heart rate 84, blood pressure 83/40, respiratory rate 24, pulse ox 95% on 2 L nasal cannula. WBC 13.3, hemoglobin 10.9, platelet count 213. INR 1.1. D-dimer 1.34. Sodium 142, potassium 3.1, chloride 190, CO2 28, BUN 22 and creatinine 1.07. Blood sugar 107. Lactic acid 2.1 with repeat of 1.0. Magnesium 1.4 and repeat of 2.4. Liver function tests were normal. Albumin 3.3. Urinalysis was turbid, leukoesterase large, WBCs greater than 182. Urine culture is in progress. Chest x-ray reveals mild cardiomegaly. Mild pulmonary fibrotic changes. No definite acute lung disease. No adverse change. CTA of the chest showed no evidence of pulmonary embolism. Cardiomegaly with aneurysm of the ascending aorta. Patchy bilateral pulmonary interstitial infiltrates and atelectasis. No discrete pulmonary mass. Patient is seen today in the intensive care unit as an overflow for cardiac stepdown unit. 08/28: Patient is seen today on the cardiac stepdown unit and will be transitioned to MedSurg. Patient is awake and alert today. Apparently she was yelling through the night with confusion. Patient has been seen by cardiology and state no acute heart failure and increased Lasix to 60 mg daily. Cardiology has signed off the patient's case. Patient is seen and followed by pulmonary medicine with recommendations to continue O2 at 3 L nasal cannula, continue Solu-Medrol 60 mg every 6 hours nebulizer treatments and Rocephin. Speech therapy has recommended chopped diet. WBC 14.7, hemoglobin 10, platelet count 206. Chloride 118, BUN 18 and creatinine 0.84. Urine culture is in progress. Blood culture 2 no growth at 24 hours. Anticipate return to [facility] tomorrow 08/29: Patient has been afebrile, heart rate 80, blood pressure 187/90, pulse ox 94% on 3 L nasal cannula. Blood sugar this morning is 122. Urine culture is showing gram-negative bacilli and has not been finalized. Blood cultures are no growth at 48 hours 2 specimens. Patient has been seen by Dr. Ellis as well as cardiology. We will plan to transition IV Solu-Medrol to oral prednisone and IV antibiotics changed to oral Cipro. Patient will be continued on higher dose of Lasix as advised by cardiology. Patient will be discharged back to [facility] today in stable condition. DISCHARGE DIAGNOSES 1. Chronic hypoxic respiratory failure on 2 L nasal cannula, COPD exacerbation. 2. Sepsis with Metabolic encephalopathy. 3. Sepsis secondary to acute urinary tract infection and suspected aspiration pneumonia. 4. Electrolyte abnormalities with hypokalemia and hypomagnesemia status post replacement. 5. Hypertension. 6. Dementia. 7. Tobacco use and dependence hx. 8. Recurrent depression and generalized anxiety disorder. 9. Seizure disorder. 10. Anemia of chronic disease. 11. Chest pain. 12. Gastroesophageal reflux disease DISCHARGE PLAN Return to [facility] on Friday. Greater than 35 minutes was utilized and coordinating patient's discharge. Impression and plan of care have been directed as dictated by the signing physician. Sameera Medrano nurse practitioner acting as scribe for signing physician. Patient Condition at Discharge: Good Plan - Discharge Summary Discharge Rx Participant: No New Discharge Prescriptions: New Ciprofloxacin HCl [Cipro] 250 mg PO BID 5 Days #10 tab Furosemide [Lasix] 60 mg PO DAILY #0 tab predniSONE 0 mg PO DIRECTED #30 tab Continue Nitroglycerin Sl Tabs [Nitrostat] 0.4 mg SUBLINGUAL Q5M PRN PRN Reason: Chest Pain Escitalopram [Lexapro] 20 mg PO DAILY@0800 Acetaminophen Tab [Tylenol] 650 mg PO Q4H PRN PRN Reason: Fever And/ Or Pain carvediloL [Coreg] 3.125 mg PO BID@0800,1700 Loperamide HCl [Imodium A-D] 4 mg PO BID PRN PRN Reason: Loose Stool Menthol [Biofreeze] 1 applic TOPICAL BID@0800,2100 Isosorbide Mononitrate ER [Imdur] 30 mg PO DAILY@0800 Ipratropium-Albuterol Nebulize [Duoneb 0.5 mg-3 mg/3 ml Soln] 3 ml INHALATION RT-QID PRN ml PRN Reason: Dyspnea Baclofen 5 mg PO BID@0800,1700 Divalproex Sodium [Depakote Sprinkle] 125 mg PO BID@0800,2100 Albuterol Inhaler [Ventolin Hfa Inhaler] 2 puff INHALATION RT-QID PRN PRN Reason: Shortness Of Breath bisacodyL [Dulcolax] 10 mg RECTAL DAILY PRN PRN Reason: Constipation Magnesium Hydroxide [Milk of Magnesia] 2,400 mg PO Q48H PRN PRN Reason: Constipation Melatonin 6 mg PO HS@2100 Na Phos,M-B/Na Phos,Di-Ba [Fleet Adult] 133 ml RECTAL DAILY PRN PRN Reason: Constipation Pantoprazole Sodium [Protonix] 40 mg PO DAILY@0800 B12/Levomefolate Calcium/B-6 [Foltx Tablet] 1 tab PO DAILY@1700 Ferrous Sulfate [Iron (65 MG Elemental)] 325 mg PO DAILY@0800 L.acidoph,Paracasei, B.lactis [Probiotic] 1 cap PO DAILY@0800 QUEtiapine FUMARATE 200 mg PO BID@0800,1700 Sennosides [Senna] 17.2 mg PO HS@2100 LORazepam [Ativan] 1 mg PO TID@0800,1400,2100 #9 tab HYDROcodone/APAP 5-325MG [[place] 5-325] 1 tab PO Q8H PRN #9 tab PRN Reason: Pain Discontinued Furosemide [Lasix] 40 mg PO DAILY@0800 Discharge Medication List Nitroglycerin Sl Tabs [Nitrostat] 0.4 mg SUBLINGUAL Q5M PRN 04/13/20 [History] Escitalopram [Lexapro] 20 mg PO DAILY@0800 10/09/20 [History] Acetaminophen Tab [Tylenol] 650 mg PO Q4H PRN 11/17/20 [History] Albuterol Inhaler [Ventolin Hfa Inhaler] 2 puff INHALATION RT-QID PRN 11/17/20 [History] Isosorbide Mononitrate ER [Imdur] 30 mg PO DAILY@79911/17/20 [History] Loperamide HCl [Imodium A-D] 4 mg PO BID PRN 11/17/20 [History] Magnesium Hydroxide [Milk of Magnesia] 2,400 mg PO Q48H PRN 11/17/20 [History] Melatonin 6 mg PO HS@209911/17/20 [History] Menthol [Biofreeze] 1 applic TOPICAL BID@799,209911/17/20 [History] Na Phos,M-B/Na Phos,Di-Ba [Fleet Adult] 133 ml RECTAL DAILY PRN 11/17/20 [History] Pantoprazole Sodium [Protonix] 40 mg PO DAILY@79911/17/20 [History] bisacodyL [Dulcolax] 10 mg RECTAL DAILY PRN 11/17/20 [History] carvediloL [Coreg] 3.125 mg PO BID@0800,169911/17/20 [History] Ipratropium-Albuterol Nebulize [Duoneb 0.5 mg-3 mg/3 ml Soln] 3 ml INHALATION RT-QID PRN ml 11/20/20 [Rx] B12/Levomefolate Calcium/B-6 [Foltx Tablet] 1 tab PO DAILY@169908/27/21 [History] Baclofen 5 mg PO BID@08,169908/27/21 [History] Divalproex Sodium [Depakote Sprinkle] 125 mg PO BID@08,209908/27/21 [History] Ferrous Sulfate [Iron (65 MG Elemental)] 325 mg PO DAILY@79908/27/21 [History] L.acidoph,Paracasei, B.lactis [Probiotic] 1 cap PO DAILY@79908/27/21 [History] QUEtiapine FUMARATE 200 mg PO BID@0800,1700 08/27/21 [History] Sennosides [Senna] 17.2 mg PO HS@209908/27/21 [History] Ciprofloxacin HCl [Cipro] 250 mg PO BID 5 Days #10 tab 08/29/21 [Rx] Furosemide [Lasix] 60 mg PO DAILY #0 tab 08/29/21 [Rx] HYDROcodone/APAP 5-325MG [[place] 5-325] 1 tab PO Q8H PRN #9 tab 08/29/21 [Rx] LORazepam [Ativan] 1 mg PO TID@0800,1400,2100 #9 tab 08/29/21 [Rx] predniSONE 0 mg PO DIRECTED #30 tab 08/29/21 [Rx] Follow up Appointment(s)/Referral(s): Jordan Ortiz MD [Primary Care Provider] - 1 Week (AT [facility]) Discharge Disposition: TRANSFER TO SNF/ECF
[2021-08-29] MEDS ORDERED: FUROSEMIDE 20 MG TAB PO SCH (09:00)
[2021-08-29] MEDS: QUEtiapine 200 MG TAB PO SCH (10:47)
[2021-08-29] MEDS: CYANOCOBALAMIN-FA-PYRIDOXINE 1 EACH TAB PO SCH (10:47)
[2021-08-29] MEDS: SODIUM CHLORIDE 0.9% 1,000 ML IV SCH ×2 (10:53→10:54)
[2021-08-29 11:27] LABS: Glucose,Whole Blood 151 mg/dL (75-99)
--- NOTE | 2021-08-29 11:43 | P.PN ---
Subjective Progress Note Date: 08/29/21 81-year-old female patient, a assisted resident because of her advanced dementia, was admitted to the hospital and later on brought into the intensive care unit because of staffing issues and she is a medical overflow for now. She came in with lethargy, altered mentation and underlying UTI. The patient is currently resting comfortably in bed. She is on oxygen at 2 L with a pulse ox of 98%. Hemodynamically, the patient is on IV fluids running at 50 mL an hour. The patient received IV fluids 1 L prior to her coming to the ICU. Her UA was abnormal and the patient had a white cell count of 182 with a turbid urine. Culture is still pending for now. The patient white cell count was at 19.1 with a hemoglobin of 10. Coagulation profile was normal. X-rays showed a normal renal function, normal electrolytes, serum bicarb was 20 this morning. The patient is currently on no pressors. Urine output is in order of 50 mL an hour and the patient has a Mccormick catheter in place. Breathing is nonlabored. She is calm and comfortable at this point in time. In terms of antibiotic coverage, the patient was given IV Rocephin. Lactic acid level was 2.1 at time of admission and her troponins were negative. ProBNP level is 2005 and 40. Chest x-ray was done and the patient also had a CT angiogram that showed no evidence of any pulmonary embolism. She does have some background cardiomegaly on her chest x-ray. On today's evaluation of 08/28/2021, the patient is a bit anxious and agitated and her breathing seems to be labored and she is also bronchospastic. The white cell count is down to 14.7 with a hemoglobin of 10 and a platelet count of 206. The electrolytes are all normal. Function is stable. Cultures are negative thus far the patient remains on IV Rocephin. The patient remains on DuoNeb nebulized treatments around the clock. The patient is also on Lasix 60 mg daily basis. She is on oxygen at 3 L. 08/29/2021, the patient remains confused. At times she was on to yelling episodes and at other times she is calm. Note that the patient was hospitalized because of an altered mentation, metabolic encephalopathy and sepsis secondary to UTI. She is hemodynamically stable for now. She is on oxygen at 3 L/m nasal cannula. She was treated with broad-spectrum antibiotics and yesterday added steroids as the patient was found to be increased to bronchospastic and wheezy. Urine culture was positive for Citrobacter and the patient is currently on IV Rocephin. She is afebrile. She is hemodynamically stable. She is on bronchodilators. She is on also on IV steroids. Seroquel was also used regarding her the medication at a dose of 200 mg by mouth twice a day. Rest of the other medications of been all resumed. On and off, the patient is communicating and she is stating that her breathing is better. Objective - Vital Signs Vital signs: Vital Signs Temp 97.7 F 08/29/21 07:33 Pulse 80 08/29/21 08:06 Resp 18 08/29/21 07:33 BP 187/90 08/29/21 07:33 Pulse Ox 94 L 08/29/21 07:33 FiO2 Intake & Output 08/28/21 08/29/21 08/29/21 18:59 06:59 18:59 Output Total 600 Balance -600 Output: Urine 600 Other: Voiding Method Incontinent Incontinent # Voids 1 1 # Bowel Movements 0 - Exam GENERAL EXAM: Alert, pleasant, confused 80-year-old female patient, on 3 L nasal cannula, comfortable in no apparent distress. HEAD: Normocephalic. EYES: Normal reaction of pupils, equal size. NOSE: Clear with pink turbinates. THROAT: No erythema or exudates. NECK: No masses, no JVD. CHEST: No chest wall deformity. LUNGS: Equal air entry with faint crackles in the posterior bases CVS: S1 and S2 normal with no audible murmur, regular rhythm. ABDOMEN: No hepatosplenomegaly, normal bowel sounds, no guarding or rigidity. SPINE: No scoliosis or deformity SKIN: No rashes CENTRAL NERVOUS SYSTEM: No focal deficits, tone is normal in all 4 extremities. EXTREMITIES: There is no peripheral edema. No clubbing, no cyanosis. Peripheral pulses are intact. - Labs CBC & Chem 7: 08/28/21 06:55 08/28/21 06:55 Labs: Abnormal Lab Results - Last 24 Hours (Table) 08/29/21 08/29/21 Range/Units 06:52 11:26 POC Glucose (mg/dL) 122 H 151 H (75-99) mg/dL Microbiology - Last 24 Hours (Table) 08/26/21 22:02 Urine Culture - Final Urine,Voided Citrobacter murliniae 08/26/21 22:00 Blood Culture - Preliminary Blood No Growth after 48 hours 08/26/21 22:30 Blood Culture - Preliminary Blood No Growth after 48 hours Assessment and Plan Plan: mental status change above and beyond her baseline secondary to underlying UTI is unchanged compared to yesterday, awaiting final cultures and the patient remains on IV Rocephin1. The patient was identified to have a gram-negative Citrobacter UTI currently on IV Rocephin. Mental status is improved compared to yesterday although the patient is on and off confused. Much more with the pr ogram and much more responsive on today's evaluation. 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 Time of discharge and the patient can be switched to oral antibiotics including ciprofloxacin or Levaquin at time of discharge w IV fluids to KVO Heparin subcu for DVT prophylaxis Resume home medications possibly today We'll continue to follow if the patient stayed in the hospital
[2021-08-29 14:02] VITALS: PULSE 74
[2021-08-29 15:50] VITALS: BP 169/77; TEMP 37
[2021-08-30] MEDS ORDERED: predniSONE 10 MG TAB PO SCH (09:00)
== END 2021-08-29 15:56 | DRG 871 ==
LOC: EC 21:42 → 3SCARD 08-27 00:40 → 2SICU 08-27 01:11 → 3SCARD 08-27 18:32 → 4SSUR 08-28 23:09
PROVIDERS: ADMIT Internal Medicine Geriatric Medicine; ATTEND Internal Medicine Geriatric Medicine
DX: A41.9 Sepsis, unspecified organism (principal); G93.41 Metabolic encephalopathy; R65.21 Severe sepsis with septic shock; J69.0 Pneumonitis due to inhalation of food and vomit; E87.2 Acidosis; F33.9 Major depressive disorder, recurrent, unspecified; I50.32 Chronic diastolic (congestive) heart failure; J44.1 Chronic obstructive pulmonary disease with (acute) exacerbation; J96.11 Chronic respiratory failure with hypoxia; J98.11 Atelectasis; N39.0 Urinary tract infection, site not specified; Z20.822 Contact with and (suspected) exposure to COVID-19; Z66 Do not resuscitate; G31.89 Other specified degenerative diseases of nervous system; F10.21 Alcohol dependence, in remission; K22.70 Barrett's esophagus without dysplasia; M19.90 Unspecified osteoarthritis, unspecified site; K57.30 Diverticulosis of large intestine without perforation or abscess without bleeding; F17.200 Nicotine dependence, unspecified, uncomplicated; D63.8 Anemia in other chronic diseases classified elsewhere; E83.42 Hypomagnesemia; E87.6 Hypokalemia; F03.90 Unspecified dementia, unspecified severity, without behavioral disturbance, psychotic disturbance, mood disturbance, and anxiety; F41.1 Generalized anxiety disorder; G40.909 Epilepsy, unspecified, not intractable, without status epilepticus; I11.0 Hypertensive heart disease with heart failure; R07.9 Chest pain, unspecified; I08.3 Combined rheumatic disorders of mitral, aortic and tricuspid valves; I71.2 Thoracic aortic aneurysm, without rupture; K21.9 Gastro-esophageal reflux disease without esophagitis; Z79.899 Other long term (current) drug therapy; Z80.3 Family history of malignant neoplasm of breast; Z87.01 Personal history of pneumonia (recurrent); Z90.710 Acquired absence of both cervix and uterus; Z88.0 Allergy status to penicillin; Z88.8 Allergy status to other drugs, medicaments and biological substances; Z79.52 Long term (current) use of systemic steroids; Z87.891 Personal history of nicotine dependence; Z80.8 Family history of malignant neoplasm of other organs or systems; Z82.49 Family history of ischemic heart disease and other diseases of the circulatory system; Z87.11 Personal history of peptic ulcer disease; Z87.19 Personal history of other diseases of the digestive system
CPT/HCPCS: 36415; 71045; 71275; 80048; 80053; 81001; 83605; 83735; 83880; 84100; 84484; 85025; 85379; 85610; 85730; 87040; 87077; 87086; 87186; 87635; 93005; 94640; 96365; 96366; 96367; 96375; 99291